=== PATIENT | female | born 1980 | race Caucasian/White ===

== ENCOUNTER → 2020-01-21 15:28 | Outpatient (BNVA) | payer OTHER, MEDICAID, SELFPAY | PROVIDERS: PCP Internal Medicine Geriatric Medicine; Referring Provider Internal Medicine Geriatric Medicine; Visit Provider Surgery | DX: Z76.89 Persons encountering health services in other specified circumstances (principal) ==

== ENCOUNTER → 2020-01-22 14:05 | Outpatient (BNVA) | payer OTHER, MEDICAID, SELFPAY | PROVIDERS: PCP Internal Medicine Geriatric Medicine; Visit Provider Physician Assistant | DX: Z76.89 Persons encountering health services in other specified circumstances (principal) ==

== ENCOUNTER 2020-01-26 11:02 | Outpatient (REF) | payer OTHER, MEDICAID, SELFPAY ==
--- NOTE | 2020-01-26 11:53 | ECG_ITS ---
Test Reason : PRE SURG Blood Pressure : / mmHG Vent. Rate : 076 BPM Atrial Rate : 076 BPM P-R Int : 174 ms QRS Dur : 092 ms QT Int : 392 ms P-R-T Axes : 034 014 012 degrees QTc Int : 441 ms Normal sinus rhythm Normal ECG When compared with ECG of 17-FEB-2019 19:33, Heart rate has decreased Referred By: Deana Barnes Electronically Signed By:VI BOLAÑOS MD
[2020-01-26 12:34] LABS: MANUAL DIFF FLAG NO
[2020-01-26 12:39] LABS: Basophils Percent Auto 0.3 % (0-2); Eosinophils Absolute Auto 0.1 X10*3/uL (0.0-0.4); Hemoglobin 14.1 g/dl (12.0-16.0); Imm Gran Abs Auto 0.03 X10*3/uL (0.00-0.03); Imm Gran Pct Auto 0.4 % (0.0-0.4); Lymphocytes Absolute Auto 1.8 X10*3/uL (1.2-4.9); Lymphocytes Percent Auto 26.1 % (20-40); Mean Corpuscular Hemoglobin 30.1 pg (27.0-33.0); Mean Corpuscular Volume 93.8 fL (80-98); Mean Platelet Volume 9.7 fL (9.4-12.3); Monocytes Absolute Auto 0.5 X10*3/uL (0.1-1.2); Monocytes Percent Auto 7.4 % (2-11); Neutrophils Absolute Auto 4.5 X10*3/uL (2.0-8.3); Neutrophils Percent Auto 64.8 % (45-73); Platelet Count 263 X10*3/uL (160-400); Red Blood Count 4.69 X10*6/uL (4.20-5.50); Red Cell Distribution Width 13.4 % (11.0-16.0)
[2020-01-26 12:46] LABS: Glucose Urine UA NEG (NEG); Leukocyte Esterase Urine NEG (NEG); Nitrite Urine NEG (NEG); PH 5.5 (5.0-8.0); Specific Gravity - Urine 1.025 (1.005-1.025); Urine Blood NEG (NEG); Urine Ketones NEG (NEG); Urine Protein NEG (NEG-TRACE)
[2020-01-26 12:51] LABS: Color Urine YELLOW; UACC Culture Trigger NO
[2020-01-26 12:52] LABS: Appearance Urine HAZY
[2020-01-26 13:11] LABS: Anion Gap 14 (12-20); Blood Urea Nitrogen 15 mg/dL (9-16); Calcium 9.5 mg/dL (8.4-10.2); Carbon Dioxide 25 mmol/L (22-29); Chloride 106 mmol/L (96-108); Estimated Glomerular Filt Rate > 60; Glucose Random 99 mg/dL (60-115); Sodium 141 mmol/L (135-145)
== END 2020-01-26 11:03 | disposition home or self-care (01) ==
LOC: HO.LAB 11:02
PROVIDERS: PCP Internal Medicine Geriatric Medicine; Visit Provider Surgery
DX: R06.02 Shortness of breath (principal)
CPT/HCPCS: 36415; 80048; 81003; 85025; 86850; 93005

== ENCOUNTER 2020-02-03 13:35 | Inpatient (IN) | payer OTHER, MEDICAID, SELFPAY ==
[2020-01-28 09:36] VITALS: BP 115/65; PULSE 70; RESP 16; O2SAT 97; BMI 37.0
--- NOTE | 2020-01-28 09:57 | HO.ANESPROP2 ---
Documented by User: Sarah Bland 02/02/20 10:23 HPI - Anesthesia Eval Consult details Narrative: 40yo F for gastric sleeve PMFSH Past Medical History Medical History (Updated 02/03/20 @ 08:51 by Paige Nuñez) Anxiety Arthritis Bursitis Chronic back pain Degenerative disc disease Depression Diverticular disease Endometriosis Fatty liver GERD (gastroesophageal reflux disease) High cholesterol History of Crabtree's palsy HTN (hypertension) IBS (irritable bowel syndrome) Increased body mass index (BMI) Insomnia Migraines Motion sickness Palpitations PONV (postoperative nausea and vomiting) Pseudotumor cerebri PTSD (post-traumatic stress disorder) Sciatica of left side Scoliosis Sleep apnea TMJ (temporomandibular joint disorder) Vertigo Functional capacity: independent ambulation Family History Family History Father No problems noted. Mother Heart disease Type 2 diabetes mellitus History of smoking Alcoholism COPD (chronic obstructive pulmonary disease) Hyperlipidemia Sister No problems noted. Sister No problems noted. 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 If so, by whom?: No [facility] Practices: [employer] Advance Directives: No Advance Directives Information Provided: No Advance Directives on File: No Recently lost weight without trying: No Narrative Narrative: No recent illness >4 mets with walking for exercise Meds Allergies Allergy/AdvReac Type Severity Reaction Status Date / Time promethazine [From PHENERGAN] Allergy Intermediate PSYCHOSIS Unverified 01/21/20 15:52 NSAIDS (Non-Steroidal Allergy Unknown Gastrointestinal Unverified 01/28/20 09:20 Anti-Inflamma Upset [NSAIDS (NON-STEROIDAL ANTI-INFLAMMA] oxycodone [From PERCOCET] Allergy Unknown headache Unverified 01/21/20 15:52 metoclopramide [From Reglan] AdvReac Intermediate PSYCHOSIS Unverified 01/21/20 15:52 medical tape- tegaderm Allergy Unknown Rash Uncoded 01/28/20 09:20 dermabond Allergy Blister Uncoded 01/28/20 09:20 Home Medications Medication Instructions Recorded Confirmed Type albuterol sulfate 90 mcg/actuation 2 puff INHALATION QID 01/21/20 01/28/20 History aerosol inhaler ascorbic acid (vitamin C) 1,000 mg 1,000 mg PO Q12H 01/21/20 01/28/20 History tablet,extended release bismuth subsalicylate 262 mg/15 mL 524 mg PO Q30M PRN 01/21/20 History oral suspension cholecalciferol (vitamin D3) 25 25 mcg PO DAILY 01/21/20 01/28/20 History mcg (1,000 unit) capsule clonazepam 1 mg tablet 1 mg PO BID 01/21/20 01/28/20 History clonidine HCl 0.1 mg tablet 0.1 mg PO BEDTIME 01/21/20 01/28/20 History dicyclomine 20 mg tablet 20 mg PO QID PRN 01/21/20 01/28/20 History diphenhydramine HCl 25 mg capsule 50 mg PO BEDTIME cap 01/21/20 01/28/20 History lamotrigine 100 mg tablet 100 mg PO DAILY 01/21/20 01/28/20 History methocarbamol 750 mg tablet 750 mg PO QID 01/21/20 01/28/20 History omega-3 fatty acids 1,000 mg 1,000 mg PO DAILY 01/21/20 01/28/20 History capsule sumatriptan succinate 100 mg tablet 100 mg PO Q2-4H PRN 01/21/20 01/28/20 History topiramate 100 mg capsule 100 mg PO DAILY 01/21/20 01/28/20 History sprinkle,extended release 24 hr dycfptej-ppypng-uvh-axh-kkc-dblt-horse tab PO 01/21/20 History 100 mg-100 mg-100 mg-125 mg tab hydrocodone-acetaminophen [Vicodin 1 tab PO Q6H PRN 01/28/20 01/28/20 History HP] zinc acetate 25 mg PO DAILY 01/28/20 01/28/20 History Exam Exam Date and Time: January 28, 2020 0957 Height,Weight and Vital Signs: Height 5 ft 5 in Weight 101.093 kg Last Vital Signs Pulse 70 01/28/20 09:36 Resp 16 01/28/20 09:36 BP 115/65 01/28/20 09:36 Pulse Ox 97 01/28/20 09:36 Pertinent Lab Results Pertinent Lab Results: Laboratory Tests 01/26/20 11:27 Blood Type AB Negative Antibody Screen NEGATIVE Laboratory Tests 01/26/20 01/26/20 11:30 11:30 WBC 7.0 Hgb 14.1 Hct 44.0 Plt Count 263 Sodium 141 Potassium 4.0 Chloride 106 Carbon Dioxide 25 BUN 15 Creatinine 0.69 Estimated GFR > 60 Narrative Narrative: EKG 01/26/20: NSR@76 Airway TM Dist: >3cm (TMJ) Neck ROM: Full Loose/Missing/Broken Teeth: No Heart: RRR Lungs: CTAB Assessment and Plan Assessment Anesthesia Assessment: Anesthesia Plan Discussed and PAT Visit Documented by User: Paige Nuñez 02/03/20 08:52 [facility] Past Medical History Medical History (Updated 02/03/20 @ 08:51 by Paige Nuñez) Anxiety Arthritis Bursitis Chronic back pain Degenerative disc disease Depression Diverticular disease Endometriosis Fatty liver GERD (gastroesophageal reflux disease) High cholesterol History of Crabtree's palsy HTN (hypertension) IBS (irritable bowel syndrome) Increased body mass index (BMI) Insomnia Migraines Motion sickness Palpitations PONV (postoperative nausea and vomiting) Pseudotumor cerebri PTSD (post-traumatic stress disorder) Sciatica of left side Scoliosis Sleep apnea TMJ (temporomandibular joint disorder) Vertigo Family History Family History Father No problems noted. Mother Heart disease Type 2 diabetes mellitus History of smoking Alcoholism COPD (chronic obstructive pulmonary disease) Hyperlipidemia Sister No problems noted. Sister No problems noted. 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 If so, by whom?: No [facility] Practices: [employer] Advance Directives: No Advance Directives Information Provided: No Advance Directives on File: No Recently lost weight without trying: No Meds Allergies Allergy/AdvReac Type Severity Reaction Status Date / Time promethazine [From PHENERGAN] Allergy Intermediate PSYCHOSIS Unverified 01/21/20 15:52 NSAIDS (Non-Steroidal Allergy Unknown Gastrointestinal Unverified 01/28/20 09:20 Anti-Inflamma Upset [NSAIDS (NON-STEROIDAL ANTI-INFLAMMA] oxycodone [From PERCOCET] Allergy Unknown headache Unverified 01/21/20 15:52 metoclopramide [From Reglan] AdvReac Intermediate PSYCHOSIS Unverified 01/21/20 15:52 medical tape- tegaderm Allergy Unknown Rash Uncoded 01/28/20 09:20 dermabond Allergy Blister Uncoded 01/28/20 09:20 Home Medications Medication Instructions Recorded Confirmed Type albuterol sulfate 90 mcg/actuation 2 puff INHALATION QID 01/21/20 01/28/20 History aerosol inhaler ascorbic acid (vitamin C) 1,000 mg 1,000 mg PO Q12H 01/21/20 01/28/20 History tablet,extended release bismuth subsalicylate 262 mg/15 mL 524 mg PO Q30M PRN 01/21/20 History oral suspension cholecalciferol (vitamin D3) 25 25 mcg PO DAILY 01/21/20 01/28/20 History mcg (1,000 unit) capsule clonazepam 1 mg tablet 1 mg PO BID 01/21/20 01/28/20 History clonidine HCl 0.1 mg tablet 0.1 mg PO BEDTIME 01/21/20 01/28/20 History dicyclomine 20 mg tablet 20 mg PO QID PRN 01/21/20 01/28/20 History diphenhydramine HCl 25 mg capsule 50 mg PO BEDTIME cap 01/21/20 01/28/20 History lamotrigine 100 mg tablet 100 mg PO DAILY 01/21/20 01/28/20 History methocarbamol 750 mg tablet 750 mg PO QID 01/21/20 01/28/20 History omega-3 fatty acids 1,000 mg 1,000 mg PO DAILY 01/21/20 01/28/20 History capsule sumatriptan succinate 100 mg tablet 100 mg PO Q2-4H PRN 01/21/20 01/28/20 History topiramate 100 mg capsule 100 mg PO DAILY 01/21/20 01/28/20 History sprinkle,extended release 24 hr zovakoch-udjhjw-fwc-tpv-npo-oock-horse tab PO 01/21/20 History 100 mg-100 mg-100 mg-125 mg tab hydrocodone-acetaminophen [Vicodin 1 tab PO Q6H PRN 01/28/20 01/28/20 History HP] zinc acetate 25 mg PO DAILY 01/28/20 01/28/20 History Assessment and Plan Assessment Anesthesia Assessment: Anesthesia Plan Discussed and Chart Reviewed Final Anesthetic Review NPO: Yes ASA Class: III Final Preanesthetic Review: No Changes in Pt Med Stat, Meds/Allgs Chart Reviewed, Consent Obtained/Reviewed and Anes Risks/Benef Reviewed Patient Risk: Intermediate Procedure Risk: Intermediate Anesthetic Plan Anesthetic Plan: GA Disposition: Extended PACU
--- NOTE | 2020-02-02 16:04 | MHC.SHP ---
Pre-Procedural Eval Section A The patient is an INPATIENT: No The History & Physical has been completed within 30 days and I have reviewed it.: No Section B Chief Complaint: obesity Allergies: Allergies Allergy/AdvReac Type Severity Reaction Status Date / Time promethazine [From PHENERGAN] Allergy Intermediate PSYCHOSIS Unverified 01/21/20 15:52 NSAIDS (Non-Steroidal Allergy Unknown Gastrointestinal Unverified 01/28/20 09:20 Anti-Inflamma Upset [NSAIDS (NON-STEROIDAL ANTI-INFLAMMA] oxycodone [From PERCOCET] Allergy Unknown headache Unverified 01/21/20 15:52 metoclopramide [From Reglan] AdvReac Intermediate PSYCHOSIS Unverified 01/21/20 15:52 medical tape- tegaderm Allergy Unknown Rash Uncoded 01/28/20 09:20 dermabond Allergy Blister Uncoded 01/28/20 09:20 Plan Patient has been examined and remains a candidate for the planned procedure
[2020-02-03] VITALS (30 sets, daily range): BP systolic 109–176; BP diastolic 62–93; PULSE 63–84; RESP 14–20; TEMP 36.1–36.8; O2SAT 93–100
[2020-02-03] MEDS: Lactated Ringers 1,000 ML 125 ML IVCONT (08:37)
[2020-02-03 08:51] LABS: SARS COV2 PCR INHOUSE NEGATIVE (Negative)
[2020-02-03] MEDS: Midazolam HCl/PF 2 MG/2 ML VIAL IVPUSH ×2 (09:07→09:09)
[2020-02-03] MEDS: Scopolamine 1.5 MG PATCH.TD.3 TRANSDERMA (09:09)
--- NOTE | 2020-02-03 12:23 | P.OP_ITS ---
Operative Note Operative Note Narrative: Patient was brought into the operating room and placed on the operating room table in the supine position. General anesthesia was induced. Normal DVT prophylaxis was instituted and the patient received 900 mg of clindamycin preoperatively. The abdomen was then prepped and draped in the normal sterile fashion. A safety time-out was performed. A mixture of 1% lidocaine with epinephrine and ?% Marcaine plain was used to anesthetize the planned incision site in the left upper quadrant. A #11 scalpel was used to make a 5 mm left upper quadrant transverse incision through which a veress needle was placed. Three pops were heard going through the fascia. A saline drop test was used to confirm that the veress needle was intraabdominal. An optiview technique was then used to place a 5mm port in the left upper quadrant. A 5 mm 30 degree laproscope was then placed through this port and the abdominal cavity was surveyed and was normal. The patient was placed in reverse Trendelenburg positioning. A robin liver retractor was then placed in the subxyphoid position and it was used to hold up the left lobe of the liver to the abdominal wall. This was secured to the bed using the liver retractor sigala. A DEO block was then performed for pain control on the right side of the abdomen. A 5 mm port was placed in the right upper quadrant near the falciform ligament. A 12 mm port was then placed in the mid epigastrium. One additional 5 mm port was placed in the left upper quadrant just to the left of the placement of the first port. I then performed a DEO block on the left side of the abdomen. I then removed the epigastric fat pad; there was a small anterior hiatal hernia noted. I reapproximated the left and right crura with a total of 2 stitches of 2-0 ethibond and a laparoscopic knot pusher. There was no residual hiatal hernia. I then opened up the angle of His. We then gained entry into the lesser sac about 4-5 cm from the pylorus. I had anesthesia place a 34 Tamazight orogastric tube into the distal antrum to use as a sizing tool for gastric pouch size. I divided the short gastric vessels up to the angle of His. We then started the creation of the gastric pouch by firing a 60 mm purple load endostapler up the stomach about 4-5 cm from the pylorus. We completed the creation of the gastric pouch using a total of 4 firings of a 60 mm purple load stapler. there is a small amount of oozing from the staple line at the proximal end which we clipped with a large clips were as well as a few clips were added to the antral portion of the staple line. There was no evidence of bleeding.We had anesthesia remove the orogastric tube, then we clamped across the distal antrum using a fired 60 mm endostapler. We flattened the patient and then instilled normal saline surrounding the newly created staple line. I then performed an on-table endoscopy. I passed the gastroscopy into the posterior oropharynx and down the esophagus evaluating the esophageal mucosa which was normal. There was no evidence of hiatal hernia. I passed the gastroscope into the gastric pouch and insufflated the gastric pouch. There was healthy pink mucosa and no evidence of active bleeding. There was no evidence of leak on laparoscopy. I desufflated the gastric pouch and removed the endoscope. I removed the endostapler from the abdomen and suctioned the fluid from the left upper quadrant. I then removed the partial gastrectomy specimen through the epigastric 12 mm port site. I reapproximated the 12 mm port using a 0 maxon suture with a laparoscopic suture passer. I instilled local anesthetic into the fascial closure site and tied the suture down at a pressure of 8-10 mm of Hg. There was no residual fascial defect. We removed the liver retractor and the left upper quadrant 5 mm ports under direct visualization. There was no evidence of any active bleeding. I desufflated the abdomen through the last remaining port and removed the laparoscope and 5 mm port. We reapproximated all incisions with a 4-0 monocryl subcuticular stitch. We cleaned and dried the abdominal skin and applied dermabond skin glue. All count were correct at the end of the case. The patient was awake and in stable condition prior to extubation and transfer to the recovery room.
--- NOTE | 2020-02-03 12:26 | P.BOP_ITS ---
Brief Operative Note Date of procedure: 02/03/20 Pre-op diagnosis: Obesity, BMI 36.4, gastroesophageal reflux disease Post-op diagnosis: other ( same and paraesophageal hernia) Procedure: laparoscopic sleeve gastrectomy, paraesophageal hernia repair, intraoperative endoscopy,DEO block Implants: none Surgeon: Deana Barnes MD Anesthesia: [employer] Consultant: Milagro Burton Estimated blood loss (mL): 5 Pathology: other ( partial gastrectomy) Condition: stable Disposition: PACU
[2020-02-03] MEDS: fentaNYL citrate/PF 100 MCG/2 ML VIAL 25 MCG IVPUSH ×3 (13:12→13:27)
[2020-02-03] MEDS: HYDROmorphone HCl 0.5 MG/0.5 ML SYRINGE 0.25 MG IVPUSH ×5 (13:38→22:34)
[2020-02-03] MEDS: diphenhydrAMINE HCL 50 MG/ML VIAL 25 MG IVPUSH (16:03)
[2020-02-03] MEDS: Lactated Ringers 1,000 ML 150 ML IVCONT ×2 (16:08→22:37)
[2020-02-03] MEDS: ondansetron HCL 4 MG/2 ML VIAL IVPUSH ×2 (17:11→20:59)
--- NOTE | 2020-02-03 18:29 | PC.NURSE ---
PT SCREAMIGN IN PAIN , PT OOB AMBULATING IN TO BATHROOM WITH 2 ASSIST PT MEDICATED WITH BENADRYL AT 1530 . PT MEDICATED WITH IV TYLENOL AT 1732 AND ZOFRAN , PT STILL C/O PAIN / , PT CONT TO SCREAM AND VERY RESTLESS , PT OOB TO RECLINER , AND AMBULATED IN DAY WITH THIS RN . PT CONT TO SCREAM IN PAIN IN MID EPIGASTRIC REGION . PT BACK TO BED AND MEDICATED WITH 0.25 OF DILAUDID AT 1830 . PT EDUCATED ABOUT IMPORTANCE OF RELAXATION TECHNIQUE, DISTRACTIONS TECHNIQUE ATTEMPTED , ICE PACK APPLIED TO ABDOMEN . VSS
--- NOTE | 2020-02-03 20:29 | PM.DS ---
DS: Providers Provider Date of admission: 02/03/20 13:35 Primary care physician: Gabriel Vaughan MD DS: Diagnosis Discharge Diagnosis (1) Obesity: Status: Acute (2) Hiatal hernia: Status: Acute (3) History of repair of hiatal hernia: Status: Acute DS: Summary Time Spent with Patient Time attestation: Total time spent providing and/or coordinating discharge services: Physical Exam Vital Signs: Vital Signs: Vital Signs Temp Pulse Resp BP Pulse Ox 02/03/20 20:00 98.1 F 84 19 142/72 H 96 02/03/20 19:11 97.5 F 76 20 138/81 94 02/03/20 19:09 97.5 F 81 20 138/81 94 02/03/20 16:00 97.5 F 73 19 132/80 97 02/03/20 15:12 70 16 96 02/03/20 15:04 97.6 F 68 15 147/77 H 95 02/03/20 14:49 70 16 141/79 H 95 02/03/20 14:48 16 02/03/20 14:22 78 16 140/70 H 97 02/03/20 14:03 97 F 02/03/20 13:48 63 16 152/75 H 95 02/03/20 13:43 69 18 143/74 H 99 02/03/20 13:40 81 18 152/80 H 99 02/03/20 13:38 18 02/03/20 13:28 63 16 141/86 H 100 02/03/20 13:27 16 02/03/20 13:23 66 16 147/90 H 97 02/03/20 13:21 16 02/03/20 13:18 68 18 168/93 H 99 02/03/20 13:13 78 18 174/93 H 97 02/03/20 13:12 20 02/03/20 12:40 76 16 157/91 H 93 02/03/20 12:35 77 16 160/90 H 94 02/03/20 12:30 81 16 176/71 H 96 02/03/20 12:25 98.1 F 83 14 172/86 H 98 02/03/20 08:49 97.7 F 64 20 115/71 Body Mass Index 37.0 DS: Data Data Completed and Pending Pending studies at discharge: Pending at discharge 02/03/20 11:35 Surgical [PTH] Routine Labs on day of discharge: Labs from last 24 hours 02/03/20 07:55 Coronavirus (PCR) NEGATIVE Discharge Plan Discharge Anticipated Discharge Date/Time: 02/04/20 11:00 Patient Disposition: Home, Self-Care Referrals: Gabriel Vaughan MD [Primary Care Provider] - Discharge Medications: Continued hydrocodone-acetaminophen [Vicodin HP] 10-300 mg Tablet 1 tab PO Q6H PRN (Reason: Pain) RF: 0 zinc acetate 25 mg (zinc) Capsule 25 mg PO DAILY RF: 0 sumatriptan succinate [Imitrex] 100 mg tablet 100 mg PO Q2-4H PRN (Reason: Headache) RF: 0 topiramate 100 mg capsule,sprinkle,ER 24hr 100 mg PO DAILY RF: 0 methocarbamol 750 mg tablet 750 mg PO QID RF: 0 dicyclomine 20 mg tablet 20 mg PO QID PRN (Reason: Abdominal Discomfort) RF: 0 clonazepam 1 mg tablet 1 mg PO BID RF: 0 clonidine HCl 0.1 mg tablet 0.1 mg PO BEDTIME RF: 0 lamotrigine 100 mg tablet 100 mg PO DAILY RF: 0 bismuth subsalicylate [Anti-Diarrheal] 262 mg/15 mL suspension 524 mg PO Q30M PRN (Reason: Diarrhea) RF: 0 diphenhydramine HCl [Benadryl] 25 mg capsule 50 mg PO BEDTIME RF: 0 albuterol sulfate 90 mcg/actuation HFA aerosol inhaler 2 puff inhalation QID RF: 0 ascorbic acid (vitamin C) 1,000 mg tablet extended release 1,000 mg PO Q12H RF: 0 cholecalciferol (vitamin D3) 25 mcg (1,000 unit) capsule 25 mcg PO DAILY RF: 0 omega-3 fatty acids [Fish Oil Concentrate] 1,000 mg capsule 1,000 mg PO DAILY RF: 0 Tumersaid [phone] mg tablet PO RF: 0 famotidine [Pepcid AC] 20 mg tablet 20 mg PO DAILY Qty: 30 RF: 1 acetaminophen [Tylenol Extra Strength] 500 mg tablet 1,000 mg PO Q6H PRN (Reason: pain) Qty: 30 RF: 1 simethicone [Gas Relief (simethicone)] 80 mg tablet,chewable 80 mg PO TID-QID PRN (Reason: abdominal distention) Qty: 30 RF: 1 ondansetron HCl [Zofran] 4 mg tablet 4 mg PO Q6H PRN (Reason: nausea and vomiting) Qty: 30 RF: 1 docusate sodium [Colace] 100 mg capsule 100 mg PO BID Qty: 30 RF: 1 Discharge Orders: Discharge Order (Routine); Ordered 02/04/20 Ordered By: Deana Barnes Diet: other Activity on Discharge: No heavy lifting Activity Restrictions/Additional Instructions: Discharge Instructions 1. Please call your doctor or come back to the emergency room should any new symptoms arise. 2. You will receive a courtesy call from [facility] 24-48 hours after discharge. 3. Activity: abstain from alcohol, practice limited stair climbing, no bending, no driving, no exercise, no illicit substances, no lifting, no sex, no tub bath, no work. 4. Diet: continue stage 3 protein shakes until your [address] Barnes. 5. Dressing Change/Wound Care: Your incision is covered by surgical glue. If the area is tender, you may apply an ice pack for short intervals (no more than 20 minutes on, followed by at least 20 minutes off). Do not apply heat. Do not use creams, lotions, or topical antibiotics unless instructed to do so by your surgeon. These can cause infection or allergic reaction. 6. Call your doctor if: - Your temperature exceeds 101.5 F - You experience excessive pain or swelling - You have an unexpected reaction to medication - You have excessive bleeding - You experience continued vomiting/nausea - Your incision begins to separate - Your incision shows signs of infection such as increased redness, swelling, excessive pain, heat, or drainage (light blood or clear fluid is normal) 7. General instructions: - No lifting greater than 5 lbs for the next 4 weeks. - No driving within 24 hours of taking narcotic pain medications. - If you do not move your bowels in the next 2 days, please take milk of magnesia over the counter. Please follow the post op diet and do not advance your diet until you are seen in the office in about 2 weeks. - Please walk around your home every hour or two to prevent blood clots from forming in your legs. You do not need to wake from sleeping to walk. - Please sleep in a bed or couch to prevent kinking at the hips and knees. - Please take your incentive spirometer (your lung machine cloth examiner) home with you and use it for the next few days to prevent pneumonias. - You may shower, no hot tubs, baths or swimming pools. - Please call the office with any questions or concerns such as increasing abdominal pain, fever, chills, shortness of breath, chest pain, leg pain or swelling, or redness or drainage from your incisions. - Please stay on stage 3 diet which includes sugar free clear liquids such as ice pops and jello and broth and crystal light. Avoid all carbonation. Please drink 3 protein shakes with at least 25-30 grams of protein daily or 3 of the Celebrate 4:1 shakes which can be purchased in our office. The Celebrate shakes have all of the bariatric vitamins you need if you consume these shakes. If you are drinking other protein shakes, you will need to purchase the Celebrate multivitamins and calcium that we provide in the office (they will provide all the vitamins you need). Please make sure you are consuming at least 40-60 ounces of water in addition to your 3 protein shakes daily. 8. Do not hesitate to contact the office with any questions at . Care Plan Goals: weight loss Health Concerns: obesity Plan of Treatment: s/p sleeve gastrectomy
[2020-02-03] MEDS: cloNIDine HCL 0.1 MG TABLET PO (20:59)
[2020-02-03] MEDS: Famotidine/PF 20 MG/2 ML VIAL IVPUSH (20:59)
[2020-02-03] MEDS: clonazePAM 1 MG TABLET PO (20:59)
[2020-02-03] MEDS: cefoTEtan disodium 2 GM in 0.9 % Sodium Chloride 50 ML IV (22:52)
[2020-02-03] MEDS: 0.9 % Sodium Chloride Flush 3 ML SYRINGE IVFLUSH (23:35)
[2020-02-04] MEDS: ondansetron HCL 4 MG/2 ML VIAL IVPUSH ×3 (01:26→07:36)
[2020-02-04 02:53] VITALS: RESP 16
[2020-02-04] MEDS: HYDROmorphone HCl 0.5 MG/0.5 ML SYRINGE 0.25 MG IVPUSH ×2 (02:53→08:39)
[2020-02-04 04:00] VITALS: BP 142/72; PULSE 84; RESP 19; TEMP 37; O2SAT 96
[2020-02-04 05:32] VITALS: BP 146/79; PULSE 72; RESP 20; TEMP 36.5; O2SAT 98
[2020-02-04] MEDS: Lactated Ringers 1,000 ML 150 ML IVCONT (05:50)
[2020-02-04] MEDS: lamoTRIgine 100 MG TABLET PO (07:36)
[2020-02-04] MEDS: Famotidine/PF 20 MG/2 ML VIAL IVPUSH (07:36)
[2020-02-04] MEDS: clonazePAM 1 MG TABLET PO (07:38)
[2020-02-04 08:00] VITALS: BP 137/80; PULSE 55; RESP 20; TEMP 36.1; O2SAT 93
[2020-02-04 09:06] LABS: MANUAL DIFF FLAG NO
--- NOTE | 2020-02-04 09:13 | PM.PNGS ---
Subjective Subjective Interval history: pod 1 s/p lap sleeve gastrectomy and hiatal hernia repair. Nausea resolved and patient tolerating stage 2 diet. She complains of pain at the 12 mm port site. She has been up and ambulating in the hallway and using the incentive spirometer. Physical Exam Vital Signs: Vital Signs: Vital Signs Temp Pulse Resp BP Pulse Ox 02/04/20 08:00 96.9 F 55 20 137/80 93 02/04/20 05:32 97.7 F 72 20 146/79 H 98 02/04/20 04:00 98.6 F 84 19 142/72 H 96 02/04/20 02:53 16 02/03/20 23:23 98.2 F 82 19 109/62 96 02/03/20 23:21 98.1 F 84 19 109/62 96 02/03/20 22:34 18 02/03/20 20:59 84 142/72 H 02/03/20 20:00 98.1 F 84 19 142/72 H 96 02/03/20 19:11 97.5 F 76 20 138/81 94 02/03/20 19:09 97.5 F 81 20 138/81 94 02/03/20 16:00 97.5 F 73 19 132/80 97 02/03/20 15:12 70 16 96 02/03/20 15:04 97.6 F 68 15 147/77 H 95 02/03/20 14:49 70 16 141/79 H 95 02/03/20 14:48 16 02/03/20 14:22 78 16 140/70 H 97 02/03/20 14:03 97 F 02/03/20 13:48 63 16 152/75 H 95 02/03/20 13:43 69 18 143/74 H 99 02/03/20 13:40 81 18 152/80 H 99 02/03/20 13:38 18 02/03/20 13:28 63 16 141/86 H 100 02/03/20 13:27 16 02/03/20 13:23 66 16 147/90 H 97 02/03/20 13:21 16 02/03/20 13:18 68 18 168/93 H 99 02/03/20 13:13 78 18 174/93 H 97 02/03/20 13:12 20 02/03/20 12:40 76 16 157/91 H 93 02/03/20 12:35 77 16 160/90 H 94 02/03/20 12:30 81 16 176/71 H 96 02/03/20 12:25 98.1 F 83 14 172/86 H 98 Body Mass Index 37.0 Const: General: cooperative and no acute distress GI: Inspection: Yes normal to inspection, No distended, Yes incision (bandaids in place.) and Yes obesity Palpation (GI): Soft to palpation and Tenderness to palpation present (GI) (mild incisional tender, appropriate) Progress Note: A&P Assessment and plan (1) History of sleeve gastrectomy: Status: Acute Assessment and Plan: pod 1 s/p sleeve gastrectomy tolerating stage 2 diet. Will advance to stage 3 diet and d/c home when tolerating. (2) History of repair of hiatal hernia: Status: Acute Fall Risk Details Current Medications: Current Medications Generic Name Dose Route Start Last Admin Trade Name Freq PRN Reason Stop Dose Admin Clonazepam 1 mg 02/03/20 21:00 02/04/20 07:38 Clonazepam 1 Mg Tablet PO 1 mg BID DANGELO Administration Clonidine HCl 0.1 mg 02/03/20 21:00 02/03/20 20:59 Clonidine Hcl 0.1 Mg Tablet PO 0.1 mg BEDTIME DANGELO Administration Protocol Famotidine 20 mg 02/03/20 12:45 02/04/20 07:36 Famotidine/Pf 20 Mg/2 Ml Vial IVPUSH 20 mg BID DANGELO Administration Fentanyl 25 mcg 02/03/20 12:50 02/03/20 13:27 Fentanyl Citrate/Pf 100 Mcg/2 Ml Vial IVPUSH 25 mcg Q5M PRN Administration Pain, Moderate (Pain Scale 4-6 Hydromorphone HCl 0.25 mg 02/03/20 12:28 02/04/20 08:39 Hydromorphone Hcl 0.5 Mg/0.5 Ml Syringe IVPUSH 0.25 mg Q4H PRN Administration Pain, Severe (Pain Scale 7-10) Hydromorphone HCl 0.25 mg 02/03/20 12:50 02/03/20 14:48 Hydromorphone Hcl 0.5 Mg/0.5 Ml Syringe IVPUSH 0.25 mg Q5M PRN Administration Pain, Severe (Pain Scale 7-10) Lactated Ringer's 1,000 mls @ 150 mls/hr 02/03/20 12:30 02/04/20 05:50 Lr IVCONT 150 mls/hr .Q6H40M DANGELO Administration Acetaminophen 1,000 mg in 100 mls @ 400 mls/hr 02/03/20 12:30 02/04/20 06:11 Ofirmev IV Infused Q6H DANGELO Infusion Cefotetan Disodium 2 gm/ 50 mls @ 100 mls/hr 02/03/20 22:45 02/03/20 23:48 Sodium Chloride IV Infused POSTOP DANGELO Infusion Lamotrigine 100 mg 02/04/20 09:00 02/04/20 07:36 Lamotrigine 100 Mg Tablet PO 100 mg DAILY DANGELO Administration Ondansetron HCl 4 mg 02/03/20 12:30 02/04/20 07:36 Ondansetron Hcl 4 Mg/2 Ml Vial IVPUSH 4 mg Q4H DANGELO Administration Sodium Chloride 3 ml 02/03/20 16:00 02/04/20 07:33 0.9 % Sodium Chloride Flush 3 Ml Syringe IVFLUSH Not Given QSHIFT DANGELO Time Spent With Patient Time: Total time spent is greater than 50% in coordination of care (as documented) at patient's floor/unit and/or counseling patient: Time with patient: less than 15 minutes
--- NOTE | 2020-02-04 09:14 | HO.POSTANES ---
Post Anesthesia Evaluation Post Anesthesia Evaluation Vital Signs: Vital Signs Temp Pulse Resp BP Pulse Ox 02/04/20 08:00 96.9 F 55 20 137/80 93 02/04/20 05:32 97.7 F 72 20 146/79 H 98 02/04/20 04:00 98.6 F 84 19 142/72 H 96 02/04/20 02:53 16 02/03/20 23:23 98.2 F 82 19 109/62 96 02/03/20 23:21 98.1 F 84 19 109/62 96 02/03/20 22:34 18 Anesthesia: General Mental Status: Awake Pain Control: Satisfactory (C/o pain. Dr Grider aware.) Nausea/Vomiting: None Hydration: Adequate Anesthesia-Related Issues: No Anes. Related Issues
[2020-02-04 09:23] LABS: Basophils Percent Auto 0.2 % (0-2); Hematocrit 42.8 % (37-47); Hemoglobin 13.9 g/dl (12.0-16.0); Imm Gran Abs Auto 0.05 X10*3/uL (0.00-0.03); Imm Gran Pct Auto 0.3 % (0.0-0.4); Lymphocytes Absolute Auto 1.9 X10*3/uL (1.2-4.9); Lymphocytes Percent Auto 13.3 % (20-40); Mean Corpuscular HGB Conc 32.5 g/dl (31.0-35.0); Mean Corpuscular Hemoglobin 30.7 pg (27.0-33.0); Mean Corpuscular Volume 94.5 fL (80-98); Mean Platelet Volume 9.8 fL (9.4-12.3); Monocytes Percent Auto 6.5 % (2-11); Neutrophils Absolute Auto 11.7 X10*3/uL (2.0-8.3); Neutrophils Percent Auto 79.7 % (45-73); Platelet Count 267 X10*3/uL (160-400); Red Blood Count 4.53 X10*6/uL (4.20-5.50); Red Cell Distribution Width 13.5 % (11.0-16.0); White Blood Count 14.6 X10*3/uL (4.8-10.8)
[2020-02-04 09:44] LABS: Anion Gap 18 (12-20); Blood Urea Nitrogen 7 mg/dL (9-16); Calcium 9.2 mg/dL (8.4-10.2); Carbon Dioxide 25 mmol/L (22-29); Chloride 103 mmol/L (96-108); Creatinine Clr Calc Pharmacy 118.2; Estimated Glomerular Filt Rate > 60; Glucose Random 93 mg/dL (60-115); Potassium 4.7 mmol/l (3.3-5.1); Sodium 141 mmol/L (135-145)
--- NOTE | 2020-02-04 10:31 | MHC.CM.PN ---
nurse hospice care consultant note electronic medical record reviewed alomg with case discused with staff nurse and bariatric surgeon, met with patient she lives with her autistic son (neighbor presently caring for him while sh eis in the hsopital), she has been independent in all adls and mobiltiy with out any device patient she is aware that patient will be discharged today she reported that she will be staying at her moms house and her mother will picking machine operator helper her son and bring him aso to her house. she reported thast she seesd a psychiatrist and thearpist . no vna/no dme services discharge plan home no services pt to call pcp for post disacharge gfollow up bariatric follow up as indicated transportation family all discharge ppaperowrk completed
--- NOTE | 2020-03-30 15:53 | PM.DS ---
DS: Providers Provider Date of admission: 02/03/20 13:35 Primary care physician: Gabriel Vaughan MD DS: Diagnosis Discharge Diagnosis (1) Obesity: Status: Acute (2) Hiatal hernia: Status: Acute (3) History of repair of hiatal hernia: Status: Acute Problem details: 02/03/2020 DS: Medications Discharge Medications Home Medications: Home Medications Medication Instructions Recorded Confirmed clonazepam 1 mg tablet 1 mg PO BID 01/21/20 03/09/20 clonidine HCl 0.1 mg tablet 0.1 mg PO BEDTIME 01/21/20 03/09/20 lamotrigine 100 mg tablet 100 mg PO DAILY 01/21/20 03/09/20 methocarbamol 750 mg tablet 750 mg PO QID 01/21/20 03/09/20 sumatriptan succinate 100 mg tablet 100 mg PO Q2-4H PRN 01/21/20 03/09/20 hydrocodone-acetaminophen [Vicodin 1 tab PO Q6H PRN 01/28/20 03/09/20 HP] docusate sodium 100 mg capsule 100 mg PO BID 02/08/20 03/09/20 ascorbate calcium (vitamin C) 500 1,000 mg PO DAILY tab 03/17/20 03/17/20 mg tablet cholecalciferol (vitamin D3) 10 1,000 unit PO DAILY cap 03/17/20 mcg (400 unit) capsule omega-3 fatty acids 1,000 mg 1,000 mg PO DAILY 03/17/20 03/17/20 capsule Previous Rx's Medication Instructions Recorded famotidine 20 mg tablet 20 mg PO DAILY #30 tab 01/21/20 sucralfate [Carafate] 10 ml PO BID #1200 ml 03/01/20 DS: Summary Time Spent with Patient Time attestation: Total time spent providing and/or coordinating discharge services: Physical Exam Vital Signs: Vital Signs: Last Vital Signs Temp 96.9 F 02/04/20 08:00 Pulse 55 02/04/20 08:00 Resp 20 02/04/20 08:00 BP 137/80 02/04/20 08:00 Pulse Ox 93 02/04/20 08:00 Body Mass Index 37.0 DS: Data Data Completed and Pending Completed studies during hospitalization [Text1]: Pending at discharge 02/03/20 11:35 Surgical [PTH] Routine Procedures Excision of Stomach, Percutaneous Endoscopic Approach, Vertical (02/03/20) Excision of Stomach, Pylorus, Via Natural or Artificial Opening Endoscopic, Diagnostic (02/20/20) Repair Diaphragm, Percutaneous Endoscopic Approach (02/03/20) Labs on day of discharge: 01/26/20 11:27 Type and Screen Routine 02/03/20 07:50 Acetaminophen [Ofirmev] 1,000 mg in 100 ml IV PREOP cefoTEtan disod/Dextrose,Iso [Cefotan] 2 gm in 50 ml IV PREOP 02/03/20 07:50 Cooling/Warming Measures Q4HR 02/03/20 07:55 SARS COV2 PCR INHOUSE Stat 02/03/20 08:00 Lactated Ringers [Lr] 1,000 ml IVCONT 125 mls/hr 02/03/20 08:27 Acetaminophen [Ofirmev] 1,000 mg in 100 ml IV As directed cefoTEtan disodium [Cefotan] 2 gm .ROUTE .STK-MED ONE 02/03/20 08:29 Lidocaine HCl 2 % MPF [Xylocaine 2 % MPF] 5 ml .ROUTE .STK-MED ONE Rocuronium [place] [Zemuron] 100 mg IV .STK-MED ONE propofoL [Diprivan] 200 mg IVPUSH .STK-MED ONE 02/03/20 08:55 Midazolam HCl/PF [Versed] 2 mg IVPUSH PREOP ONE Scopolamine [Transderm-Scop] 1.5 mg TRANSDERMA PREOP ONE 02/03/20 09:05 Ketamine HCl/NS 50 mg IVPUSH .STK-MED ONE Midazolam HCl/PF [Versed] 2 mg IVPUSH .STK-MED ONE fentaNYL citrate/PF [Sublimaze] 50 mcg .ROUTE .STK-MED ONE 02/03/20 Breakfast NPO Diet 02/03/20 10:17 Bupivacaine MPF 0.25 % [Sensorcaine-MPF 0.25% 10 ML] 10 ml .ROUTE .STK-MED ONE Lidocaine HCl 1%/Epi 1:100,000 [Xylocaine 1 %-EPI 1:100,000] 30 ml .ROUTE .STK-MED ONE 02/03/20 10:46 Succinylcholine Chloride [Quelicin] 100 mg IVPUSH .STK-MED ONE 02/03/20 11:17 dexAMETHasone sod phosphate [Decadron] 4 mg .ROUTE .[facility] ONE ondansetron HCL [Zofran] 4 mg .ROUTE .[facility] 02/03/20 11:24 propofoL [Diprivan] 200 mg IVPUSH .[facility] 02/03/20 11:25 HYDROmorphone HCl [Dilaudid] 2 mg .ROUTE .[facility] 02/03/20 11:35 Surgical [PTH] Routine 02/03/20 12:01 Sugammadex Sodium [Bridion] 200 mg IVPUSH .[facility] 02/03/20 12:28 Ambulate Q4H WHILE AWAKE Compression Therapy QSHIFT Incentive Spirometry Q1HR WHILE AWAKE Intake and Output Q4HR Code Status Routine HYDROmorphone HCl [Dilaudid] 0.25 mg IVPUSH Q4H PRN Metoclopramide HCl [Reglan] 10 mg IVPUSH Q6H PRN 02/03/20 12:29 Vital Signs Q4H 02/03/20 12:30 Acetaminophen [Ofirmev] 1,000 mg in 100 ml IV Q6H Lactated Ringers [Lr] 1,000 ml IVCONT 150 mls/hr ondansetron HCL [Zofran] 4 mg IVPUSH Q4H 02/03/20 12:36 SUMAtriptan succinate [Imitrex] 100 mg PO Q2H PRN 02/03/20 12:37 fentaNYL citrate/PF [Sublimaze] 100 mcg .ROUTE .[facility] 02/03/20 12:41 Transfer Order Routine 02/03/20 12:45 Famotidine/PF [Pepcid/PF] 20 mg IVPUSH BID 02/03/20 12:50 Continuous pulse oximetry CONT Vital Signs Q4HR Vital Signs Q5MIN HYDROmorphone HCl [Dilaudid] 0.25 mg IVPUSH Q5M PRN fentaNYL citrate/PF [Sublimaze] 25 mcg IVPUSH Q5M PRN 02/03/20 12:52 Oxygen administration Nasal Cannula 2 lpm 02/03/20 13:01 fentaNYL citrate/PF [Sublimaze] 50 mcg IVPUSH ONCE ONE 02/03/20 13:20 fentaNYL citrate/PF [Sublimaze] 100 mcg .ROUTE .[facility] 02/03/20 13:37 HYDROmorphone HCl [Dilaudid] 0.5 mg .ROUTE .STK-MED ONE 02/03/20 14:32 HYDROmorphone HCl [Dilaudid] 0.5 mg .ROUTE .STK-MED ONE 02/03/20 15:13 diphenhydrAMINE HCL [Benadryl] 25 mg IVPUSH ONCE ONE 02/03/20 Lunch Bariatric Phase 2 Diet 02/03/20 16:00 0.9 % Sodium Chloride Flush [NS Flush] 3 ml IVFLUSH QSHIFT 02/03/20 21:00 cloNIDine HCL [Catapres] 0.1 mg PO BEDTIME clonazePAM [KlonoPIN] 1 mg PO BID 02/03/20 22:41 cefoTEtan disodium [Cefotan] 2 gm .ROUTE .STK-MED ONE 02/03/20 22:45 cefoTEtan disod/Dextrose,Iso [Cefotan] 2 gm in 50 ml IV POSTOP cefoTEtan disodium [Cefotan] 2 gm 0.9 % Sodium Chloride [Ns] 50 ml IV POSTOP 02/04/20 08:49 Basic Metabolic Panel DAILY@0600 Complete Blood Count Auto Diff DAILY@0600 02/04/20 09:00 Topiramate [Topamax] 100 mg PO DAILY lamoTRIgine [LaMICtal] 100 mg PO DAILY Laboratory Last Values WBC 14.6 X10*3/uL (4.8-10.8) H 02/04/20 08:49 RBC 4.53 X10*6/uL (4.20-5.50) 02/04/20 08:49 Hgb 13.9 g/dl (12.0-16.0) 02/04/20 08:49 Hct 42.8 % (37-47) 02/04/20 08:49 MCV 94.5 fL (80-98) 02/04/20 08:49 MCH 30.7 pg (27.0-33.0) 02/04/20 08:49 MCHC 32.5 g/dl (31.0-35.0) 02/04/20 08:49 RDW 13.5 % (11.0-16.0) 02/04/20 08:49 Plt Count 267 X10*3/uL (160-400) 02/04/20 08:49 MPV 9.8 fL (9.4-12.3) 02/04/20 08:49 Immature Gran % (Auto) 0.3 % (0.0-0.4) 02/04/20 08:49 Neut % (Auto) 79.7 % (45-73) H 02/04/20 08:49 Lymph % (Auto) 13.3 % (20-40) L 02/04/20 08:49 [place] % (Auto) 6.5 % (2-11) 02/04/20 08:49 Eos % (Auto) 0.0 % (0-4) 02/04/20 08:49 Baso % (Auto) 0.2 % (0-2) 02/04/20 08:49 Lymph # (Auto) 1.9 X10*3/uL (1.2-4.9) 02/04/20 08:49 Robertson # (Auto) 1.0 X10*3/uL (0.1-1.2) 02/04/20 08:49 Eos # (Auto) 0.0 X10*3/uL (0.0-0.4) 02/04/20 08:49 Baso # (Auto) 0.0 X10*3/uL (0.0-0.2) 02/04/20 08:49 Abs Immat Gran (auto) 0.05 X10*3/uL (0.00-0.03) H 02/04/20 08:49 Absolute Neuts (auto) 11.7 X10*3/uL (2.0-8.3) H 02/04/20 08:49 Absolute Nucleated RBC 0.000 X10*3/uL (0.0-0.012) 02/04/20 08:49 Nucleated RBC % (auto) 0.0 /100WBC (0.0-0.2) 02/04/20 08:49 Sodium 141 mmol/L (135-145) 02/04/20 08:49 Potassium 4.7 mmol/l (3.3-5.1) 02/04/20 08:49 Chloride 103 mmol/L (96-108) 02/04/20 08:49 Carbon Dioxide 25 mmol/L (22-29) 02/04/20 08:49 Anion Gap 18 (12-20) 02/04/20 08:49 BUN 7 mg/dL (9-16) L D 02/04/20 08:49 Creatinine 0.73 mg/dL (0.5-1.4) 02/04/20 08:49 Estim Creat Clear Calc 118.2 02/04/20 08:49 Estimated GFR > 60 02/04/20 08:49 Random Glucose 93 mg/dL (60-115) 02/04/20 08:49 Calcium 9.2 mg/dL (8.4-10.2) 02/04/20 08:49 Coronavirus (PCR) NEGATIVE (Negative) 02/03/20 07:55 Blood Type AB Negative 01/26/20 11:27 Antibody Screen NEGATIVE 01/26/20 11:27 Discharge Plan Discharge Anticipated Discharge Date/Time: 02/04/20 11:00 Patient Disposition: Home, Self-Care Referrals: Name,MD Gabriel [Primary Care Provider] - Discharge Medications: Continued hydrocodone-acetaminophen [Vicodin HP] 10-300 mg Tablet 1 tab PO Q6H PRN (Reason: Pain) RF: 0 Hold Instructions: Resume on 04/07/20. try not to take this sumatriptan succinate [Imitrex] 100 mg tablet 100 mg PO Q2-4H PRN (Reason: Headache) RF: 0 methocarbamol 750 mg tablet 750 mg PO QID RF: 0 clonazepam 1 mg tablet 1 mg PO BID RF: 0 clonidine HCl 0.1 mg tablet 0.1 mg PO BEDTIME RF: 0 lamotrigine 100 mg tablet 100 mg PO DAILY RF: 0 famotidine [Pepcid AC] 20 mg tablet 20 mg PO DAILY Qty: 30 RF: 1 No Action sucralfate [Carafate] 100 mg/mL suspension 10 ml PO BID Qty: 1200 RF: 3 docusate sodium [Colace] 100 mg capsule 100 mg PO BID RF: 0 Hold Instructions: Resume on 04/07/20. Do not take this unless you have constipation, discuss with bariatric team first cholecalciferol (vitamin D3) 10 mcg (400 unit) capsule 1,000 unit PO DAILY RF: 0 ascorbate calcium (vitamin C) 500 mg tablet 1,000 mg PO DAILY RF: 0 omega-3 fatty acids [Fish Oil Concentrate] 1,000 mg capsule 1,000 mg PO DAILY RF: 0 Discharge Orders: Discharge Order (Routine); Ordered 02/04/20 Ordered By: Deana Barnes Diet: other Activity on Discharge: No heavy lifting Discharge Date/Time: 02/04/20 11:45 Activity Restrictions/Additional Instructions: Discharge Instructions 1. Please call your doctor or come back to the emergency room should any new symptoms arise. 2. You will receive a courtesy call from [facility] 24-48 hours after discharge. 3. Activity: abstain from alcohol, practice limited stair climbing, no bending, no driving, no exercise, no illicit substances, no lifting, no sex, no tub bath, no work. 4. Diet: continue stage 3 protein shakes until your [address] Barnes. 5. Dressing Change/Wound Care: Your incision is covered by surgical glue. If the area is tender, you may apply an ice pack for short intervals (no more than 20 minutes on, followed by at least 20 minutes off). Do not apply heat. Do not use creams, lotions, or topical antibiotics unless instructed to do so by your surgeon. These can cause infection or allergic reaction. 6. Call your doctor if: - Your temperature exceeds 101.5 F - You experience excessive pain or swelling - You have an unexpected reaction to medication - You have excessive bleeding - You experience continued vomiting/nausea - Your incision begins to separate - Your incision shows signs of infection such as increased redness, swelling, excessive pain, heat, or drainage (light blood or clear fluid is normal) 7. General instructions: - No lifting greater than 5 lbs for the next 4 weeks. - No driving within 24 hours of taking narcotic pain medications. - If you do not move your bowels in the next 2 days, please take milk of magnesia over the counter. Please follow the post op diet and do not advance your diet until you are seen in the office in about 2 weeks. - Please walk around your home every hour or two to prevent blood clots from forming in your legs. You do not need to wake from sleeping to walk. - Please sleep in a bed or couch to prevent kinking at the hips and knees. - Please take your incentive spirometer (your lung principal investigator) home with you and use it for the next few days to prevent pneumonias. - You may shower, no hot tubs, baths or swimming pools. - Please call the office with any questions or concerns such as increasing abdominal pain, fever, chills, shortness of breath, chest pain, leg pain or swelling, or redness or drainage from your incisions. - Please stay on stage 3 diet which includes sugar free clear liquids such as ice pops and jello and broth and crystal light. Avoid all carbonation. Please drink 3 protein shakes with at least 25-30 grams of protein daily or 3 of the Celebrate 4:1 shakes which can be purchased in our office. The Celebrate shakes have all of the bariatric vitamins you need if you consume these shakes. If you are drinking other protein shakes, you will need to purchase the Celebrate multivitamins and calcium that we provide in the office (they will provide all the vitamins you need). Please make sure you are consuming at least 40-60 ounces of water in addition to your 3 protein shakes daily. 8. Do not hesitate to contact the office with any questions at . Discharge Summary Date of Service: 02/04/20 Admitting Diagnosis: obesity Discharge Diagnosis: same, and hiatal hernia Procedure Performed: LSG, Roz block, intra-operative endoscopy, hiatal hernia repair Discharge Medications: 1. Simethicone 80mg tablet chewable (Si tablet every 6 hours orally for 7 days, #28, 1 RF) q4h prn gas 2. Acetaminophen 500 mg tablet (Si tablets as needed every 6 hours orally for 30 days, #240, 0 RF) 3. Ondansetron 4 mg tablet disintegrating (Si tablet every 6 hours orally for 7 days, #28, 1 RF) 4. Colace 100 mg capsule (Si capsule twice a day for 30 days, #60, 2 RF) 5. Pepcid 20 mg chewable tablet (Si tablet twice a day for 30 days, #60, 3 RF) Discharge Instructions: The patient should continue on the stage III bariatric diet, which includes 3 protein shakes of at least 20-30g of protein on a daily basis. The patient was encouraged to avoid drinking liquids with her protein shakes. They should wait 30-45 minutes in between her meals and drinking water. She should drink at least 40-60 ounces of water on a daily basis. They should ambulate while at home to avoid any blood clots in her lower extremities. They should call with any questions or concerns such as increase in abdominal pain, persistent nausea, vomiting, redness and drainage from her incisions, fever, chills, shortness of breast, or chest pain beyond what is normal for her. The patient should avoid all heavy lifting greater than 5 pounds for the next 4 weeks. The patient is already scheduled to follow up with me in 2 weeks time, but should call the office with any questions prior to that follow up appointment. The patient should not advance their diet until they are seen in the office for the 2 week appointment. Hospital Course: The patient was admitted after undergoing SURGERY. They were started on stage II (1 oz of fluid every 15 minutes) on POD #0. The next morning they were evaluated and started on stage III diet (protein shakes). All labs were within normal limits. On post-operative day #1 she was feeling better, nausea and epigastric pain improved and they were tolerating stage III bariatric diet well. The patient was discharged home. Discharge Disposition: Home. Care Plan Goals: weight loss Health Concerns: obesity Plan of Treatment: s/p sleeve gastrectomy
== END 2020-02-04 11:45 | disposition home or self-care (01) | DRG 403 ==
LOC: HO.S3 13:36
PROVIDERS: Nurse Practitioner; Physician Assistant; Admitting Provider Surgery; PCP Internal Medicine Geriatric Medicine; Visit Provider Surgery
PROC: 0DB64Z3 Excision of Stomach, Percutaneous Endoscopic Approach, Vertical (ICD-10-PCS; CPT 43845; principal; 2020-02-03 09:40)
DX: E66.01 Morbid (severe) obesity due to excess calories (principal); F41.9 Anxiety disorder, unspecified; G47.30 Sleep apnea, unspecified; F43.10 Post-traumatic stress disorder, unspecified; K44.9 Diaphragmatic hernia without obstruction or gangrene; Z20.828 Contact with and (suspected) exposure to other viral communicable diseases; Z88.6 Allergy status to analgesic agent; Z88.5 Allergy status to narcotic agent; Z68.37 Body mass index [BMI] 37.0-37.9, adult; Z79.899 Other long term (current) drug therapy
CPT/HCPCS: 36415; 80048; 85025; 86850; 86900; 86901; 87635; 88307; 88342; 99024; C1776; J0131; J0330; J1100; J1170; J1200; J2250; J2405; J3010

== ENCOUNTER → 2020-02-08 13:29 | Outpatient (BNVA) | payer OTHER, MEDICAID, SELFPAY | PROVIDERS: PCP Internal Medicine Geriatric Medicine; Visit Provider Surgery | DX: Z76.89 Persons encountering health services in other specified circumstances (principal) ==

== ENCOUNTER → 2020-02-17 14:26 | Outpatient (BNVA) | payer OTHER, MEDICAID, SELFPAY | PROVIDERS: PCP Orthopaedic Surgery; Referring Provider Orthopaedic Surgery; Visit Provider Physician Assistant | DX: Z76.89 Persons encountering health services in other specified circumstances (principal) ==

== ENCOUNTER 2020-02-19 20:43 | Inpatient (IN) | payer OTHER, MEDICAID, SELFPAY ==
[2020-02-19 20:57] VITALS: BP 124/86; BP 126/80; PULSE 85; PULSE 86; RESP 15; TEMP 37; O2SAT 100; O2SAT 99; BMI 32.8
--- NOTE | 2020-02-19 21:02 | ECG_ITS ---
Test Reason : ABD PAIN Blood Pressure : / mmHG Vent. Rate : 086 BPM Atrial Rate : 086 BPM P-R Int : 176 ms QRS Dur : 086 ms QT Int : 378 ms P-R-T Axes : 040 017 009 degrees QTc Int : 452 ms Poor data quality Normal sinus rhythm Normal ECG When compared with ECG of 26-JAN-2020 11:57, No significant change was found Referred By: Norma Whitt Electronically Signed By:VI BOLAÑOS MD
[2020-02-19 21:04] VITALS: BP 124/86; PULSE 87; RESP 15; TEMP 37; O2SAT 100
--- NOTE | 2020-02-19 21:52 | ED_ITS ---
HPI - Abdominal Pain General Chief Complaint: Abdominal Pain Stated Complaint: ABD PAIN,GASTRIC BYPASS SURGERY 2 WEEKS AGO Time Seen by Provider: 02/19/20 21:02 Source: patient History of Present Illness HPI narrative: This is 40-year-old female who is brought in by EMS for acute onset of severe 10/10 pain that she was awoken from sleep. Her history is notable for having been recently discharged this evening from [facility] after being diagnosed with a splenic infarct and again this was subsequent to gastric bypass which was completed here at [facility]. She states that on discharge she had felt much better took pain medication prior to falling asleep but then awoke and was in severe pain. She denies any fevers, chills, shortness of breath but complains that she noted she had some tingling in her left and has what she describes as a burning sensation from the epigastric area down into the stomach. Related Data Home Medications Medication Instructions Recorded Confirmed clonazepam 1 mg tablet 1 mg PO BID 01/21/20 02/20/20 clonidine HCl 0.1 mg tablet 0.1 mg PO BEDTIME 01/21/20 02/20/20 diphenhydramine HCl 25 mg capsule 50 mg PO BEDTIME cap 01/21/20 02/20/20 lamotrigine 100 mg tablet 100 mg PO DAILY 01/21/20 02/20/20 methocarbamol 750 mg tablet 750 mg PO QID 01/21/20 02/20/20 sumatriptan succinate 100 mg tablet 100 mg PO Q2-4H PRN 01/21/20 02/20/20 topiramate 100 mg capsule 100 mg PO DAILY 01/21/20 02/20/20 sprinkle,extended release 24 hr hydrocodone-acetaminophen [Vicodin 1 tab PO Q6H PRN 01/28/20 02/20/20 HP] docusate sodium 100 mg capsule 100 mg PO BID 02/08/20 02/20/20 Previous Rx's Medication Instructions Recorded acetaminophen 500 mg tablet 1,000 mg PO Q6H PRN #30 tab 01/21/20 famotidine 20 mg tablet 20 mg PO DAILY #30 tab 01/21/20 ondansetron HCl 4 mg tablet 4 mg PO Q6H PRN #30 tab 01/21/20 Allergies Allergy/AdvReac Type Severity Reaction Status Date / Time promethazine [From PHENERGAN] Allergy Intermediate PSYCHOSIS Verified 02/17/20 14:44 NSAIDS (Non-Steroidal Allergy Unknown Gastrointestinal Verified 02/17/20 14:44 Anti-Inflamma Upset [NSAIDS (NON-STEROIDAL ANTI-INFLAMMA] oxycodone [From PERCOCET] Allergy Unknown headache Verified 02/17/20 14:44 metoclopramide [From Reglan] AdvReac Intermediate PSYCHOSIS Verified 02/17/20 14:44 medical tape- tegaderm Allergy Intermediate Rash Uncoded 02/17/20 14:44 dermabond Allergy Blister Uncoded 02/17/20 14:44 Review of Systems Review of Systems Pertinent positives and negatives as stated in HPI 10 point review of systems is otherwise negative. Physical Exam Vital Signs: Vital Signs: Last Vital Signs Temp 98.6 F 02/20/20 04:23 Pulse 84 02/20/20 04:23 Resp 15 02/20/20 04:23 BP 108/48 L 02/20/20 04:23 Pulse Ox 98 02/20/20 04:00 Body Mass Index 32.8 VITAL SIGNS: Reviewed. GENERAL: Well developed, well nourished, in no acute distress. HEAD: Normocephalic/atraumatic, EYES: PERRLA, EOMI intact without pain, no nystagmus/pallor/icterus noted EARS: Ext canals without abnormality, TMs non-bulging and non-erythematous NOSE: Nares patent bilateral OROPHARYNX: no oral lesions noted, posterior pharynx clear and non-erythematous without noted tonsillar enlargement/erythema/exudates NECK: Supple, no adenopathy LUNGS: Normal breath sounds. No adventitious sounds or accessory muscle use. SpO2<100> CARDIOVASCULAR: Regular rate and rhythm without noted murmurs, no JVD or lower extremity edema. ABDOMEN: Soft, ttp epigastrum, non-distended with bowel sounds. No rigidity. No guarding. No palpable masses or hernias noted MUSCULOSKELETAL: No tenderness, deformities, or effusions noted on gross inspection. EXTREMITIES: No cyanosis, clubbing or edema. SKIN: Inspection of the skin reveals no rashes, ulcerations, jaundice, pallor, or petechiae. NEUROLOGIC: Alert and oriented x 4. Strength and sensation to light touch were g rossly intact x 4. Procedures EJ/Peripheral Line Arm R: Time Out Performed: No Skin Cleansed in Sterile Fashion: Yes Size (gauge): 18 IV Secured and Dressing Applied: Yes Patient Tolerated Procedure: well and no complications Course Course Course Narrative: This is a 40-year-old female status post gastric sleeve 02/02/2020 with history and clinical presentation concerning for progression of splenic infarct, pancreatitis, gastritis, less likely internal hernia /ileus and doubt cardiac or pulmonary etiology. Review all investigations is negative for any acute findings when compared to labs obtained from [facility] within the past [address] scan consistent with known splenic infarct. All labs and imaging as well as consultations from [facility] were reviewed and according to patient's surgical evaluation there were no recommended interventions. I discussed this case with General surgery who recommended discussing with [facility] Surgical service. I discussed this case with LYNSEY Burton who is aware the patient. Reevaluation(s) Reevaluation #1: Patient will be admitted to the bariatric surgery service, Dr Estrada. Time: 02:56 MDM - Abdominal Pain Lab Data Result diagrams: 02/20/20 00:33 02/20/20 00:33 Labs: Lab Results 02/19/20 02/20/20 02/20/20 Range/Units 21:04 00:32 00:33 WBC 7.7 (4.8-10.8) X10*3/uL RBC 3.85 L (4.20-5.50) X10*6/uL Hgb 11.9 L (12.0-16.0) g/dl Hct 35.8 L (37-47) % MCV 93.0 (80-98) fL MCH 30.9 (27.0-33.0) pg MCHC 33.2 (31.0-35.0) g/dl RDW 13.5 (11.0-16.0) % Plt Count 209 (160-400) X10*3/uL MPV 9.8 (9.4-12.3) fL Immature Gran % (Auto) 0.5 H (0.0-0.4) % Neut % (Auto) 65.9 (45-73) % Lymph % (Auto) 24.1 (20-40) % [place] % (Auto) 7.6 (2-11) % Eos % (Auto) 1.2 (0-4) % Baso % (Auto) 0.7 (0-2) % Lymph # (Auto) 1.9 (1.2-4.9) X10*3/uL [place] # (Auto) 0.6 (0.1-1.2) X10*3/uL Eos # (Auto) 0.1 (0.0-0.4) X10*3/uL Baso # (Auto) 0.1 (0.0-0.2) X10*3/uL Abs Immat Gran (auto) 0.04 H (0.00-0.03) X10*3/uL Absolute Neuts (auto) 5.1 (2.0-8.3) X10*3/uL Absolute Nucleated RBC 0.000 (0.0-0.012) X10*3/uL Nucleated RBC % (auto) 0.0 (0.0-0.2) /100WBC Sodium (135-145) mmol/L Potassium (3.3-5.1) mmol/l Chloride (96-108) mmol/L Carbon Dioxide (22-29) mmol/L Anion Gap (12-20) BUN (9-16) mg/dL Creatinine (0.5-1.4) mg/dL Estim Creat Clear Calc Estimated GFR Random Glucose (60-115) mg/dL Lactic Acid 0.6 (0.5-2.0) mmol/L Calcium (8.4-10.2) mg/dL Magnesium (1.6-2.6) mg/dL Total Bilirubin (0.0-1.0) mg/dL AST (5-31) U/L ALT (0-31) U/L Alkaline Phosphatase (39-117) U/L Total Protein (6.5-8.0) g/dL Albumin (3.5-5.0) g/dL Lipase (8-78) U/L Urine Color STRAW Urine Appearance CLEAR Urine pH 5.5 (5.0-8.0) Ur Specific [place] 1.020 (1.005-1.025) Urine Protein NEG (NEG-TRACE) MG/DL Urine Glucose (UA) NEG (NEG) MG/DL Urine Ketones >=80 (NEG) MG/DL Urine Blood NEG (NEG) Urine Nitrite NEG (NEG) Ur Leukocyte Esterase NEG (NEG) 02/20/20 02/20/20 Range/Units 00:33 00:33 WBC (4.8-10.8) X10*3/uL RBC (4.20-5.50) X10*6/uL Hgb (12.0-16.0) g/dl Hct (37-47) % MCV (80-98) fL MCH (27.0-33.0) pg MCHC (31.0-35.0) g/dl RDW (11.0-16.0) % Plt Count (160-400) X10*3/uL MPV (9.4-12.3) fL Immature Gran % (Auto) (0.0-0.4) % Neut % (Auto) (45-73) % Lymph % (Auto) (20-40) % [place] % (Auto) (2-11) % Eos % (Auto) (0-4) % Baso % (Auto) (0-2) % Lymph # (Auto) (1.2-4.9) X10*3/uL [place] # (Auto) (0.1-1.2) X10*3/uL Eos # (Auto) (0.0-0.4) X10*3/uL Baso # (Auto) (0.0-0.2) X10*3/uL Abs Immat Gran (auto) (0.00-0.03) X10*3/uL Absolute Neuts (auto) (2.0-8.3) X10*3/uL Absolute Nucleated RBC (0.0-0.012) X10*3/uL Nucleated RBC % (auto) (0.0-0.2) /100WBC Sodium 140 (135-145) mmol/L Potassium 3.6 D (3.3-5.1) mmol/l Chloride 106 (96-108) mmol/L Carbon Dioxide 23 (22-29) mmol/L Anion Gap 15 (12-20) BUN 8 L (9-16) mg/dL Creatinine 0.60 (0.5-1.4) mg/dL Estim Creat Clear Calc 139.6 Estimated GFR > 60 Random Glucose 65 (60-115) mg/dL Lactic Acid (0.5-2.0) mmol/L Calcium 7.9 L D (8.4-10.2) mg/dL Magnesium 1.6 (1.6-2.6) mg/dL Total Bilirubin 0.5 (0.0-1.0) mg/dL AST 19 (5-31) U/L ALT 14 (0-31) U/L Alkaline Phosphatase 66 (39-117) U/L Total Protein 5.4 L (6.5-8.0) g/dL Albumin 3.6 (3.5-5.0) g/dL Lipase 165 H (8-78) U/L Urine Color Urine Appearance Urine pH (5.0-8.0) Ur Specific [place] (1.005-1.025) Urine Protein (NEG-TRACE) MG/DL Urine Glucose (UA) (NEG) MG/DL Urine Ketones (NEG) MG/DL Urine Blood (NEG) Urine Nitrite (NEG) Ur Leukocyte Esterase (NEG) ECG Data Attestation: I personally reviewed and interpreted this ECG as follows: Interpretation: Normal sinus rhythm, HR - 86, no evidence of acute ischemia, IA/QRS/QTC are within normal limits. Discharge Plan Discharge Clinical Impression: Splenic infarct Patient Disposition: Admitted As Inpatient Interventions: Admission Worksheet (ED) Last Done: 02/19/20 23:02 [facility], [facility] Past Medical History Source: nursing notes reviewed Medical History Anxiety Arthritis Bursitis Chronic back pain Degenerative disc disease Depression Diverticular disease Endometriosis Fatty liver GERD (gastroesophageal reflux disease) Hiatal hernia High cholesterol History of Crabtree's palsy HTN (hypertension) IBS (irritable bowel syndrome) Increased body mass index (BMI) Insomnia Malabsorption due to intolerance, not elsewhere classified Migraines Motion sickness Obesity (BMI 30-39.9) Palpitations PONV (postoperative nausea and vomiting) Pseudotumor cerebri PTSD (post-traumatic stress disorder) Sciatica of left side Scoliosis Sleep apnea TMJ (temporomandibular joint disorder) Vertigo Surgical History H/O unilateral oophorectomy History of laparoscopic cholecystectomy History of laparoscopy History of myringotomy History of repair of hiatal hernia History of sleeve gastrectomy History of tonsillectomy History of tonsillectomy and adenoidectomy History of tubal ligation Hx of oophorectomy S/P MALIKA (total abdominal hysterectomy) Family History Family History Father No problems noted. Mother Heart disease Type 2 diabetes mellitus History of smoking Alcoholism COPD (chronic obstructive pulmonary disease) Hyperlipidemia Sister No problems noted. Sister No problems noted. Brother Arthritis Brother Arthritis Son Obesity Autism spectrum disorder Son Fibromyalgia Mood disorder Social History Social History Alcohol intake: never Smoking Status: Never smoker Second Hand Smoke Exposure: No Use of substances other than those prescribed or required for medical reasons: Yes Advance Directives: No Advance Directives Information Provided: Yes service: No Current occupational status: previously employed
[2020-02-19 21:56] VITALS: BP 109/50; PULSE 74; RESP 16; TEMP 36.9; O2SAT 98
[2020-02-19] MEDS: fentaNYL citrate/PF 100 MCG/2 ML VIAL 25 MCG IVPUSH (22:04)
[2020-02-19] MEDS: 0.9 % Sodium Chloride 1,000 ML 1000 ML IV (22:05)
[2020-02-19] MEDS: ondansetron HCL 4 MG/2 ML VIAL IVPUSH (22:34)
--- NOTE | 2020-02-19 22:43 | PC.NURSE ---
Unable to obtain vascular access. Md able to get line using ultrasound. Phlebotomy called to do peripheral drawn. phlebotomy unable to get labs and patient refusing anymore sticks. MD aware.
--- NOTE | 2020-02-19 23:25 | CT_ITS ---
EXAMINATION: CT ABDOMEN AND PELVIS WITH CONTRAST CLINICAL INFORMATION: CT/CT abdomen pelvis w con Pt had CT A/P+ at [facility] on 02/18/2020 Impression: Wedge-shaped nonenhancing region in the superior medial aspect of the spleen, likely a splenic infarct. Worsening left upper quadrant pain COMPARISON: CT abdomen pelvis 06/17/2019 TECHNIQUE: Multidetector volumetric images were obtained from the superior aspect of the liver through the pubic symphysis following administration 85 mL of Omnipaque 350 intravenous contrast. Sagittal and coronal reformatted images were obtained on the technologist's workstation. Oral contrast: No This CT examination was performed using dose optimization techniques as appropriate, variously including the following: *Automated exposure control *Adjustment of mA and/or kV according to patient size (this includes techniques or standardized protocols for targeted exams where dose is matched to indication/reason for exam; i.e. extremities or head) *Use of iterative reconstruction technique DLP: 767 mGy-cm FINDINGS: LUNG BASES: The visualized lung bases are unremarkable. LIVER, GALLBLADDER, AND BILIARY TREE: The liver is normal in size, shape, and attenuation. No focal hepatic lesion or biliary ductal dilatation is present. Status post cholecystectomy with clips in the gallbladder fossa PANCREAS: Unremarkable. SPLEEN: There is a linear wedge-shaped hypoattenuating area at the upper pole of the spleen which branches slightly. This measures about 8 mm and with and 2 to 3 cm in length. Differential diagnosis would include infarct versus splenic laceration. No surrounding hematoma is seen. No other splenic abnormality is seen. ADRENAL GLANDS: Unremarkable. KIDNEYS AND URETERS: The kidneys are normal in size, shape, and attenuation. Bilateral parapelvic renal cysts are present. No hydronephrosis, hydroureter, or calculi seen. No perinephric stranding. BLADDER: Unremarkable. GASTROINTESTINAL TRACT: There has been bariatric surgery with a gastric sleeve. The small and large bowel are unremarkable. The appendix is none identified. ABDOMINAL WALL: No significant hernia is appreciated. LYMPH NODES: No retroperitoneal lymphadenopathy. VASCULAR: Unremarkable. PELVIC VISCERA: Uterus is not seen. An abnormal adnexal mass is not identified. No free pelvic fluid is seen. OSSEOUS STRUCTURES: Unremarkable. IMPRESSION: There is a linear/wedge-shaped splenic hypodensity seen which could represent an infarct. In the correct clinical setting this could represent a laceration, however no associated bleeding or stranding seen, which makes less likely. Incidental note made of cholecystectomy, hysterectomy, bilateral parapelvic cysts and bariatric surgery.
[2020-02-19 23:40] LABS: Appearance Urine CLEAR; Color Urine STRAW; Glucose Urine UA NEG (NEG); Leukocyte Esterase Urine NEG (NEG); Nitrite Urine NEG (NEG); PH 5.5 (5.0-8.0); UACC Culture Trigger NO; Urine Blood NEG (NEG); Urine Ketones >=80 MG/DL (NEG); Urine Protein NEG (NEG-TRACE)
[2020-02-20] VITALS (17 sets, daily range): BP systolic 101–124; BP diastolic 48–72; PULSE 58–84; RESP 14–18; TEMP 36.1–37; O2SAT 94–98
[2020-02-20] MEDS: iohexoL 350 MG/ML 100 ML INFUS..BTL 85 ML IV (00:17)
[2020-02-20 00:40] LABS: Basophils Absolute Auto 0.1 X10*3/uL (0.0-0.2); Basophils Percent Auto 0.7 % (0-2); Eosinophils Absolute Auto 0.1 X10*3/uL (0.0-0.4); Eosinophils Percent Auto 1.2 % (0-4); Hematocrit 35.8 % (37-47); Hemoglobin 11.9 g/dl (12.0-16.0); Imm Gran Abs Auto 0.04 X10*3/uL (0.00-0.03); Imm Gran Pct Auto 0.5 % (0.0-0.4); Lymphocytes Absolute Auto 1.9 X10*3/uL (1.2-4.9); Lymphocytes Percent Auto 24.1 % (20-40); MANUAL DIFF FLAG NO; Mean Corpuscular HGB Conc 33.2 g/dl (31.0-35.0); Mean Corpuscular Hemoglobin 30.9 pg (27.0-33.0); Mean Platelet Volume 9.8 fL (9.4-12.3); Monocytes Absolute Auto 0.6 X10*3/uL (0.1-1.2); Monocytes Percent Auto 7.6 % (2-11); Neutrophils Absolute Auto 5.1 X10*3/uL (2.0-8.3); Neutrophils Percent Auto 65.9 % (45-73); Platelet Count 209 X10*3/uL (160-400); Red Blood Count 3.85 X10*6/uL (4.20-5.50); Red Cell Distribution Width 13.5 % (11.0-16.0); White Blood Count 7.7 X10*3/uL (4.8-10.8)
[2020-02-20] MEDS: fentaNYL citrate/PF 100 MCG/2 ML VIAL 25 MCG IVPUSH (00:40)
[2020-02-20 00:56] LABS: Lactic Acid 0.6 mmol/L (0.5-2.0)
[2020-02-20 01:03] LABS: Alanine Aminotransferase 14 U/L (0-31); Albumin Level 3.6 g/dL (3.5-5.0); Alkaline Phosphatase 66 U/L (39-117); Anion Gap 15 (12-20); Aspartate Amino Transferase 19 U/L (5-31); Bilirubin Total 0.5 mg/dL (0.0-1.0); Blood Urea Nitrogen 8 mg/dL (9-16); Calcium 7.9 mg/dL (8.4-10.2); Carbon Dioxide 23 mmol/L (22-29); Chloride 106 mmol/L (96-108); Creatinine Clr Calc Pharmacy 139.6; Estimated Glomerular Filt Rate > 60; Glucose Random 65 mg/dL (60-115); Lipase 165 U/L (8-78); Magnesium 1.6 mg/dL (1.6-2.6); Potassium 3.6 mmol/l (3.3-5.1); Sodium 140 mmol/L (135-145); Total Protein 5.4 g/dL (6.5-8.0)
[2020-02-20] MEDS: 0.9 % Sodium Chloride 1,000 ML 1000 ML IV (01:24)
[2020-02-20] MEDS: Lactated Ringers 1,000 ML 150 ML IVCONT ×3 (03:13→19:13)
[2020-02-20] MEDS: HYDROmorphone HCl 0.5 MG/0.5 ML SYRINGE 0.25 MG IVPUSH ×5 (03:15→21:30)
[2020-02-20] MEDS: ondansetron HCL 4 MG/2 ML VIAL IVPUSH ×2 (03:16→16:27)
[2020-02-20] MEDS: Famotidine/PF 20 MG/2 ML VIAL IVPUSH ×2 (04:31→10:42)
[2020-02-20] MEDS: LORazepam 2 MG/ML VIAL 0.25 MG IVPUSH ×4 (08:19→21:30)
--- NOTE | 2020-02-20 08:40 | PC.NURSE ---
pt aware of plan of care for admission to hosp.
[2020-02-20] MEDS: 0.9 % Sodium Chloride Flush 3 ML SYRINGE IVFLUSH ×2 (09:32→20:36)
--- NOTE | 2020-02-20 11:21 | PM.HPGS ---
History of Present Illness History of Present Illness Chief complaint: ABD PAIN,GASTRIC BYPASS SURGERY 2 WEEKS AGO Narrative: Irena Wofl is a 40 year old female who presented for severe epigastric pain radiating to the back and left shoulder. She states that this pain was present from her surgery and required opioids at home. Presented to [facility] 24 hours ago and remained overnight. She was diagnosed with a 3cm splenic infarct. Decided to go home but returned to our ER with similar pain. Also states that she has a burning sensation and dry heaving and has been unable to drink anything other than water. Review of Systems ENT: Reports dysphagia Gastrointestinal: Gastrointestinal: Reports as per HPI, Reports abdominal pain, Reports dysphagia, Reports heartburn, Reports nausea and Reports vomiting Musculoskeletal: Musculoskeletal: Reports back pain and Reports other (left shoulder pain) [facility] Past Medical History Medical History Anxiety Arthritis Bursitis Chronic back pain Degenerative disc disease Depression Diverticular disease Endometriosis Fatty liver GERD (gastroesophageal reflux disease) Hiatal hernia High cholesterol History of Crabtree's palsy HTN (hypertension) IBS (irritable bowel syndrome) Increased body mass index (BMI) Insomnia Malabsorption due to intolerance, not elsewhere classified Migraines Motion sickness Obesity (BMI 30-39.9) Palpitations PONV (postoperative nausea and vomiting) Pseudotumor cerebri PTSD (post-traumatic stress disorder) Sciatica of left side Scoliosis Sleep apnea TMJ (temporomandibular joint disorder) Vertigo Family History Family History Father No problems noted. Mother Heart disease Type 2 diabetes mellitus History of smoking Alcoholism COPD (chronic obstructive pulmonary disease) Hyperlipidemia Sister No problems noted. Sister No problems noted. Brother Arthritis Brother Arthritis Son Obesity Autism spectrum disorder Son Fibromyalgia Mood disorder Surgical History Surgical History H/O unilateral oophorectomy History of laparoscopic cholecystectomy History of laparoscopy History of myringotomy History of repair of hiatal hernia History of sleeve gastrectomy History of tonsillectomy History of tonsillectomy and adenoidectomy History of tubal ligation Hx of oophorectomy S/P MALIKA (total abdominal hysterectomy) Social History Social History Alcohol intake: never Smoking Status: Never smoker Second Hand Smoke Exposure: No Use of substances other than those prescribed or required for medical reasons: Yes Advance Directives: No Advance Directives Information Provided: Yes service: No Current occupational status: previously employed Meds Allergies Allergy/AdvReac Type Severity Reaction Status Date / Time promethazine [From PHENERGAN] Allergy Intermediate PSYCHOSIS Verified 02/17/20 14:44 NSAIDS (Non-Steroidal Allergy Unknown Gastrointestinal Verified 02/17/20 14:44 Anti-Inflamma Upset [NSAIDS (NON-STEROIDAL ANTI-INFLAMMA] oxycodone [From PERCOCET] Allergy Unknown headache Verified 02/17/20 14:44 metoclopramide [From Reglan] AdvReac Intermediate PSYCHOSIS Verified 02/17/20 14:44 medical tape- tegaderm Allergy Intermediate Rash Uncoded 02/17/20 14:44 dermabond Allergy Blister Uncoded 02/17/20 14:44 Home Medications Medication Instructions Recorded Confirmed Type clonazepam 1 mg tablet 1 mg PO BID 01/21/20 02/20/20 History clonidine HCl 0.1 mg tablet 0.1 mg PO BEDTIME 01/21/20 02/20/20 History diphenhydramine HCl 25 mg capsule 50 mg PO BEDTIME cap 01/21/20 02/20/20 History lamotrigine 100 mg tablet 100 mg PO DAILY 01/21/20 02/20/20 History methocarbamol 750 mg tablet 750 mg PO QID 01/21/20 02/20/20 History sumatriptan succinate 100 mg tablet 100 mg PO Q2-4H PRN 01/21/20 02/20/20 History topiramate 100 mg capsule 100 mg PO DAILY 01/21/20 02/20/20 History sprinkle,extended release 24 hr hydrocodone-acetaminophen [Vicodin 1 tab PO Q6H PRN 01/28/20 02/20/20 History HP] docusate sodium 100 mg capsule 100 mg PO BID 02/08/20 02/20/20 History Physical Exam Vital Signs: Vital Signs: Last Vital Signs Temp 98.2 F 02/20/20 08:12 Pulse 67 02/20/20 10:57 Resp 16 02/20/20 10:57 BP 101/57 L 02/20/20 10:57 Pulse Ox 97 02/20/20 10:57 Body Mass Index 32.8 GI: Inspection: Yes normal to inspection, Yes incision (clean, dry and intact) and Yes obesity Palpation (GI): Tenderness to palpation present (GI) in the epigastrum and in the LUQ Extrem: Right lower extremity: normal to inspection (no calf tenderness) Left lower extremity: normal to inspection (no calf tenderness) Results Results Labs: Short CBC 02/20/20 Range/Units 00:33 WBC 7.7 (4.8-10.8) X10*3/uL Hgb 11.9 L (12.0-16.0) g/dl Hct 35.8 L (37-47) % Plt Count 209 (160-400) X10*3/uL BMP 02/20/20 00:33 Sodium 140 Potassium 3.6 D Chloride 106 Carbon Dioxide 23 BUN 8 L Creatinine 0.60 Calcium 7.9 L D Liver Function 02/20/20 Range/Units 00:33 Total Bilirubin 0.5 (0.0-1.0) mg/dL AST 19 (5-31) U/L ALT 14 (0-31) U/L Alkaline Phosphatase 66 (39-117) U/L Albumin 3.6 (3.5-5.0) g/dL Urine 02/19/20 Range/Units 21:04 Urine Color STRAW Urine Appearance CLEAR Urine pH 5.5 (5.0-8.0) Ur Specific [place] 1.020 (1.005-1.025) Urine Protein NEG (NEG-TRACE) MG/DL Urine Glucose (UA) NEG (NEG) MG/DL Assessment and Plan (1) Abdominal pain: Status: Acute 1) keep NPO and pain management 2) Review CT for SMV/splenic vein thrombosis 3) IV vitamin supplementation, Protonix and Carafate (2) Splenic infarct: Status: Acute (3) History of sleeve gastrectomy: Problem details: DOS 02/03/20, Dr. Barnes Status: Acute (4) Hiatal hernia: Status: Acute (5) Dysphagia: Status: Acute UGI on Saturday Findings and plan were discussed with the patient in detail and patient is in agreement with the above plan Procedures Abscess I/D Date of Service: 02/20/20
[2020-02-20 14:17] LABS: Amylase 120 U/L (28-100)
[2020-02-20 14:19] LABS: Lipase 166 U/L (8-78)
[2020-02-20] MEDS: Pantoprazole Sodium 40 MG/10 ML VIAL IVPUSH ×2 (16:32→20:36)
[2020-02-20] MEDS: Sucralfate Oral Suspension 1 GM/10 ML ORAL.SUSP PO (20:36)
[2020-02-21] VITALS (9 sets, daily range): BP systolic 100–148; BP diastolic 58–81; PULSE 45–69; RESP 12–24; TEMP 35.9–37.2; O2SAT 95–99
--- NOTE | 2020-02-21 | ECG_ITS ---
Test Reason : STROKE Blood Pressure : / mmHG Vent. Rate : 048 BPM Atrial Rate : 047 BPM P-R Int : 000 ms QRS Dur : 096 ms QT Int : 474 ms P-R-T Axes : 000 011 012 degrees QTc Int : 423 ms Poor data quality Sinus bradycardia Nonspecific ST abnormality Abnormal ECG No previous ECGs available Referred By: Pa Hickey Electronically Signed By:VI BOLAÑOS MD
--- NOTE | 2020-02-21 | CT_ITS ---
EXAMINATION: CT HEAD WITHOUT CONTRAST (STROKE PROTOCOL) CLINICAL INFORMATION: Stroke protocol. COMPARISON: MRI brain 11/26/[address] examinations dating back to 2007 TECHNIQUE: Contiguous axial imaging was performed from the skull base to vertex without intravenous administration of contrast. This CT examination was performed using dose optimization techniques as appropriate, variously including the following: *Automated exposure control *Adjustment of mA and/or kV according to patient size (this includes techniques or standardized protocols for targeted exams where dose is matched to indication/reason for exam; i.e. extremities or head) *Use of iterative reconstruction technique DLP: 772 mGy-cm FINDINGS: There is no intracranial hemorrhage, hematoma, or extra-axial fluid collection. The ventricles are normal in size. There is no hydrocephalus, edema, or mass effect. The rubi-white matter differentiation appears symmetric. There is no acute infarct or mass lesion. The calvarium appears intact. There is no pneumocephalus or orbital emphysema. The visualized sinuses and middle ears and mastoid air cells show no significant mucosal thickening. There are no air-fluid levels. CT/CT head for stroke IMPRESSION: No acute intracranial pathology. This critical result was discussed with Pa Hickey MD at 2100 hours on 02/21/2020. It was ascertained that the content and urgency of the report was understood at the time of direct communication.
[2020-02-21] MEDS: ondansetron HCL 4 MG/2 ML VIAL IVPUSH ×3 (00:31→16:52)
[2020-02-21] MEDS: HYDROmorphone HCl 0.5 MG/0.5 ML SYRINGE 0.25 MG IVPUSH ×6 (01:41→20:54)
[2020-02-21] MEDS: LORazepam 2 MG/ML VIAL 0.25 MG IVPUSH ×5 (01:47→19:33)
[2020-02-21] MEDS: Lactated Ringers 1,000 ML 150 ML IVCONT ×2 (02:13→08:45)
[2020-02-21] MEDS: Sucralfate Oral Suspension 1 GM/10 ML ORAL.SUSP PO ×2 (08:37→22:39)
[2020-02-21] MEDS: Pantoprazole Sodium 40 MG/10 ML VIAL IVPUSH ×2 (08:37→22:39)
--- NOTE | 2020-02-21 08:56 | P.PNGS_ITS ---
Subjective Subjective Interval history: This is a 40 yo lady who is 2.5 weeks s/p LSG and hiatal hernia repair with Dr. Barnes (DOs 02/03/20). She was last seen in the office this past week for her 2 week post op appointment. At that time, she was not taking in enough protein or drinking enough water. The next morning she felt short of breath and nauseated, then she went to [facility] ER. Was kept overnight for observation. CT showed splenic infarct. Came back to [place] ER early Saturday morning, and we admitted her to our service. Repeat CT again showed splenic infarct. Lipase levels are lower than when she was at [facility] but still above normal limits. Dr. Estrada saw the patient yesterday. Today, patient reports chest/mediastinal sharp pain and burning, especially after trying to swallow like the carafate. Also notes L medial knee pain, and RLQ pain. Feels chills but no fever or SOB. States pain 8/10, well-controlled with Dilaudid but it wears off after 3 hours. Having trouble taking carafate. <Milagro Burton PA-C - Last Filed: 02/21/20 11:11> Physical Exam Vital Signs: Vital Signs: Last Vital Signs Temp 98.9 F 02/21/20 07:55 Pulse 58 02/21/20 07:55 Resp 20 02/21/20 07:55 BP 106/58 L 02/21/20 07:55 Pulse Ox 97 02/21/20 07:55 Body Mass Index 32.8 <Milagro Burton PA-C - Last Filed: 02/21/20 11:11> Const: General: cooperative, alert and awake <CARLOS Wilson Last Filed: 02/21/20 11:11> Resp: Effort & Inspection: normal respiratory effort and able to speak in complete sentences <CARLOS Wilson Last Filed: 02/21/20 11:11> Auscultation: clear to auscultation bilaterally <CARLOS Wilson Last Filed: 02/21/20 11:11> Cardio: Rate: regular rate <CARLOS Wilson Last Filed: 02/21/20 11:11> Rhythm: regular rhythm <Milagro Burton PA-C Max Last Filed: 02/21/20 11:11> GI: Inspection: Yes normal to inspection, Yes incision (well-healing) and Yes obesity <Milagro Burton PA-C Max Last Filed: 02/21/20 11:11> Palpation (GI): Soft to palpation, Tenderness to palpation present (GI) (at 12mm port site), no guarding and not rigid <MONALISA WilsonGuevara Santana Last Filed: 02/21/20 11:11> Auscultation: normal bowel sounds <MONALISA WilsonGuevara Santana Last Filed: 02/21/20 11:11> Extrem: Right lower extremity: normal to inspection and lower leg Details: no edema; no tenderness; no edema <MONALISA WilsonGuevara Santana Last Filed: 02/21/20 11:11> Left lower extremity: normal to inspection, knee (tender to palpation L medial knee, normal visual inspection) and lower leg Details: no edema; no tenderness; no edema <MONALISA WilsonGuevara Santana Last Filed: 02/21/20 11:11> Progress Note: A&P Assessment and plan (1) History of sleeve gastrectomy: Status: Acute <Milagro Burton PA-C Max Last Filed: 02/21/20 11:11> (2) Hiatal hernia: Status: Acute <MONALISA WilsonGuevara Santana Last Filed: 02/21/20 11:11> (3) Abdominal pain: Status: Acute <MONALISA WilsonGuevara Santana Last Filed: 02/21/20 11:11> Assessment and Plan: This is a 40 yo lady admitted early Saturday morning 02/20/20. Is 2. 5 weeks s/p laparoscopic sleeve gastrectomy and hiatal hernia repair with Dr. Barnes (DOS 02/03/20). Had two ER visits in the last 36 hours before [place] [facility] Remain NPO except carafate, continue IVF, IV protonix, IV pain management. Will increase Dilauded to q3h prn severe pain. Continue IV Tylenol. Change fluids to D51/2NS. Plan on UGI tomorrow morning. Patient in agreement and understanding of the plan. Plan discussed with attending Dr. Estrada. <Milagro Burton PA-C - Last Filed: 02/21/20 11:11> Fall Risk Details Current Medications: Current Medications Generic Name Dose Route Start Last Admin Trade Name Freq PRN Reason Stop Dose Admin Hydromorphone HCl 0.25 mg 02/20/20 02:38 02/21/20 05:26 Hydromorphone Hcl 0.5 Mg/0.5 Ml Syringe IVPUSH 0.25 mg Q4H PRN Administration Pain, Severe (Pain Scale 7-10) Lactated Ringer's 1,000 mls @ 150 mls/hr 02/20/20 02:45 02/21/20 08:45 Lr IVCONT 150 mls/hr .Q6H40M DANGELO Administration Acetaminophen 1,000 mg in 100 mls @ 16.7 mls/hr 02/20/20 02:45 02/21/20 04:58 Ofirmev IV 16.7 mls/hr .Q6H DANGELO Administration Lorazepam 0.25 mg 02/20/20 02:49 02/21/20 06:16 Lorazepam 2 Mg/Ml Vial IVPUSH 0.25 mg RQ4H PRN Administration anxiety/restlessness Ondansetron HCl 4 mg 02/21/20 00:00 02/21/20 08:37 Ondansetron Hcl 4 Mg/2 Ml Vial IVPUSH 4 mg Q8H DANGELO Administration Pantoprazole Sodium 40 mg 02/20/20 16:01 02/21/20 08:37 Pantoprazole Sodium 40 Mg/10 Ml Vial IVPUSH 40 mg BID DANGELO Administration Sodium Chloride 3 ml 02/20/20 08:00 02/21/20 08:37 0.9 % Sodium Chloride Flush 3 Ml Syringe IVFLUSH Not Given QSHIFT DANGELO Sucralfate 1 gm 02/20/20 21:00 02/21/20 08:37 Sucralfate Oral Suspension 1 Gm/10 Ml Oral.Susp PO 1 gm BID DANGELO Administration <Milagro Burton PA-C - Last Filed: 02/21/20 11:11> Time Spent With Patient Time: Total time spent is greater than 50% in coordination of care (as documented) at patient's floor/unit and/or counseling patient: <Milagro Burton PA-C - Last Filed: 02/21/20 11:11> Time with patient: 15 - 24 minutes <Milagro Burton PA-C - Last Filed: 02/21/20 11:11> Procedures Abscess I/D Date of Service: 02/21/20 <Milagro Burton PA-C - Last Filed: 02/21/20 11:11>
--- NOTE | 2020-02-21 10:15 | MHC.CM.PN ---
Pt reports she lives at home with her 17yo autistic son and their toy poodle. Pt reports she is independent with self care and mobility. pt reports she has a cpap that works however she has not been using it because she has been so sick. Pt reports she has no home services and is still active with [facility]. She currently attends therapy sessions via t/c or text. Pt reports she knows she may be having a surgery and home services may be recommended however she is not willing to have anyone come into her home at this time due to Covid 19. Pt confirms her PCP is Nick Casillas. Pt has no HCP and is not interested in completing one today. She reports she does not have anyone at this time she could trust with such decisions. Pts current DC plan is home with resumption of mental health services through [facility] pt will need assistance with transportation at DC
[2020-02-21] MEDS: Dextrose 5 % and Lactated Ring 1,000 ML 125 ML IVCONT ×2 (12:04→21:00)
--- NOTE | 2020-02-21 20:14 | PM.EVENT ---
Event Note Date of Service: 02/21/20 Event Note: MARKETING FINANCE MANAGER called around 8:10 pm given there is new evidence of generalized weakness more pronounced in the left upper extremity suspicious for a stroke. I evaluated and examined at the patient at the bedside, there is evidence of bilateral UE and LE weakness, more pronounced in the LUE and bilateral LE. Patient reports having a hx of a brain tumor in the past. Patient as well has hx of a recent splenic infarct and a gastric sleeve sx, admitted currently due to persistent abdominal pain to the surgical service. STAT CT head to be obtained to r/o stroke as well as EKG. vital signs obtained which are normal. Patient awake, alert, oriented at present, c/o mild chest discomfort.
[2020-02-21 20:49] LABS: Glucose, Whole Blood 87 mg/dL (60-115)
[2020-02-21 20:56] LABS: Glucose, Whole Blood 101 mg/dL (60-115)
--- NOTE | 2020-02-21 21:25 | PC.NURSE ---
LYNSEY Burton said to let her know prior to procedure so pt can get extra dose of dilaudid
[2020-02-22] VITALS (10 sets, daily range): BP systolic 124–160; BP diastolic 66–94; PULSE 49–75; RESP 16–19; TEMP 36.1–37.1; O2SAT 93–100; BMI 32.8
--- NOTE | 2020-02-22 | XR_ITS ---
EXAMINATION: XR ABDOMEN KUB CLINICAL INDICATION: Follow-up to upper GI COMPARISON: Upper GI examination from today TECHNIQUE: AP view of the abdomen. FINDINGS: Contrast has fully exited the stomach. No residual contrast in the stomach. Contrast has passed distally in the small bowel. No dilated loops of bowel. Surgical clips from sleeve gastrectomy. No acute osseous abnormality. XR/XR KUB IMPRESSION: Contrast has fully exited the stomach. There is significant distal passage of contrast throughout the small bowel. This study was performed approximately 1 hour after the initial upper GI examination.
--- NOTE | 2020-02-22 00:45 | PC.NURSE ---
Approximate 2200 patient was transferred from [place] to [facility]. patient was complaining of severe pain yelling and stating she was having a panic attack. Patient given IV ativan prior to transfer. RN went to get PRN dilaudid and when returned to the room patients speech was slurred, minimal left facial droop, tingling in left extremities as well as left hand contracture and weakness to BLE and Left upper extremity. SENIOR SERVICE TECHNICIAN called Nursing supervisors and up top bedside. EKG and CT ordered and completed. Neither showed anything acute at this time.Patient still screaming in pain and was given dialaudid 0.25mg as ordered patient no longer yelling in pain, resting in bed talking to family on the phone. Symptoms almost all resolved and she only has left hand contracture and weakness. Patient no longer has facial droop and is able to move her BLE. Patient c/o only with taking PO carafate and movement in bed. Patient being medicated as ordered. Patient reported to this nurse that she has a history of [place] Palsy and Dr. Arciniega notified of this update. This RN also sent message to to update of the situation, He is aware and no new orders at this time. Oncoming RN notified and aware.
[2020-02-22] MEDS: HYDROmorphone HCl 0.5 MG/0.5 ML SYRINGE 0.25 MG IVPUSH ×6 (00:46→19:47)
[2020-02-22] MEDS: ondansetron HCL 4 MG/2 ML VIAL IVPUSH ×4 (00:46→23:31)
[2020-02-22] MEDS: LORazepam 2 MG/ML VIAL 0.25 MG IVPUSH ×6 (01:37→22:33)
[2020-02-22] MEDS: Dextrose 5 % and Lactated Ring 1,000 ML 125 ML IVCONT ×3 (04:27→21:35)
--- NOTE | 2020-02-22 08:00 | FL_ITS ---
EXAMINATION: XR GI SERIES CLINICAL INFORMATION: Abdominal pain status post sleeve gastrectomy COMPARISON: CT from 02/19/2020. TECHNIQUE: Fluoroscopic assessment of the upper GI tract was performed in various upright obliquities utilizing water-soluble contrast. FINDINGS: Patient is status post sleeve gastrectomy with multiple surgical clips noted. There is free passage of contrast through the esophagus and into the stomach without delay. Contrast freely passes throughout the entirety of the stomach. There is no leak. There is no focal abnormality identified. Of note, contrast is not visualized exiting the stomach throughout the course of the examination. During the examination the patient described pain occurring, pointing inferior to the level of the stomach. FLUOROSCOPY TIME: 3.1 minutes DOSE AREA PRODUCT: 54.235 Gy-cm2 (rubi-centimeter squared) FL/FL upper GI series IMPRESSION: There is no evidence of leak or obstruction. Normal passage of contrast through the esophagus into the stomach.
[2020-02-22] MEDS: Pantoprazole Sodium 40 MG/10 ML VIAL IVPUSH ×2 (09:00→20:38)
--- NOTE | 2020-02-22 09:57 | PM.PNGS ---
Subjective Subjective Interval history: Last night patient had L upper extremity weakness and L sided facial drooping, stat head CT ordered which was normal, assessed by hospitalist. Patient reported similar experience years ago related to anxiety. Had an UGI this morning. States she has 9/10 pain RLQ/lower abdomen/periumbilical, 8/10 pain L inframammary/rib, and radiating to left back. States she has daily chest pains and chills, no fever or SOB. Physical Exam Vital Signs: Vital Signs: Last Vital Signs Temp 98.2 F 02/22/20 07:42 Pulse 52 02/22/20 07:42 Resp 18 02/22/20 07:59 BP 124/66 02/22/20 07:42 Pulse Ox 96 02/22/20 07:42 Body Mass Index 32.8 Const: General: cooperative, alert, awake and Physically active Orientation/consciousness: oriented to person, oriented to place and oriented to time Cardio: Rate: regular rate Rhythm: regular rhythm GI: Palpation (GI): Soft to palpation and Tenderness to palpation present (GI) (RLQ/periumbilical) Auscultation: normal bowel sounds Neuro: General: oriented to person, oriented to place and oriented to time Extrem: Right lower extremity: no edema and lower leg not examined (calf tenderness) Left lower extremity: no edema and lower leg not examined (calf tenderness) Progress Note: A&P Assessment and plan (1) Splenic infarct: Status: Acute (2) Obesity: Status: Acute (3) History of sleeve gastrectomy: Problem details: DOS 02/03/20, Dr. Barnes Status: Acute (4) History of repair of hiatal hernia: Problem details: 02/03/2020 Status: Acute (5) Abdominal pain: Status: Acute Assessment and Plan: UGI this morning was normal and f/u KUB image showed complete gastric emptying and contrast moving through small bowel. Reviewed normal results with patient. Started phase 3 and gave sheets to log po intake, explained with her and nurse how to drink 1 oz over 15 minutes, every 15 minutes, and log on the paper. Will add back in her po home psychiatric meds. Discussed plan with patient, RN, and attending Dr. Estrada. Fall Risk Details Current Medications: Current Medications Generic Name Dose Route Start Last Admin Trade Name Freq PRN Reason Stop Dose Admin Hydromorphone HCl 0.25 mg 02/21/20 10:58 02/22/20 07:59 Hydromorphone Hcl 0.5 Mg/0.5 Ml Syringe IVPUSH 0.25 mg Q3H PRN Administration Pain, Severe (Pain Scale 7-10) Acetaminophen 1,000 mg in 100 mls @ 16.7 mls/hr 02/20/20 02:45 02/22/20 09:08 Ofirmev IV 0 mls/hr .Q6H DANGELO Infusion Dextrose/Lactated Ringer's 1,000 mls @ 125 mls/hr 02/21/20 12:00 02/22/20 09:08 D5lr IVCONT 0 mls/hr .Q8H DANGELO Infusion Lorazepam 0.25 mg 02/20/20 02:49 02/22/20 08:09 Lorazepam 2 Mg/Ml Vial IVPUSH 0.25 mg RQ4H PRN Administration anxiety/restlessness Ondansetron HCl 4 mg 02/21/20 00:00 02/22/20 07:59 Ondansetron Hcl 4 Mg/2 Ml Vial IVPUSH 4 mg Q8H DANGELO Administration Pantoprazole Sodium 40 mg 02/20/20 16:01 02/22/20 09:00 Pantoprazole Sodium 40 Mg/10 Ml Vial IVPUSH 40 mg BID DANGELO Administration Sodium Chloride 3 ml 02/20/20 08:00 02/22/20 07:38 0.9 % Sodium Chloride Flush 3 Ml Syringe IVFLUSH Not Given QSHIFT DANGELO Sucralfate 1 gm 02/20/20 21:00 02/22/20 09:01 Sucralfate Oral Suspension 1 Gm/10 Ml Oral.Susp PO Not Given BID DANGELO Time Spent With Patient Time: Total time spent is greater than 50% in coordination of care (as documented) at patient's floor/unit and/or counseling patient: Time with patient: 15 - 24 minutes Procedures Abscess I/D Date of Service: 02/22/20
[2020-02-22] MEDS: lamoTRIgine 100 MG TABLET PO (13:38)
--- NOTE | 2020-02-22 13:43 | MHC.CM.PN ---
NURSE NEW PATIENT ESCORT NOTE ELECRRNIC MEDICAL RECORD REVIEWED ALONG WITH CASE DISCUSSED WITH STAFF NURSE. VIA TIGER TEXT CASE DISCUSUSED WITH BARIATRIC P.A. WORK UP TO R/O STROKE WAS NEGATIVE , HAS CONFIRMED SPLENIC INFARCT PER DOCUMENTATION PLAN OF CARE CONTINUE IV FLUIDS, IV DIAUDID, IV ZOFRAN, IV PROTONIX BARIATRIC PHASE THREE DIET DISCHARGE PLAN HOME WITH ANTICIPATED NO SERVICES
[2020-02-22] MEDS: Sucralfate Oral Suspension 1 GM/10 ML ORAL.SUSP PO (20:38)
[2020-02-22] MEDS: cloNIDine HCL 0.1 MG TABLET PO (20:38)
[2020-02-23] VITALS (9 sets, daily range): BP systolic 119–150; BP diastolic 67–92; PULSE 50–95; RESP 16–19; TEMP 36.2–36.8; O2SAT 93–98
[2020-02-23] MEDS: HYDROmorphone HCl 0.5 MG/0.5 ML SYRINGE 0.25 MG IVPUSH ×6 (00:04→22:35)
[2020-02-23] MEDS: Dextrose 5 % and Lactated Ring 1,000 ML 125 ML IVCONT ×3 (04:49→21:17)
[2020-02-23] MEDS: ondansetron HCL 4 MG/2 ML VIAL IVPUSH ×2 (07:37→16:52)
[2020-02-23] MEDS: 0.9 % Sodium Chloride Flush 3 ML SYRINGE IVFLUSH (07:37)
[2020-02-23] MEDS: LORazepam 2 MG/ML VIAL 0.25 MG IVPUSH ×3 (07:40→16:52)
[2020-02-23] MEDS: Sucralfate Oral Suspension 1 GM/10 ML ORAL.SUSP PO ×2 (08:41→20:42)
[2020-02-23] MEDS: lamoTRIgine 100 MG TABLET PO (08:41)
[2020-02-23] MEDS: Pantoprazole Sodium 40 MG/10 ML VIAL IVPUSH ×2 (08:41→20:40)
--- NOTE | 2020-02-23 09:47 | MHC.CM.PN ---
nurse customer care voice consultant note electronic medical record reviewed , patient is still complaing of pain and havinfg difficulty with the current baraitric phase 3 diet , bariatric surgeon t make some changes in the strength adn frequency of ingetions continue current pain managemnt , mnitoring all labs and pain assessment cont iv medications and fuids discharge nunes at this time anticipate discharge e no services
--- NOTE | 2020-02-23 11:18 | PM.PNGS ---
Subjective Subjective Interval history: Patient complaines of difficully with the protein shakes. It is easier to drink water or other thin liquids. UGI was reviewed and results were discussed with the patient. No GERD or recurrent diaphragmatic hernia. No stricture or obstruction. Physical Exam Vital Signs: Vital Signs: Last Vital Signs Temp 97.7 F 02/23/20 08:00 Pulse 50 02/23/20 08:00 Resp 18 02/23/20 10:05 BP 150/85 H 02/23/20 08:00 Pulse Ox 98 02/23/20 08:00 Body Mass Index 32.8 Resp: Effort & Inspection: normal respiratory effort Cardio: Rate: regular rate GI: Inspection: Yes normal to inspection, Yes incision (clean and healing well) and Yes obesity Progress Note: A&P Assessment and plan (1) Abdominal pain: Problem details: Emphasized the importance of doing the protein first. Reduced pace to 1oz every 30min. We will provide to her the 4:1 shakes Record intake accurately. Status: Acute Fall Risk Details Current Medications: Current Medications Generic Name Dose Route Start Last Admin Trade Name Miki PRN Reason Stop Dose Admin Clonidine HCl 0.1 mg 02/22/20 21:00 02/22/20 20:38 Clonidine Hcl 0.1 Mg Tablet PO 0.1 mg BEDTIME DANGELO Administration Protocol Hydromorphone HCl 0.25 mg 02/22/20 12:52 02/23/20 10:05 Hydromorphone Hcl 0.5 Mg/0.5 Ml Syringe IVPUSH 0.25 mg Q4H PRN Administration Pain, Severe (Pain Scale 7-10) Acetaminophen 1,000 mg in 100 mls @ 16.7 mls/hr 02/20/20 02:45 02/23/20 06:38 Ofirmev IV 16.7 mls/hr .Q6H DANGELO Administration Dextrose/Lactated Ringer's 1,000 mls @ 125 mls/hr 02/21/20 12:00 02/23/20 04:49 D5lr IVCONT 125 mls/hr .Q8H DANGELO Administration Lamotrigine 100 mg 02/22/20 14:00 02/23/20 08:41 Lamotrigine 100 Mg Tablet PO 100 mg DAILY DANGELO Administration Lorazepam 0.25 mg 02/20/20 02:49 02/23/20 07:40 Lorazepam 2 Mg/Ml Vial IVPUSH 0.25 mg RQ4H PRN Administration anxiety/restlessness Ondansetron HCl 4 mg 02/21/20 00:00 02/23/20 07:37 Ondansetron Hcl 4 Mg/2 Ml Vial IVPUSH 4 mg Q8H DANGELO Administration Pantoprazole Sodium 40 mg 02/20/20 16:01 02/23/20 08:41 Pantoprazole Sodium 40 Mg/10 Ml Vial IVPUSH 40 mg BID DANGELO Administration Sodium Chloride 3 ml 02/20/20 08:00 02/23/20 07:37 0.9 % Sodium Chloride Flush 3 Ml Syringe IVFLUSH 3 ml QSHIFT DANGELO Administration Sucralfate 1 gm 02/20/20 21:00 02/23/20 08:41 Sucralfate Oral Suspension 1 Gm/10 Ml Oral.Susp PO 1 gm BID DANGELO Administration Time Spent With Patient Time: Total time spent is greater than 50% in coordination of care (as documented) at patient's floor/unit and/or counseling patient: Time with patient: 15 - 24 minutes Procedures Abscess I/D Date of Service: 02/23/20
[2020-02-23] MEDS: cloNIDine HCL 0.1 MG TABLET PO (20:42)
[2020-02-24] VITALS (10 sets, daily range): BP systolic 118–177; BP diastolic 65–90; PULSE 50–82; RESP 12–19; TEMP 36.1–37.1; O2SAT 93–98
[2020-02-24] MEDS: ondansetron HCL 4 MG/2 ML VIAL IVPUSH ×3 (00:51→15:11)
[2020-02-24] MEDS: LORazepam 2 MG/ML VIAL 0.25 MG IVPUSH ×4 (00:52→19:47)
[2020-02-24] MEDS: HYDROmorphone HCl 0.5 MG/0.5 ML SYRINGE 0.25 MG IVPUSH ×5 (03:51→21:26)
[2020-02-24] MEDS: Dextrose 5 % and Lactated Ring 1,000 ML 125 ML IVCONT ×3 (05:01→21:27)
--- NOTE | 2020-02-24 07:15 | PC.NURSE ---
pt states she was not able to drink any of her shakes every time she had a drink her pain increased nd she had loose stools she said yesterday up to 10 pm she had 5 loose stools
--- NOTE | 2020-02-24 07:40 | PM.PNGS ---
Subjective Subjective Interval history: Contnues to complain with pain during drinking. Pain begins a few seconds after drinking and improves only when she stops drinking. Was only able to have 7 oz of protein shake yesterday. Physical Exam Vital Signs: Vital Signs: Last Vital Signs Temp 97.0 F 02/24/20 03:41 Pulse 69 02/24/20 03:41 Resp 19 02/24/20 03:41 BP 118/65 02/24/20 03:41 Pulse Ox 97 02/24/20 03:41 Body Mass Index 32.8 GI: Inspection: Yes normal to inspection, Yes incision (healing well) and Yes obesity Palpation (GI): Tenderness to palpation present (GI) in the epigastrum Progress Note: A&P Assessment and plan (1) Abdominal pain: Problem details: Emphasized the importance of doing the protein first. Reduced pace to 1oz every 30min. We will provide to her the 4:1 shakes Record intake accurately. Status: Acute (2) Dysphagia: Problem details: Continue with Celebrate 4:1 shake only 1oz every hour. EGD tomorrow Status: Acute Fall Risk Details Current Medications: Current Medications Generic Name Dose Route Start Last Admin Trade Name Freq PRN Reason Stop Dose Admin Clonidine HCl 0.1 mg 02/22/20 21:00 02/23/20 20:42 Clonidine Hcl 0.1 Mg Tablet PO 0.1 mg BEDTIME DANGELO Administration Protocol Hydromorphone HCl 0.25 mg 02/22/20 12:52 02/24/20 03:51 Hydromorphone Hcl 0.5 Mg/0.5 Ml Syringe IVPUSH 0.25 mg Q4H PRN Administration Pain, Severe (Pain Scale 7-10) Acetaminophen 1,000 mg in 100 mls @ 16.7 mls/hr 02/20/20 02:45 02/24/20 04:59 Ofirmev IV 16.7 mls/hr .Q6H DANGELO Administration Dextrose/Lactated Ringer's 1,000 mls @ 125 mls/hr 02/21/20 12:00 02/24/20 05:01 D5lr IVCONT 125 mls/hr .Q8H DANGELO Administration Lamotrigine 100 mg 02/22/20 14:00 02/23/20 08:41 Lamotrigine 100 Mg Tablet PO 100 mg DAILY DANGELO Administration Lorazepam 0.25 mg 02/20/20 02:49 02/24/20 00:52 Lorazepam 2 Mg/Ml Vial IVPUSH 0.25 mg RQ4H PRN Administration anxiety/restlessness Ondansetron HCl 4 mg 02/21/20 00:00 02/24/20 00:51 Ondansetron Hcl 4 Mg/2 Ml Vial IVPUSH 4 mg Q8H DANGELO Administration Pantoprazole Sodium 40 mg 02/20/20 16:01 02/23/20 20:40 Pantoprazole Sodium 40 Mg/10 Ml Vial IVPUSH 40 mg BID DANGELO Administration Sodium Chloride 3 ml 02/20/20 08:00 02/24/20 01:42 0.9 % Sodium Chloride Flush 3 Ml Syringe IVFLUSH Not Given QSHIFT DANGELO Sucralfate 1 gm 02/20/20 21:00 02/23/20 20:42 Sucralfate Oral Suspension 1 Gm/10 Ml Oral.Susp PO 1 gm BID DANGELO Administration Time Spent With Patient Time: Total time spent is greater than 50% in coordination of care (as documented) at patient's floor/unit and/or counseling patient: Time with patient: less than 15 minutes Procedures Abscess I/D Date of Service: 02/24/20
[2020-02-24] MEDS: Pantoprazole Sodium 40 MG/10 ML VIAL IVPUSH ×2 (08:31→21:26)
[2020-02-24] MEDS: Sucralfate Oral Suspension 1 GM/10 ML ORAL.SUSP PO ×2 (08:37→21:25)
[2020-02-24] MEDS: lamoTRIgine 100 MG TABLET PO (08:37)
--- NOTE | 2020-02-24 09:44 | MHC.CM.PN ---
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 pain medicationas needed iv hydromorphine q4hrs prn,iv acetaminophen q6hrs iv lorazepam q4hrs prn for agitatin iv pantoprazoe id and iv fluids at 125 cc, schedued for egd tomrrow 02/25/2020 discharge plan anticipate diascharge abdiel,e [facility] services pcp patient to call for post hospita discvharge fllow up bariatric surgica; folow up per discharge instructions imm given 02/23/2020
[2020-02-24] MEDS: 0.9 % Sodium Chloride Flush 3 ML SYRINGE IVFLUSH (15:10)
--- NOTE | 2020-02-24 18:19 | PC.NURSE ---
PT UNABLE TO TOLERATE DRINKS. STATES SHE HAS STOMACH SPASMS INTERMITTENTLY AFTER DRINKING. DENIES N/V. 2 SOFT BROWN BM IN TOILET.
[2020-02-24] MEDS: cloNIDine HCL 0.1 MG TABLET PO (21:25)
[2020-02-25] VITALS (11 sets, daily range): BP systolic 107–147; BP diastolic 60–86; PULSE 56–102; RESP 16–24; TEMP 36.1–36.8; O2SAT 91–100; BMI 32.3
[2020-02-25] MEDS: ondansetron HCL 4 MG/2 ML VIAL IVPUSH ×3 (00:20→15:33)
[2020-02-25] MEDS: LORazepam 2 MG/ML VIAL 0.25 MG IVPUSH ×5 (00:28→20:24)
[2020-02-25] MEDS: HYDROmorphone HCl 0.5 MG/0.5 ML SYRINGE 0.25 MG IVPUSH ×5 (01:26→22:38)
[2020-02-25] MEDS: Dextrose 5 % and Lactated Ring 1,000 ML 125 ML IVCONT ×3 (05:30→22:43)
[2020-02-25] MEDS: Pantoprazole Sodium 40 MG/10 ML VIAL IVPUSH ×2 (08:35→20:16)
--- NOTE | 2020-02-25 10:43 | P.HPSUR_ITS ---
Pre-Procedural Eval Section A The patient is an INPATIENT: Yes The History & Physical has been completed within 30 days and I have reviewed it.: No Section B Chief Complaint: Splenic Infarct, S/P LSG Details of Present Illness: Persistent dysphagia and odynophagia Relevant Family History (Specify if Yes): No Relevant Social History: None Present Medications: see Short Stay Collaborative assessment Medical History: No relevant PMH History of Previous Operations: Relevant previous surgery/procedure and date(s) (lap sleeve gastrectomy) Allergies: Allergies Allergy/AdvReac Type Severity Reaction Status Date / Time promethazine [From PHENERGAN] Allergy Intermediate PSYCHOSIS Verified 02/17/20 14:44 NSAIDS (Non-Steroidal Allergy Unknown Gastrointestinal Verified 02/17/20 14:44 Anti-Inflamma Upset [NSAIDS (NON-STEROIDAL ANTI-INFLAMMA] oxycodone [From PERCOCET] Allergy Unknown headache Verified 02/17/20 14:44 metoclopramide [From Reglan] AdvReac Intermediate PSYCHOSIS Verified 02/17/20 14:44 medical tape- tegaderm Allergy Intermediate Rash Uncoded 02/17/20 14:44 dermabond Allergy Blister Uncoded 02/17/20 14:44 Review of Systems Sugical H&P ROS: Negative: Constitution, Cardiovascular, Respiratory, Neurological, Psychiatric, Hem-Onc, Allergic/Immunologic, Gastrointestinal, Genitourinary, Musculoskeletal, Integumentary, Endocrine and Eyes/Ears/Nose/ Throat Exam Surgical H&P Exam: Normal: HEENT, Normal: Heart, Normal: Lungs, Normal: Extremities, Normal: Abdomen, Normal: Skin and Normal: Neurological Plan Diagnosis/Plan: Unchanged (Upper endoscopy to assess patient's symptoms) Patient has been examined and remains a candidate for the planned procedure
--- NOTE | 2020-02-25 11:36 | P.BOP_ITS ---
Brief Operative Note Date of Service: 02/25/20 Pre-op diagnosis: Dysphagia, Odynophagia, s/p sleeve gastrectomy Post-op diagnosis: same Procedure: PROCEDURE DATE: 02/25/2020 PREOPERATIVE DIAGNOSIS: Dysphagia, Odynophagia, s/p sleeve gastrectomy POSTOPERATIVE DIAGNOSIS: Same as above. 1) small hiatal hernia, 2) distal gastritis PROCEDURE: Tdhyagaf-[id number] with biopsies Surgeon: Tony Esrtada M.D.. Ph.D. Automobile Dealer: None Anesthesia: IV sedation Estimated blood loss: Minimal FINDINGS AND PROCEDURE: OPERATIVE INDICATIONS: The patient is a 40 year old female known to me who underwent a laparoscopic sleeve gastrectomy. The patient was doing very well but has recently been complaining of dysphagia and odynophagia particularly with the protein shakes being unable to have an adequate PO intake. An UGI was performed which showed mild delay in the passage of contrast to the duodenum. Based on this information I recommended an upper endoscopy to evaluate the patient's symptoms. Risks and complications of the surgery were discussed with the patient in advance particularly the possibility of perforation or bleeding that may require surgical intervention. The patient understood the risks and was in agreement with the plan. PROCEDURE: After informed consent was obtained by the patient, the patient was transferred to the Operating Room and was placed in the supine position. After successful induction of IV sedation, a mouth block was inserted and the patient was placed in the left lateral decubitus position. An upper endoscopy was performed next, the oropharynx and esophagus appeared within the normal limits. There was a small hiatal hernia. The z-line was smooth and there was no stricture. The sleeve was entered and it appeared to be of normal size. There was gastritis at distal antrum. There was no stricture or ulcer. Biopsy was obtained from the distal antrum. No significant bleeding was noted from the biopsy site. The scope was then advanced into the duodenum which appeared to be normal as well. At that point the duodenum and the sleeve were decompressed and the scope was withdrawn from the patient's mouth. The patient extubated and was transferred in stable condition to the Recovery Room for further care. I was present and performed all steps of the procedure. There were no residents to assist with this case. Tony Estrada M.D., Ph.D. Surgeon: Eulogio Estrada MD Anesthesia: MAC Estimated blood loss (mL): 0 IV fluids (mL): 250 Urine output (mL): 0 (No Garcia to record) Pathology: none sent Condition: stable Disposition: PACU
--- NOTE | 2020-02-25 11:37 | HO.ANESPROP2 ---
FORM[facility]LY [facility] Past Medical History Medical History Anxiety Arthritis Bursitis Chronic back pain Constipation Degenerative disc disease Depression Diverticular disease Elevated lipase Endometriosis Fatty liver GERD (gastroesophageal reflux disease) Hiatal hernia High cholesterol History of Crabtree's palsy HTN (hypertension) IBS (irritable bowel syndrome) Increased body mass index (BMI) Insomnia Malabsorption due to intolerance, not elsewhere classified Migraines Motion sickness Nausea Obesity (BMI 30-39.9) Palpitations PONV (postoperative nausea and vomiting) Pseudotumor cerebri PTSD (post-traumatic stress disorder) Sciatica of left side Scoliosis Sleep apnea Splenic infarction TMJ (temporomandibular joint disorder) Vertigo Family History Family History Father No problems noted. Mother Heart disease Type 2 diabetes mellitus History of smoking Alcoholism COPD (chronic obstructive pulmonary disease) Hyperlipidemia Sister No problems noted. Sister No problems noted. Brother Arthritis Brother Arthritis Son Obesity Autism spectrum disorder Son Fibromyalgia Mood disorder Surgical History Surgical History H/O unilateral oophorectomy History of laparoscopic cholecystectomy History of laparoscopy History of myringotomy History of repair of hiatal hernia History of sleeve gastrectomy History of tonsillectomy History of tonsillectomy and adenoidectomy History of tubal ligation Hx of oophorectomy S/P MALIKA (total abdominal hysterectomy) Social History Social History Household Members: Children Housing: Apartment Alcohol intake: never Smoking Status: Never smoker Second Hand Smoke Exposure: No service: No Current occupational status: unemployed Meds Allergies Allergy/AdvReac Type Severity Reaction Status Date / Time promethazine [From PHENERGAN] Allergy Intermediate PSYCHOSIS Verified 02/25/20 11:15 NSAIDS (Non-Steroidal Allergy Unknown Gastrointestinal Verified 02/25/20 11:15 Anti-Inflamma Upset [NSAIDS (NON-STEROIDAL ANTI-INFLAMMA] oxycodone [From PERCOCET] Allergy Unknown headache Verified 02/25/20 11:15 metoclopramide [From Reglan] AdvReac Intermediate PSYCHOSIS Verified 02/25/20 11:15 medical tape- tegaderm Allergy Intermediate Rash Uncoded 02/25/20 11:15 dermabond Allergy Blister Uncoded 02/25/20 11:15 Home Medications Medication Instructions Recorded Confirmed Type clonazepam 1 mg tablet 1 mg PO BID 01/21/20 02/20/20 History clonidine HCl 0.1 mg tablet 0.1 mg PO BEDTIME 01/21/20 02/20/20 History diphenhydramine HCl 25 mg capsule 50 mg PO BEDTIME cap 01/21/20 02/20/20 History lamotrigine 100 mg tablet 100 mg PO DAILY 01/21/20 02/20/20 History methocarbamol 750 mg tablet 750 mg PO QID 01/21/20 02/20/20 History sumatriptan succinate 100 mg tablet 100 mg PO Q2-4H PRN 01/21/20 02/20/20 History topiramate 100 mg capsule 100 mg PO DAILY 01/21/20 02/20/20 History sprinkle,extended release 24 hr hydrocodone-acetaminophen [Vicodin 1 tab PO Q6H PRN 01/28/20 02/20/20 History HP] docusate sodium 100 mg capsule 100 mg PO BID 02/08/20 02/20/20 History Exam Exam Date and Time: February 25, 2020 1137 Height,Weight and Vital Signs: Height 5 ft 6 in Weight 90.9 kg Last Vital Signs Temp 97.6 F 02/25/20 11:05 Pulse 61 02/25/20 11:05 Resp 16 02/25/20 11:05 BP 131/86 02/25/20 11:05 Pulse Ox 100 02/25/20 11:05 Pertinent Lab Results Pertinent Lab Results: Laboratory Tests 02/19/20 02/20/20 02/20/20 21:04 00:32 00:33 WBC 7.7 RBC 3.85 L Hgb 11.9 L Hct 35.8 L MCV 93.0 MCH 30.9 MCHC 33.2 RDW 13.5 Plt Count 209 MPV 9.8 Immature Gran % (Auto) 0.5 H Neut % (Auto) 65.9 Lymph % (Auto) 24.1 Howard % (Auto) 7.6 Eos % (Auto) 1.2 Baso % (Auto) 0.7 Lymph # (Auto) 1.9 Howard # (Auto) 0.6 Eos # (Auto) 0.1 Baso # (Auto) 0.1 Abs Immat Gran (auto) 0.04 H Absolute Neuts (auto) 5.1 Absolute Nucleated RBC 0.000 Nucleated RBC % (auto) 0.0 Sodium Potassium Chloride Carbon Dioxide Anion Gap BUN Creatinine Estim Creat Clear Calc Estimated GFR POC Glucose Random Glucose Lactic Acid 0.6 Calcium Magnesium Total Bilirubin AST ALT Alkaline Phosphatase Total Protein Albumin Amylase Lipase Urine Color STRAW Urine Appearance CLEAR Urine pH 5.5 Ur Specific Sultan 1.020 Urine Protein NEG Urine Glucose (UA) NEG Urine Ketones >=80 Urine Blood NEG Urine Nitrite NEG Ur Leukocyte Esterase NEG 02/20/20 02/20/20 02/21/20 00:33 00:33 20:17 WBC RBC Hgb Hct MCV MCH MCHC RDW Plt Count MPV Immature Gran % (Auto) Neut % (Auto) Lymph % (Auto) Howard % (Auto) Eos % (Auto) Baso % (Auto) Lymph # (Auto) Howard # (Auto) Eos # (Auto) Baso # (Auto) Abs Immat Gran (auto) Absolute Neuts (auto) Absolute Nucleated RBC Nucleated RBC % (auto) Sodium 140 Potassium 3.6 D Chloride 106 Carbon Dioxide 23 Anion Gap 15 BUN 8 L Creatinine 0.60 Estim Creat Clear Calc 139.6 Estimated GFR > 60 POC Glucose 87 Random Glucose 65 Lactic Acid Calcium 7.9 L D Magnesium 1.6 Total Bilirubin 0.5 AST 19 ALT 14 Alkaline Phosphatase 66 Total Protein 5.4 L Albumin 3.6 Amylase 120 H Lipase 165 H 166 H Urine Color Urine Appearance Urine pH Ur Specific Sultan Urine Protein Urine Glucose (UA) Urine Ketones Urine Blood Urine Nitrite Ur Leukocyte Esterase 02/21/20 20:53 WBC RBC Hgb Hct MCV MCH MCHC RDW Plt Count MPV Immature Gran % (Auto) Neut % (Auto) Lymph % (Auto) Howard % (Auto) Eos % (Auto) Baso % (Auto) Lymph # (Auto) Howard # (Auto) Eos # (Auto) Baso # (Auto) Abs Immat Gran (auto) Absolute Neuts (auto) Absolute Nucleated RBC Nucleated RBC % (auto) Sodium Potassium Chloride Carbon Dioxide Anion Gap BUN Creatinine Estim Creat Clear Calc Estimated GFR POC Glucose 101 Random Glucose Lactic Acid Calcium Magnesium Total Bilirubin AST ALT Alkaline Phosphatase Total Protein Albumin Amylase Lipase Urine Color Urine Appearance Urine pH Ur Specific Sultan Urine Protein Urine Glucose (UA) Urine Ketones Urine Blood Urine Nitrite Ur Leukocyte Esterase Airway Mallampati Class: II TM Dist: >3cm Neck ROM: Full
[2020-02-25] MEDS: fentaNYL citrate/PF 100 MCG/2 ML VIAL 25 MCG IVPUSH (12:49)
[2020-02-25] MEDS: 0.9 % Sodium Chloride Flush 3 ML SYRINGE IVFLUSH (15:33)
[2020-02-25] MEDS: cloNIDine HCL 0.1 MG TABLET PO (20:15)
[2020-02-25] MEDS: Sucralfate Oral Suspension 1 GM/10 ML ORAL.SUSP PO (20:19)
[2020-02-26] MEDS: HYDROmorphone HCl 0.5 MG/0.5 ML SYRINGE 0.25 MG IVPUSH ×5 (02:49→22:53)
[2020-02-26] MEDS: Dextrose 5 % and Lactated Ring 1,000 ML 125 ML IVCONT (03:36)
[2020-02-26 07:59] VITALS: BP 140/75; PULSE 66; RESP 17; TEMP 36.2; O2SAT 96
--- NOTE | 2020-02-26 08:07 | PM.PNGS ---
Subjective Subjective Patient reports: still having pain and diarrhea Interval history: Endoscopy showed no stricture. Generalized gastritis. Still complains of pain. Was able to do 6oz of protein shake yesterday. We discussed the daily protein goals and the indications of a PICC line. Physical Exam Vital Signs: Vital Signs: Last Vital Signs Temp 97.2 F 02/26/20 07:59 Pulse 66 02/26/20 07:59 Resp 17 02/26/20 07:59 BP 140/75 H 02/26/20 07:59 Pulse Ox 96 02/26/20 07:59 Body Mass Index 32.3 GI: Inspection: Yes normal to inspection and Yes obesity Progress Note: A&P Assessment and plan (1) Dysphagia: Problem details: Continue with Celebrate 4:1 shake only 1oz every hour. EGD tomorrow Status: Acute (2) Odynophagia: Status: Acute Assessment and Plan: Conitnue to try to do more protein shakes per day. Goal is 2.5 Celebrate shakes per day or 2.5 Premier protein shakes. If that's not possible, a PICC line was recommended. All questions were answered. Fall Risk Details Current Medications: Current Medications Generic Name Dose Route Start Last Admin Trade Name Freq PRN Reason Stop Dose Admin Clonidine HCl 0.1 mg 02/22/20 21:00 02/25/20 20:15 Clonidine Hcl 0.1 Mg Tablet PO 0.1 mg BEDTIME DANGELO Administration Protocol Fentanyl 25 mcg 02/25/20 11:38 02/25/20 12:49 Fentanyl Citrate/Pf 100 Mcg/2 Ml Vial IVPUSH 25 mcg Q5M PRN Administration Pain, Moderate (Pain Scale 4-6 Hydromorphone HCl 0.25 mg 02/22/20 12:52 02/26/20 02:49 Hydromorphone Hcl 0.5 Mg/0.5 Ml Syringe IVPUSH 0.25 mg Q4H PRN Administration Pain, Severe (Pain Scale 7-10) Acetaminophen 1,000 mg in 100 mls @ 16.7 mls/hr 02/20/20 02:45 02/26/20 01:25 Ofirmev IV 16.7 mls/hr .Q6H DANGELO Administration Dextrose/Lactated Ringer's 1,000 mls @ 125 mls/hr 02/21/20 12:00 02/26/20 03:36 D5lr IVCONT 125 mls/hr .Q8H DANGELO Administration Lactated Ringer's 1,000 mls @ 100 mls/hr 02/25/20 11:45 02/26/20 03:40 Lr IVCONT Not Given .Q10H DANGELO Lamotrigine 100 mg 02/22/20 14:00 02/25/20 08:35 Lamotrigine 100 Mg Tablet PO Not Given DAILY DANGELO Lorazepam 0.25 mg 02/20/20 02:49 02/25/20 20:24 Lorazepam 2 Mg/Ml Vial IVPUSH 0.25 mg RQ4H PRN Administration anxiety/restlessness Ondansetron HCl 4 mg 02/21/20 00:00 02/26/20 00:00 Ondansetron Hcl 4 Mg/2 Ml Vial IVPUSH 4 mg Q8H DANGELO Administration Pantoprazole Sodium 40 mg 02/20/20 16:01 02/25/20 20:16 Pantoprazole Sodium 40 Mg/10 Ml Vial IVPUSH 40 mg BID DANGELO Administration Sodium Chloride 3 ml 02/20/20 08:00 02/25/20 23:45 0.9 % Sodium Chloride Flush 3 Ml Syringe IVFLUSH Not Given QSHIFT DANGELO Sucralfate 1 gm 02/20/20 21:00 02/25/20 20:19 Sucralfate Oral Suspension 1 Gm/10 Ml Oral.Susp PO 1 gm BID DANGELO Administration Time Spent With Patient Time: Total time spent is greater than 50% in coordination of care (as documented) at patient's floor/unit and/or counseling patient: Time with patient: less than 15 minutes Procedures Abscess I/D Date of Service: 02/26/20
[2020-02-26] MEDS: Sucralfate Oral Suspension 1 GM/10 ML ORAL.SUSP PO ×2 (08:26→20:04)
[2020-02-26] MEDS: Pantoprazole Sodium 40 MG/10 ML VIAL IVPUSH ×2 (08:26→20:04)
[2020-02-26] MEDS: ondansetron HCL 4 MG/2 ML VIAL IVPUSH ×3 (08:26→16:08)
[2020-02-26] MEDS: lamoTRIgine 100 MG TABLET PO (08:26)
[2020-02-26] MEDS: Lactated Ringers 1,000 ML 100 ML IVCONT ×2 (08:29→18:44)
[2020-02-26] MEDS: LORazepam 2 MG/ML VIAL 0.25 MG IVPUSH ×2 (09:37→14:14)
--- NOTE | 2020-02-26 11:37 | MHC.CM.PN ---
nurse acute care surgeon note [employer] medical record reviewed s/p endoscpy showing no stricture, generalized gastritis, per documetation , patient continues to have pain was able to do a 6ox protein shake yesterday continue iv fluids iv hYdromorphine q4hrs prn iv acetaminophen q6hrs iv lorazepam for agitation q4hrs prn on 02/25/2020 VS POSSIBLE NEED FOR PIC LINE /IV TPN AND POSSIBLE IV MEDICATION DISCHARGE PLAN TO BE FURTHER DETERMINED, IF UNALBE TO TOLERATE AND ACHIEVE PRESENT GOAL BY THE SURGEON KHALIDA MAY NEED PIC INE .IV MED AND TPN -SHE THEN WOULD NEED A HOME INFUSION CO AND NURSING [facility] PIC LINE PLACEMENT
--- NOTE | 2020-02-26 11:45 | MHC.CM.PN ---
The goal for dc is for Patient to return home. Patient is still requiring IV pain meds, IV Ativan, and IV Protonix and has not yet been medically cleared for dc. CM will continue to follow for dc planning.
[2020-02-26 12:00] VITALS: BP 156/80; PULSE 64; RESP 19; TEMP 36.6; O2SAT 97
--- NOTE | 2020-02-26 13:28 | HO.POSTANES ---
Post Anesthesia Evaluation Post Anesthesia Evaluation Vital Signs: Vital Signs Temp Pulse Resp BP Pulse Ox 02/26/20 07:59 97.2 F 66 17 140/75 H 96 Anesthesia: Monitored Mental Status: Awake Pain Control: Satisfactory Nausea/Vomiting: None Hydration: Adequate Anesthesia-Related Issues: No Anes. Related Issues
[2020-02-26 15:55] VITALS: BP 143/82; PULSE 62; RESP 18; TEMP 36.4; O2SAT 99
[2020-02-26 19:18] LABS: Alanine Aminotransferase 26 U/L (0-31); Albumin Level 4.1 g/dL (3.5-5.0); Alkaline Phosphatase 78 U/L (39-117); Anion Gap 16 (12-20); Aspartate Amino Transferase 19 U/L (5-31); Bilirubin Total 0.8 mg/dL (0.0-1.0); Blood Urea Nitrogen 4 mg/dL (9-16); Calcium 8.6 mg/dL (8.4-10.2); Carbon Dioxide 26 mmol/L (22-29); Chloride 109 mmol/L (96-108); Cholesterol 134 mg/dL; Creatinine Clr Calc Pharmacy 132.1; Estimated Glomerular Filt Rate > 60; Glucose Random 86 mg/dL (60-115); HDL Cholesterol 35 mg/dL; LDL Cholesterol Calculated 76 mg/dl; Magnesium 1.4 mg/dL (1.6-2.6); Phosphorus 3.3 mg/dL (2.7-4.5); Potassium 3.5 mmol/l (3.3-5.1); Sodium 147 mmol/L (135-145); Total Protein 6.1 g/dL (6.5-8.0); Triglycerides 118 mg/dL
[2020-02-26 20:00] VITALS: BP 145/85; PULSE 67; RESP 18; TEMP 36.2; O2SAT 93
[2020-02-26] MEDS: LORazepam 0.5 MG TABLET PO (20:04)
[2020-02-26] MEDS: cloNIDine HCL 0.1 MG TABLET PO (20:04)
[2020-02-26] MEDS: Magnesium Sulfate/D5W 1 GM/100 ML PIGGYBACK IV ×2 (20:04→22:42)
[2020-02-26 23:17] VITALS: BP 143/80; PULSE 62; RESP 18; TEMP 36.7; O2SAT 98
[2020-02-26] MEDS: 0.9 % Sodium Chloride Flush 3 ML SYRINGE IVFLUSH (23:58)
[2020-02-27] VITALS (7 sets, daily range): BP systolic 125–144; BP diastolic 62–78; PULSE 59–74; RESP 16–18; TEMP 36.1–36.7; O2SAT 94–100
[2020-02-27] MEDS: ondansetron HCL 4 MG/2 ML VIAL IVPUSH (00:22)
[2020-02-27] MEDS: HYDROmorphone HCl 0.5 MG/0.5 ML SYRINGE 0.25 MG IVPUSH ×4 (04:48→22:18)
[2020-02-27] MEDS: Pantoprazole Sodium 40 MG/10 ML VIAL IVPUSH (09:21)
[2020-02-27] MEDS: lamoTRIgine 100 MG TABLET PO (09:21)
[2020-02-27] MEDS: LORazepam 0.5 MG TABLET PO (09:21)
[2020-02-27] MEDS: Sucralfate Oral Suspension 1 GM/10 ML ORAL.SUSP PO ×2 (09:21→20:00)
[2020-02-27] MEDS: Lactated Ringers 1,000 ML 75 ML IVCONT ×2 (09:50→22:17)
--- NOTE | 2020-02-27 10:43 | P.PNGS_ITS ---
Subjective Subjective Interval history: Pt states that she continues to have epgastric pain intermittently, feels like aching pain, worse when drinking even one ounce over 1 hour. She states that the yellow watery diarrhea that she had x 5 yesterday stopped at about 2:30 am today. Previously she would have colicky pain in lower abd right before diarrhea and then the pain would resolve. She states she has been having migraine headaches that don't resolve with dialudid and are triggered by lack of sleep, takes sumatriptan at home. She states she takes 2 mg of clonazepam bid at home - but her med rec says 1 mg bid. she takes Methocarbamol for her sciatica and chronic spine pain from disc herniation - takes it bid instead of qid. She wants to try to drink protien shakes - but is very concerned that if she continues with the whey protein this will continue. She is not sure a family or friend can bring her a non-whey protein powder. Physical Exam Vital Signs: Vital Signs: Last Vital Signs Temp 97.5 F 02/27/20 08:02 Pulse 59 02/27/20 08:02 Resp 16 02/27/20 08:02 BP 129/70 02/27/20 08:02 Pulse Ox 95 02/27/20 08:02 Body Mass Index 32.3 Const: General: cooperative, healthy appearing, comfortable, no acute distress, alert and awake GI: Inspection: Yes normal to inspection, No distended and No visible herniation Palpation (GI): Soft to palpation, not firm, nontender, no guarding and no hernias Extrem: General: No no pedal edema and No no calf tenderness Progress Note: A&P Assessment and plan (1) History of sleeve gastrectomy: Problem details: EGD with gastric biopsies done 02/24 - pathology pending. Status: Acute (2) Splenic infarct: Problem details: Stable, no treatment at this time. Status: Acute (3) Abdominal pain: Problem details: Seems to be improved today. Lower abd pain from colicky diarrhea - none today. R UQ pain - unclear etiology Status: Acute (4) Diarrhea: Problem details: None x 10 hours, exacerbated by hypomagnesemia, now corrected. Will recheck tomorrow am. Status: Acute (5) Hypomagnesemia: Problem details: See above Status: Acute (6) Hypoproteinemia: Problem details: Due to inability to tolerate po. PICC order placed but can not be placed until 02/20. Pt states she will need sedation for the procedure. Nutrition consult made today for TPN to start on 02/20 once PICC is placed. Case management is aware of plan for discharge once this is in place and VNA services arranged. Status: Acute Fall Risk Details Current Medications: Current Medications Generic Name Dose Route Start Last Admin Trade Name Miki PRN Reason Stop Dose Admin Clonidine HCl 0.1 mg 02/22/20 21:00 02/26/20 20:04 Clonidine Hcl 0.1 Mg Tablet PO 0.1 mg BEDTIME DANGELO Administration Protocol Fentanyl 25 mcg 02/25/20 11:38 02/25/20 12:49 Fentanyl Citrate/Pf 100 Mcg/2 Ml Vial IVPUSH 25 mcg Q5M PRN Administration Pain, Moderate (Pain Scale 4-6 Hydromorphone HCl 0.25 mg 02/26/20 13:12 02/27/20 09:40 Hydromorphone Hcl 0.5 Mg/0.5 Ml Syringe IVPUSH 0.25 mg Q5H PRN Administration Pain, Severe (Pain Scale 7-10) Lactated Ringer's 1,000 mls @ 75 mls/hr 02/25/20 11:45 02/27/20 09:50 Lr IVCONT 75 mls/hr .[id number] DANGELO Administration Acetaminophen 1,000 mg in 100 mls @ 16.7 mls/hr 02/27/20 10:00 02/27/20 09:44 Ofirmev IV 16.7 mls/hr .Q6H DANGELO Administration Lamotrigine 100 mg 02/22/20 14:00 02/27/20 09:21 Lamotrigine 100 Mg Tablet PO 100 mg DAILY DANGELO Administration Lorazepam 0.5 mg 02/26/20 19:36 02/27/20 09:21 Lorazepam 0.5 Mg Tablet PO 0.5 mg Q8H PRN Administration anxiety/restlessness Ondansetron HCl 4 mg 02/21/20 00:00 02/27/20 09:21 Ondansetron Hcl 4 Mg/2 Ml Vial IVPUSH Not Given Q8H DANGELO Pantoprazole Sodium 40 mg 02/20/20 16:01 02/27/20 09:21 Pantoprazole Sodium 40 Mg/10 Ml Vial IVPUSH 40 mg BID DANGELO Administration Sodium Chloride 3 ml 02/20/20 08:00 02/27/20 09:21 0.9 % Sodium Chloride Flush 3 Ml Syringe IVFLUSH Not Given QSHIFT DANGELO Sucralfate 1 gm 02/20/20 21:00 02/27/20 09:21 Sucralfate Oral Suspension 1 Gm/10 Ml Oral.Susp PO 1 gm BID DANGELO Administration Time Spent With Patient Time: Total time spent is greater than 50% in coordination of care (as documented) at patient's floor/unit and/or counseling patient: Time with patient: Greater than 35 minutes Procedures Abscess I/D Date of Service: 02/27/20
[2020-02-27] MEDS: Topiramate 100 MG TABLET PO (12:36)
[2020-02-27] MEDS: Cyclobenzaprine HCl 10 MG TABLET PO ×2 (12:37→20:10)
[2020-02-27] MEDS: clonazePAM 1 MG TABLET PO ×2 (12:37→20:00)
[2020-02-27] MEDS: SUMAtriptan succinate 100 MG TABLET PO (16:35)
[2020-02-27] MEDS: cloNIDine HCL 0.1 MG TABLET PO (20:00)
[2020-02-28] VITALS (13 sets, daily range): BP systolic 123–148; BP diastolic 68–87; PULSE 52–69; RESP 16–20; TEMP 36.2–36.4; O2SAT 94–100
[2020-02-28] MEDS: HYDROmorphone HCl 0.5 MG/0.5 ML SYRINGE 0.25 MG IVPUSH ×4 (04:04→20:24)
[2020-02-28 07:35] LABS: Anion Gap 11 (12-20); Blood Urea Nitrogen 5 mg/dL (9-16); Calcium 8.3 mg/dL (8.4-10.2); Carbon Dioxide 28 mmol/L (22-29); Chloride 106 mmol/L (96-108); Creatinine Clr Calc Pharmacy 160.1; Estimated Glomerular Filt Rate > 60; Glucose Random 77 mg/dL (60-115); Potassium 3.3 mmol/l (3.3-5.1); Sodium 142 mmol/L (135-145)
[2020-02-28] MEDS: Cyclobenzaprine HCl 10 MG TABLET PO ×2 (08:06→20:24)
[2020-02-28] MEDS: Sucralfate Oral Suspension 1 GM/10 ML ORAL.SUSP PO ×2 (08:06→20:25)
[2020-02-28] MEDS: clonazePAM 1 MG TABLET PO ×2 (08:06→20:21)
[2020-02-28] MEDS: lamoTRIgine 100 MG TABLET PO (08:06)
--- NOTE | 2020-02-28 09:42 | PM.PNGS ---
Subjective Subjective Interval history: Pt states that she received all of her meds yesterday, walked twice in hallway and tolerated 7 oz of half strength protein shake and 1 ounce of water. She states she feels much better today, no diarrhea in > 30 hours. Still has mild epigastric pain and ocassional lower abd colicky pain. She states she is motivated to go home without PICC abd TPN before Thanksgiving, she is asking about gastric biopsy results. Magnesium 2.0 today, potassium 3.3, BUN 5 Physical Exam Vital Signs: Vital Signs: Last Vital Signs Temp 97.1 F 02/28/20 07:19 Pulse 57 02/28/20 07:19 Resp 18 02/28/20 07:19 BP 139/68 02/28/20 07:19 Pulse Ox 96 02/28/20 07:19 Body Mass Index 32.3 Const: General: cooperative, comfortable, no acute distress and alert GI: Inspection: Yes normal to inspection, No distended and No visible herniation Palpation (GI): Soft to palpation, not firm, Tenderness to palpation present (GI) (very mild tenderness this am epigastrium only), no guarding, not rigid and no hernias Extrem: General: No no pedal edema and No no calf tenderness (no compression stockings in place) Progress Note: A&P Assessment and plan (1) Hypoproteinemia: Problem details: Due to inability to tolerate adequate po PICC order, RD consult for TPN orders have been placed but can not be instituted until 02/20. Pt states she will need sedation for the procedure. Pt has tolerated 1 half shake yesterday and I reviewed with her that inorder to go home without TPN she would need to tolerate 60 grams of protein (3 full shakes) and 60 oz fluid in total. Case management is aware of plan for discharge once this is in place and VNA services arranged. Status: Acute (2) Hypomagnesemia: Problem details: Resolved Status: Acute (3) Diarrhea: Problem details: None x 30 hours. Status: Acute (4) History of sleeve gastrectomy: Problem details: EGD with gastric biopsies done 02/24 - pathology pending. Status: Acute (5) Splenic infarct: Problem details: Stable, no treatment at this time. Status: Acute (6) History of sleeve gastrectomy: Problem details: DOS 02/03/20, Dr. Barnes Plan today is for patient to complete 2 half strength protein shakes, and 10 ounces of water. If tolerates will increase to full strength shakes tomorrow. Ambulate >tid, drink in recliner chair. Will replace potassium po today and decrease IVF. Plan discussed with Dr Estrada. Status: Acute (7) Hypocalcemia: Problem details: Will replace today Status: Acute Fall Risk Details Current Medications: Current Medications Generic Name Dose Route Start Last Admin Trade Name Freq PRN Reason Stop Dose Admin Clonazepam 1 mg 02/27/20 21:00 02/28/20 08:06 Clonazepam 1 Mg Tablet PO 1 mg BID DANGELO Administration Clonidine HCl 0.1 mg 02/22/20 21:00 02/27/20 20:00 Clonidine Hcl 0.1 Mg Tablet PO 0.1 mg BEDTIME DANGELO Administration Protocol Cyclobenzaprine HCl 10 mg 02/27/20 12:00 02/28/20 08:06 Cyclobenzaprine Hcl 10 Mg Tablet PO 10 mg BID DANGELO Administration Fentanyl 25 mcg 02/25/20 11:38 02/25/20 12:49 Fentanyl Citrate/Pf 100 Mcg/2 Ml Vial IVPUSH 25 mcg Q5M PRN Administration Pain, Moderate (Pain Scale 4-6 Hydromorphone HCl 0.25 mg 02/26/20 13:12 02/28/20 04:04 Hydromorphone Hcl 0.5 Mg/0.5 Ml Syringe IVPUSH 0.25 mg Q5H PRN Administration Pain, Severe (Pain Scale 7-10) Lactated Ringer's 1,000 mls @ 75 mls/hr 02/25/20 11:45 02/27/20 22:17 Lr IVCONT 75 mls/hr .[id number] DANGELO Administration Acetaminophen 1,000 mg in 100 mls @ 16.7 mls/hr 02/27/20 10:00 02/28/20 04:10 Ofirmev IV 16.7 mls/hr .Q6H DANGELO Administration Lamotrigine 100 mg 02/22/20 14:00 02/28/20 08:06 Lamotrigine 100 Mg Tablet PO 100 mg DAILY DANGELO Administration Ondansetron HCl 4 mg 02/21/20 00:00 02/28/20 07:54 Ondansetron Hcl 4 Mg/2 Ml Vial IVPUSH Not Given Q8H DANGELO Sodium Chloride 3 ml 02/20/20 08:00 02/28/20 07:53 0.9 % Sodium Chloride Flush 3 Ml Syringe IVFLUSH Not Given QSHIFT DANGELO Sucralfate 1 gm 02/20/20 21:00 02/28/20 08:06 Sucralfate Oral Suspension 1 Gm/10 Ml Oral.Susp PO 1 gm BID DANGELO Administration Sumatriptan Succinate 100 mg 02/27/20 10:44 02/27/20 16:35 Sumatriptan Succinate 100 Mg Tablet PO 100 mg DAILY MRX1 PRN Administration Migraine Headache Topiramate 100 mg 02/27/20 11:00 02/28/20 08:09 Topiramate 100 Mg Tablet PO Not Given DAILY DANGELO Time Spent With Patient Time: Total time spent is greater than 50% in coordination of care (as documented) at patient's floor/unit and/or counseling patient: Time with patient: Greater than 35 minutes Procedures Abscess I/D Date of Service: 02/28/20
[2020-02-28] MEDS: Lactated Ringers 1,000 ML 75 ML IVCONT (10:01)
[2020-02-28] MEDS: Calcium Gluconate/NaCl,Iso-Osm 1 GM/50 ML PLAST..BAG IV (11:15)
[2020-02-28] MEDS: Potassium Chloride ER 20 MEQ TAB.ER.PRT PO (11:17)
--- NOTE | 2020-02-28 14:12 | PC.NURSE ---
PT AMBULATED IN DAY TWICE THIS SHIFT AND IS CURRENTLY SITIING UP IN RECLINER. TEDS STOCKINGS APPLIED. TOLERATING HALF STRENGTH PROTEIN SHAKES. NO C/O STOOL OR N/V. IVF INFUSING PER ORDER
[2020-02-28] MEDS: 0.9 % Sodium Chloride Flush 3 ML SYRINGE IVFLUSH (15:34)
[2020-02-28] MEDS: cloNIDine HCL 0.1 MG TABLET PO (20:23)
[2020-02-29] MEDS: HYDROmorphone HCl 0.5 MG/0.5 ML SYRINGE 0.25 MG IVPUSH ×4 (01:38→18:34)
[2020-02-29 07:16] LABS: Anion Gap 13 (12-20); Blood Urea Nitrogen 7 mg/dL (9-16); Calcium 8.4 mg/dL (8.4-10.2); Carbon Dioxide 28 mmol/L (22-29); Chloride 104 mmol/L (96-108); Creatinine Clr Calc Pharmacy 154.1; Estimated Glomerular Filt Rate > 60; Glucose Random 69 mg/dL (60-115); Potassium 3.7 mmol/l (3.3-5.1); Sodium 141 mmol/L (135-145)
[2020-02-29 07:23] VITALS: BP 117/63; PULSE 56; RESP 18; TEMP 36.2; O2SAT 95
--- NOTE | 2020-02-29 07:34 | PM.PNGS ---
Subjective Subjective Interval history: Feels better. Had less pain and less diarrhea. Did two Celebrate protein shakes 4:1 with 1 scoop each in water Physical Exam Vital Signs: Vital Signs: Last Vital Signs Temp 97.2 F 02/29/20 07:23 Pulse 56 02/29/20 07:23 Resp 18 02/29/20 07:23 BP 117/63 02/29/20 07:23 Pulse Ox 95 02/29/20 07:23 Body Mass Index 32.3 Progress Note: A&P Assessment and plan (1) Dysphagia: Status: Acute Assessment and Plan: 1. Increase to either 2 shakes with 2 scoops each in water, or 4 shakes with 1 scoop each in water 2. Goal is at least 3 shakes with 2 scoops each 3. Hold PICC line placement for today (2) Abdominal pain: Status: Acute Fall Risk Details Current Medications: Current Medications Generic Name Dose Route Start Last Admin Trade Name Freq PRN Reason Stop Dose Admin Clonazepam 1 mg 02/27/20 21:00 02/28/20 20:21 Clonazepam 1 Mg Tablet PO 1 mg BID DANGELO Administration Clonidine HCl 0.1 mg 02/22/20 21:00 02/28/20 20:23 Clonidine Hcl 0.1 Mg Tablet PO 0.1 mg BEDTIME DANGELO Administration Protocol Cyclobenzaprine HCl 10 mg 02/27/20 12:00 02/28/20 20:24 Cyclobenzaprine Hcl 10 Mg Tablet PO 10 mg BID DANGELO Administration Fentanyl 25 mcg 02/25/20 11:38 02/25/20 12:49 Fentanyl Citrate/Pf 100 Mcg/2 Ml Vial IVPUSH 25 mcg Q5M PRN Administration Pain, Moderate (Pain Scale 4-6 Hydromorphone HCl 0.25 mg 02/26/20 13:12 02/29/20 01:38 Hydromorphone Hcl 0.5 Mg/0.5 Ml Syringe IVPUSH 0.25 mg Q5H PRN Administration Pain, Severe (Pain Scale 7-10) Lactated Ringer's 1,000 mls @ 40 mls/hr 02/25/20 11:45 02/28/20 23:54 Lr IVCONT Not Given .Q24H DANGELO Acetaminophen 1,000 mg in 100 mls @ 16.7 mls/hr 02/27/20 10:00 02/29/20 05:30 Ofirmev IV 16.6 mls/hr .Q6H DANGELO Administration Lamotrigine 100 mg 02/22/20 14:00 02/28/20 08:06 Lamotrigine 100 Mg Tablet PO 100 mg DAILY DANGELO Administration Ondansetron HCl 4 mg 02/21/20 00:00 02/28/20 23:55 Ondansetron Hcl 4 Mg/2 Ml Vial IVPUSH Not Given Q8H DANGELO Sodium Chloride 3 ml 02/20/20 08:00 02/28/20 23:50 0.9 % Sodium Chloride Flush 3 Ml Syringe IVFLUSH Not Given QSHIFT DANGELO Sucralfate 1 gm 02/20/20 21:00 02/28/20 20:25 Sucralfate Oral Suspension 1 Gm/10 Ml Oral.Susp PO 1 gm BID DANGELO Administration Sumatriptan Succinate 100 mg 02/27/20 10:44 02/27/20 16:35 Sumatriptan Succinate 100 Mg Tablet PO 100 mg DAILY MRX1 PRN Administration Migraine Headache Topiramate 100 mg 02/27/20 11:00 02/28/20 08:09 Topiramate 100 Mg Tablet PO Not Given DAILY DANGELO Time Spent With Patient Time: Total time spent is greater than 50% in coordination of care (as documented) at patient's floor/unit and/or counseling patient: Time with patient: less than 15 minutes Procedures Abscess I/D Date of Service: 02/29/20
[2020-02-29] MEDS: Cyclobenzaprine HCl 10 MG TABLET PO ×2 (08:12→21:19)
[2020-02-29] MEDS: Topiramate 100 MG TABLET PO (08:12)
[2020-02-29] MEDS: clonazePAM 1 MG TABLET PO ×2 (08:12→21:24)
[2020-02-29] MEDS: Sucralfate Oral Suspension 1 GM/10 ML ORAL.SUSP PO ×2 (08:12→21:24)
[2020-02-29] MEDS: lamoTRIgine 100 MG TABLET PO (08:12)
--- NOTE | 2020-02-29 09:11 | MHC.CM.PN ---
nurse healthcare science specialist note electronic medical record ,reviewed per documentation , patient is currently taken to 2 celebrate protein shakes shakes 4;1 iv fluids, iv acetaminophen q6hrs , prn -iv dilaudid, iv zofran, calcium and [id number] iv x1 qd 02/28/20. goaL- 3 CELEBRATE PROTEIN AND SHAKES 4;1. VS REQUIRING PIC LINE AND IV TPN SECTION REPAIRER TO CONTINUE TO FOLLOW FOR DISCHARGE NEEDS
[2020-02-29] MEDS: Lactated Ringers 1,000 ML 40 ML IVCONT (09:26)
[2020-02-29 11:09] VITALS: BP 109/73; PULSE 71; RESP 18; TEMP 36.2; O2SAT 97
--- NOTE | 2020-02-29 12:18 | MHC.CLN ---
RE: CONSULT PT TOLERATING PROTEIN SHAKES X 2 PER 02/28 PICC HOLD PER 02/28 GOAL IS FOR PT TO TOLERATE 3 FULL SHAKES IF TPN NEEDED; PLEASE CONSULT RD AND AVAILABLE VIA TIGER TEXT FOLLOWING
[2020-02-29 15:30] VITALS: BP 135/68; PULSE 50; RESP 17; TEMP 36.4; O2SAT 98
--- NOTE | 2020-02-29 19:03 | PC.NURSE ---
IV LACTATED RINGERS AND IV TYLENOL DISCONTINUED. CLARIFIED WITH CHASE MENON TO MAKE SURE THEY WERE DISCONTINUED AND SHE SAID YES.
[2020-02-29 19:46] VITALS: BP 141/77; PULSE 74; RESP 18; TEMP 36.6; O2SAT 98
[2020-02-29 21:19] VITALS: BP 141/77; PULSE 74
[2020-02-29] MEDS: cloNIDine HCL 0.1 MG TABLET PO (21:19)
[2020-02-29] MEDS: 0.9 % Sodium Chloride Flush 3 ML SYRINGE IVFLUSH (21:24)
[2020-02-29 23:50] VITALS: BP 133/69; PULSE 55; RESP 14; TEMP 36.9; O2SAT 99
[2020-03-01] MEDS: HYDROmorphone HCl 0.5 MG/0.5 ML SYRINGE 0.25 MG IVPUSH ×3 (00:13→11:23)
[2020-03-01 06:00] VITALS: RESP 18
[2020-03-01] MEDS: Cyclobenzaprine HCl 10 MG TABLET PO (08:30)
[2020-03-01] MEDS: Topiramate 100 MG TABLET PO (08:31)
[2020-03-01] MEDS: Sucralfate Oral Suspension 1 GM/10 ML ORAL.SUSP PO (08:31)
[2020-03-01] MEDS: lamoTRIgine 100 MG TABLET PO (08:31)
[2020-03-01] MEDS: clonazePAM 1 MG TABLET PO (08:32)
[2020-03-01 08:40] VITALS: BP 135/77; PULSE 53; RESP 18; TEMP 36.3; O2SAT 98
[2020-03-01] MEDS: 0.9 % Sodium Chloride Flush 3 ML SYRINGE IVFLUSH (11:23)
--- NOTE | 2020-03-01 11:37 | P.PNGS_ITS ---
Subjective Subjective Date of Service: 03/01/20 Interval history: Patientfeels well today and wants to go home today. Yesterday she had 2.5 Rebuild shakes with water and a total of 36 ounces fluid po. She has not had any diarrhea and her abdominal pain is the same as it always is . She diescribes this as chronic pain. No nausea, diarrhea or emesis. Physical Exam Vital Signs: Vital Signs: Last Vital Signs Temp 97.3 F 03/01/20 08:40 Pulse 53 03/01/20 08:40 Resp 18 03/01/20 08:40 BP 135/77 03/01/20 08:40 Pulse Ox 98 03/01/20 08:40 Body Mass Index 32.3 Const: General: cooperative, healthy appearing and no acute distress GI: Inspection: Yes normal to inspection Palpation (GI): Soft to palpation, not firm, nontender, no guarding, not rigid and no hernias Progress Note: A&P Assessment and plan (1) Hypoproteinemia: Problem details: Crystal is now able to tolerate adequate amounts of protien po. She will be discharged home on 3 shakes per day. Please see discharge instructions. We will follow her with daily phone calls for one week to ensure adherence to plan. Status: Acute (2) Diarrhea: Problem details: Resolved, Status: Acute (3) Obesity: Problem details: Continue weight loss meal planning Status: Acute (4) History of sleeve gastrectomy: Problem details: EGD with gastric biopsies done 02/24 - no h pylori. Ria will be discharged home today, discussed with Dr Estrada. Status: Acute (5) Splenic infarct: Problem details: Stable, no treatment at this time. Status: Acute (6) Abdominal pain: Problem details: Pt states acute pain has resolved and she now has her chronic pain only Status: Acute (7) Dysphagia: Problem details: Resolved, will continue famotidine dialy and carafte bid. Must continue to drink slowly Status: Acute (8) History of repair of hiatal hernia: Problem details: 02/03/2020 Status: Acute Fall Risk Details Current Medications: Current Medications Generic Name Dose Route Start Last Admin Trade Name Freq PRN Reason Stop Dose Admin Clonazepam 1 mg 02/27/20 21:00 03/01/20 08:32 Clonazepam 1 Mg Tablet PO 1 mg BID DANGELO Administration Clonidine HCl 0.1 mg 02/22/20 21:00 02/29/20 21:19 Clonidine Hcl 0.1 Mg Tablet PO 0.1 mg BEDTIME DANGELO Administration Protocol Cyclobenzaprine HCl 10 mg 02/27/20 12:00 03/01/20 08:30 Cyclobenzaprine Hcl 10 Mg Tablet PO 10 mg BID DANGELO Administration Hydromorphone HCl 0.25 mg 02/26/20 13:12 03/01/20 11:23 Hydromorphone Hcl 0.5 Mg/0.5 Ml Syringe IVPUSH 0.25 mg Q5H PRN Administration Pain, Severe (Pain Scale 7-10) Lamotrigine 100 mg 02/22/20 14:00 03/01/20 08:31 Lamotrigine 100 Mg Tablet PO 100 mg DAILY DANGELO Administration Ondansetron HCl 4 mg 02/21/20 00:00 03/01/20 08:32 Ondansetron Hcl 4 Mg/2 Ml Vial IVPUSH Not Given Q8H [facility] Sodium Chloride 3 ml 02/20/20 08:00 03/01/20 11:23 0.9 % Sodium Chloride Flush 3 Ml Syringe IVFLUSH 3 ml QSHIFT DANGELO Administration Sucralfate 1 gm 02/20/20 21:00 03/01/20 08:31 Sucralfate Oral Suspension 1 Gm/10 Ml Oral.Susp PO 1 gm BID DANGELO Administration Sumatriptan Succinate 100 mg 02/27/20 10:44 02/27/20 16:35 Sumatriptan Succinate 100 Mg Tablet PO 100 mg DAILY MRX1 PRN Administration Migraine Headache Topiramate 100 mg 02/27/20 11:00 03/01/20 08:31 Topiramate 100 Mg Tablet PO 100 mg DAILY DANGELO Administration Time Spent With Patient Time: Total time spent is greater than 50% in coordination of care (as documented) at patient's floor/unit and/or counseling patient: Time with patient: Greater than 35 minutes
[2020-03-01 12:17] LABS: COVID-19 Test Negative (Negative)
--- NOTE | 2020-03-01 13:29 | MHC.CM.PN ---
PATIENT IS DISCHARGED HOME WITH NO SERVICES. RN AWARE OF PLAN. PATIENT HAS TRANSPORT.
--- NOTE | 2020-03-30 13:25 | P.DS_ITS ---
DS: Providers Provider Date of admission: 02/20/20 02:39 Primary care physician: Gabriel Vaughan MD DS: Diagnosis Discharge Diagnosis (1) Hypoproteinemia: Status: Acute Problem details: Crystal is now able to tolerate adequate amounts of protien po. She will be discharged home on 3 shakes per day. Please see discharge instructions. We will follow her with daily phone calls for one week to ensure adherence to plan. (2) Diarrhea: Status: Acute Problem details: Resolved, (3) Obesity: Status: Acute (4) History of sleeve gastrectomy: Status: Acute (5) Splenic infarct: Status: Acute Problem details: Stable, no treatment at this time. (6) Abdominal pain: Status: Acute Problem details: Pt states acute pain has resolved and she now has her chronic pain only (7) Dysphagia: Status: Acute Problem details: Resolved, will continue famotidine dialy and carafte bid. Must continue to drink slowly (8) History of repair of hiatal hernia: Status: Acute Problem details: 02/03/2020 DS: Medications Discharge Medications Home Medications: Home Medications Medication Instructions Recorded Confirmed clonazepam 1 mg tablet 1 mg PO BID 01/21/20 03/09/20 clonidine HCl 0.1 mg tablet 0.1 mg PO BEDTIME 01/21/20 03/09/20 lamotrigine 100 mg tablet 100 mg PO DAILY 01/21/20 03/09/20 methocarbamol 750 mg tablet 750 mg PO QID 01/21/20 03/09/20 sumatriptan succinate 100 mg tablet 100 mg PO Q2-4H PRN 01/21/20 03/09/20 hydrocodone-acetaminophen [Vicodin 1 tab PO Q6H PRN 01/28/20 03/09/20 HP] docusate sodium 100 mg capsule 100 mg PO BID 02/08/20 03/09/20 ascorbate calcium (vitamin C) 500 1,000 mg PO DAILY tab 03/17/20 03/17/20 mg tablet cholecalciferol (vitamin D3) 10 1,000 unit PO DAILY cap 03/17/20 mcg (400 unit) capsule omega-3 fatty acids 1,000 mg 1,000 mg PO DAILY 03/17/20 03/17/20 capsule Previous Rx's Medication Instructions Recorded famotidine 20 mg tablet 20 mg PO DAILY #30 tab 10/15/20 sucralfate [Carafate] 10 ml PO BID #1200 ml 03/01/20 DS: Summary Time Spent with Patient Time attestation: Total time spent providing and/or coordinating discharge services: Physical Exam Vital Signs: Vital Signs: Last Vital Signs Temp 97.3 F 03/01/20 08:40 Pulse 53 03/01/20 08:40 Resp 18 03/01/20 08:40 BP 135/77 03/01/20 08:40 Pulse Ox 98 03/01/20 08:40 Body Mass Index 32.3 DS: Data Data Completed and Pending Completed studies during hospitalization [Text1]: Pending at discharge 02/25/20 12:25 Surgical [PTH] Routine Procedures Excision of Stomach, Percutaneous Endoscopic Approach, Vertical (02/03/20) Excision of Stomach, Pylorus, Via Natural or Artificial Opening Endoscopic, Diagnostic (02/20/20) Repair Diaphragm, Percutaneous Endoscopic Approach (02/03/20) Labs on day of discharge: 02/19/20 21:02 ECG 12 lead EKG Stat EKG Documentation DIRECTED IV insert/maintain Q4HR Complete Blood Count Auto Diff Stat Comprehensive Met. Panel Stat Lactic Acid Stat Lipase Stat 0.9 % Sodium Chloride [Ns] 1,000 ml IV 1,000 mls/hr 02/19/20 21:03 Magnesium Stat 02/19/20 21:04 UA CC w/rflx Micro + Cult Stat 02/19/20 21:58 fentaNYL citrate/PF [Sublimaze] 25 mcg IVPUSH ONCE ONE 02/19/20 22:19 ondansetron HCL [Zofran] 4 mg IVPUSH ONCE ONE 02/19/20 23:25 CT abdomen pelvis w con Stat 02/19/20 23:54 fentaNYL citrate/PF [Sublimaze] 25 mcg IVPUSH ONCE ONE 02/20/20 00:17 iohexoL 350 MG/ML [Omnipaque 350 MG/ML] 85 ml IV ONCE ONE 02/20/20 00:33 Amylase Stat Lipase Stat 02/20/20 01:20 0.9 % Sodium Chloride [Ns] 1,000 ml IV 1,000 mls/hr 02/20/20 02:38 Up ad goldie .Continous Vital Signs Q4HR Code Status Routine HYDROmorphone HCl [Dilaudid] 0.25 mg IVPUSH Q4H PRN 02/20/20 02:39 Ambulate Q4H WHILE AWAKE Incentive Spirometry Q1HR WHILE AWAKE Intake and Output Q4HR 02/20/20 02:45 Acetaminophen [Ofirmev] 1,000 mg in 100 ml IV 16.7 mls/hr Lactated Ringers [Lr] 1,000 ml IVCONT 150 mls/hr ondansetron HCL [Zofran] 4 mg IVPUSH Q8H 02/20/20 02:47 Transfer Order Routine 02/20/20 02:49 LORazepam [Ativan] 0.25 mg IVPUSH RQ4H PRN 02/20/20 03:30 Famotidine/PF [Pepcid/PF] 20 mg IVPUSH BID 02/20/20 08:00 0.9 % Sodium Chloride Flush [NS Flush] 3 ml IVFLUSH QSHIFT 02/20/20 Breakfast NPO Diet 02/20/20 16:01 Pantoprazole Sodium [Protonix] 40 mg IVPUSH BID 02/20/20 21:00 Sucralfate Oral Suspension [Carafate Oral Suspension] 1 gm PO BID 02/21/20 ECG [address] head for stroke Stat 02/21/20 00:00 ondansetron HCL [Zofran] 4 mg IVPUSH Q8H 02/21/20 10:58 HYDROmorphone HCl [Dilaudid] 0.25 mg IVPUSH Q3H PRN 02/21/20 11:00 Dextrose 5 % and 0.45 % NaCl [D51/2Ns] 1,000 ml IVCONT 125 mls/hr 02/21/20 12:00 Dextrose 5 % and Lactated Ring [D5lr] 1,000 ml IVCONT 125 mls/hr 02/21/20 20:17 EKG Documentation DIRECTED Glucose, Whole Blood Routine 02/21/20 20:53 Glucose, Whole Blood Routine 02/22/20 XR KUB Stat 02/22/20 08:00 FL upper GI series Routine 02/22/20 08:47 LORazepam [Ativan] 0.25 mg IVPUSH STAT STA 02/22/20 12:52 HYDROmorphone HCl [Dilaudid] 0.25 mg IVPUSH Q4H PRN 02/22/20 14:00 lamoTRIgine [LaMICtal] 100 mg PO DAILY 02/22/20 21:00 cloNIDine HCL [Catapres] 0.1 mg PO BEDTIME 02/25/20 11:38 Continuous pulse oximetry CONT Vital Signs Q1H Vital Signs Q8HR fentaNYL citrate/PF [Sublimaze] 25 mcg IVPUSH Q5M PRN 02/25/20 11:45 Lactated Ringers [Lr] 1,000 ml IVCONT 40 mls/hr 02/25/20 12:02 Lidocaine HCl 2 % MPF [Xylocaine 2 % MPF] 5 ml .ROUTE .STK-MED ONE propofoL [Diprivan] 200 mg IVPUSH .STK-MED ONE 02/25/20 12:19 Midazolam HCl/PF [Versed] 2 mg .ROUTE .STK-MED ONE 02/25/20 12:20 Glycopyrrolate [Robinul] 0.2 mg .ROUTE .STK-MED ONE 02/25/20 12:25 Surgical [PTH] Routine 02/25/20 12:46 fentaNYL citrate/PF [Sublimaze] 100 mcg .ROUTE .STK-MED ONE 02/25/20 13:34 propofoL [Diprivan] 200 mg IVPUSH .STK-MED ONE 02/26/20 13:12 HYDROmorphone HCl [Dilaudid] 0.25 mg IVPUSH Q5H PRN 02/26/20 18:40 Comprehensive Met. Panel Routine Lipid Panel Routine Magnesium Routine Phosphorus Routine 02/26/20 19:30 Magnesium Sulfate/D5W 1 gm in 100 ml IV ONCE 02/26/20 19:36 LORazepam [Ativan] 0.5 mg PO Q8H PRN 02/26/20 21:52 Magnesium Sulfate/D5W 1 gm in 100 ml IV ONCE 02/27/20 08:17 Magnesium DAILY 02/27/20 10:00 Acetaminophen [Ofirmev] 1,000 mg in 100 ml IV 16.7 mls/hr 02/27/20 10:44 SUMAtriptan succinate [Imitrex] 100 mg PO DAILY MRX1 PRN 02/27/20 10:56 Compression Therapy QSHIFT 02/27/20 11:00 Topiramate [Topamax] 100 mg PO DAILY 02/27/20 12:00 Cyclobenzaprine HCl [Flexeril] 10 mg PO BID 02/27/20 21:00 clonazePAM [KlonoPIN] 1 mg PO BID 02/28/20 07:00 Basic Metabolic Panel DAILY@0600 Magnesium DAILY 02/28/20 10:04 Calcium Gluconate/NaCl,Iso-Osm [Calcium Gluconate] 1 gm in 50 ml IV ONCE Potassium Chloride ER [Klor-con] 20 meq PO ONCE ONE 02/29/20 06:16 Basic Metabolic Panel DAILY@0600 03/01/20 11:30 COVID-19 ID NOW ([facility]) Urgent Laboratory Last Values WBC 7.7 X10*3/uL (4.8-10.8) 02/20/20 00:33 RBC 3.85 X10*6/uL (4.20-5.50) L 02/20/20 00:33 Hgb 11.9 g/dl (12.0-16.0) L 02/20/20 00:33 Hct 35.8 % (37-47) L 02/20/20 00:33 MCV 93.0 fL (80-98) 02/20/20 00:33 MCH 30.9 pg (27.0-33.0) 02/20/20 00:33 MCHC 33.2 g/dl (31.0-35.0) 02/20/20 00:33 RDW 13.5 % (11.0-16.0) 02/20/20 00:33 Plt Count 209 X10*3/uL (160-400) 02/20/20 00:33 MPV 9.8 fL (9.4-12.3) 02/20/20 00:33 Immature Gran % (Auto) 0.5 % (0.0-0.4) H 02/20/20 00:33 Neut % (Auto) 65.9 % (45-73) 02/20/20 00:33 Lymph % (Auto) 24.1 % (20-40) 02/20/20 00:33 Imperial % (Auto) 7.6 % (2-11) 02/20/20 00:33 Eos % (Auto) 1.2 % (0-4) 02/20/20 00:33 Baso % (Auto) 0.7 % (0-2) 02/20/20 00:33 Lymph # (Auto) 1.9 X10*3/uL (1.2-4.9) 02/20/20 00:33 Imperial # (Auto) 0.6 X10*3/uL (0.1-1.2) 02/20/20 00:33 Eos # (Auto) 0.1 X10*3/uL (0.0-0.4) 02/20/20 00:33 Baso # (Auto) 0.1 X10*3/uL (0.0-0.2) 02/20/20 00:33 Abs Immat Gran (auto) 0.04 X10*3/uL (0.00-0.03) H 02/20/20 00:33 Absolute Neuts (auto) 5.1 X10*3/uL (2.0-8.3) 02/20/20 00:33 Absolute Nucleated RBC 0.000 X10*3/uL (0.0-0.012) 02/20/20 00:33 Nucleated RBC % (auto) 0.0 /100WBC (0.0-0.2) 02/20/20 00:33 Sodium 141 mmol/L (135-145) 02/29/20 06:16 Potassium 3.7 mmol/l (3.3-5.1) 02/29/20 06:16 Chloride 104 mmol/L (96-108) 02/29/20 06:16 Carbon Dioxide 28 mmol/L (22-29) 02/29/20 06:16 Anion Gap 13 (12-20) 02/29/20 06:16 BUN 7 mg/dL (9-16) L 02/29/20 06:16 Creatinine 0.54 mg/dL (0.5-1.4) 02/29/20 06:16 Estim Creat Clear Calc 154.1 02/29/20 06:16 Estimated GFR > 60 02/29/20 06:16 POC Glucose 101 mg/dL (60-115) 02/21/20 20:53 Random Glucose 69 mg/dL (60-115) 02/29/20 06:16 Lactic Acid 0.6 mmol/L (0.5-2.0) 02/20/20 00:32 Calcium 8.4 mg/dL (8.4-10.2) 02/29/20 06:16 Calcium Cancelled 02/29/20 06:16 Phosphorus 3.3 mg/dL (2.7-4.5) 02/26/20 18:40 Magnesium 2.0 mg/dL (1.6-2.6) 02/28/20 07:00 Total Bilirubin 0.8 mg/dL (0.0-1.0) 02/26/20 18:40 AST 19 U/L (5-31) 02/26/20 18:40 ALT 26 U/L (0-31) 02/26/20 18:40 Alkaline Phosphatase 78 U/L (39-117) 02/26/20 18:40 Total Protein 6.1 g/dL (6.5-8.0) L 02/26/20 18:40 Albumin 4.1 g/dL (3.5-5.0) 02/26/20 18:40 Triglycerides 118 mg/dL 02/26/20 18:40 Cholesterol 134 mg/dL 02/26/20 18:40 LDL Cholesterol, Calc 76 mg/dl 02/26/20 18:40 HDL Cholesterol 35 mg/dL 02/26/20 18:40 Amylase 120 U/L (28-100) H 02/20/20 00:33 Lipase 165 U/L (8-78) H 02/20/20 00:33 Lipase 166 U/L (8-78) H 02/20/20 00:33 Urine Color STRAW 02/19/20 21:04 Urine Appearance CLEAR 02/19/20 21:04 Urine pH 5.5 (5.0-8.0) 02/19/20 21:04 Ur Specific Goodrich 1.020 (1.005-1.025) 02/19/20 21:04 Urine Protein NEG MG/DL (NEG-TRACE) 02/19/20 21:04 Urine Glucose (UA) NEG MG/DL (NEG) 02/19/20 21:04 Urine Ketones >=80 MG/DL (NEG) 02/19/20 21:04 Urine Blood NEG (NEG) 02/19/20 21:04 Urine Nitrite NEG (NEG) 02/19/20 21:04 Ur Leukocyte Esterase NEG (NEG) 02/19/20 21:04 COVID-19 (KENDRICK) Negative (Negative) 03/01/20 11:30 COVID-19 Clin Com See Note 03/01/20 11:30 Discharge Plan Discharge Anticipated Discharge Date/Time: 03/01/20 13:00 Patient Disposition: Home, Self-Care Referrals: Name,MD Gabriel [Primary Care Provider] - 1 Week (Tele 02/26/2020 @ 9:00am will call you to discuss your hospital stay.) Discharge Medications: New sucralfate [Carafate] 100 mg/mL suspension 10 ml PO BID Qty: 1200 RF: 3 Continued sumatriptan succinate [Imitrex] 100 mg tablet 100 mg PO Q2-4H PRN (Reason: Headache) RF: 0 methocarbamol 750 mg tablet 750 mg PO QID RF: 0 clonazepam 1 mg tablet 1 mg PO BID RF: 0 clonidine HCl 0.1 mg tablet 0.1 mg PO BEDTIME RF: 0 lamotrigine 100 mg tablet 100 mg PO DAILY RF: 0 famotidine [Pepcid AC] 20 mg tablet 20 mg PO DAILY Qty: 30 RF: 1 Held hydrocodone-acetaminophen [Vicodin HP] 10-300 mg Tablet 1 tab PO Q6H PRN (Reason: Pain) RF: 0 Hold Instructions: Resume on 04/07/20. try not to take this docusate sodium [Colace] 100 mg capsule 100 mg PO BID RF: 0 Hold Instructions: Resume on 04/07/20. Do not take this unless you have constipation, discuss with bariatric team first No Action cholecalciferol (vitamin D3) 10 mcg (400 unit) capsule 1,000 unit PO DAILY RF: 0 ascorbate calcium (vitamin C) 500 mg tablet 1,000 mg PO DAILY RF: 0 omega-3 fatty acids [Fish Oil Concentrate] 1,000 mg capsule 1,000 mg PO DAILY RF: 0 Discharge Orders: Discharge Order (Routine); Ordered 03/01/20 Ordered By: Dorota Fiore Diet: other Activity on Discharge: As tolerated Discharge Date/Time: 03/01/20 12:57 Activity Restrictions/Additional Instructions: Discharge instructions: Diet - Saturday, Saturday and 3 Rebuild protein shakes per day mixed with water. Consume a total of 60 ounces of fluid per day, shakes = 24 ounces. Drink 36 ounces water per day. 9am - 11am first shake 1pm - 3pm - second shake 5 pm - 7pm - third shake Nader - continue with a total of 60 ounces of fluid per day 2 - 4 in 1 shakes and 1 Rebuild shake - all mixed with water Same times as above. Call office if increased pain or inability to tolerate adequate amounts of liguid. Dorota MENON , will call you tomorrow. Discharge summary: ADMITTING DIAGNOSIS: RUQ pain and dysphagia and splenic infarct 2 wks s/p LSG and HH repair DISCHARGE DIAGNOSIS: same, gastritis PAST SURGICAL HISTORY: 02/04/20 - LSG and HH repair with Dr Barnes PROCEDURE: upper endoscopy 02/25/20 DISCHARGE SUMMARY: History of Present Illness: The patient is a 40 year-old woman admitted on 02/20/20 with severe RUQ pain, dysphagia and 3cms splenic infarct. PT had been [place] [facility] [place] for same RUQ pain and inability to tolerate liquids, had CT scan with ci revealed splenic infarct and then disharged home after an overnight stay. [place] [facility] and was admitted with the symptoms listed above. Repeaat CT scan revealed the same and the patient was allowed to start po bariatric diet. She was unable to tolerate liquids well and on 02/25/20 had an EGD by Dr Estrada (covering attending surgeon) which revealed gastritis no strictures or ulcers. Biopsies for h pylori were negative. Patient developed diarrhea and hypomagnesemia, once this was corrected diarrhea resolved and she was able to tolerate increasing amounts of protein shakes and was discharged home. Patient will follow up by phone this week and in office next week. Care Plan Goals: Receive adequate protien and fluid each day Health Concerns: S/p sleeve gastrectomy with dysphagia and abd pain Plan of Treatment: see discharge instructions.
== END 2020-03-01 12:57 | disposition home or self-care (01) | DRG 241 ==
LOC: HO.ED 23:02 → HO.IMC 02-20 14:32 → HO.S3 02-21 18:32
PROVIDERS: Physician Assistant; Admitting Provider Surgery; Emergency Provider Student in an Organized Health Care Education/Training Program; PCP Internal Medicine Geriatric Medicine; Visit Provider Surgery
PROC: 0DJ08ZZ Inspection of Upper Intestinal Tract, Via Natural or Artificial Opening Endoscopic (ICD-10-PCS; CPT 43235; principal; 2020-02-25 10:30)
DX: K29.70 Gastritis, unspecified, without bleeding (principal); E77.8 Other disorders of glycoprotein metabolism; R13.10 Dysphagia, unspecified; F41.9 Anxiety disorder, unspecified; G47.30 Sleep apnea, unspecified; K21.9 Gastro-esophageal reflux disease without esophagitis; Z98.84 Bariatric surgery status; Z20.828 Contact with and (suspected) exposure to other viral communicable diseases; K44.9 Diaphragmatic hernia without obstruction or gangrene; E66.9 Obesity, unspecified; Z68.32 Body mass index [BMI] 32.0-32.9, adult; Z88.6 Allergy status to analgesic agent; Z79.899 Other long term (current) drug therapy
CPT/HCPCS: 36415; 70450; 74018; 74177; 74240; 80048; 80053; 80061; 81003; 82150; 82947; 83605; 83690; 83735; 84100; 85025; 87635; 88305; 88342; 93005; 94799; 96361; 96374; 96375; 99024; 99285; J0131; J0610; J1170; J2060; J2250; J2405; J3010; J3475; Q9967

== ENCOUNTER → 2020-03-09 13:30 | Outpatient (BNVA) | payer OTHER, MEDICAID, SELFPAY | PROVIDERS: PCP Internal Medicine Geriatric Medicine; Visit Provider Physician Assistant | DX: E66.9 Obesity, unspecified (principal); K91.2 Postsurgical malabsorption, not elsewhere classified; Z90.3 Acquired absence of stomach [part of] | CPT/HCPCS: 99212 ==

== ENCOUNTER → 2020-03-17 09:11 | Outpatient (BNVA) | payer OTHER, MEDICAID, SELFPAY | PROVIDERS: PCP Internal Medicine Geriatric Medicine; Visit Provider Surgery | DX: E66.09 Other obesity due to excess calories (principal); Z68.36 Body mass index [BMI] 36.0-36.9, adult; Z90.3 Acquired absence of stomach [part of] | CPT/HCPCS: 99212 ==

== ENCOUNTER 2020-03-23 14:08 | Emergency (ER) | payer OTHER, MEDICAID, SELFPAY | END 2020-03-23 15:00 | disposition left against medical advice (07) | PROVIDERS: Emergency Provider Emergency Medicine; PCP Internal Medicine Geriatric Medicine | DX: R10.9 Unspecified abdominal pain (principal); I10 Essential (primary) hypertension | CPT/HCPCS: 99281 ==

== ENCOUNTER 2020-03-28 11:09 | Emergency (ER) | payer OTHER, MEDICAID, SELFPAY ==
[2020-03-28 11:18] VITALS: BP 122/66; PULSE 67; RESP 17; TEMP 36.6; O2SAT 98; BMI 30.7
[2020-03-28 13:38] LABS: MANUAL DIFF FLAG NO
[2020-03-28 13:44] LABS: Basophils Percent Auto 0.6 % (0-2); Eosinophils Absolute Auto 0.1 X10*3/uL (0.0-0.4); Eosinophils Percent Auto 1.3 % (0-4); Hematocrit 43.3 % (37-47); Hemoglobin 14.1 g/dl (12.0-16.0); Imm Gran Abs Auto 0.02 X10*3/uL (0.00-0.03); Imm Gran Pct Auto 0.3 % (0.0-0.4); Lymphocytes Percent Auto 28.3 % (20-40); Mean Corpuscular HGB Conc 32.6 g/dl (31.0-35.0); Mean Corpuscular Hemoglobin 30.3 pg (27.0-33.0); Mean Corpuscular Volume 92.9 fL (80-98); Mean Platelet Volume 10.3 fL (9.4-12.3); Monocytes Absolute Auto 0.5 X10*3/uL (0.1-1.2); Monocytes Percent Auto 6.8 % (2-11); Neutrophils Absolute Auto 4.4 X10*3/uL (2.0-8.3); Neutrophils Percent Auto 62.7 % (45-73); Platelet Count 232 X10*3/uL (160-400); Red Blood Count 4.66 X10*6/uL (4.20-5.50); Red Cell Distribution Width 14.9 % (11.0-16.0)
[2020-03-28 14:06] LABS: Anion Gap 15 (12-20); Blood Urea Nitrogen 12 mg/dL (9-16); Calcium 9.7 mg/dL (8.4-10.2); Carbon Dioxide 28 mmol/L (22-29); Chloride 104 mmol/L (96-108); Creatinine Clr Calc Pharmacy 126.4; Estimated Glomerular Filt Rate > 60; Glucose Random 78 mg/dL (60-115); Potassium 4.2 mmol/l (3.3-5.1); Sodium 143 mmol/L (135-145)
--- NOTE | 2020-03-28 14:11 | ECG_ITS ---
Test Reason : CHEST PAIN Blood Pressure : / mmHG Vent. Rate : 063 BPM Atrial Rate : 063 BPM P-R Int : 164 ms QRS Dur : 092 ms QT Int : 410 ms P-R-T Axes : 037 018 011 degrees QTc Int : 419 ms Normal sinus rhythm Normal ECG When compared with ECG of 21-FEB-2020 20:26, ST elevation now present in Lateral leads Nonspecific T wave abnormality no longer evident in Anterior leads Referred By: Luh Botello Electronically Signed By:MARSHA AGUILAR MD
--- NOTE | 2020-03-28 14:19 | ED_ITS ---
HPI - Abdominal Pain General Chief Complaint: Abdominal Pain Stated Complaint: spleen infarction Time Seen by Provider: 03/28/20 12:23 Source: patient Mode of arrival: ambulatory Limitations: no limitations History of Present Illness HPI narrative: 40-year-old female with a past medical history of LSB 02/03/[address] Miller, with splenic infarct noted postoperatively with admission for 24 hours at [facility] 02/18 with subsequent readmission here at 11 no leg pain or swelling/-03/01. Patient tells me that she has had chronic left upper quadrant abdominal pain since her surgery and takes Vicodin as needed for this. She tells me over the last week it has been worsened. She has nausea which is unrelieved with her home Zofran. She has no fevers or chills or vomiting or diarrhea. She does tell me that she has some mid and right upper back pain which is worsened with deep breathing. She tells me she has some occasional shortness of breath with no cough. Pain in the LUQ radiates to the left side of the chest and this is worsened with deep breathing and movement. No leg pain or swelling. She is not on anticoagulation MD elicited complaint: abdominal pain Onset (ago): week(s) Pain Consistency: constant Location: LUQ Severity: moderate Quality: sharp Radiation: chest Associated symptoms: nausea Related Data Home Medications Medication Instructions Recorded Confirmed clonazepam 1 mg tablet 1 mg PO BID 01/21/20 03/09/20 clonidine HCl 0.1 mg tablet 0.1 mg PO BEDTIME 01/21/20 03/09/20 lamotrigine 100 mg tablet 100 mg PO DAILY 01/21/20 03/09/20 methocarbamol 750 mg tablet 750 mg PO QID 01/21/20 03/09/20 sumatriptan succinate 100 mg tablet 100 mg PO Q2-4H PRN 01/21/20 03/09/20 hydrocodone-acetaminophen [Vicodin 1 tab PO Q6H PRN 01/28/20 03/09/20 HP] docusate sodium 100 mg capsule 100 mg PO BID 02/08/20 03/09/20 ascorbate calcium (vitamin C) 500 1,000 mg PO DAILY tab 03/17/20 03/17/20 mg tablet cholecalciferol (vitamin D3) 10 1,000 unit PO DAILY cap 03/17/20 mcg (400 unit) capsule omega-3 fatty acids 1,000 mg 1,000 mg PO DAILY 03/17/20 03/17/20 capsule Previous Rx's Medication Instructions Recorded famotidine 20 mg tablet 20 mg PO DAILY #30 tab 01/21/20 sucralfate [Carafate] 10 ml PO BID #1200 ml 03/01/20 Allergies Allergy/AdvReac Type Severity Reaction Status Date / Time promethazine [From PHENERGAN] Allergy Intermediate PSYCHOSIS Verified 03/17/20 09:41 NSAIDS (Non-Steroidal Allergy Unknown Gastrointestinal Verified 03/17/20 09:41 Anti-Inflamma Upset [NSAIDS (NON-STEROIDAL ANTI-INFLAMMA] oxycodone [From PERCOCET] Allergy Unknown headache Verified 03/17/20 09:41 metoclopramide [From Reglan] AdvReac Intermediate PSYCHOSIS Verified 03/17/20 09:41 medical tape- tegaderm Allergy Intermediate Rash Uncoded 03/17/20 09:41 dermabond Allergy Blister Uncoded 03/17/20 09:41 Review of Systems Review of Systems Yes all other systems are reviewed and are negative Constitutional: Reports no additional constitutional complaints, Denies body ache(s), Denies chills, Denies fever(s), Denies headache(s) and Denies weakness Eyes: Reports no additional eye complaints and Denies change in vision Reports system reviewed and no additional complaints, except as documented, Denies dizziness, Denies headache(s), Denies nasal congestion, Denies nasal discharge and Denies neck pain Cardiovascular: Reports no additional cardiovascular complaints, Reports chest pain, Denies leg edema and Denies dyspnea Respiratory: Reports no additional respiratory complaints, Denies cough and Denies dyspnea Gastrointestinal: Reports no additional gastrointestinal complaints, Reports abdominal pain, Denies diarrhea, Reports nausea and Denies vomiting Genitourinary: Reports no additional female genitourinary complaints and Denies urinary incontinence Musculoskeletal: Reports no additional musculoskeletal complaints, Reports back pain, Denies arthralgias, Denies joint swelling, Denies neck pain, Denies numbness and Denies tingling Skin/Breast: Reports system reviewed and no additional complaints, except as docu and Denies rash Reports system reviewed and no additional complaints, except as documented, Denies Abnormal speech present, Denies dizziness, Denies headache(s), Denies numbness, Denies tingling and Denies weakness Physical Exam Vital Signs: Vital Signs: Last Vital Signs Temp 98 F 03/28/20 11:18 Pulse 88 03/28/20 16:00 Resp 16 03/28/20 16:00 BP 134/87 03/28/20 16:00 Pulse Ox 98 03/28/20 16:00 Body Mass Index 30.7 Const: General: cooperative, healthy appearing, comfortable and no acute distress Orientation/consciousness: patient oriented x3 Limitations: no limitations HENMT: Head: Yes normal to inspection Ears: hearing grossly normal bilaterally General nose exam: Normal external nose present Face and sinus: Yes normal facial exam Mouth: Normal oral and palatal mucosa present Throat: Yes posterior oropharynx normal Eyes: General: appearance normal, both eyes and all related structures Pupils: Equal, round and reactive pupils present Neck: Neck: Yes normal visual inspection Chest: Chest palpation & inspection: normal inspection of the chest Resp: Effort & Inspection: normal respiratory effort Auscultation: clear to auscultation bilaterally Cardio: Rate: regular rate Rhythm: regular rhythm Peripheral pulses: Peripheral pulses 2+ throughout GI: Inspection: Yes normal to inspection Palpation (GI): Soft to palpation and Tenderness to palpation present (GI) (No rebound or guarding) in the LUQ Auscultation: normal bowel sounds Back/Spine/Pelvis: Other: Right upper back and midthoracic spine tender to palpate. There is no step-offs or deformities. Thoracic/Lumbar Spine: thoracic and lumbar spine normal to inspection Skin: General skin exam: no rashes or lesions noted Neuro: General: patient oriented x3, no focal motor deficits and normal sensation to monofilament Cranial nerves: Yes Equal, round and reactive pupils present Cognition (Neuro): normal cognition Speech: No Abnormal speech present Gait exam (Neuro): Normal gait present Motor exam (neuro): 5/5 motor strength present throughout Extrem: General: Yes normal to inspection Course Course Course Narrative: 40-year-old female here with left upper quadrant abdominal pain with radiation to the chest acute on chronic x1 week the setting of history of splenic infarct. Also complaining of right upper back pain with some shortness of breath. Pain is worsened with deep breathing and movement and palpation. Patient will need labs, EKG, CT chest and abdomen. Will update bariatric PA that patient is here. 1630-labs reviewed and unremarkable. Imaging unremarkable. UA is pending. Patient feeling improved. 1714-UA negative. Call out to bariatric to discuss. Patient would like to be discharged home. 1754-discussed patient with Milagro MENON from bariatric. Recommended follow-up in the office. Patient tells me her pain is improved. She is tolerating p.o.. Reviewed worrisome signs and symptoms and when to return to the emergency department. Comfortable with discharge home. MDM - Abdominal Pain MDM Narrative Medical decision making narrative: Pancreatitis, splenic infarction, PE, musculoskeletal pain,ACS Medical Records Attestation: I reviewed the patient's medical records. Lab Data Attestation: I reviewed the patient's lab results. Result diagrams: 03/28/20 13:16 03/28/20 13:16 Labs: Lab Results 03/28/20 03/28/20 03/28/20 Range/Units 13:16 13:16 13:16 WBC 7.0 (4.8-10.8) X10*3/uL RBC 4.66 D (4.20-5.50) X10*6/uL Hgb 14.1 (12.0-16.0) g/dl Hct 43.3 D (37-47) % MCV 92.9 (80-98) fL MCH 30.3 (27.0-33.0) pg MCHC 32.6 (31.0-35.0) g/dl RDW 14.9 (11.0-16.0) % Plt Count 232 (160-400) X10*3/uL MPV 10.3 (9.4-12.3) fL Immature Gran % (Auto) 0.3 (0.0-0.4) % Neut % (Auto) 62.7 (45-73) % Lymph % (Auto) 28.3 (20-40) % [place] % (Auto) 6.8 (2-11) % Eos % (Auto) 1.3 (0-4) % Baso % (Auto) 0.6 (0-2) % Lymph # (Auto) 2.0 (1.2-4.9) X10*3/uL [place] # (Auto) 0.5 (0.1-1.2) X10*3/uL Eos # (Auto) 0.1 (0.0-0.4) X10*3/uL Baso # (Auto) 0.0 (0.0-0.2) X10*3/uL Abs Immat Gran (auto) 0.02 (0.00-0.03) X10*3/uL Absolute Neuts (auto) 4.4 (2.0-8.3) X10*3/uL Absolute Nucleated RBC 0.000 (0.0-0.012) X10*3/uL Nucleated RBC % (auto) 0.0 (0.0-0.2) /100WBC Hold Blue Top SEE NOTE Sodium 143 (135-145) mmol/L Potassium 4.2 (3.3-5.1) mmol/l Chloride 104 (96-108) mmol/L Carbon Dioxide 28 (22-29) mmol/L Anion Gap 15 (12-20) BUN 12 D (9-16) mg/dL Creatinine 0.62 (0.5-1.4) mg/dL Estim Creat Clear Calc 126.4 Estimated GFR > 60 Random Glucose 78 (60-115) mg/dL Calcium 9.7 D (8.4-10.2) mg/dL Magnesium 2.0 (1.6-2.6) mg/dL Total Bilirubin 0.6 (0.0-1.0) mg/dL Direct Bilirubin 0.3 (0.0-0.5) mg/dL AST 29 D (5-31) U/L ALT 42 H (0-31) U/L Alkaline Phosphatase 88 (39-117) U/L Troponin I High Sens (<3.5-17.0) ng/L Total Protein 7.2 (6.5-8.0) g/dL Albumin 4.8 (3.5-5.0) g/dL Lipase 45 (8-78) U/L Urine Color Urine Appearance Urine pH (5.0-8.0) Ur Specific [place] (1.005-1.025) Urine Protein (NEG-TRACE) MG/DL Urine Glucose (UA) (NEG) MG/DL Urine Ketones (NEG) MG/DL Urine Blood (NEG) Urine Nitrite (NEG) Ur Leukocyte Esterase (NEG) 03/28/20 03/28/20 03/28/20 Range/Units 14:40 14:40 16:48 WBC (4.8-10.8) X10*3/uL RBC (4.20-5.50) X10*6/uL Hgb (12.0-16.0) g/dl Hct (37-47) % MCV (80-98) fL MCH (27.0-33.0) pg MCHC (31.0-35.0) g/dl RDW (11.0-16.0) % Plt Count (160-400) X10*3/uL MPV (9.4-12.3) fL Immature Gran % (Auto) (0.0-0.4) % Neut % (Auto) (45-73) % Lymph % (Auto) (20-40) % [place] % (Auto) (2-11) % Eos % (Auto) (0-4) % Baso % (Auto) (0-2) % Lymph # (Auto) (1.2-4.9) X10*3/uL [place] # (Auto) (0.1-1.2) X10*3/uL Eos # (Auto) (0.0-0.4) X10*3/uL Baso # (Auto) (0.0-0.2) X10*3/uL Abs Immat Gran (auto) (0.00-0.03) X10*3/uL Absolute Neuts (auto) (2.0-8.3) X10*3/uL Absolute Nucleated RBC (0.0-0.012) X10*3/uL Nucleated RBC % (auto) (0.0-0.2) /100WBC Hold Blue Top SEE NOTE Sodium (135-145) mmol/L Potassium (3.3-5.1) mmol/l Chloride (96-108) mmol/L Carbon Dioxide (22-29) mmol/L Anion Gap (12-20) BUN (9-16) mg/dL Creatinine (0.5-1.4) mg/dL Estim Creat Clear Calc Estimated GFR Random Glucose (60-115) mg/dL Calcium (8.4-10.2) mg/dL Magnesium (1.6-2.6) mg/dL Total Bilirubin (0.0-1.0) mg/dL Direct Bilirubin (0.0-0.5) mg/dL AST (5-31) U/L ALT (0-31) U/L Alkaline Phosphatase (39-117) U/L Troponin I High Sens < 3.5 (<3.5-17.0) ng/L Total Protein (6.5-8.0) g/dL Albumin (3.5-5.0) g/dL Lipase (8-78) U/L Urine Color YELLOW Urine Appearance CLEAR Urine pH 5.5 (5.0-8.0) Ur Specific [place] <= 1.005 (1.005-1.025) Urine Protein NEG (NEG-TRACE) MG/DL Urine Glucose (UA) NEG (NEG) MG/DL Urine Ketones 40 (NEG) MG/DL Urine Blood NEG (NEG) Urine Nitrite NEG (NEG) Ur Leukocyte Esterase NEG (NEG) Imaging Data CT chest/abdomen/pelvis: Attestation: I personally reviewed and interpreted this imaging study as follows: Radiologist's impression: EXAMINATION: CTA CHEST CT ABDOMEN WITH CONTRAST CLINICAL INFORMATION: Pleuritic back pain. Shortness of breath. Recent surgery. COMPARISON: CT of the abdomen 02/20/2020, 02/19/2020. CT chest 11/28/2016 TECHNIQUE: A noncontrast localizer was performed, followed by the administration of 85 mL Omnipaque [address] of the chest was then performed. Coronal and sagittal reformatted and 3-D technique MIP images of the chest were completed at the CT scanner and reviewed on the PACS workstation. No adverse effects were reported. Images were then performed through the abdomen .. Coronal and sagittal reformatted images performed at CT scanner by technologist. [This CT examination was performed using dose optimization techniques as appropriate, variously including the following: *Automated exposure control *Adjustment of mA and/or kV according to patient size (this includes techniques or standardized protocols for targeted exams where dose is matched to indication/reason for exam; i.e. extremities or head) *Use of iterative reconstruction technique] DLP: 659 mGy-cm. FINDINGS: CTA CHEST Vascular: The main pulmonary artery, secondary and tertiary branches of the pulmonary artery are normally opacified with no evidence of pulmonary embolism. The aorta and great vessels are unremarkable. Mediastinum: No mediastinal mass. No significant lymphadenopathy. There is no pericardial effusion. Lungs: The lungs are clear. No nodule or infiltrate. Central bronchial airways open. Fluid: There is no pericardial effusion. There is no pleural effusion. Axilla: No significant lymphadenopathy. CT SCAN ABDOMEN/PELVIS: Liver, Gallbladder and Biliary Tree: The liver is normal in size, shape, and attenuation. No focal hepatic lesion or biliary ductal dilatation is present. Right lobe liver measures 19 cm superior inferior. Status post cholecystectomy Pancreas: Unremarkable. Spleen: Unremarkable. Spleen measures 11.1 cm of length. Adrenal Glands: Unremarkable. Kidneys and Ureters: The kidneys are normal in size, shape, and attenuation. No hydronephrosis, hydroureter, or calculi seen. No perinephric stranding. There are parapelvic cysts bilaterally. Bladder: Unremarkable. Gastrointestinal Tract: Status post gastric surgery. Surgical sutures along the greater curvature the stomach. No acute change of the bowel. No bowel obstruction. No bowel wall thickening or edema. Moderate volume of stool in the colon. The appendix is not visualized on the CT abdomen study. Abdominal Wall: No significant hernia is appreciated. Evidence of surgery with midline subcutaneous scar from laparoscopic port seen on sagittal image 57. No fluid collection or inflammation of the abdominal wall or subcutaneous tissues. Lymph Nodes: Normal. Vascular: Unremarkable. Osseous Structures: Unremarkable. CT/CT angio chest PE protocol IMPRESSION: No significant abnormality. ECG Data Attestation: I personally reviewed and interpreted this ECG as follows: ECG interpretation date: 03/28/20 ECG interpretation time: 14:30 Interpretation: Normal sinus rhythm, rate of 63, normal IA, normal QRS, normal QT Discharge Plan Discharge Clinical Impression: Abdominal pain Qualifiers: Abdominal location: left upper quadrant Qualified Code(s): R10.12 - Left upper quadrant pain Back pain Qualifiers: Back pain location: thoracic back pain Chronicity: acute Back pain laterality: right Qualified Code(s): M54.6 - Pain in thoracic spine Patient Disposition: Home, Self-Care Instructions: Abdominal Pain (ED), Back Pain (ED) Additional Instructions: I did speak to Milagro lawrence bariatric PA. I do not have an explanation for your pain. Please call her office to follow-up tomorrow. Prescriptions: No Action sucralfate [Carafate] 100 mg/mL suspension 10 ml PO BID Qty: 1200 RF: 3 hydrocodone-acetaminophen [Vicodin HP] 10-300 mg Tablet 1 tab PO Q6H PRN (Reason: Pain) RF: 0 Hold Instructions: Resume on 04/07/20. try not to take this docusate sodium [Colace] 100 mg capsule 100 mg PO BID RF: 0 Hold Instructions: Resume on 04/07/20. Do not take this unless you have constipation, discuss with bariatric team first cholecalciferol (vitamin D3) 10 mcg (400 unit) capsule 1,000 unit PO DAILY RF: 0 sumatriptan succinate [Imitrex] 100 mg tablet 100 mg PO Q2-4H PRN (Reason: Headache) RF: 0 methocarbamol 750 mg tablet 750 mg PO QID RF: 0 clonazepam 1 mg tablet 1 mg PO BID RF: 0 clonidine HCl 0.1 mg tablet 0.1 mg PO BEDTIME RF: 0 lamotrigine 100 mg tablet 100 mg PO DAILY RF: 0 famotidine [Pepcid AC] 20 mg tablet 20 mg PO DAILY Qty: 30 RF: 1 ascorbate calcium (vitamin C) 500 mg tablet 1,000 mg PO DAILY RF: 0 omega-3 fatty acids [Fish Oil Concentrate] 1,000 mg capsule 1,000 mg PO DAILY RF: 0 Referrals: Deana Barnes MD [Physician] - 2 days Interventions: ED Discharge Assessment Last Done: 03/28/20 17:47 Discharge Date/Time: 03/28/20 17:56 [facility] Past Medical History Attestation statement: The following information was validated with the patient. Source: old records reviewed and nursing notes reviewed Medical History Anxiety Arthritis Bursitis Chronic back pain Constipation Degenerative disc disease Depression Diverticular disease Elevated lipase Endometriosis Fatty liver GERD (gastroesophageal reflux disease) Hiatal hernia High cholesterol History of Crabtree's palsy HTN (hypertension) IBS (irritable bowel syndrome) Increased body mass index (BMI) Insomnia Intestinal malabsorption following gastrectomy Malabsorption due to intolerance, not elsewhere classified Migraines Motion sickness Nausea Obesity (BMI 30-39.9) Palpitations PONV (postoperative nausea and vomiting) Pseudotumor cerebri PTSD (post-traumatic stress disorder) Sciatica of left side Scoliosis Sleep apnea Splenic infarction TMJ (temporomandibular joint disorder) Vertigo Surgical History H/O unilateral oophorectomy History of laparoscopic cholecystectomy History of laparoscopy History of myringotomy History of repair of hiatal hernia History of sleeve gastrectomy History of tonsillectomy History of tonsillectomy and adenoidectomy History of tubal ligation Hx of oophorectomy S/P MALIKA (total abdominal hysterectomy) Family History Family History Father No problems noted. Mother Heart disease Type 2 diabetes mellitus History of smoking Alcoholism COPD (chronic obstructive pulmonary disease) Hyperlipidemia Sister No problems noted. Sister No problems noted. Brother Arthritis Brother Arthritis Son Obesity Autism spectrum disorder Son Fibromyalgia Mood disorder Social History Social History Household Members: Children Housing: Apartment Alcohol intake: never Smoking Status: Never smoker Smoked in Last 30 Days: No Second Hand Smoke Exposure: No Use of substances other than those prescribed or required for medical reasons: No Advance Directives: No Advance Directives Information Provided: No service: No Current occupational status: unemployed
--- NOTE | 2020-03-28 14:28 | PC.NURSE ---
x1 attempt for iv access, unsuccessful, hot packs placed, another rn at bedside to attempt.
[2020-03-28 14:50] VITALS: RESP 16
[2020-03-28] MEDS: HYDROmorphone HCl 0.5 MG/0.5 ML SYRINGE IVPUSH (14:50)
[2020-03-28] MEDS: ondansetron HCL 4 MG/2 ML VIAL IVPUSH (14:50)
[2020-03-28 14:54] LABS: Alanine Aminotransferase 42 U/L (0-31); Albumin Level 4.8 g/dL (3.5-5.0); Alkaline Phosphatase 88 U/L (39-117); Aspartate Amino Transferase 29 U/L (5-31); Bilirubin Direct 0.3 mg/dL (0.0-0.5); Bilirubin Total 0.6 mg/dL (0.0-1.0); Lipase 45 U/L (8-78); Total Protein 7.2 g/dL (6.5-8.0)
[2020-03-28 14:55] VITALS: BP 108/71; PULSE 74; RESP 18; O2SAT 97
[2020-03-28 15:18] LABS: Troponin-I High Sensitivity < 3.5 ng/L (<3.5-17.0)
[2020-03-28] MEDS: iohexoL 350 MG/ML 100 ML INFUS..BTL IV (15:38)
[2020-03-28 16:00] VITALS: BP 134/87; PULSE 88; RESP 16; O2SAT 98
[2020-03-28 16:59] LABS: Glucose Urine UA NEG (NEG); Leukocyte Esterase Urine NEG (NEG); Nitrite Urine NEG (NEG); PH 5.5 (5.0-8.0); Specific Gravity - Urine <= 1.005 (1.005-1.025); Urine Blood NEG (NEG); Urine Ketones 40 MG/DL (NEG); Urine Protein NEG (NEG-TRACE)
[2020-03-28 17:00] LABS: Appearance Urine CLEAR; Color Urine YELLOW
--- NOTE | 2020-03-28 17:42 | PC.NURSE ---
pT ASKING TO LEAVE, STATES SHE FEELS FINE, DOES NOT WANT TO WAIT FOR BARIACTRIC CONSULT. SHEEP HERDER AWARE. PT THREATENING TO REMOVE OWN IV LINE.
== END 2020-03-28 17:56 | disposition home or self-care (01) ==
PROVIDERS: Nurse Practitioner Family; Emergency Provider Emergency Medicine; PCP Internal Medicine Geriatric Medicine
DX: R10.12 Left upper quadrant pain (principal); M54.6 Pain in thoracic spine; I10 Essential (primary) hypertension
CPT/HCPCS: 36415; 71275; 74160; 80048; 80076; 81003; 83690; 83735; 84484; 85025; 93005; 96361; 96374; 96375; 99284; J1170; J2405; Q9967

== ENCOUNTER → 2020-04-06 08:24 | Outpatient (BNVA) | payer OTHER, MEDICAID, SELFPAY | PROVIDERS: PCP Internal Medicine Geriatric Medicine; Visit Provider Dietitian, Registered | DX: Z76.89 Persons encountering health services in other specified circumstances (principal) ==

== ENCOUNTER → 2020-04-28 08:06 | Outpatient (BNVA) | payer OTHER, MEDICAID, SELFPAY | PROVIDERS: PCP Internal Medicine Geriatric Medicine; Visit Provider Surgery ==

== ENCOUNTER → 2020-05-24 12:42 | Outpatient (BNVA) | payer MEDICAID, SELFPAY | PROVIDERS: PCP Internal Medicine Geriatric Medicine; Visit Provider Physician Assistant ==

== ENCOUNTER → 2020-07-28 13:59 | Outpatient (BNVA) | payer MEDICAID, SELFPAY | PROVIDERS: PCP Internal Medicine Geriatric Medicine; Visit Provider Surgery | DX: E66.3 Overweight (principal); Z90.3 Acquired absence of stomach [part of]; Z68.27 Body mass index [BMI] 27.0-27.9, adult | CPT/HCPCS: 99212 ==

== ENCOUNTER → 2020-08-25 08:12 | Outpatient (BNVA) | payer MEDICAID, SELFPAY | PROVIDERS: PCP Internal Medicine Geriatric Medicine; Visit Provider Dietitian, Registered | DX: E66.3 Overweight (principal); Z68.26 Body mass index [BMI] 26.0-26.9, adult | CPT/HCPCS: 97803 ==

== ENCOUNTER 2020-08-31 15:01 | Emergency (ER) | payer MEDICAID, SELFPAY ==
--- NOTE | ~2020-08-31 | CT_ITS ---
EXAMINATION: CT ABDOMEN AND PELVIS WITH CONTRAST CLINICAL INFORMATION: Left lower quadrant pain COMPARISON: CT abdomen only 03/28/[address] abdomen pelvis 02/19/2020 TECHNIQUE: Multidetector volumetric images were obtained from the superior aspect of the liver through the pubic symphysis following administration 85 mL of Omnipaque 350 intravenous contrast. Sagittal and coronal reformatted images were obtained on the technologist's workstation. Oral contrast: No This CT examination was performed using dose optimization techniques as appropriate, variously including the following: *Automated exposure control *Adjustment of mA and/or kV according to patient size (this includes techniques or standardized protocols for targeted exams where dose is matched to indication/reason for exam; i.e. extremities or head) *Use of iterative reconstruction technique DLP: 573 mGy-cm FINDINGS: LUNG BASES: The visualized lung bases are unremarkable. LIVER, GALLBLADDER, AND BILIARY TREE: The liver is normal in size, shape, and attenuation. No focal hepatic lesion or biliary ductal dilatation is present. Status post cholecystectomy PANCREAS: Unremarkable. SPLEEN: Unremarkable. ADRENAL GLANDS: Unremarkable. KIDNEYS AND URETERS: The kidneys are normal in size, shape, and attenuation. Bilateral parapelvic cysts are present No hydronephrosis, hydroureter, or calculi seen. No perinephric stranding. BLADDER: Unremarkable. GASTROINTESTINAL TRACT: Status post a gastric sleeve. The small and large bowel are unremarkable. The appendix is unremarkable. ABDOMINAL WALL: No significant hernia is appreciated. LYMPH NODES: Normal. VASCULAR: Unremarkable. PELVIC VISCERA: Status post hysterectomy. An abnormal adnexal mass is not seen. No free intraperitoneal fluid present. OSSEOUS STRUCTURES: Unremarkable. CT/CT abdomen pelvis w con IMPRESSION: A cause for the patient's left lower quadrant pain has not been found. Status post cholecystectomy, gastric sleeve and hysterectomy.
[2020-08-31 15:43] VITALS: PULSE 75; RESP 18; TEMP 36.1; BMI 26.6
--- NOTE | 2020-08-31 17:09 | ED.ABDPAIN ---
HPI - Abdominal Pain General Chief Complaint: Nausea/Vomiting/Diarrhea Stated Complaint: vomitting Time Seen by Provider: 08/31/20 17:01 Source: patient Mode of arrival: ambulatory Limitations: no limitations History of Present Illness HPI narrative: Patient post gastric sleeve surgery 01/25 with history of diverticulitis 10 years ago complaining of pain in the left lower abdomen for last 4-no urinary complaints 5 days with nausea and vomiting since yesterday pain got worse since last night no fever chills no blood in stool no fever or chills Related Data Home Medications Medication Instructions Recorded Confirmed clonazepam 1 mg tablet 1 mg PO BID 01/21/20 07/28/20 clonidine HCl 0.1 mg tablet 0.1 mg PO BEDTIME 01/21/20 07/28/20 lamotrigine 100 mg tablet 100 mg PO DAILY 01/21/20 07/28/20 methocarbamol 750 mg tablet 750 mg PO QID 01/21/20 07/28/20 sumatriptan succinate 100 mg tablet 100 mg PO Q2-4H PRN 01/21/20 07/28/20 hydrocodone-acetaminophen [Vicodin 1 tab PO Q6H PRN 01/28/20 07/28/20 HP] docusate sodium 100 mg capsule 100 mg PO BID 02/08/20 07/28/20 ascorbate calcium (vitamin C) 500 1,000 mg PO DAILY tab 03/17/20 07/28/20 mg tablet cholecalciferol (vitamin D3) 10 1,000 unit PO DAILY cap 03/17/20 07/28/20 mcg (400 unit) capsule omega-3 fatty acids 1,000 mg 1,000 mg PO DAILY 03/17/20 07/28/20 capsule magnesium oxide 250 mg PO DAILY 04/28/20 07/28/20 vitamin E (dl, acetate) 400 unit 450 mg PO DAILY 04/28/20 07/28/20 capsule zinc 50 mg tablet 50 mg PO DAILY 04/28/20 07/28/20 ascorbic acid 125 mg-collagen, cap PO 07/28/20 07/28/20 hydrolyzed 740 mg capsule biotin 5,000 mcg disintegrating 10,000 mcg PO DAILY 07/28/20 07/28/20 tablet diphenhydramine HCl 25 mg capsule 25 mg PO TID PRN 07/28/20 07/28/20 [id number] 45 mg-folic cap PO 07/28/20 07/28/20 acid 800 mcg-vit K 120 mcg capsule turmeric 400 mg capsule mg PO 07/28/20 07/28/20 Previous Rx's Medication Instructions Recorded sucralfate 1 gram tablet 1 g PO BID #60 tab 04/22/20 dicyclomine 10 mg capsule 10 mg PO TID #60 cap 05/12/20 acetaminophen 500 mg capsule 500 mg PO Q6H PRN #30 cap 05/24/20 polyethylene glycol 3350 [Miralax] 17 g PO DAILY #510 g 08/31/20 Allergies Allergy/AdvReac Type Severity Reaction Status Date / Time promethazine [From PHENERGAN] Allergy Intermediate PSYCHOSIS Verified 07/28/20 14:48 NSAIDS (Non-Steroidal Allergy Unknown Gastrointestinal Verified 07/28/20 14:48 Anti-Inflamma Upset [NSAIDS (NON-STEROIDAL ANTI-INFLAMMA] oxycodone [From PERCOCET] Allergy Unknown headache Verified 07/28/20 14:48 metoclopramide [From Reglan] AdvReac Intermediate PSYCHOSIS Verified 07/28/20 14:48 medical tape- tegaderm Allergy Intermediate Rash Uncoded 07/28/20 14:48 dermabond Allergy Blister Uncoded 07/28/20 14:48 Review of Systems Review of Systems Constitutional : No Weight loss, No Fever, No Chills ENT/Mouth : No sore throat, No Rhinorrhea Eyes: No Eye Pain, No Swelling Cardiovascular : No Chest Pain, no palpitations Respiratory : No Cough, No Sputum, no shortness of breath Gastrointestinal : + Nausea, + Vomiting, No Diarrhea, +abdominal Pain, no black stools Genitourinary : No Dysuria, No Urinary Frequency Musculoskeletal : No joint pain, No Myalgias, No Joint Swelling Skin : No Skin Lesions, No rash Neuro : No Weakness, No Numbness, No Dizziness, No Headache Psych : No Anxiety/Panic, No Depression Heme/Lymph: No Bruising, No Lymphadenopathy Endocrine : No Polyuria, No Polydipsia All other systems reviewed and are negative Physical Exam Vital Signs: Vital Signs: Last Vital Signs Temp 98.1 F 08/31/20 19:21 Pulse 73 08/31/20 20:15 Resp 18 08/31/20 20:15 BP 109/68 08/31/20 20:15 Pulse Ox 97 08/31/20 20:15 Body Mass Index 26.6 Appearance: Alert. Oriented X3. No acute distress. Eyes: PERRLA, No Nystagmus ENT: Pharynx normal. Oral Mucosa moist Neck: Normal inspection. Neck supple. CVS: Normal heart rate and rhythm. Pulses normal. Respiratory: No respiratory distress. Equal air entry bilateral, no wheezing/rales/rhonchi Abdomen: Soft , deep tenderness left lower quadrant Bowel sounds are present, no mass palpable, no CVA tenderness Skin: Skin warm and dry. Normal skin color. Normal skin turgor. Extremities: No lower extremity edema. No calf tenderness Neuro: Oriented X 3. No motor deficit. No sensory deficit.No cerebellar signs , cranial nerves II-XII intact MDM - Abdominal Pain MDM Narrative Medical decision making narrative: Patient has chronic constipation with chronic abdominal pain CT scan negative for any acute pathology labs also stable CT scan showed a lot of stool. Will give mag citrate advised to take MiraLax daily and follow with PCP Differential Diagnosis Differential diagnosis: Likely abdominal pain Medical Records Attestation: I reviewed the patient's medical records. Lab Data Attestation: I reviewed the patient's lab results. Result diagrams: 08/31/20 18:07 08/31/20 18:07 Labs: Lab Results 08/31/20 08/31/20 08/31/20 Range/Units 18:07 18:07 19:48 WBC 11.6 H (4.8-10.8) X10*3/uL RBC 4.36 (4.20-5.50) X10*6/uL Hgb 13.7 (12.0-16.0) g/dl Hct 41.9 (37-47) % MCV 96.1 (80-98) fL MCH 31.4 (27.0-33.0) pg MCHC 32.7 (31.0-35.0) g/dl RDW 12.5 (11.0-16.0) % Plt Count 308 D (160-400) X10*3/uL MPV 8.9 L (9.4-12.3) fL Immature Gran % (Auto) 0.3 (0.0-0.4) % Neut % (Auto) 74.4 H (45-73) % Lymph % (Auto) 18.0 L (20-40) % [place] % (Auto) 6.7 (2-11) % Eos % (Auto) 0.3 (0-4) % Baso % (Auto) 0.3 (0-2) % Lymph # (Auto) 2.1 (1.2-4.9) X10*3/uL [place] # (Auto) 0.8 (0.1-1.2) X10*3/uL Eos # (Auto) 0.0 (0.0-0.4) X10*3/uL Baso # (Auto) 0.0 (0.0-0.2) X10*3/uL Abs Immat Gran (auto) 0.04 H (0.00-0.03) X10*3/uL Absolute Neuts (auto) 8.6 H (2.0-8.3) X10*3/uL Absolute Nucleated RBC 0.000 (0.0-0.012) X10*3/uL Nucleated RBC % (auto) 0.0 (0.0-0.2) /100WBC Sodium 140 (135-145) mmol/L Potassium 4.3 (3.3-5.1) mmol/L Chloride 101 (96-108) mmol/L Carbon Dioxide 28 (22-29) mmol/L Anion Gap 15 (12-20) BUN 18 H (9-16) mg/dL Creatinine 0.71 (0.5-1.4) mg/dL Estim Creat Clear Calc 106.8 Estimated GFR > 60 Random Glucose 91 (60-115) mg/dL Calcium 9.8 (8.4-10.2) mg/dL Total Bilirubin 0.2 (0.0-1.0) mg/dL Direct Bilirubin 0.2 (0.0-0.5) mg/dL AST 19 (5-31) U/L ALT 15 (0-31) U/L Alkaline Phosphatase 84 (39-117) U/L Total Protein 7.4 (6.5-8.0) g/dL Albumin 4.9 (3.5-5.0) g/dL Lipase 24 (8-78) U/L Urine Color YELLOW Urine Appearance CLEAR Urine pH 7.0 (5.0-8.0) Ur Specific [place] <= 1.005 (1.005-1.025) Urine Protein NEG (NEG-TRACE) MG/DL Urine Glucose (UA) NEG (NEG) MG/DL Urine Ketones NEG (NEG) MG/DL Urine Blood NEG (NEG) Urine Nitrite NEG (NEG) Ur Leukocyte Esterase NEG (NEG) Discharge Plan Discharge Clinical Impression: Abdominal pain Qualifiers: Abdominal location: generalized Qualified Code(s): R10.84 - Generalized abdominal pain Constipation Qualifiers: Constipation type: slow transit constipation Qualified Code(s): K59.01 - Slow transit constipation Patient Disposition: Home, Self-Care Instructions: Constipation (ED) Additional Instructions: Drink plenty of fluid take stool softener as prescribed follow with PCP if not better Prescriptions: New polyethylene glycol 3350 [Miralax] 17 gram/dose powder 17 g PO DAILY Qty: 510 RF: 0 No Action sucralfate 1 gram tablet 1 g PO BID Qty: 60 RF: 6 dicyclomine 10 mg capsule 10 mg PO TID Qty: 60 RF: 0 hydrocodone-acetaminophen [Vicodin HP] 10-300 mg Tablet 1 tab PO Q6H PRN (Reason: Pain) RF: 0 Hold Instructions: Resume on 04/07/20. try not to take this docusate sodium [Colace] 100 mg capsule 100 mg PO BID RF: 0 Hold Instructions: Resume on 04/07/20. Do not take this unless you have constipation, discuss with bariatric team first vitamin E (dl, acetate) 400 unit capsule 450 mg PO DAILY RF: 0 zinc 50 mg tablet 50 mg PO DAILY RF: 0 magnesium oxide 250 mg magnesium tablet 250 mg PO DAILY RF: 0 cholecalciferol (vitamin D3) 10 mcg (400 unit) capsule 1,000 unit PO DAILY RF: 0 sumatriptan succinate [Imitrex] 100 mg tablet 100 mg PO Q2-4H PRN (Reason: Headache) RF: 0 methocarbamol 750 mg tablet 750 mg PO QID RF: 0 clonazepam 1 mg tablet 1 mg PO BID RF: 0 clonidine HCl 0.1 mg tablet 0.1 mg PO BEDTIME RF: 0 lamotrigine 100 mg tablet 100 mg PO DAILY RF: 0 acetaminophen 500 mg capsule 500 mg PO Q6H PRN (Reason: fever) Qty: 30 RF: 5 biotin 5,000 mcg tablet,disintegrating 10,000 mcg PO DAILY RF: 0 Collagen Plus Vitamin C 125-740 mg capsule PO RF: 0 Bariatric Multivitamins 45 mg iron- 800 mcg-120 mcg capsule PO RF: 0 turmeric 400 mg capsule PO RF: 0 diphenhydramine HCl 25 mg capsule 25 mg PO TID PRNRF: 0 ascorbate calcium (vitamin C) 500 mg tablet 1,000 mg PO DAILY RF: 0 omega-3 fatty acids [Fish Oil Concentrate] 1,000 mg capsule 1,000 mg PO DAILY RF: 0 PMFSH Past Medical History Medical History Anxiety Arthritis Bursitis Chronic back pain Constipation Degenerative disc disease Depression Diarrhea Diverticular disease Dysphagia Elevated lipase Endometriosis Fatty liver GERD (gastroesophageal reflux disease) Hiatal hernia High cholesterol History of Crabtree's palsy HTN (hypertension) Hypocalcemia Hypomagnesemia Hypoproteinemia IBS (irritable bowel syndrome) Increased body mass index (BMI) Insomnia Intestinal malabsorption following gastrectomy Malabsorption due to intolerance, not elsewhere classified Migraines Motion sickness Nausea Obesity Obesity (BMI 30-39.9) Odynophagia Palpitations PONV (postoperative nausea and vomiting) Pseudotumor cerebri PTSD (post-traumatic stress disorder) Sciatica of left side Scoliosis Sleep apnea Splenic infarction TMJ (temporomandibular joint disorder) Vertigo Surgical History H/O unilateral oophorectomy History of laparoscopic cholecystectomy History of laparoscopy History of myringotomy History of repair of hiatal hernia History of sleeve gastrectomy History of tonsillectomy History of tonsillectomy and adenoidectomy History of tubal ligation Hx of oophorectomy S/P MALIKA (total abdominal hysterectomy) Family History Family History Father No problems noted. Mother Heart disease Type 2 diabetes mellitus History of smoking Alcoholism COPD (chronic obstructive pulmonary disease) Hyperlipidemia Sister No problems noted. Sister No problems noted. Brother Arthritis Brother Arthritis Son Obesity Autism spectrum disorder Son Fibromyalgia Mood disorder Social History Social History Household Members: Children Housing: Apartment Are you a primary child care counselor to a significant other at home: Yes (SON 17,AUTISTIC) Do you presently have visiting nurse or other home services: No Alcohol intake: never Second Hand Smoke Exposure: No Advance Directives: No Advance Directives Information Provided: No Patient : No service: No Current occupational status: unemployed
[2020-08-31] MEDS: 0.9 % Sodium Chloride 1,000 ML 999 ML IVCONT (18:11)
[2020-08-31 18:13] LABS: MANUAL DIFF FLAG NO
[2020-08-31] MEDS: ondansetron HCL 4 MG/2 ML VIAL IVPUSH ×2 (18:13→20:16)
[2020-08-31] MEDS: Morphine Sulfate 4 MG/ML CARTRIDGE IVPUSH (18:14)
[2020-08-31 18:17] LABS: Basophils Percent Auto 0.3 % (0-2); Eosinophils Percent Auto 0.3 % (0-4); Hematocrit 41.9 % (37-47); Hemoglobin 13.7 g/dl (12.0-16.0); Imm Gran Abs Auto 0.04 X10*3/uL (0.00-0.03); Imm Gran Pct Auto 0.3 % (0.0-0.4); Lymphocytes Absolute Auto 2.1 X10*3/uL (1.2-4.9); Mean Corpuscular HGB Conc 32.7 g/dl (31.0-35.0); Mean Corpuscular Hemoglobin 31.4 pg (27.0-33.0); Mean Corpuscular Volume 96.1 fL (80-98); Mean Platelet Volume 8.9 fL (9.4-12.3); Monocytes Absolute Auto 0.8 X10*3/uL (0.1-1.2); Monocytes Percent Auto 6.7 % (2-11); Neutrophils Absolute Auto 8.6 X10*3/uL (2.0-8.3); Neutrophils Percent Auto 74.4 % (45-73); Platelet Count 308 X10*3/uL (160-400); Red Blood Count 4.36 X10*6/uL (4.20-5.50); Red Cell Distribution Width 12.5 % (11.0-16.0); White Blood Count 11.6 X10*3/uL (4.8-10.8)
[2020-08-31 18:45] LABS: Alanine Aminotransferase 15 U/L (0-31); Albumin Level 4.9 g/dL (3.5-5.0); Alkaline Phosphatase 84 U/L (39-117); Anion Gap 15 (12-20); Aspartate Amino Transferase 19 U/L (5-31); Bilirubin Direct 0.2 mg/dL (0.0-0.5); Bilirubin Total 0.2 mg/dL (0.0-1.0); Blood Urea Nitrogen 18 mg/dL (9-16); Calcium 9.8 mg/dL (8.4-10.2); Carbon Dioxide 28 mmol/L (22-29); Chloride 101 mmol/L (96-108); Creatinine Clr Calc Pharmacy 106.8; Estimated Glomerular Filt Rate > 60; Glucose Random 91 mg/dL (60-115); Lipase 24 U/L (8-78); Potassium 4.3 mmol/L (3.3-5.1); Sodium 140 mmol/L (135-145); Total Protein 7.4 g/dL (6.5-8.0)
[2020-08-31] MEDS: iohexoL 350 MG/ML 100 ML INFUS..BTL IV (19:02)
[2020-08-31 19:21] VITALS: BP 119/71; PULSE 100; RESP 18; TEMP 36.7; O2SAT 99
[2020-08-31 19:55] LABS: Glucose Urine UA NEG (NEG); Leukocyte Esterase Urine NEG (NEG); Nitrite Urine NEG (NEG); Specific Gravity - Urine <= 1.005 (1.005-1.025); Urine Blood NEG (NEG); Urine Ketones NEG (NEG); Urine Protein NEG (NEG-TRACE)
[2020-08-31 19:56] LABS: Appearance Urine CLEAR; Color Urine YELLOW
[2020-08-31 20:15] VITALS: BP 109/68; PULSE 73; RESP 18; O2SAT 97
[2020-08-31] MEDS: Sodium Phosphate,Mono-Dibasic 133 ML ENEMA PR (20:17)
[2020-08-31] MEDS: bisacodyL 5 MG TABLET.DR 10 MG PO (20:17)
[2020-08-31] MEDS: Magnesium Citrate 300 ML SOLUTION PO (20:17)
== END 2020-08-31 20:30 | disposition home or self-care (01) ==
PROVIDERS: Emergency Provider Internal Medicine; PCP Internal Medicine Geriatric Medicine
DX: K59.01 Slow transit constipation (principal); R10.32 Left lower quadrant pain; R11.10 Vomiting, unspecified; Z79.899 Other long term (current) drug therapy; Z98.84 Bariatric surgery status
CPT/HCPCS: 36415; 74177; 80048; 80076; 81003; 83690; 85025; 96361; 96365; 96375; 96376; 99284; J2270; J2405; Q9967

== ENCOUNTER 2020-10-03 10:11 | Outpatient (REF) | payer MEDICAID, SELFPAY ==
[2020-10-03 12:01] LABS: MANUAL DIFF FLAG NO
[2020-10-03 12:19] LABS: Basophils Percent Auto 0.3 % (0-2); Eosinophils Absolute Auto 0.1 X10*3/uL (0.0-0.4); Eosinophils Percent Auto 1.5 % (0-4); Hematocrit 43.3 % (37-47); Imm Gran Abs Auto 0.03 X10*3/uL (0.00-0.03); Imm Gran Pct Auto 0.5 % (0.0-0.4); Lymphocytes Absolute Auto 2.1 X10*3/uL (1.2-4.9); Lymphocytes Percent Auto 33.9 % (20-40); Mean Corpuscular HGB Conc 32.3 g/dl (31.0-35.0); Mean Platelet Volume 9.2 fL (9.4-12.3); Monocytes Absolute Auto 0.5 X10*3/uL (0.1-1.2); Monocytes Percent Auto 8.1 % (2-11); Neutrophils Absolute Auto 3.5 X10*3/uL (2.0-8.3); Neutrophils Percent Auto 55.7 % (45-73); Platelet Count 249 X10*3/uL (160-400); Red Blood Count 4.51 X10*6/uL (4.20-5.50); Red Cell Distribution Width 12.7 % (11.0-16.0); White Blood Count 6.2 X10*3/uL (4.8-10.8)
[2020-10-03 12:24] LABS: Estimated Average Glucose 94 mg/dL; Hemoglobin A1c % 4.9 %
[2020-10-03 12:39] LABS: Alanine Aminotransferase 12 U/L (0-31); Albumin Level 4.7 g/dL (3.5-5.0); Alkaline Phosphatase 70 U/L (39-117); Anion Gap 10 (12-20); Aspartate Amino Transferase 14 U/L (5-31); Bilirubin Total 0.6 mg/dL (0.0-1.0); Blood Urea Nitrogen 14 mg/dL (9-16); C Reactive Protein 0.85 mg/dL (< or = 0.50); Carbon Dioxide 30 mmol/L (22-29); Chloride 106 mmol/L (96-108); Cholesterol 187 mg/dL; Estimated Glomerular Filt Rate > 60; Glucose Fasting 92 mg/dL (60-99); HDL Cholesterol 78 mg/dL; Iron 106 mcg/dL (30-160); LDL Cholesterol Calculated 95 mg/dl; Percent Iron Saturation 35 % (15-50); Potassium 4.3 mmol/L (3.3-5.1); Sodium 142 mmol/L (135-145); Total Iron Binding Capacity 302 mcg/dL (228-428); Total Protein 6.9 g/dL (6.5-8.0); Triglycerides 73 mg/dL; Unsaturated Iron Binding 196 ug/dL
[2020-10-03 13:04] LABS: Thyroid Stimulating Hormone 1.77 uIU/mL (0.32-4.0); Vitamin B12 1163 pg/mL (200-900); Vitamin D 25-OH Total 76.5 ng/mL (>30)
[2020-10-05 14:02] LABS: H Pylori Breath Test NOT DETECTED (NOT DETECTED)
[2020-10-05 23:47] LABS: Zinc 104 mcg/dL (60-130)
[2020-10-06 11:37] LABS: Vitamin B1 44 nmol/L (8-30)
[2020-10-08 00:12] LABS: Vitamin A 50 mcg/dL (38-98)
== END 2020-10-03 10:12 | disposition home or self-care (01) ==
LOC: HO.LAB 10:11
PROVIDERS: Absent Provider Surgery; PCP Internal Medicine Geriatric Medicine; Referring Provider Nurse Practitioner Primary Care; Visit Provider Nurse Practitioner Family
DX: Z01.818 Encounter for other preprocedural examination (principal); R10.13 Epigastric pain; R13.10 Dysphagia, unspecified; K21.9 Gastro-esophageal reflux disease without esophagitis; K58.9 Irritable bowel syndrome, unspecified; K91.2 Postsurgical malabsorption, not elsewhere classified; Z90.3 Acquired absence of stomach [part of]
CPT/HCPCS: 36415; 80053; 80061; 82306; 82607; 83013; 83036; 83540; 84425; 84443; 84590; 84630; 85025; 86140; 99202

== ENCOUNTER 2020-10-12 06:38 | Day surgery (SDC) | payer MEDICAID, SELFPAY ==
--- NOTE | 2020-10-11 08:15 | P.CONAN_ITS ---
Documented by User: Sarah Bland 10/11/20 08:22 HPI - Anesthesia Eval Consult details Narrative: 40yo F for Upper Endoscopy s/p Upper Endoscopy 02/2020 with MAC s/p Gastric sleeve 01/2020 *multiple med allergies* PMFSH Active Problems Active Problems: All Active Problems (Updated 10/05/20 @ 11:28 by Yolande Copeland) Preoperative examination (Acute) Shortness of breath (Acute) BMI 36.0-36.9,adult (Acute) History of sleeve gastrectomy (Acute) Body mass index (BMI) of 34.0 to 34.9 in adult (Acute) Splenic infarct (Acute) Abdominal pain (Acute) Body mass index (BMI) of 31.0 to 31.9 in adult (Acute) BMI 29.0-29.9,adult (Acute) Overweight (Acute) BMI 27.0-27.9,adult (Acute) IBS (irritable bowel syndrome) (Acute) Intestinal malabsorption following gastrectomy (Acute) Malabsorption due to intolerance, not elsewhere classified (Acute) Obesity (BMI 30-39.9) (Acute) Increased body mass index (BMI) (Acute) Past Medical History Medical History Anxiety Arthritis Bursitis Chronic back pain Constipation Degenerative disc disease Depression Diarrhea Diverticular disease Dysphagia Elevated lipase Endometriosis Fatty liver GERD (gastroesophageal reflux disease) Hiatal hernia High cholesterol History of Crabtree's palsy HTN (hypertension) Hypocalcemia Hypomagnesemia Hypoproteinemia IBS (irritable bowel syndrome) Increased body mass index (BMI) Insomnia Intestinal malabsorption following gastrectomy Malabsorption due to intolerance, not elsewhere classified Migraines Motion sickness Nausea Obesity (BMI 30-39.9) Odynophagia Palpitations PONV (postoperative nausea and vomiting) Pseudotumor cerebri PTSD (post-traumatic stress disorder) Sciatica of left side Scoliosis Sleep apnea Splenic infarction TMJ (temporomandibular joint disorder) Vertigo Family History Family History Father No problems noted. Mother Heart disease Type 2 diabetes mellitus History of smoking Alcoholism COPD (chronic obstructive pulmonary disease) Hyperlipidemia Sister No problems noted. Sister No problems noted. Brother Arthritis Brother Arthritis Son Obesity Autism spectrum disorder Son Fibromyalgia Mood disorder Family history of problems with anesthesia: No Surgical History Surgical History H/O unilateral oophorectomy History of laparoscopic cholecystectomy History of laparoscopy History of myringotomy History of repair of hiatal hernia History of sleeve gastrectomy History of tonsillectomy History of tonsillectomy and adenoidectomy History of tubal ligation Hx of oophorectomy S/P MALIKA (total abdominal hysterectomy) History of Problems with Anesthesia: Yes (PONV) Social History Social History Household Members: Children Housing: Apartment Are you a primary behavioral health care manager to a significant other at home: Yes (SON 17,AUTISTIC) Do you presently have visiting nurse or other home services: No Alcohol intake: never Patient Tobacco Use Status: Never used Tobacco Second Hand Smoke Exposure: No Use of substances other than those prescribed or required for medical reasons: No Are you DNR?: No Advance Directives: No Advance Directives Information Provided: Yes Recently lost weight without trying: No Nutrition Risks: No Nutritional Risk Patient : No service: No Current occupational status: unemployed Meds Allergies Allergy/AdvReac Type Severity Reaction Status Date / Time promethazine [From PHENERGAN] Allergy Intermediate PSYCHOSIS Verified 10/03/20 10:23 NSAIDS (Non-Steroidal Allergy Unknown Gastrointestinal Verified 10/03/20 10:23 Anti-Inflamma Upset [NSAIDS (NON-STEROIDAL ANTI-INFLAMMA] oxycodone [From PERCOCET] Allergy Unknown headache Verified 10/03/20 10:23 metoclopramide [From Reglan] AdvReac Intermediate PSYCHOSIS Verified 10/03/20 10:23 medical tape- tegaderm Allergy Intermediate Rash Uncoded 07/28/20 14:48 dermabond Allergy Blister Uncoded 07/28/20 14:48 Home Medications Medication Instructions Recorded Confirmed Last Taken Type clonazepam 1 mg tablet 1 mg PO BID 01/21/20 10/05/20 10/12/20 06:00 History clonidine HCl 0.1 mg tablet 0.1 mg PO BEDTIME 01/21/20 10/05/20 Unknown History lamotrigine 100 mg tablet 100 mg PO DAILY 01/21/20 10/05/20 Unknown History methocarbamol 750 mg tablet 750 mg PO QID 01/21/20 10/05/20 Unknown History sumatriptan succinate 100 mg tablet 100 mg PO Q2-4H PRN 01/21/20 10/05/20 Unknown History hydrocodone-acetaminophen [Vicodin 1 tab PO Q6H PRN 01/28/20 10/05/20 Unknown History HP] docusate sodium 100 mg capsule 100 mg PO BID 02/08/20 10/05/20 Unknown History vitamin E (dl, acetate) 400 unit 450 mg PO DAILY 04/28/20 10/05/20 Unknown History capsule biotin 5,000 mcg disintegrating 10,000 mcg PO DAILY 07/28/20 10/05/20 Unknown History tablet diphenhydramine HCl 25 mg capsule 25 mg PO TID PRN 07/28/20 10/05/20 Unknown History amceprcs-zwwhtvlh-isci 45 mg-folic 1 cap PO DAILY 07/28/20 10/05/20 Unknown History acid 800 mcg-vit K 120 mcg capsule Exam Exam Date and Time: October 11, 2020814 Pertinent Lab Results Pertinent Lab Results: Laboratory Tests 10/03/20 10/03/20 11:30 11:30 WBC 6.2 Hgb 14.0 Hct 43.3 Plt Count 249 Sodium 142 Potassium 4.3 Chloride 106 Carbon Dioxide 30 H BUN 14 Creatinine 0.69 Assessment and Plan Assessment Anesthesia Assessment: Chart Reviewed Documented by User: Norma Bahena 10/12/20 07:33 [facility] Past Medical History Medical History Anxiety Arthritis Bursitis Chronic back pain Constipation Degenerative disc disease Depression Diarrhea Diverticular disease Dysphagia Elevated lipase Endometriosis Fatty liver GERD (gastroesophageal reflux disease) Hiatal hernia High cholesterol History of Crabtree's palsy HTN (hypertension) Hypocalcemia Hypomagnesemia Hypoproteinemia IBS (irritable bowel syndrome) Increased body mass index (BMI) Insomnia Intestinal malabsorption following gastrectomy Malabsorption due to intolerance, not elsewhere classified Migraines Motion sickness Nausea Obesity (BMI 30-39.9) Odynophagia Palpitations PONV (postoperative nausea and vomiting) Pseudotumor cerebri PTSD (post-traumatic stress disorder) Sciatica of left side Scoliosis Sleep apnea Splenic infarction TMJ (temporomandibular joint disorder) Vertigo Family History Family History Father No problems noted. Mother Heart disease Type 2 diabetes mellitus History of smoking Alcoholism COPD (chronic obstructive pulmonary disease) Hyperlipidemia Sister No problems noted. Sister No problems noted. Brother Arthritis Brother Arthritis Son Obesity Autism spectrum disorder Son Fibromyalgia Mood disorder Surgical History Surgical History H/O unilateral oophorectomy History of laparoscopic cholecystectomy History of laparoscopy History of myringotomy History of repair of hiatal hernia History of sleeve gastrectomy History of tonsillectomy History of tonsillectomy and adenoidectomy History of tubal ligation Hx of oophorectomy S/P MALIKA (total abdominal hysterectomy) Social History Social History Household Members: Children Housing: Apartment Are you a primary behavioral health care manager to a significant other at home: Yes (SON 17,AUTISTIC) Do you presently have visiting nurse or other home services: No Alcohol intake: never Patient Tobacco Use Status: Never used Tobacco Second Hand Smoke Exposure: No Use of substances other than those prescribed or required for medical reasons: No Are you DNR?: No Advance Directives: No Advance Directives Information Provided: Yes Recently lost weight without trying: No Nutrition Risks: No Nutritional Risk Patient : No service: No Current occupational status: unemployed Meds Allergies Allergy/AdvReac Type Severity Reaction Status Date / Time promethazine [From PHENERGAN] Allergy Intermediate PSYCHOSIS Verified 10/03/20 10:23 NSAIDS (Non-Steroidal Allergy Unknown Gastrointestinal Verified 10/03/20 10:23 Anti-Inflamma Upset [NSAIDS (NON-STEROIDAL ANTI-INFLAMMA] oxycodone [From PERCOCET] Allergy Unknown headache Verified 10/03/20 10:23 metoclopramide [From Reglan] AdvReac Intermediate PSYCHOSIS Verified 10/03/20 10:23 medical tape- tegaderm Allergy Intermediate Rash Uncoded 07/28/20 14:48 dermabond Allergy Blister Uncoded 07/28/20 14:48 Home Medications Medication Instructions Recorded Confirmed Last Taken Type clonazepam 1 mg tablet 1 mg PO BID 01/21/20 10/05/20 10/12/20 06:00 History clonidine HCl 0.1 mg tablet 0.1 mg PO BEDTIME 01/21/20 10/05/20 Unknown History lamotrigine 100 mg tablet 100 mg PO DAILY 01/21/20 10/05/20 Unknown History methocarbamol 750 mg tablet 750 mg PO QID 01/21/20 10/05/20 Unknown History sumatriptan succinate 100 mg tablet 100 mg PO Q2-4H PRN 01/21/20 10/05/20 Unknown History hydrocodone-acetaminophen [Vicodin 1 tab PO Q6H PRN 01/28/20 10/05/20 Unknown History HP] docusate sodium 100 mg capsule 100 mg PO BID 02/08/20 10/05/20 Unknown History vitamin E (dl, acetate) 400 unit 450 mg PO DAILY 04/28/20 10/05/20 Unknown History capsule biotin 5,000 mcg disintegrating 10,000 mcg PO DAILY 07/28/20 10/05/20 Unknown History tablet diphenhydramine HCl 25 mg capsule 25 mg PO TID PRN 07/28/20 10/05/20 Unknown History [id number]-gcrjubii-tygy 45 mg-folic 1 cap PO DAILY 07/28/20 10/05/20 Unknown History acid 800 mcg-vit K 120 mcg capsule Exam Airway Mallampati Class: I TM Dist: >3cm Neck ROM: Full Loose/Missing/Broken Teeth: No Heart: RRR Lungs: CTA Assessment and Plan Assessment Anesthesia Assessment: Anesthesia Plan Discussed and Chart Reviewed Final Anesthetic Review NPO: Yes ASA Class: II Final Preanesthetic Review: Meds/Allgs Chart Reviewed, Consent Obtained/Reviewed and Anes Risks/Benef Reviewed Patient Risk: Low Procedure Risk: Intermediate Anesthetic Plan Anesthetic Plan: MAC: Disposition: Standard PACU
--- NOTE | 2020-10-11 12:55 | MHC.SHP ---
Pre-Procedural Eval Section A Date of Service: 10/11/20 Section B Chief Complaint: GERD Allergies: Allergies Allergy/AdvReac Type Severity Reaction Status Date / Time promethazine [From PHENERGAN] Allergy Intermediate PSYCHOSIS Verified 10/03/20 10:23 NSAIDS (Non-Steroidal Allergy Unknown Gastrointestinal Verified 10/03/20 10:23 Anti-Inflamma Upset [NSAIDS (NON-STEROIDAL ANTI-INFLAMMA] oxycodone [From PERCOCET] Allergy Unknown headache Verified 10/03/20 10:23 metoclopramide [From Reglan] AdvReac Intermediate PSYCHOSIS Verified 10/03/20 10:23 medical tape- tegaderm Allergy Intermediate Rash Uncoded 07/28/20 14:48 dermabond Allergy Blister Uncoded 07/28/20 14:48 Plan I have reviewed the history and physical and performed a pertinent physical examination on my patient. No changes have occurred unless specified. Patient having some difficulty keeping certain foods down s/p sleeve gastrectomy. She has had both nausea and vomiting. I will evaluate her gastric pouch with endoscopy given her recent symptoms.
[2020-10-12 06:52] VITALS: BMI 25.4
[2020-10-12 07:01] VITALS: BP 109/63; PULSE 76; RESP 16; TEMP 36.2; O2SAT 96
[2020-10-12 07:16] LABS: COVID-19 Test Negative (Negative)
[2020-10-12] MEDS: Lactated Ringers 1,000 ML 100 ML IVCONT (07:31)
[2020-10-12 08:04] VITALS: BP 96/51; PULSE 70; RESP 20; TEMP 36.2; O2SAT 97
[2020-10-12 08:19] VITALS: BP 107/82; PULSE 78; RESP 18; TEMP 36.2; O2SAT 95
--- NOTE | 2020-10-12 08:22 | PM.OP ---
Brief Operative Note Date of Service: 10/12/20 Pre-op diagnosis: nausea and vomiting status post sleeve gastrectomy Post-op diagnosis: other ( bile reflux and antral gastritis) Procedure: esophagogastroduodenoscopy, antral biopsy x2 Surgeon: Deana Barnes MD Anesthesia: GETA Was an Insect Control Aide used for this Procedure?: No Estimated blood loss (mL): 0 Pathology: other ( antral biopsy x2) Condition: stable Disposition: PACU
[2020-10-12 08:36] VITALS: BP 116/74; PULSE 87; RESP 18; TEMP 36.2; O2SAT 97
--- NOTE | 2020-10-12 10:28 | OP_ITS ---
SURGEON: Deana Barnes MD PREOPERATIVE DIAGNOSIS: POSTOPERATIVE DIAGNOSIS: PROCEDURE PERFORMED: ESTIMATED BLOOD LOSS: COMPLICATIONS: None. ANESTHESIA: Total intravenous anesthesia. ASSISTANTS: SPECIMENS: Antral biopsy x2. PREPROCEDURE DIAGNOSIS: Nausea and vomiting, status post sleeve gastrectomy almost a year ago. POSTPROCEDURE DIAGNOSES: Bile reflux and antral gastritis. CONDITION: Postprocedure, good. DESCRIPTION OF PROCEDURE: The patient was brought into the operating room on a stretcher and placed in the left lateral decubitus position. A safety time-out was performed. Next, a bite block was placed between the teeth. Total intravenous anesthesia was administered using propofol by the nurse pump press operator. Once the patient was adequately sedated, the gastroscope was placed in the posterior oropharynx, passed down the esophagus, evaluating the esophageal mucosa, which was normal. The GE junction was located at 36 cm from the incisors. There was no evidence of hiatal hernia. There were no mucosal lesions in the esophagus. The gastroscope was easily passed into the gastric pouch, which was normal size for its age without any evidence of torsion or stenosis. There was significant bile within the gastric pouch throughout. The gastroscope was passed down into the pre-pyloric region, and I could see that there was significant bile that was refluxing from the pylorus into the antrum. There was also some granularity and erythema of the antrum. I biopsied this x2 and sent for Pathology. The gastroscope was passed through the pylorus down into the duodenum, down to the third portion of duodenum, all of which was normal, but had a significant amount of bile as well in the duodenum. Gastroscope was retracted back into the stomach. Stomach was desufflated and the gastroscope was removed without difficulty. The patient tolerated the procedure well and was sent to the recovery room in stable condition. Deana Barnes MD UM/MODL / [id number]
== END 2020-10-12 09:10 ==
LOC: HO.SSS 06:39
PROVIDERS: PCP Internal Medicine Geriatric Medicine; Visit Provider Surgery
PROC: 0DJ08ZZ Inspection of Upper Intestinal Tract, Via Natural or Artificial Opening Endoscopic (ICD-10-PCS; CPT 43235; principal; 2020-10-12 07:30)
DX: K29.50 Unspecified chronic gastritis without bleeding (principal); E78.70 Disorder of bile acid and cholesterol metabolism, unspecified; Z90.3 Acquired absence of stomach [part of]; K21.9 Gastro-esophageal reflux disease without esophagitis; K58.9 Irritable bowel syndrome, unspecified; I10 Essential (primary) hypertension; G47.30 Sleep apnea, unspecified; Z99.89 Dependence on other enabling machines and devices; Z79.899 Other long term (current) drug therapy; Z88.8 Allergy status to other drugs, medicaments and biological substances
CPT/HCPCS: 43239; 36415; 87635; 88305; 88342; J2250

== ENCOUNTER → 2020-10-28 12:55 | Outpatient (BNVA) | payer MEDICAID, SELFPAY | PROVIDERS: PCP Internal Medicine Geriatric Medicine; Referring Provider Internal Medicine Geriatric Medicine; Visit Provider Physician Assistant | DX: E66.3 Overweight (principal); Z68.25 Body mass index [BMI] 25.0-25.9, adult | CPT/HCPCS: 99212 ==

== ENCOUNTER → 2020-11-08 09:54 | Outpatient (BNVA) | payer MEDICAID, SELFPAY | PROVIDERS: PCP Internal Medicine Geriatric Medicine; Visit Provider Nurse Practitioner Family ==

== ENCOUNTER → 2021-01-03 14:09 | Outpatient (BNVA) | payer MEDICAID, SELFPAY | PROVIDERS: PCP Internal Medicine Geriatric Medicine; Referring Provider Internal Medicine Geriatric Medicine; Visit Provider Surgery | DX: E66.3 Overweight (principal); Z68.27 Body mass index [BMI] 27.0-27.9, adult; Z90.3 Acquired absence of stomach [part of] | CPT/HCPCS: 99212 ==

== ENCOUNTER → 2021-02-15 14:19 | Outpatient (BNVA) | payer MEDICAID, SELFPAY | PROVIDERS: PCP Internal Medicine Geriatric Medicine; Visit Provider Nurse Practitioner Family ==

== ENCOUNTER 2021-02-20 10:10 | Outpatient (REF) | payer MEDICAID, SELFPAY ==
[2021-02-20 11:32] LABS: C Reactive Protein 0.38 mg/dL (< or = 0.50); Lipase 55 U/L (8-78)
[2021-02-20 11:44] LABS: TSH reflex Free T4 2.35 uIU/mL (0.32-4.0)
[2021-02-20 12:40] LABS: Folate > 20.0 ng/mL (> or = 4.0); Vitamin B12 1100 pg/mL (200-900)
[2021-02-25 13:41] LABS: Vitamin D 25-OH, D2 <4 ng/mL; Vitamin D 25-OH, D3 42 ng/mL; Vitamin D 25-OH, Total 42 ng/mL (30-100)
[2021-02-28 14:01] LABS: Transglutaminase Ab IgG <1.0 U/mL; Transglutaminase IgA <1.0 U/mL
== END 2021-02-20 10:11 | disposition home or self-care (01) ==
LOC: HO.LAB 10:10
PROVIDERS: PCP Internal Medicine Geriatric Medicine; Visit Provider Nurse Practitioner Family
DX: E55.9 Vitamin D deficiency, unspecified (principal); R14.0 Abdominal distension (gaseous); R10.11 Right upper quadrant pain; R19.7 Diarrhea, unspecified; K58.9 Irritable bowel syndrome, unspecified; Z12.11 Encounter for screening for malignant neoplasm of colon
CPT/HCPCS: 36415; 82306; 82607; 82746; 83516; 83690; 84443; 86140

== ENCOUNTER → 2021-03-06 08:13 | Outpatient (BNVA) | payer MEDICAID, SELFPAY | PROVIDERS: PCP Internal Medicine Geriatric Medicine; Visit Provider Physician Assistant Surgical ==

== ENCOUNTER → 2021-03-22 09:11 | Outpatient (BNVA) | payer MEDICAID, SELFPAY | PROVIDERS: PCP Internal Medicine Geriatric Medicine; Referring Provider Internal Medicine Geriatric Medicine; Visit Provider Nurse Practitioner Family | DX: K58.2 Mixed irritable bowel syndrome (principal); K21.9 Gastro-esophageal reflux disease without esophagitis | CPT/HCPCS: 99212 ==

== ENCOUNTER → 2021-03-28 08:13 | Outpatient (BNVA) | payer MEDICAID, SELFPAY | PROVIDERS: PCP Internal Medicine Geriatric Medicine; Visit Provider Physician Assistant Surgical ==

== ENCOUNTER → 2021-05-10 15:21 | Outpatient (BNVA) | payer MEDICAID, SELFPAY | PROVIDERS: PCP Internal Medicine Geriatric Medicine; Visit Provider Anesthesiology | DX: G89.4 Chronic pain syndrome (principal); M47.812 Spondylosis without myelopathy or radiculopathy, cervical region; M47.816 Spondylosis without myelopathy or radiculopathy, lumbar region; M51.36 Other intervertebral disc degeneration, lumbar region; Z79.891 Long term (current) use of opiate analgesic | CPT/HCPCS: 99202 ==

== ENCOUNTER 2021-05-14 13:40 | Emergency (ER) | payer MEDICAID, SELFPAY ==
--- NOTE | ~2021-05-14 | XR_ITS ---
EXAMINATION: XR CHEST CLINICAL INFORMATION: Chest pain COMPARISON: 02/17/2019 TECHNIQUE: Frontal view of the chest was obtained. FINDINGS: No significant abnormality is noted involving the heart, lungs, mediastinum, bony thorax or soft tissues. XR/XR chest 1V IMPRESSION: No acute disease within the chest.
[2021-05-14 13:54] VITALS: BP 120/70; PULSE 80; O2SAT 100
--- NOTE | 2021-05-14 14:02 | ECG_ITS ---
Test Reason : CP Blood Pressure : / mmHG Vent. Rate : 050 BPM Atrial Rate : 050 BPM P-R Int : 160 ms QRS Dur : 080 ms QT Int : 398 ms P-R-T Axes : 037 019 000 degrees QTc Int : 362 ms Sinus bradycardia Nonspecific ST and T wave abnormality Abnormal ECG When compared with ECG of 28-MAR-2020 14:30, Nonspecific T wave abnormality now evident in Anterolateral leads QT has shortened Referred By: Generic ED Physician Electronically Signed By:Jimy Redman
[2021-05-14 14:12] VITALS: BP 101/73; PULSE 62; RESP 16; TEMP 36.8; O2SAT 100; BMI 25.0
--- NOTE | 2021-05-14 14:57 | ED_ITS ---
HPI - Chest Pain General Chief Complaint: Chest Pain Stated Complaint: cp Time Seen by Provider: 05/14/21 14:56 Source: patient Mode of arrival: EMS Limitations: no limitations History of Present Illness HPI narrative: This is a 41 years old the female who presented to the emergency department with by ambulance with chief complaint of chest pain, she states she felt this morning a pressure, no diaphoresis no shortness of breath no radiation the pain she denies any comorbidity no history of high blood pressure no history of diabetes no history of hypercholesteremia no smoking MD complaint: chest pain Onset (ago): hour(s) (5) Timing of current episode: now resolved Prior episodes: No Onset: during rest Pain location: substernal Pain radiation: none Quality: aching Relieving factors: nothing Exacerbating factors: nothing Context: recent illness Associated symptoms: nausea Risk Factors Coronary artery disease risk factors: none Thoracic aortic dissection risk factors: none Related Data Home Medications Medication Instructions Recorded Confirmed clonidine HCl 0.1 mg tablet 0.1 mg PO BEDTIME 01/21/20 03/28/21 methocarbamol 750 mg tablet 750 mg PO QID 01/21/20 03/28/21 sumatriptan succinate 100 mg 100 mg PO Q2-4H PRN 01/21/20 03/28/21 tablet (Imitrex) hydrocodone 10 mg-acetaminophen 1 tab PO Q6H PRN 01/28/20 03/28/21 300 mg tablet (Vicodin HP) [id number] 45 1 cap PO DAILY 07/28/20 03/28/21 mg-folic acid 800 mcg-vit K 120 mcg capsule (Bariatric Multivitamins) propranolol 20 mg tablet 20 mg PO DAILY tab 01/03/21 03/28/21 fluticasone propionate 50 1 spray INTRANASAL DAILY 03/22/21 03/28/21 mcg/actuation nasal spray,suspension diazepam 10 mg tablet 10 mg PO BID PRN 05/10/21 lidocaine 4 % topical patch 1 patch TOPICAL DAILY 05/10/21 (Lidocaine Pain Relief) Previous Rx's Medication Instructions Recorded dicyclomine 20 mg tablet 20 mg PO TID #90 tab 10/03/20 clotrimazole 1 % topical cream 1 appl TOPICAL BID #45 g 02/21/21 cholestyramine (with sugar) 4 gram 4 g PO BID #378 g 05/12/21 oral powder Allergies Allergy/AdvReac Type Severity Reaction Status Date / Time promethazine Allergy Intermediate PSYCHOSIS Verified 05/10/21 15:48 [From PHENERGAN] NSAIDS Allergy Unknown Gastrointestin Verified 05/10/21 15:48 (Non-Steroidal al Anti-Inflamma Upset [NSAIDS (NON-STEROIDAL ANTI-INFLAMMA] oxycodone [From Allergy Unknown headache Verified 05/10/21 15:48 PERCOCET] metoclopramide AdvReac Intermediate PSYCHOSIS Verified 05/10/21 15:48 [From Reglan] medical tape- Allergy Intermediate Rash Uncoded 05/10/21 15:48 tegaderm dermabond Allergy Blister Uncoded 05/10/21 15:48 Review of Systems Verdana 4l Review of Systems: Yes all other systems are reviewed and Verdana 4d are negative Verdana 4l Constitutional: Verdana 4d Constitutional: Verdana 4d Verdana 4d Reports no additional constitutional complaints Verdana 4l Eyes: Verdana 4d Verdana 4d Eyes: Verdana 4d Reports no additional eye complaints Verdana 4l Cardiovascular: Verdana 4d Cardiovascular: Verdana 4d Verdana 4d Reports no additional cardiovascular complaints and Denies dyspnea Verdana 4l Respiratory: Verdana 4d Verdana 4d Respiratory: Verdana 4d Denies cough, Denies hemoptysis, Denies excessive phlegm production and Denies dyspnea Verdana 4l Gastrointestinal: Verdana 4d Gastrointestinal: Verdana 4d Verdana 4d Reports no additional gastrointestinal complaints PMFSH Past Medical History Medical History Anxiety Arthritis Bursitis Chronic back pain Chronic pain syndrome Constipation Degenerative disc disease Depression Diarrhea Disc degeneration, lumbar Diverticular disease Dysphagia Elevated lipase Endometriosis Fatty liver GERD (gastroesophageal reflux disease) Hiatal hernia High cholesterol History of Crabtree's palsy HTN (hypertension) Hypocalcemia Hypomagnesemia Hypoproteinemia IBS (irritable bowel syndrome) Increased body mass index (BMI) Insomnia Intestinal malabsorption following gastrectomy Malabsorption due to intolerance, not elsewhere classified Migraines Motion sickness Nausea Obesity (BMI 30-39.9) Odynophagia Palpitations Panniculitis PONV (postoperative nausea and vomiting) Pseudotumor cerebri PTSD (post-traumatic stress disorder) Sciatica of left side Scoliosis Sleep apnea Splenic infarction 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 Mother Heart disease Type 2 diabetes mellitus History of smoking Alcoholism COPD (chronic obstructive pulmonary disease) Hyperlipidemia Sister No problems noted. Sister No problems noted. Brother Arthritis Brother Arthritis Son Obesity Autism spectrum disorder Son Fibromyalgia Mood disorder Social History Social History Household Members: Children Housing: Apartment Are you a primary career education teacher to a significant other at home: Yes (SON 17,AUTIS TIC) Do you presently have visiting nurse or other home services: No Alcohol intake: never Patient Tobacco Use Status: Never used Tobacco Second Hand Smoke Exposure: No Advance Directives: No Advance Directives Information Provided: Yes Patient : No service: No Current occupational status: unemployed Physical Exam Verdana 4l Vital Signs: Verdana 4d Verdana 4d Vital Signs: Verdana 4d Verdana 4Bd Last Vital Signs Verdana 4d Decision Analyst New 4d Decision Analyst New 4d Temp 98.1 F 05/14/21 15:03 Decision Analyst New 4d Pulse 51 05/14/21 15:03 Decision Analyst New 4d Resp 9 L 05/14/21 15:03 BP 107/50 L 05/14/21 15:03 Pulse Ox 100 05/14/21 15:03 BMI result Body Mass Index 25.0 Const: General: cooperative, comfortable and no acute distress Orientation/consciousness: patient oriented x3 HENMT: Head: Yes normal to inspection General nose exam: Normal external nose present Face and sinus: Yes normal facial exam Mouth: Normal oral and palatal mucosa present Throat: Yes posterior oropharynx normal Neck: Neck: Yes normal visual inspection Chest: Chest palpation & inspection: normal inspection of the chest Resp: Effort & Inspection: normal respiratory effort Auscultation: clear to auscultation bilaterally Cardio: Jugular venous distension: no JVD Rate: regular rate Rhythm: regular rhythm GI: Inspection: Yes normal to inspection Palpation (GI): Soft to palpation, not firm, nontender, no guarding and not rigid Auscultation: normal bowel sounds Skin: General skin exam: no rashes or lesions noted and elasticity normal Neuro: General: patient oriented x3 Course Reevaluation(s) Reevaluation #1: Lab at this time are pending, the case will be signed out to Dr STOKES. [facility] - Chest Pain Lab Data Result diagrams: 05/14/21 16:00 05/14/21 16:00 ECG Data ECG #1: Pacemaker model: nsr 50 no ischemic changes Discharge Plan Discharge Clinical Impression: Chest pain Prescriptions: No Action clotrimazole 1 % cream 1 appl topical BID Qty: 45 2RF cholestyramine (with sugar) 4 gram powder 4 g PO BID Qty: 378 3RF Rx Instructions: administer w/meal; avoid other meds within 1hr before or 4-6hr after dose hydrocodone-acetaminophen [Vicodin HP] 10-300 mg Tablet 1 tab PO Q6H PRN (Reason: Pain) 0RF Hold Instructions: Resume on 04/07/20. try not to take this dicyclomine 20 mg tablet 20 mg PO TID Qty: 90 0RF sumatriptan succinate [Imitrex] 100 mg tablet 100 mg PO Q2-4H PRN (Reason: Headache) 0RF Rx Instructions: do not exceed 2 doses per 24 hrs methocarbamol 750 mg tablet 750 mg PO QID 0RF clonidine HCl 0.1 mg tablet 0.1 mg PO BEDTIME 0RF Bariatric Multivitamins 45 mg iron- 800 mcg-120 mcg capsule 1 cap PO DAILY 0RF propranolol 20 mg tablet 20 mg PO DAILY 0RF fluticasone propionate 50 mcg/actuation spray,suspension 1 spray intranasal DAILY 0RF lidocaine [Lidocaine Pain Relief] 4 % adhesive patch,medicated 1 patch topical DAILY 0RF diazepam 10 mg tablet 10 mg PO BID PRN0RF
[2021-05-14 15:03] VITALS: BP 107/50; PULSE 51; RESP 9; TEMP 36.7; O2SAT 100
[2021-05-14 16:00] LABS: MANUAL DIFF FLAG NO
[2021-05-14 16:04] LABS: Basophils Percent Auto 0.4 % (0-2); Eosinophils Absolute Auto 0.1 X10*3/uL (0.0-0.4); Eosinophils Percent Auto 0.9 % (0-4); Hematocrit 34.9 % (37.0-47.0); Hemoglobin 11.5 g/dl (12.0-16.0); Imm Gran Abs Auto 0.05 X10*3/uL (0.00-0.03); Imm Gran Pct Auto 0.7 % (0.0-0.4); Lymphocytes Absolute Auto 2.1 X10*3/uL (1.2-4.9); Mean Corpuscular Hemoglobin 31.6 pg (27.0-33.0); Mean Corpuscular Volume 95.9 fL (80.0-98.0); Mean Platelet Volume 9.2 fL (9.4-12.3); Monocytes Absolute Auto 0.5 X10*3/uL (0.1-1.2); Monocytes Percent Auto 7.2 % (2-11); Neutrophils Percent Auto 59.8 % (45-73); Platelet Count 223 X10*3/uL (160-400); Red Blood Count 3.64 X10*6/uL (4.20-5.50); Red Cell Distribution Width 12.1 % (11.0-16.0); White Blood Count 6.7 X10*3/uL (4.8-10.8)
[2021-05-14 16:12] LABS: D Dimer High Sensitivity 180 NG/ML
[2021-05-14 16:22] LABS: Troponin-I High Sensitivity < 3.5 ng/L (<3.5-17.0)
[2021-05-14 16:32] VITALS: BP 100/57; PULSE 56; RESP 18; TEMP 36.6; O2SAT 98
--- NOTE | 2021-05-14 16:34 | PC.NURSE ---
Pt describes one incident of cp like an elephant on my chest this am. had been resting in bed at onset. denies diaphoresis and SOB. since arrival in ed has had skin pwd, unlabored resp. reports severe anxiety and given permission to take home meds as ordered. will continues to monitor.
[2021-05-14 16:36] LABS: Alanine Aminotransferase 22 U/L (0-31); Albumin Level 3.9 g/dL (3.5-5.0); Alkaline Phosphatase 73 U/L (39-117); Anion Gap 10 (12-20); Aspartate Amino Transferase 36 U/L (5-31); Bilirubin Total 0.6 mg/dL (0.0-1.0); Blood Urea Nitrogen 14 mg/dL (9-16); Calcium 9.3 mg/dL (8.4-10.2); Carbon Dioxide 25 mmol/L (22-29); Chloride 112 mmol/L (96-108); Creatinine Clr Calc Pharmacy 94.5; Estimated Glomerular Filt Rate > 60; Glucose Random 82 mg/dL (60-115); Sodium 143 mmol/L (135-145); Total Protein 5.9 g/dL (6.5-8.0)
[2021-05-14 18:58] LABS: Troponin-I High Sensitivity < 3.5 ng/L (<3.5-17.0)
--- NOTE | 2021-05-14 19:07 | ED_ITS ---
HPI - Chest Pain General Chief Complaint: Chest Pain Stated Complaint: cp Time Seen by Provider: 05/14/21 14:56 Source: patient Mode of arrival: EMS Limitations: no limitations History of Present Illness Pain location: substernal Quality: aching Relieving factors: nothing Exacerbating factors: nothing Context: recent illness Associated symptoms: nausea Related Data Home Medications Medication Instructions Recorded Confirmed clonidine HCl 0.1 mg tablet 0.1 mg PO BEDTIME 01/21/20 03/28/21 methocarbamol 750 mg tablet 750 mg PO QID 01/21/20 03/28/21 sumatriptan succinate 100 mg 100 mg PO Q2-4H PRN 01/21/20 03/28/21 tablet (Imitrex) hydrocodone 10 mg-acetaminophen 1 tab PO Q6H PRN 01/28/20 03/28/21 300 mg tablet (Vicodin HP) [id number] 45 1 cap PO DAILY 07/28/20 03/28/21 mg-folic acid 800 mcg-vit K 120 mcg capsule (Bariatric Multivitamins) propranolol 20 mg tablet 20 mg PO DAILY tab 01/03/21 03/28/21 fluticasone propionate 50 1 spray INTRANASAL DAILY 03/22/21 03/28/21 mcg/actuation nasal spray,suspension diazepam 10 mg tablet 10 mg PO BID PRN 05/10/21 lidocaine 4 % topical patch 1 patch TOPICAL DAILY 05/10/21 (Lidocaine Pain Relief) Previous Rx's Medication Instructions Recorded dicyclomine 20 mg tablet 20 mg PO TID #90 tab 10/03/20 clotrimazole 1 % topical cream 1 appl TOPICAL BID #45 g 02/21/21 cholestyramine (with sugar) 4 gram 4 g PO BID #378 g 05/12/21 oral powder Allergies Allergy/AdvReac Type Severity Reaction Status Date / Time promethazine Allergy Intermediate PSYCHOSIS Verified 05/10/21 15:48 [From PHENERGAN] NSAIDS Allergy Unknown Gastrointestin Verified 05/10/21 15:48 (Non-Steroidal al Anti-Inflamma Upset [NSAIDS (NON-STEROIDAL ANTI-INFLAMMA] oxycodone [From Allergy Unknown headache Verified 05/10/21 15:48 PERCOCET] metoclopramide AdvReac Intermediate PSYCHOSIS Verified 05/10/21 15:48 [From Reglan] medical tape- Allergy Intermediate Rash Uncoded 05/10/21 15:48 tegaderm dermabond Allergy Blister Uncoded 05/10/21 15:48 PMFSH Past Medical History Medical History Anxiety Arthritis Bursitis Chronic back pain Chronic pain syndrome Constipation Degenerative disc disease Depression Diarrhea Disc degeneration, lumbar Diverticular disease Dysphagia Elevated lipase Endometriosis Fatty liver GERD (gastroesophageal reflux disease) Hiatal hernia High cholesterol History of Crabtree's palsy HTN (hypertension) Hypocalcemia Hypomagnesemia Hypoproteinemia IBS (irritable bowel syndrome) Increased body mass index (BMI) Insomnia Intestinal malabsorption following gastrectomy Malabsorption due to intolerance, not elsewhere classified Migraines Motion sickness Nausea Obesity (BMI 30-39.9) Odynophagia Palpitations Panniculitis PONV (postoperative nausea and vomiting) Pseudotumor cerebri PTSD (post-traumatic stress disorder) Sciatica of left side Scoliosis Sleep apnea Splenic infarction 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 Mother Heart disease Type 2 diabetes mellitus History of smoking Alcoholism COPD (chronic obstructive pulmonary disease) Hyperlipidemia Sister No problems noted. Sister No problems noted. Brother Arthritis Brother Arthritis Son Obesity Autism spectrum disorder Son Fibromyalgia Mood disorder Social History Social History Household Members: Children Housing: Apartment Are you a primary care associate to a significant other at home: Yes (SON 17,AUTISTIC) Do you presently have visiting nurse or other home services: No Alcohol intake: never Patient Tobacco Use Status: Never used Tobacco Second Hand Smoke Exposure: No Use of substances other than those prescribed or required for medical reasons: No Advance Directives: No Advance Directives Information Provided: Yes Patient : No service: No Current occupational status: unemployed Physical Exam Verdana 4l Vital Signs: Verdana 4d Verdana 4d Vital Signs: Verdana 4d Verdana 4Bd Last Vital Signs Verdana 4d Girls Swimming Coach New 4d Girls Swimming Coach New 4d Temp 97.9 F 05/14/21 16:32 Girls Swimming Coach New 4d Pulse 56 05/14/21 16:32 Girls Swimming Coach New 4d Resp 18 05/14/21 16:32 BP 100/57 L 05/14/21 16:32 Pulse Ox 98 05/14/21 16:32 BMI result Body Mass Index 25.0 MDM - Chest Pain MDM Narrative Medical decision making narrative: Two sets of cardiac enzymes are negative. Patient well-appearing. History not consistent with ACS. No significant cardiac risk factor patient is 41 years old heart score is less than 3. Will discharge patient home. Close follow-up on an outpatient basis. Lab Data Result diagrams: 05/14/21 15:56 05/14/21 15:56 Labs: Lab Results 05/14/21 05/14/21 05/14/21 Range/Units 15:56 15:56 15:56 WBC 6.7 (4.8-10.8) X10*3/uL RBC 3.64 L (4.20-5.50) X10*6/uL Hgb 11.5 L (12.0-16.0) g/dl Hct 34.9 L (37.0-47.0) % MCV 95.9 (80.0-98.0) fL MCH 31.6 (27.0-33.0) pg MCHC 33.0 (31.0-35.0) g/dl RDW 12.1 (11.0-16.0) % Plt Count 223 (160-400) X10*3/uL MPV 9.2 L (9.4-12.3) fL Immature Gran % (Auto) 0.7 H (0.0-0.4) % Neut % (Auto) 59.8 (45-73) % Lymph % (Auto) 31.0 (20-40) % [place] % (Auto) 7.2 (2-11) % Eos % (Auto) 0.9 (0-4) % Baso % (Auto) 0.4 (0-2) % Lymph # (Auto) 2.1 (1.2-4.9) X10*3/uL [place] # (Auto) 0.5 (0.1-1.2) X10*3/uL Eos # (Auto) 0.1 (0.0-0.4) X10*3/uL Baso # (Auto) 0.0 (0.0-0.2) X10*3/uL Abs Immat Gran (auto) 0.05 H (0.00-0.03) X10*3/uL Absolute Neuts (auto) 4.0 (2.0-8.3) x10*3/uL Absolute Nucleated RBC 0.000 (0.0-0.012) X10*3/uL Nucleated RBC % (auto) 0.0 (0.0-0.2) /100WBC D-Dimer High Sensitivty 180 NG/ML Sodium 143 (135-145) mmol/L Potassium 4.0 (3.3-5.1) mmol/L Chloride 112 H (96-108) mmol/L Carbon Dioxide 25 (22-29) mmol/L Anion Gap 10 L (12-20) BUN 14 (9-16) mg/dL Creatinine 0.69 (0.5-1.4) mg/dL Estim Creat Clear Calc 94.5 Estimated GFR > 60 Random Glucose 82 (60-115) mg/dL Calcium 9.3 D (8.4-10.2) mg/dL Total Bilirubin 0.6 (0.0-1.0) mg/dL AST 36 H D (5-31) U/L ALT 22 (0-31) U/L Alkaline Phosphatase 73 (39-117) U/L Troponin I High Sens (<3.5-17.0) ng/L Total Protein 5.9 L (6.5-8.0) g/dL Albumin 3.9 (3.5-5.0) g/dL 05/14/21 05/14/21 Range/Units 15:56 18:32 WBC (4.8-10.8) X10*3/uL RBC (4.20-5.50) X10*6/uL Hgb (12.0-16.0) g/dl Hct (37.0-47.0) % MCV (80.0-98.0) fL MCH (27.0-33.0) pg MCHC (31.0-35.0) g/dl RDW (11.0-16.0) % Plt Count (160-400) X10*3/uL MPV (9.4-12.3) fL Immature Gran % (Auto) (0.0-0.4) % Neut % (Auto) (45-73) % Lymph % (Auto) (20-40) % [place] % (Auto) (2-11) % Eos % (Auto) (0-4) % Baso % (Auto) (0-2) % Lymph # (Auto) (1.2-4.9) X10*3/uL [place] # (Auto) (0.1-1.2) X10*3/uL Eos # (Auto) (0.0-0.4) X10*3/uL Baso # (Auto) (0.0-0.2) X10*3/uL Abs Immat Gran (auto) (0.00-0.03) X10*3/uL Absolute Neuts (auto) (2.0-8.3) x10*3/uL Absolute Nucleated RBC (0.0-0.012) X10*3/uL Nucleated RBC % (auto) (0.0-0.2) /100WBC D-Dimer High Sensitivty NG/ML Sodium (135-145) mmol/L Potassium (3.3-5.1) mmol/L Chloride (96-108) mmol/L Carbon Dioxide (22-29) mmol/L Anion Gap (12-20) BUN (9-16) mg/dL Creatinine (0.5-1.4) mg/dL Estim Creat Clear Calc Estimated GFR Random Glucose (60-115) mg/dL Calcium (8.4-10.2) mg/dL Total Bilirubin (0.0-1.0) mg/dL AST (5-31) U/L ALT (0-31) U/L Alkaline Phosphatase (39-117) U/L Troponin I High Sens < 3.5 < 3.5 (<3.5-17.0) ng/L Total Protein (6.5-8.0) g/dL Albumin (3.5-5.0) g/dL Discharge Plan Discharge Clinical Impression: Chest pain Instructions: Chest Pain (DC) Additional Instructions: Small risk of cardiac cause of chest pain still exists. Please closely follow- up with your doctor on an outpatient basis. Prescriptions: No Action clotrimazole 1 % cream 1 appl topical BID Qty: 45 2RF cholestyramine (with sugar) 4 gram powder 4 g PO BID Qty: 378 3RF Rx Instructions: administer w/meal; avoid other meds within 1hr before or 4-6hr after dose hydrocodone-acetaminophen [Vicodin HP] 10-300 mg Tablet 1 tab PO Q6H PRN (Reason: Pain) 0RF Hold Instructions: Resume on 04/07/20. try not to take this dicyclomine 20 mg tablet 20 mg PO TID Qty: 90 0RF sumatriptan succinate [Imitrex] 100 mg tablet 100 mg PO Q2-4H PRN (Reason: Headache) 0RF Rx Instructions: do not exceed 2 doses per 24 hrs methocarbamol 750 mg tablet 750 mg PO QID 0RF clonidine HCl 0.1 mg tablet 0.1 mg PO BEDTIME 0RF Bariatric Multivitamins 45 mg iron- 800 mcg-120 mcg capsule 1 cap PO DAILY 0RF propranolol 20 mg tablet 20 mg PO DAILY 0RF fluticasone propionate 50 mcg/actuation spray,suspension 1 spray intranasal DAILY 0RF lidocaine [Lidocaine Pain Relief] 4 % adhesive patch,medicated 1 patch topical DAILY 0RF diazepam 10 mg tablet 10 mg PO BID PRN0RF Referrals: Name,MD Gabriel [Primary Care Provider] - 2 days
[2021-05-14 19:40] VITALS: BP 104/57; PULSE 68; RESP 16
== END 2021-05-14 19:42 | disposition home or self-care (01) ==
PROVIDERS: Emergency Medicine; Emergency Provider Emergency Medicine Emergency Medical Services; PCP Internal Medicine Geriatric Medicine
DX: R07.89 Other chest pain (principal); R11.0 Nausea; Z79.899 Other long term (current) drug therapy
CPT/HCPCS: 36415; 71045; 80053; 84484; 85025; 85379; 93005; 99284

== ENCOUNTER → 2021-07-25 14:58 | Outpatient (BNVA) | payer MEDICAID, SELFPAY | PROVIDERS: PCP Internal Medicine Geriatric Medicine; Referring Provider Internal Medicine Geriatric Medicine; Visit Provider Nurse Practitioner Family | DX: K58.2 Mixed irritable bowel syndrome (principal); K21.9 Gastro-esophageal reflux disease without esophagitis | CPT/HCPCS: 99212 ==

== ENCOUNTER 2021-09-26 14:18 | Emergency (ER) | payer MEDICAID, SELFPAY ==
--- NOTE | ~2021-09-26 | XR_ITS ---
EXAMINATION: XR LUMBOSACRAL SPINE CLINICAL INFORMATION: Back pain COMPARISON: CT abdomen and pelvis 08/31/2020 TECHNIQUE: Three views of the lumbosacral spine. FINDINGS: The vertebral bodies and posterior elements are normal. The disc spaces are preserved and the vertebral alignment is normal. The paraspinal soft tissues are normal. XR/XR lumbar spine 2-3V IMPRESSION: Unremarkable examination.
--- NOTE | ~2021-09-26 | CT_ITS ---
EXAMINATION: CT ABDOMEN AND PELVIS WITHOUT CONTRAST CLINICAL INFORMATION: Left lower quadrant pain history of diverticulitis COMPARISON: Multiple prior CT scans of the abdomen and pelvis the most recent of which was 08/31/2020 TECHNIQUE: Multidetector volumetric imaging was performed from the superior aspect of the liver through the pubic symphysis. Sagittal and coronal reformatted images were obtained on the technologist's workstation. This CT examination was performed using dose optimization techniques as appropriate, variously including the following: *Automated exposure control *Adjustment of mA and/or kV according to patient size (this includes techniques or standardized protocols for targeted exams where dose is matched to indication/reason for exam; i.e. extremities or head) *Use of iterative reconstruction technique DLP: 555 mGy-cm FINDINGS: LUNG BASES: The visualized lung bases are unremarkable. LIVER, GALLBLADDER, AND BILIARY TREE: The liver is normal in size, shape, and attenuation. No focal hepatic lesion or biliary ductal dilatation is present. Status post cholecystectomy PANCREAS: Unremarkable. SPLEEN: Unremarkable. ADRENAL GLANDS: Unremarkable. KIDNEYS AND URETERS: The kidneys are normal in size, shape, and attenuation. Benign bilateral Bosniak class I parapelvic cysts are present. These need no further follow-up imaging. No hydronephrosis, hydroureter, or calculi seen. No perinephric stranding. BLADDER: Unremarkable. GASTROINTESTINAL TRACT: Status post gastric sleeve. The small and large bowel are unremarkable. The appendix is unremarkable. ABDOMINAL WALL: No significant hernia is appreciated. LYMPH NODES: Normal. VASCULAR: Unremarkable. PELVIC VISCERA: Unremarkable. OSSEOUS STRUCTURES: Unremarkable. CT/CT abdomen pelvis wo con IMPRESSION: A cause for the patient's left lower quadrant pain has not been found. Status post cholecystectomy, gastric sleeve and hysterectomy. Fleischner guidelines were followed.
[2021-09-26 14:38] VITALS: BP 117/87; PULSE 65; RESP 18; TEMP 37.1; O2SAT 99; BMI 24.2
--- NOTE | 2021-09-26 15:18 | PC.NURSE ---
pt asking to hold off on blood work until she gets an iv would only like to have one needle stick.
[2021-09-26 17:03] LABS: Appearance Urine CLEAR; Color Urine YELLOW; Glucose Urine UA NEG (NEG); Leukocyte Esterase Urine NEG (NEG); Nitrite Urine NEG (NEG); Specific Gravity - Urine >= 1.030 (1.005-1.025); Urine Blood NEG (NEG); Urine Ketones 5 MG/DL (NEG); Urine Protein NEG (NEG-TRACE)
--- NOTE | 2021-09-26 19:07 | ED_ITS ---
HPI - General Adult General Chief complaint: Nausea/Vomiting/Diarrhea Stated complaint: stomach bug, back pain Time Seen by Provider: 09/26/21 19:02 Source: patient Mode of arrival: ambulatory Limitations: no limitations History of Present Illness HPI narrative: 41-year-old female past medical history significant for chronic lower back pain secondary to bulging disc/disc protrusion, migraine headaches, pseudotumor cerebri, depression, bipolar, PTSD, anxiety, vertigo, diverticulitis, endometriosis, TMJ, insomnia, fibromyalgia presenting to the emergency department with complaints of nausea, vomiting, diarrhea and back pain (feels like her typical) times 10 days worsening. Patient tells me that she returned from [facility] about 6 days ago and has been having the symptoms for 10 days. She tells me that the symptoms started in the [place], she admits to drinking the water. She tells me that she is having about 7 episodes of completely loose diarrhea day, she tells me it is a yellow/clear color with strings . She also reports continuous nausea and episodes of vomiting. Reports she has not been able to eat or drink for a few days. She also reports back pain, she tells me it is worse with movement better at rest. She tells me that she feels like she is retaining urine however she is peeing, she was able to provide us with a urine sample. Denies numbness, tingling, weakness, loss of sensation, urinary/bowel incontinence, fevers, chills, chest pain, shortness of breath. No history of IV drug abuse or spinal surgeries. Onset (ago): day(s) () Related Data Home Medications Medication Instructions Recorded Confirmed clonidine HCl 0.1 mg tablet 0.1 mg PO BEDTIME 01/21/20 03/28/21 methocarbamol 750 mg tablet 750 mg PO QID 01/21/20 03/28/21 sumatriptan succinate 100 mg 100 mg PO Q2-4H PRN Headache 01/21/20 03/28/21 tablet (Imitrex) hydrocodone 10 mg-acetaminophen 1 tab PO Q6H PRN Pain 01/28/20 03/28/21 300 mg tablet (Vicodin HP) ezhnmpvt-mmmacarz-mysl 45 mg-folic 1 cap PO DAILY 07/28/20 03/28/21 acid 800 mcg-vit K 120 mcg capsule (Bariatric Multivitamins) propranolol 20 mg tablet 20 mg PO DAILY 01/03/21 03/28/21 fluticasone propionate 50 1 spray intranasal DAILY 03/22/21 03/28/21 mcg/actuation nasal spray,suspension diazepam 10 mg tablet 10 mg PO BID PRN 05/10/21 lidocaine 4 % topical patch 1 patch topical DAILY 05/10/21 (Lidocaine Pain Relief) Previous Rx's Medication Instructions Recorded clotrimazole 1 % topical cream 1 appl topical BID #45 grams 02/21/21 cholestyramine (with sugar) 4 gram 4 g PO BID #378 grams 05/12/21 oral powder dicyclomine 20 mg tablet 20 mg PO TID #90 tabs 05/18/21 ondansetron 4 mg disintegrating 4 mg PO Q8H PRN nausea and 05/19/21 tablet vomiting #20 tabs sucralfate 1 gram tablet 1 g PO BID #60 tabs 05/19/21 cyclobenzaprine 10 mg tablet 10 mg PO BEDTIME PRN muscle spasm 09/27/21 #7 tabs lidocaine 5 % topical patch 1 patch topical DAILY PRN pain #15 09/27/21 ea Allergies Allergy/AdvReac Type Severity Reaction Status Date / Time promethazine [From PHENERGAN] Allergy Intermediate PSYCHOSIS Verified 07/25/21 15:08 NSAIDS (Non-Steroidal Allergy Unknown Gastrointestinal Verified 07/25/21 15:08 Anti-Inflamma Upset [NSAIDS (NON-STEROIDAL ANTI-INFLAMMA] oxycodone [From PERCOCET] Allergy Unknown headache Verified 07/25/21 15:08 metoclopramide [From Reglan] AdvReac Intermediate PSYCHOSIS Verified 07/25/21 15:08 medical tape- tegaderm Allergy Intermediate Rash Uncoded 07/25/21 15:08 dermabond Allergy Blister Uncoded 07/25/21 15:08 Review of Systems Review of Systems: Constitutional : No Weight loss, No Fever, No Chills, + Fatigue, + Malaise ENT/Mouth : No sore throat, No Rhinorrhea Eyes: No Eye Pain, No Swelling, No Redness Cardiovascular : No Chest Pain, No SOB, No Dyspnea on Exertion, No Orthopnea, No Edema, No Palpitations Respiratory : No Cough, No Sputum, No Wheezing Gastrointestinal : + Nausea, + Vomiting, + Diarrhea, No Constipation, No abdominal Pain, No Hematochezia, No Melena Genitourinary : No Dysuria, No Urinary Frequency, No Hematuria, Musculoskeletal : + joint pain, No Myalgias, No Joint Swelling Skin : No Skin Lesions, No rash Neuro : No Weakness, No Numbness, No Dizziness, No Headache Psych : No Anxiety/Panic, No Depression All other systems reviewed and are negative Yes all other systems are reviewed and are negative [facility] Past Medical History Attestation statement: The following information was validated with the patient. Source: old records reviewed and nursing notes reviewed Medical History Anxiety Arthritis Bursitis Chronic back pain Constipation Degenerative disc disease Depression Diarrhea Diverticular disease Dysphagia Elevated lipase Endometriosis Fatty liver GERD (gastroesophageal reflux disease) Hiatal hernia High cholesterol History of Crabtree's palsy HTN (hypertension) Hypocalcemia Hypomagnesemia Hypoproteinemia Insomnia Migraines Motion sickness Nausea Odynophagia Palpitations PONV (postoperative nausea and vomiting) Pseudotumor cerebri PTSD (post-traumatic stress disorder) Sciatica of left side Scoliosis Sleep apnea Splenic infarction TMJ (temporomandibular joint disorder) Vertigo Surgical History H/O unilateral oophorectomy History of esophagogastroduodenoscopy (EGD) History of laparoscopic cholecystectomy History of laparoscopy History of myringotomy History of repair of hiatal hernia History of tonsillectomy History of tonsillectomy and adenoidectomy History of tubal ligation Hx of colonoscopy Hx of oophorectomy S/P MALIKA (total abdominal hysterectomy) Family History Family History Father No problems noted. Mother Heart disease Type 2 diabetes mellitus History of smoking Alcoholism COPD (chronic obstructive pulmonary disease) Hyperlipidemia Sister No problems noted. Sister No problems noted. Brother Arthritis Brother Arthritis Son Obesity Autism spectrum disorder Son Fibromyalgia Mood disorder Social History Social History Household Members: Children Housing: Apartment Are you a primary reproductive healthcare assistant to a significant other at home: Yes (SON 17,AUTISTIC) Do you presently have visiting nurse or other home services: No Alcohol intake: never Patient Tobacco Use Status: Never used Tobacco Second Hand Smoke Exposure: No Use of substances other than those prescribed or required for medical reasons: No Advance Directives: No Advance Directives Information Provided: No Patient : No service: No Current occupational status: unemployed Physical Exam ED Vital Signs: Vital Signs - 24 hr 09/26/21 14:38 09/26/21 20:00 09/26/21 22:52 Temperature 98.8 F 98.1 F Pulse Rate 65 46 L 51 Respiratory Rate 18 16 16 Blood Pressure 117/87 145/76 H 126/66 Pulse Oximetry 99 98 96 Oxygen Delivery Method Room Air Room Air Room Air 09/27/21 00:33 Temperature Pulse Rate 56 Respiratory Rate 16 Blood Pressure 119/74 Pulse Oximetry 97 Oxygen Delivery Method Room Air BMI result Body Mass Index 24.2 VSS Appearance: Alert.? Oriented X3.? No acute distress.? Head: Normocephalic, atraumatic, no step-offs or deformities Eyes: Pupils equal, round and reactive to light.? ENT: Pharynx normal.? Neck: Normal inspection.? Neck supple.? CVS: Normal heart rate and rhythm.? Pulses normal.? Respiratory: No respiratory distress.? Breath sounds normal.? Abdomen: Soft and nontender.? Skin: Skin warm and dry.? Normal skin color.? Normal skin turgor.? Extremities: No lower extremity edema.? No calf ttp. 5/5 strength to bilateral upper and lower extremities. 2+ reflexes equal and b/l Back: No midline tenderness, no C-spine tenderness, full range of motion, no CVA tenderness bilaterally Neuro: Oriented X 3.? No motor deficit.? No sensory deficit. CN 2-12 intact . No saddle paresthesias, normal steady gait with normal coordination. Course Reevaluation(s) Reevaluation #1: CBC appears to be around patient's baseline. Chemistry with no acute findings. Urine negative. X-ray of the lumbar spine with no acute findings. Patient has not been able to provide us a stool sample. Time: 21:49 Reevaluation #2: Patient without urinary retention, bladder scan with 44 cc, urine clean for infection. Patient is still unable to provide us with a stool sample. An outpatient slip was given to her for stool sample, results will be called to patient as I do not have patient's PCPs fax information. I advised patient to share these results with her PCP. Patient does not want to wait to give us a stool sample. At this time she will be discharged home with strict return precautions. Educated her on bland/brat diet, advised her to return with new or worsening symptoms. Time: 22:43 Reevaluation #3: Patient tells me that her main concern right now is her back pain, she now tells me that she gets epidural injections, there is no midline tenderness. Patient's ESR and CRP normal. Patient has no leukocytosis, no focal neuro deficits, unlikely that this is an epidural abscess or cauda equina. Patient will be given Tylenol. And will be re-evaluated. I tried to give patient Toradol however she tells me she cannot take it. Patient also refusing flu/COVID/RSV, she tells me she knows she does not have any of these, she has traveled to multiple places, is having back pain nausea,, vomiting, diarrhea so explained to patient it is important to rule these etiologies out however she is refusing Time: 00:47 Additional Reevaluation(s): 131 CT of the abdomen and pelvis with no acute findings. Still unable to give us a stool sample, she tells me she is bathroom twice in our waiting room that is why she cannot give us a sample. For that reason an outpatient slip was given to her for stool leukocytes, C.diff, ova and parasites. She will be discharged home on cyclobenzaprine, Lidoderm patches. Advised to return with new or w orsening symptoms. Patient is ambulating with steady gait, continuing to urinate without any issues. Upon patient's discharge patient ambulating with steady gait, neuro exam remains nonfocal, no sensory motor deficits, 2+ patellar reflexes equal bilateral. Reproducible back pain toe lower paraspinous muscles, no midline tenderness. Plan at this time is to discharge home with strict return precautions. Advised her to follow-up with her PCP tomorrow. Medical Decision Making [facility] Narrative Medical decision making narrative: 1913 41-year-old female presents nausea,vomiting,diarrhea he did tolerate p.o. status post to the [place] this has been going on for approximately a week, was given anti a parasitic agents by a primary care provider in with little to no relief. PE benign. Neurological exam nonfocal. Normal sensory and motor. Normal ambulation. Abdomen is nontender on palpation. Regular rate and rhythm. Lungs clear. History and physical examination with low suspicion for cauda equina or epidural abscess. Likely viral syndrome. Likely traveler's diarrhea. No pain with palpation of abdomen unlikely that this is appendicitis, cholecystitis, pancreatitis or diverticulitis. Patient's back pain feels like her typical back pain, patient has a longstanding history of back issues. Plan- stool cultures, urine, labs. Medical Records Medical records reviewed: Yes I reviewed the patient's medical records. Lab Data Lab results reviewed: Yes I reviewed the patient's lab results. Result diagrams: 09/26/21 19:52 09/26/21 21:09 Labs: Lab Results 09/26/21 09/26/21 09/26/21 Range/Units 16:58 19:52 19:52 WBC 7.0 (4.8-10.8) X10*3/uL RBC 3.98 L (4.20-5.50) X10*6/uL Hgb 12.6 (12.0-16.0) g/dl Hct 38.2 (37.0-47.0) % MCV 96.0 (80.0-98.0) fL MCH 31.7 (27.0-33.0) pg MCHC 33.0 (31.0-35.0) g/dl RDW 12.2 (11.0-16.0) % Plt Count 227 (160-400) X10*3/uL MPV 9.2 L (9.4-12.3) fL Immature Gran % (Auto) 0.3 (0.0-0.4) % Neut % (Auto) 61.7 (45-73) % Lymph % (Auto) 29.4 (20-40) % Mcmullen % (Auto) 6.9 (2-11) % Eos % (Auto) 1.0 (0-4) % Baso % (Auto) 0.7 (0-2) % Lymph # (Auto) 2.1 (1.2-4.9) X10*3/uL Mcmullen # (Auto) 0.5 (0.1-1.2) X10*3/uL Eos # (Auto) 0.1 (0.0-0.4) X10*3/uL Baso # (Auto) 0.1 (0.0-0.2) X10*3/uL Abs Immat Gran (auto) 0.02 (0.00-0.03) X10*3/uL Absolute Neuts (auto) 4.3 (2.0-8.3) x10*3/uL Absolute Nucleated RBC 0.000 (0.0-0.012) X10*3/uL Nucleated RBC % (auto) 0.0 (0.0-0.2) /100WBC ESR 3 (0-20) MM/HR Sodium (135-145) mmol/L Potassium (3.3-5.1) mmol/L Chloride (96-108) mmol/L Carbon Dioxide (22-29) mmol/L Anion Gap (12-20) BUN (9-16) mg/dL Creatinine (0.5-1.4) mg/dL Estim Creat Clear Calc Estimated GFR Random Glucose (60-115) mg/dL Calcium (8.4-10.2) mg/dL Magnesium (1.6-2.6) mg/dL Total Bilirubin (0.0-1.0) mg/dL AST (5-31) U/L ALT (0-31) U/L Alkaline Phosphatase (39-117) U/L C-Reactive Protein (< or = 0.50) mg/dL Total Protein (6.5-8.0) g/dL Albumin (3.5-5.0) g/dL Lipase (8-78) U/L Beta HCG, Quant mIU/mL Urine Color YELLOW Urine Appearance CLEAR Urine pH 6.0 (5.0-8.0) Ur Specific [place] >= 1.030 H (1.005-1.025) Urine Protein NEG (NEG-TRACE) MG/DL Urine Glucose (UA) NEG (NEG) MG/DL Urine Ketones 5 (NEG) MG/DL Urine Blood NEG (NEG) Urine Nitrite NEG (NEG) Ur Leukocyte Esterase NEG (NEG) 09/26/21 Range/Units 21:09 WBC (4.8-10.8) X10*3/uL RBC (4.20-5.50) X10*6/uL Hgb (12.0-16.0) g/dl Hct (37.0-47.0) % MCV (80.0-98.0) fL MCH (27.0-33.0) pg MCHC (31.0-35.0) g/dl RDW (11.0-16.0) % Plt Count (160-400) X10*3/uL MPV (9.4-12.3) fL Immature Gran % (Auto) (0.0-0.4) % Neut % (Auto) (45-73) % Lymph % (Auto) (20-40) % Mcmullen % (Auto) (2-11) % Eos % (Auto) (0-4) % Baso % (Auto) (0-2) % Lymph # (Auto) (1.2-4.9) X10*3/uL Mcmullen # (Auto) (0.1-1.2) X10*3/uL Eos # (Auto) (0.0-0.4) X10*3/uL Baso # (Auto) (0.0-0.2) X10*3/uL Abs Immat Gran (auto) (0.00-0.03) X10*3/uL Absolute Neuts (auto) (2.0-8.3) x10*3/uL Absolute Nucleated RBC (0.0-0.012) X10*3/uL Nucleated RBC % (auto) (0.0-0.2) /100WBC ESR (0-20) MM/HR Sodium 144 (135-145) mmol/L Potassium 4.1 (3.3-5.1) mmol/L Chloride 110 H (96-108) mmol/L Carbon Dioxide 25 (22-29) mmol/L Anion Gap 13 (12-20) BUN 13 (9-16) mg/dL Creatinine 0.63 (0.5-1.4) mg/dL Estim Creat Clear Calc 107.8 Estimated GFR > 60 Random Glucose 88 (60-115) mg/dL Calcium 9.3 (8.4-10.2) mg/dL Magnesium 2.0 (1.6-2.6) mg/dL Total Bilirubin 0.5 (0.0-1.0) mg/dL AST 13 D (5-31) U/L ALT 10 (0-31) U/L Alkaline Phosphatase 71 (39-117) U/L C-Reactive Protein 0.12 (< or = 0.50) mg/dL Total Protein 6.6 (6.5-8.0) g/dL Albumin 4.4 (3.5-5.0) g/dL Lipase 47 (8-78) U/L Beta HCG, Quant < 2 mIU/mL Urine Color Urine Appearance Urine pH (5.0-8.0) Ur Specific [place] (1.005-1.025) Urine Protein (NEG-TRACE) MG/DL Urine Glucose (UA) (NEG) MG/DL Urine Ketones (NEG) MG/DL Urine Blood (NEG) Urine Nitrite (NEG) Ur Leukocyte Esterase (NEG) Critical Care Time Critical Care Time Critical Care Time: No Discharge Plan Discharge Clinical Impression: Nausea & vomiting, Diarrhea, Lower back pain, Traveler's diarrhea Patient Disposition: Home, Self-Care Instructions: Traveler's Diarrhea (ED), Acute Nausea and Vomiting (ED), Acute Diarrhea (ED), Acute Low Back Pain (ED) Additional Instructions: Take your medications as prescribed. If you were prescribed antibiotics today, it is important that you take your medication to their entirety, do not skip any doses, do not finish them early. Follow-up with your primary care provider this week. I have also given you follow-up with gastroenterology as your stomach issues appear to be chronic in nature. Return to the emergency department with new or worsening symptoms. Such as f chanell, chills, chest pain, shortness of breath, nausea, vomiting, dizziness, headache, vision changes, lethargy, urinary/bowel incontinence/retention, weakness In case of emergency call 911 Drink plenty of fluids. Please follow a bland diet. Your laboratory studies were reassuring, your urine did not show any infection, and your CT scan showed no acute findings. I gave you an outpatient script for stool testing, please take this to our lab, and results will be sent to you and your PCP. CT/CT abdomen pelvis wo con IMPRESSION: A cause for the patient's left lower quadrant pain has not been found. Status post cholecystectomy, gastric sleeve and hysterectomy.? ? Prescriptions: New cyclobenzaprine 10 mg tablet 10 mg PO BEDTIME PRN (Reason: muscle spasm) Qty: 7 0RF lidocaine 5 % adhesive patch,medicated 1 patch topical DAILY PRN (Reason: pain) Qty: 15 0RF Rx Instructions: leave on most painful area for up to 12 hrs No Action clotrimazole 1 % cream 1 appl topical BID Qty: 45 2RF cholestyramine (with sugar) 4 gram powder 4 g PO BID Qty: 378 3RF Rx Instructions: administer w/meal; avoid other meds within 1hr before or 4-6hr after dose dicyclomine 20 mg tablet 20 mg PO TID Qty: 90 0RF sucralfate 1 gram tablet 1 g PO BID Qty: 60 1RF ondansetron 4 mg tablet,disintegrating 4 mg PO Q8H PRN (Reason: nausea and vomiting) Qty: 20 0RF hydrocodone-acetaminophen [Vicodin HP] 10-300 mg Tablet 1 tab PO Q6H PRN (Reason: Pain) Hold Instructions: Resume on 04/07/20. try not to take this sumatriptan succinate [Imitrex] 100 mg tablet 100 mg PO Q2-4H PRN (Reason: Headache) Rx Instructions: do not exceed 2 doses per 24 hrs methocarbamol 750 mg tablet 750 mg PO QID clonidine HCl 0.1 mg tablet 0.1 mg PO BEDTIME Bariatric Multivitamins 45 mg iron- 800 mcg-120 mcg capsule 1 cap PO DAILY propranolol 20 mg tablet 20 mg PO DAILY fluticasone propionate 50 mcg/actuation spray,suspension 1 spray intranasal DAILY lidocaine [Lidocaine Pain Relief] 4 % adhesive patch,medicated 1 patch topical DAILY diazepam 10 mg tablet 10 mg PO BID PRN Referrals: Berny Berg MD [Physician] - 2 days Name,MD Gabriel [Primary Care Provider] - 1 day Stand Alone Forms: Work/School Release Interventions: ED Discharge Assessment Last Done: 09/27/21 01:52 Discharge Date/Time: 09/27/21 01:52
[2021-09-26 19:58] LABS: MANUAL DIFF FLAG NO
[2021-09-26 20:00] VITALS: BP 145/76; PULSE 46; RESP 16; TEMP 36.7; O2SAT 98
[2021-09-26 20:01] LABS: Basophils Absolute Auto 0.1 X10*3/uL (0.0-0.2); Basophils Percent Auto 0.7 % (0-2); Eosinophils Absolute Auto 0.1 X10*3/uL (0.0-0.4); Hematocrit 38.2 % (37.0-47.0); Hemoglobin 12.6 g/dl (12.0-16.0); Imm Gran Abs Auto 0.02 X10*3/uL (0.00-0.03); Imm Gran Pct Auto 0.3 % (0.0-0.4); Lymphocytes Absolute Auto 2.1 X10*3/uL (1.2-4.9); Lymphocytes Percent Auto 29.4 % (20-40); Mean Corpuscular Hemoglobin 31.7 pg (27.0-33.0); Mean Platelet Volume 9.2 fL (9.4-12.3); Monocytes Absolute Auto 0.5 X10*3/uL (0.1-1.2); Monocytes Percent Auto 6.9 % (2-11); Neutrophils Absolute Auto 4.3 x10*3/uL (2.0-8.3); Neutrophils Percent Auto 61.7 % (45-73); Platelet Count 227 X10*3/uL (160-400); Red Blood Count 3.98 X10*6/uL (4.20-5.50); Red Cell Distribution Width 12.2 % (11.0-16.0)
--- NOTE | 2021-09-26 20:23 | PC.NURSE ---
Pt presents from home with reports of N/V/D beginning 09/[address] [place]- given antiparasitics with little relief. [place] better upon returning to [place] then started again with diffuse abd pain radiating into back, N/V/D again 1-2 days ago. Reports unable to tolerate PO, decreased urinary output. Pt A&Ox3, skin pwd respirations even unlabored. IV access obtained labs sent for processing. Awaiting results, aware of plan of care.
[2021-09-26 21:32] LABS: Alanine Aminotransferase 10 U/L (0-31); Albumin Level 4.4 g/dL (3.5-5.0); Alkaline Phosphatase 71 U/L (39-117); Anion Gap 13 (12-20); Aspartate Amino Transferase 13 U/L (5-31); Bilirubin Total 0.5 mg/dL (0.0-1.0); Blood Urea Nitrogen 13 mg/dL (9-16); Calcium 9.3 mg/dL (8.4-10.2); Carbon Dioxide 25 mmol/L (22-29); Chloride 110 mmol/L (96-108); Creatinine Clr Calc Pharmacy 107.8; Estimated Glomerular Filt Rate > 60; Glucose Random 88 mg/dL (60-115); Lipase 47 U/L (8-78); Potassium 4.1 mmol/L (3.3-5.1); Sodium 144 mmol/L (135-145); Total Protein 6.6 g/dL (6.5-8.0)
[2021-09-26] MEDS: 0.9 % Sodium Chloride 1,000 ML 999 ML IV (22:23)
[2021-09-26] MEDS: ondansetron HCL 4 MG/2 ML VIAL IVPUSH (22:23)
--- NOTE | 2021-09-26 22:24 | PC.NURSE ---
Pt medicated per MAR, continues to await results.
[2021-09-26 22:52] VITALS: BP 126/66; PULSE 51; RESP 16; O2SAT 96
--- NOTE | 2021-09-26 23:41 | PC.NURSE ---
Pt refusing toradol. Refusing CT scan unless medicated for pain. Refusing covid test stating she isn't here for covid symptoms. PA to bedside to discuss plan of care with pt.
--- NOTE | 2021-09-26 23:43 | PC.NURSE ---
Pt. refusing Covid swab. States i will get tested only if I am admitted, I was just tested 5 days ago, I am not here for Covid.
[2021-09-26] MEDS: Acetaminophen 325 MG TABLET 650 MG PO (23:50)
[2021-09-27] LABS: C Reactive Protein 0.12 mg/dL (< or = 0.50)
[2021-09-27 00:31] LABS: Erythrocyte Sedimentation Rate 3 MM/HR (0-20)
[2021-09-27 00:33] VITALS: BP 119/74; PULSE 56; RESP 16; O2SAT 97
[2021-09-27 01:25] LABS: HCG Quantitative < 2 mIU/mL
--- NOTE | 2021-09-27 01:50 | PC.NURSE ---
pt a&o, no sob or chest pain. Reviewed discharge instructions and medications. Pt Verbalized understanding. IV removed.
== END 2021-09-27 01:52 | disposition home or self-care (01) ==
PROVIDERS: Physician Assistant; Emergency Provider Internal Medicine; PCP Internal Medicine Geriatric Medicine
DX: R10.32 Left lower quadrant pain (principal); M54.50 Low back pain, unspecified; R19.7 Diarrhea, unspecified; R33.9 Retention of urine, unspecified; R11.2 Nausea with vomiting, unspecified; Z79.899 Other long term (current) drug therapy
CPT/HCPCS: 36415; 51798; 72100; 74176; 80053; 81003; 83690; 83735; 84702; 85025; 85652; 86140; 96361; 96374; 96375; 99284; 99285; J2405

== ENCOUNTER 2021-09-27 14:51 | Outpatient (REF) | payer MEDICAID, SELFPAY ==
[2021-09-27 15:52] LABS: CDiff Gene PCR NEGATIVE (Negative)
== END 2021-09-27 14:52 | disposition home or self-care (01) ==
LOC: HO.LNP 14:51
PROVIDERS: Visit Provider Physician Assistant
DX: R19.7 Diarrhea, unspecified (principal)
CPT/HCPCS: 87493

== ENCOUNTER 2021-11-30 13:14 | Emergency (ER) | payer MEDICAID, SELFPAY ==
[2021-11-30] VITALS (9 sets, daily range): BP systolic 103–135; BP diastolic 58–74; PULSE 51–63; RESP 18–20; TEMP 36.8–37.1; O2SAT 96–100; BMI 23.9
--- NOTE | ~2021-11-30 | CT_ITS ---
EXAMINATION: CT HEAD WITHOUT CONTRAST CLINICAL INFORMATION: Severe headache, weakness COMPARISON: None TECHNIQUE: Contiguous axial imaging was performed from the skull base to vertex without intravenous administration of contrast. This CT examination was performed using dose optimization techniques as appropriate, variously including the following: *Automated exposure control *Adjustment of mA and/or kV according to patient size (this includes techniques or standardized protocols for targeted exams where dose is matched to indication/reason for exam; i.e. extremities or head) *Use of iterative reconstruction technique DLP: 616 mGy-cm FINDINGS: There is no evidence of acute intracranial hemorrhage or territorial infarction. No abnormal mass-effect or midline shift. No extra-axial fluid collections. [place] to white matter differentiation is well preserved. The ventricles are normal in size and configuration. No acute calvarial fracture.. The sinuses and mastoid air cells are clear. CT/CT head/brain wo con IMPRESSION: No CT evidence of acute intracranial hemorrhage or edematous territorial infarction.
--- NOTE | ~2021-11-30 | CT_ITS ---
EXAMINATION: CT ANGIOGRAM OF THE CHEST WITH AND WITHOUT CONTRAST (CT PULMONARY ANGIOGRAM FOR PE) CT ABDOMEN AND PELVIS WITH CONTRAST CLINICAL INFORMATION: Reason for Exam chest pain, cough, fever, COVID+ r/o PE ; abdominal pain with nausea and vomiting, history of gastric sleeve. COMPARISON CTA chest 03/28/2020, CT abdomen pelvis 09/27/2021: None TECHNIQUE: Prior to contrast administration, noncontrast localization images were obtained. Subsequently, multidetector volumetric imaging was performed from the thoracic inlet to the pubic symphysis following the administration of 85 mL Omnipaque 350 intravenous contrast. This was followed by multidetector acquisition of the abdomen and pelvis. No contrast reaction reported Sagittal, coronal, and MIP oblique sagittal reformatted images were obtained on the CT workstation, uploaded to PACS, and reviewed. This CT examination was performed using dose optimization techniques as appropriate, variously including the following: *Automated exposure control *Adjustment of mA and/or kV according to patient size (this includes techniques or standardized protocols for targeted exams where dose is matched to indication/reason for exam; i.e. extremities or head) *Use of iterative reconstruction technique Total exam dose-length product 809 mGy-cm FINDINGS: CHEST: Quality of study/contrast bolus: Satisfactory. Pulmonary arteries: No central or segmental pulmonary emboli. Thoracic aorta: No aneurysm or dissection. Lungs: No airspace consolidation. No suspicious appearing pulmonary nodules. Airways:Central through segmental airways are clear. Pleura and pericardium: No pleural or pericardial effusions. Heart: No cardiomegaly. Lymph nodes: No mediastinal, hilar, or axillary lymphadenopathy. Chest Wall: No chest wall mass. ABDOMEN/PELVIS: Liver: Normal size and attenuation. No liver lesions. Gallbladder and bile ducts:Status post cholecystectomy. Surgical clips in the gallbladder fossa. No biliary ductal dilation. Pancreas: No pancreatic lesion, ductal dilation, or peripancreatic inflammatory change. Spleen: Normal size. No splenic lesion. Adrenal Glands: Unremarkable. Kidneys and Ureters: Symmetric nephrograms. No hydronephrosis. No renal calculi. No perinephric stranding or collections. Small bowel lateral parapelvic renal cysts. Vasculature:No abdominal aortic aneurysm. Lymph nodes:No retroperitoneal or mesenteric lymphadenopathy. Gastrointestinal Tract: Status post sleeve gastrectomy. No gastric wall thickening. Stomach is nondilated. No dilated bowel loops. No bowel wall thickening. The appendix is not seen. There is no pericecal inflammation to suggest acute appendicitis. Peritoneum:No ascites or intra-abdominal free air. Abdominal wall:No hernia. Bladder: Unremarkable. Pelvic Viscera: Status post hysterectomy. Bones: No acute fracture or suspicious osseous lesion. Vertebral body hemangiomas at T11 and L2. Mild disc degenerative change in the lower thoracic spine. CT/CT angio chest PE protocol IMPRESSION: 1. No evidence of pulmonary embolus. 2. No airspace consolidation or effusions. 3. Status post sleeve gastrectomy, cholecystectomy, and hysterectomy. No acute intra-abdominal process identified. VTE: negative
[2021-11-30 13:53] LABS: COVID-19 Test Positive (Negative); IDNOW Serial# 55D5AD1C
[2021-11-30] MEDS: ondansetron HCL 4 MG/2 ML VIAL IVPUSH (14:55)
[2021-11-30] MEDS: HYDROmorphone HCl 1 MG/ML SYRINGE IVPUSH (14:55)
[2021-11-30] MEDS: 0.9 % Sodium Chloride 1,000 ML 999 ML IV ×2 (14:57→17:36)
--- NOTE | 2021-11-30 15:00 | PC.NURSE ---
patient a&ox3, covid swab obtained- pt positive for covid, c/o abd pain, director of cardiac cath lab applied, pt medicated per order, tech drawing labs, call boateng within reach, will continue to monitor.
--- NOTE | 2021-11-30 15:08 | ED_ITS ---
HPI - General Adult General Chief complaint: Nausea/Vomiting/Diarrhea Stated complaint: N/V/D/WEAKNESS X 5 DAYS Time Seen by Provider: 11/30/21 13:28 Source: patient Mode of arrival: EMS Limitations: no limitations History of Present Illness HPI narrative: 41-year-old female who presents emergency department for evaluation of multiple complaints. The patient states that she was on vacation in the [facility] from November 08 to November. She states that while she was on vacation, after approximately 1 week, she became ill. She states she developed a constant frontal headache which she describes as a dull, sharp pain which was 10/10. She developed multiple episodes of diarrhea per day which she describes as watery with no blood in the diarrhea. She also developed abdominal pain. She points to her periumbilical area when asked to localize the pain. She states the pain is a constant, dull to sharp pain which is 10/10. The patient states that she then went to [place] and was in emergency department while she was in [place]. She was told that she had abnormal blood work and that she would need CT scans but they were unable to do these CT scans in the facility in [place]. Patient states that she arrived home today from [place], went home, took a shower and was extremely weak to the point where she is having difficulty walking. She states that she developed a tingly sensation in her hands and feet as well as a cramping sensation in her hands. She called an ambulance was brought to the emergency department The patient states she has also had a cough which is nonproductive. She has had shortness of breath and dyspnea on exertion. She had a temperature as high as 103 degrees F. The patient has not been vaccinated against COVID-19. She told me that she has chronic diarrhea and she took some Imodium for yesterday is not had any diarrhea today. She believes that her diarrhea is related to her gastric sleeve surgery which she had in 2019. Related Data Home Medications Medication Instructions Recorded Confirmed clonidine HCl 0.1 mg tablet 0.1 mg PO BEDTIME 01/21/20 03/28/21 methocarbamol 750 mg tablet 750 mg PO QID 01/21/20 03/28/21 sumatriptan succinate 100 mg 100 mg PO Q2-4H PRN Headache 01/21/20 03/28/21 tablet (Imitrex) hydrocodone 10 mg-acetaminophen 1 tab PO Q6H PRN Pain 01/28/20 03/28/21 300 mg tablet (Vicodin HP) lhrqzzuh-[id number] 45 mg-folic 1 cap PO DAILY 07/28/20 03/28/21 acid 800 mcg-vit K 120 mcg capsule (Bariatric Multivitamins) propranolol 20 mg tablet 20 mg PO DAILY 01/03/21 03/28/21 fluticasone propionate 50 1 spray intranasal DAILY 03/22/21 03/28/21 mcg/actuation nasal spray,suspension diazepam 10 mg tablet 10 mg PO BID PRN 05/10/21 lidocaine 4 % topical patch 1 patch topical DAILY 05/10/21 (Lidocaine Pain Relief) Previous Rx's Medication Instructions Recorded clotrimazole 1 % topical cream 1 appl topical BID #45 grams 02/21/21 cholestyramine (with sugar) 4 gram 4 g PO BID #378 grams 05/12/21 oral powder dicyclomine 20 mg tablet 20 mg PO TID #90 tabs 05/18/21 ondansetron 4 mg disintegrating 4 mg PO Q8H PRN nausea and 05/19/21 tablet vomiting #20 tabs sucralfate 1 gram tablet 1 g PO BID #60 tabs 05/19/21 cyclobenzaprine 10 mg tablet 10 mg PO BEDTIME PRN muscle spasm 09/27/21 #7 tabs lidocaine 5 % topical patch 1 patch topical DAILY PRN pain #15 09/27/21 ea Allergies Allergy/AdvReac Type Severity Reaction Status Date / Time promethazine [From PHENERGAN] Allergy Intermediate PSYCHOSIS Verified 07/25/21 15:08 NSAIDS (Non-Steroidal Allergy Unknown Gastrointestinal Verified 07/25/21 15:08 Anti-Inflamma Upset [NSAIDS (NON-STEROIDAL ANTI-INFLAMMA] oxycodone [From PERCOCET] Allergy Unknown headache Verified 07/25/21 15:08 metoclopramide [From Reglan] AdvReac Intermediate PSYCHOSIS Verified 07/25/21 15:08 medical tape- tegaderm Allergy Intermediate Rash Uncoded 07/25/21 15:08 dermabond Allergy Blister Uncoded 07/25/21 15:08 Review of Systems Review of Systems: Yes all other systems are reviewed and are negative PMFSH Past Medical History Attestation statement: The following information was validated with the patient. [facility] Narrative: Social history: She denies tobacco, alcohol and drug use. Medical History Anxiety Arthritis Bursitis Chronic back pain Chronic pain syndrome Constipation Degenerative disc disease Depression Diarrhea Disc degeneration, lumbar Diverticular disease Dysphagia Elevated lipase Endometriosis Fatty liver GERD (gastroesophageal reflux disease) Hiatal hernia High cholesterol History of Crabtree's palsy HTN (hypertension) Hypocalcemia Hypomagnesemia Hypoproteinemia IBS (irritable bowel syndrome) Increased body mass index (BMI) Insomnia Intestinal malabsorption following gastrectomy Malabsorption due to intolerance, not elsewhere classified Migraines Motion sickness Nausea Obesity (BMI 30-39.9) Odynophagia Palpitations Panniculitis PONV (postoperative nausea and vomiting) Pseudotumor cerebri PTSD (post-traumatic stress disorder) Sciatica of left side Scoliosis Sleep apnea Splenic infarction 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 Mother Heart disease Type 2 diabetes mellitus History of smoking Alcoholism COPD (chronic obstructive pulmonary disease) Hyperlipidemia Sister No problems noted. Sister No problems noted. 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 other at home: Yes (SON 17,AUTISTIC) Do you presently have visiting nurse or other home services: No Alcohol intake: never Patient Tobacco Use Status: Never used Tobacco Second Hand Smoke Exposure: No Use of substances other than those prescribed or required for medical reasons: No Advance Directives: No Advance Directives Information Provided: No Patient : No service: No Current occupational status: unemployed Physical Exam ED Vital Signs: Vital Signs - 24 hr 11/30/21 13:33 11/30/21 13:48 11/30/21 14:24 Temperature 98.7 F 98.7 F Pulse Rate 63 60 51 Respiratory Rate 20 20 18 Blood Pressure 135/68 129/74 108/67 Pulse Oximetry 99 96 98 Oxygen Delivery Method Room Air Room Air Room Air 11/30/21 14:55 11/30/21 15:01 Temperature Pulse Rate 61 Respiratory Rate 18 20 Blood Pressure 105/65 Pulse Oximetry 100 Oxygen Delivery Method Room Air BMI result Body Mass Index 23.9 Const Other: Awake, alert, female patient, very pleasant cooperative, she does not appear to be in distress, she answers all questions appropriately. HENDE Head: Yes normal to inspection, Yes normocephalic and Yes atraumatic Ears: external ears normal General nose exam: Normal external nose present Face and sinus: Yes normal facial exam Mouth: Normal oral and palatal mucosa present Throat: Yes posterior oropharynx normal Eyes General: appearance normal, both eyes and all related structures Pupils: Equal, round and reactive pupils present Neck Neck: Yes normal visual inspection, Yes no lymphadenopathy, Yes trachea midline and Yes supple Chest Chest palpation & inspection: normal inspection of the chest and normal palpation of entire chest wall Resp Effort & Inspection: normal respiratory effort and able to speak in complete sentences Auscultation: clear to auscultation bilaterally Cardio Rate: regular rate Rhythm: regular rhythm Heart sounds: S1 normal heart sound present, S2 normal heart sound present and no murmurs GI Inspection: Yes normal to inspection Palpation (GI): Soft to palpation, Tenderness to palpation present (GI) (Mild diffuse abdominal tenderness) periumbilically (Moderate) and no guarding Auscultation: normal bowel sounds General: Yes no CVA tenderness Back/Spine/Pelvis Back: no CVA tenderness Skin General skin exam: no rashes or lesions noted Neuro Cranial nerves: Yes CN's II-XII intact bilaterally and Yes Equal, round and reactive pupils present Cognition (Neuro): normal cognition Motor exam (neuro): 5/5 motor strength present throughout (Can hold extremities up against gravity but fatigues easily, weak to resist) Deep tendon reflexes (DTR's): Rt Biceps (C5, C6): 2+, Left biceps reflex intensity grade: 2+, Right patellar reflex intensity grade: 2+, Left patellar reflex intensity grade: 2+, Right ankle reflex intensity grade: 2+ and Left ankle reflex intensity grade: 2+ Extrem General: Yes normal to inspection Psych Appearance: grossly normal Speech and movement: Normal speech and movement present Affect: normal affect Attitude: cooperative Thought process: Normal thought process present Thought content: Normal thought content present Course Course Course Narrative: 41-year-old female who presents emergency department for evaluation of fever, cough, headache, chest pain, shortness of breath, diarrhea and fatigue with her symptoms beginning while she was in vacation in the [facility] on approximately 11/16/2021 (14 days prior to evaluation). The patient states that she was in emergency department [place] was told that she had abnormal blood work that she would need CT scans which they were unable to do. Patient spent approximately 3-4 days and [place] and returned from [place] this morning. She went home but was very weak. She states she developed a tingling sensation in her hands and feet with cramping in her hands. She states that she was too weak to walk so she called an ambulance was brought to the emergency department. Her examination revealed normal vital signs with a temperature of 98.7 degrees and O2 saturation of 99-100% on room air. Patient does have diffuse abdominal tenderness with increased tenderness in the periumbilical area. She also has generalized weakness but is able to hold her extremities up against gravity, she has normal reflexes. I did order a CBC, CMP, ESR, CRP, ferritin, LDH, CK, troponin, PT/INR, PTT, D-dimer, COVID-19, blood cultures x2. I will obtain a CT scan of the head without contrast and a CT pulmonary angiogram PE protocol the chest with CT scan of the abdomen pelvis with IV contrast. Patient was ordered to get normal saline IV x1 L, Dilaudid 1 mg IV and Zofran 4 mg IV. 1732: Patient's laboratory evaluation revealed a low WBC of 2900 with absolute neutrophil count of 900, 30% neutrophils and 57% lymphocytes. The patient's C OVID-19 test was positive. LDH was normal 159. Ferritin was elevated at 597. D-dimer was elevated 288. I did order a CT scan of the patient's head to evaluate her headaches. Also ordered a CT pulmonary angiogram PE protocol for her chest pain shortness of breath and elevated D-dimer. CT scan of the abdomen pelvis is also ordered to evaluate her abdominal pain. These studies are pending at the end of my shift. The patient's care was turned over to my colleague, Dr. Kirk. Medical Decision Making Lab Data Result diagrams: 11/30/21 15:08 11/30/21 15:08 Labs: Lab Results 11/30/21 11/30/21 11/30/21 Range/Units 13:38 15:08 15:08 WBC 2.9 L (4.8-10.8) X10*3/uL RBC 4.17 L (4.20-5.50) X10*6/uL Hgb 13.0 (12.0-16.0) g/dl Hct 39.0 (37.0-47.0) % MCV 93.5 (80.0-98.0) fL MCH 31.2 (27.0-33.0) pg MCHC 33.3 (31.0-35.0) g/dl RDW 13.3 (11.0-16.0) % Plt Count 130 L D (160-400) X10*3/uL MPV 9.4 (9.4-12.3) fL Immature Gran % (Auto) 0.3 (0.0-0.4) % Neut % (Auto) 30.0 L (45-73) % Lymph % (Auto) 57.8 H (20-40) % Gilmer % (Auto) 10.9 (2-11) % Eos % (Auto) 0.7 (0-4) % Baso % (Auto) 0.3 (0-2) % Lymph # (Auto) 1.7 (1.2-4.9) X10*3/uL Gilmer # (Auto) 0.3 (0.1-1.2) X10*3/uL Eos # (Auto) 0.0 (0.0-0.4) X10*3/uL Baso # (Auto) 0.0 (0.0-0.2) X10*3/uL Abs Immat Gran (auto) 0.01 (0.00-0.03) X10*3/uL Absolute Neuts (auto) 0.9 L (2.0-8.3) x10*3/uL Absolute Nucleated RBC 0.000 (0.0-0.012) X10*3/uL Nucleated RBC % (auto) 0.0 (0.0-0.2) /100WBC Smear Tech's Comments VERIFIED ESR (0-20) MM/HR PT (10.0-13.1) SEC INR (0.9-1.1) APTT (26.0-36.4) SEC D-Dimer High Sensitivty NG/ML Sodium 144 (135-145) mmol/L Potassium 3.3 (3.3-5.1) mmol/L Chloride 107 (96-108) mmol/L Carbon Dioxide 26 (22-29) mmol/L Anion Gap 14 (12-20) BUN 8 L (9-16) mg/dL Creatinine 0.58 (0.5-1.4) mg/dL Estim Creat Clear Calc 117.0 Estimated GFR > 60 Random Glucose 80 (60-115) mg/dL Lactic Acid (0.5-2.0) mmol/L Calcium 8.7 D (8.4-10.2) mg/dL Ferritin 597 H (10-250) ng/mL Total Bilirubin 0.3 (0.0-1.0) mg/dL AST 21 D (5-31) U/L ALT 17 (0-31) U/L Alkaline Phosphatase 50 D (39-117) U/L Lactate Dehydrogenase 159 (122-220) U/L Total Creatine Kinase 38 (26-140) U/L Troponin I High Sens (<3.5-17.0) ng/L C-Reactive Protein (< or = 0.50) mg/dL Total Protein 6.0 L (6.5-8.0) g/dL Albumin 4.0 (3.5-5.0) g/dL Lipase 54 (8-78) U/L Ethyl Alcohol mg/dL COVID-19 (KENDRICK) Positive A (Negative) COVID-19 Clin Com See Note 11/30/21 11/30/21 11/30/21 Range/Units 15:08 15:08 15:08 WBC (4.8-10.8) X10*3/uL RBC (4.20-5.50) X10*6/uL Hgb (12.0-16.0) g/dl Hct (37.0-47.0) % MCV (80.0-98.0) fL MCH (27.0-33.0) pg MCHC (31.0-35.0) g/dl RDW (11.0-16.0) % Plt Count (160-400) X10*3/uL MPV (9.4-12.3) fL Immature Gran % (Auto) (0.0-0.4) % Neut % (Auto) (45-73) % Lymph % (Auto) (20-40) % Gilmer % (Auto) (2-11) % Eos % (Auto) (0-4) % Baso % (Auto) (0-2) % Lymph # (Auto) (1.2-4.9) X10*3/uL Gilmer # (Auto) (0.1-1.2) X10*3/uL Eos # (Auto) (0.0-0.4) X10*3/uL Baso # (Auto) (0.0-0.2) X10*3/uL Abs Immat Gran (auto) (0.00-0.03) X10*3/uL Absolute Neuts (auto) (2.0-8.3) x10*3/uL Absolute Nucleated RBC (0.0-0.012) X10*3/uL Nucleated RBC % (auto) (0.0-0.2) /100WBC Smear Tech's Comments ESR 7 (0-20) MM/HR PT (10.0-13.1) SEC INR (0.9-1.1) APTT 27.9 (26.0-36.4) SEC D-Dimer High Sensitivty 288 NG/ML Sodium (135-145) mmol/L Potassium (3.3-5.1) mmol/L Chloride (96-108) mmol/L Carbon Dioxide (22-29) mmol/L Anion Gap (12-20) BUN (9-16) mg/dL Creatinine (0.5-1.4) mg/dL Estim Creat Clear Calc Estimated GFR Random Glucose (60-115) mg/dL Lactic Acid 0.5 (0.5-2.0) mmol/L Calcium (8.4-10.2) mg/dL Ferritin (10-250) ng/mL Total Bilirubin (0.0-1.0) mg/dL AST (5-31) U/L ALT (0-31) U/L Alkaline Phosphatase (39-117) U/L Lactate Dehydrogenase (122-220) U/L Total Creatine Kinase (26-140) U/L Troponin I High Sens (<3.5-17.0) ng/L C-Reactive Protein (< or = 0.50) mg/dL Total Protein (6.5-8.0) g/dL Albumin (3.5-5.0) g/dL Lipase (8-78) U/L Ethyl Alcohol mg/dL COVID-19 (KENDRICK) (Negative) COVID-19 Clin Com 11/30/21 11/30/21 11/30/21 Range/Units 15:08 15:08 15:08 WBC (4.8-10.8) X10*3/uL RBC (4.20-5.50) X10*6/uL Hgb (12.0-16.0) g/dl Hct (37.0-47.0) % MCV (80.0-98.0) fL MCH (27.0-33.0) pg MCHC (31.0-35.0) g/dl RDW (11.0-16.0) % Plt Count (160-400) X10*3/uL MPV (9.4-12.3) fL Immature Gran % (Auto) (0.0-0.4) % Neut % (Auto) (45-73) % Lymph % (Auto) (20-40) % Gilmer % (Auto) (2-11) % Eos % (Auto) (0-4) % Baso % (Auto) (0-2) % Lymph # (Auto) (1.2-4.9) X10*3/uL Gilmer # (Auto) (0.1-1.2) X10*3/uL Eos # (Auto) (0.0-0.4) X10*3/uL Baso # (Auto) (0.0-0.2) X10*3/uL Abs Immat Gran (auto) (0.00-0.03) X10*3/uL Absolute Neuts (auto) (2.0-8.3) x10*3/uL Absolute Nucleated RBC (0.0-0.012) X10*3/uL Nucleated RBC % (auto) (0.0-0.2) /100WBC Smear Tech's Comments ESR (0-20) MM/HR PT 10.5 (10.0-13.1) SEC INR 0.9 (0.9-1.1) APTT (26.0-36.4) SEC D-Dimer High Sensitivty NG/ML Sodium (135-145) mmol/L Potassium (3.3-5.1) mmol/L Chloride (96-108) mmol/L Carbon Dioxide (22-29) mmol/L Anion Gap (12-20) BUN (9-16) mg/dL Creatinine (0.5-1.4) mg/dL Estim Creat Clear Calc Estimated GFR Random Glucose (60-115) mg/dL Lactic Acid (0.5-2.0) mmol/L Calcium (8.4-10.2) mg/dL Ferritin (10-250) ng/mL Total Bilirubin (0.0-1.0) mg/dL AST (5-31) U/L ALT (0-31) U/L Alkaline Phosphatase (39-117) U/L Lactate Dehydrogenase (122-220) U/L Total Creatine Kinase (26-140) U/L Troponin I High Sens < 3.5 (<3.5-17.0) ng/L C-Reactive Protein 0.18 (< or = 0.50) mg/dL Total Protein (6.5-8.0) g/dL Albumin (3.5-5.0) g/dL Lipase (8-78) U/L Ethyl Alcohol < 10 mg/dL COVID-19 (KENDRICK) (Negative) COVID-19 Clin Com Discharge Plan Discharge Clinical Impression: COVID-19 virus infection, Abdominal pain, Headache, Weakness Patient Disposition: Still a Patient Prescriptions: No Action clotrimazole 1 % cream 1 appl topical BID Qty: 45 2RF cholestyramine (with sugar) 4 gram powder 4 g PO BID Qty: 378 3RF Rx Instructions: administer w/meal; avoid other meds within 1hr before or 4-6hr after dose dicyclomine 20 mg tablet 20 mg PO TID Qty: 90 0RF sucralfate 1 gram tablet 1 g PO BID Qty: 60 1RF ondansetron 4 mg tablet,disintegrating 4 mg PO Q8H PRN (Reason: nausea and vomiting) Qty: 20 0RF hydrocodone-acetaminophen [Vicodin HP] 10-300 mg Tablet 1 tab PO Q6H PRN (Reason: Pain) Hold Instructions: Resume on 04/07/20. try not to take this cyclobenzaprine 10 mg tablet 10 mg PO BEDTIME PRN (Reason: muscle spasm) Qty: 7 0RF lidocaine 5 % adhesive patch,medicated 1 patch topical DAILY PRN (Reason: pain) Qty: 15 0RF Rx Instructions: leave on most painful area for up to 12 hrs sumatriptan succinate [Imitrex] 100 mg tablet 100 mg PO Q2-4H PRN (Reason: Headache) Rx Instructions: do not exceed 2 doses per 24 hrs methocarbamol 750 mg tablet 750 mg PO QID clonidine HCl 0.1 mg tablet 0.1 mg PO BEDTIME Bariatric Multivitamins 45 mg iron- 800 mcg-120 mcg capsule 1 cap PO DAILY propranolol 20 mg tablet 20 mg PO DAILY fluticasone propionate 50 mcg/actuation spray,suspension 1 spray intranasal DAILY lidocaine [Lidocaine Pain Relief] 4 % adhesive patch,medicated 1 patch topical DAILY diazepam 10 mg tablet 10 mg PO BID PRN
[2021-11-30 15:21] LABS: Basophils Percent Auto 0.3 % (0-2); Eosinophils Percent Auto 0.7 % (0-4); Imm Gran Abs Auto 0.01 X10*3/uL (0.00-0.03); Imm Gran Pct Auto 0.3 % (0.0-0.4); Lymphocytes Absolute Auto 1.7 X10*3/uL (1.2-4.9); Lymphocytes Percent Auto 57.8 % (20-40); MANUAL DIFF FLAG SCAN; Mean Corpuscular HGB Conc 33.3 g/dl (31.0-35.0); Mean Corpuscular Hemoglobin 31.2 pg (27.0-33.0); Mean Corpuscular Volume 93.5 fL (80.0-98.0); Mean Platelet Volume 9.4 fL (9.4-12.3); Monocytes Absolute Auto 0.3 X10*3/uL (0.1-1.2); Monocytes Percent Auto 10.9 % (2-11); Neutrophils Absolute Auto 0.9 x10*3/uL (2.0-8.3); Platelet Count 130 X10*3/uL (160-400); Red Blood Count 4.17 X10*6/uL (4.20-5.50); Red Cell Distribution Width 13.3 % (11.0-16.0); SCAN SMEAR FLAG 1; White Blood Count 2.9 X10*3/uL (4.8-10.8)
[2021-11-30 15:27] LABS: INTERNATIONAL NORM RATIO 0.9 (0.9-1.1); Prothrombin Time 10.5 SEC (10.0-13.1)
[2021-11-30 15:29] LABS: D Dimer High Sensitivity 288 NG/ML
[2021-11-30 15:30] LABS: C Reactive Protein 0.18 mg/dL (< or = 0.50); Ethanol < 10 mg/dL; Lactic Acid 0.5 mmol/L (0.5-2.0); Partial Thromboplastin Time 27.9 SEC (26.0-36.4)
[2021-11-30 15:34] LABS: Alanine Aminotransferase 17 U/L (0-31); Alkaline Phosphatase 50 U/L (39-117); Anion Gap 14 (12-20); Aspartate Amino Transferase 21 U/L (5-31); Bilirubin Total 0.3 mg/dL (0.0-1.0); Blood Urea Nitrogen 8 mg/dL (9-16); Calcium 8.7 mg/dL (8.4-10.2); Carbon Dioxide 26 mmol/L (22-29); Chloride 107 mmol/L (96-108); Estimated Glomerular Filt Rate > 60; Glucose Random 80 mg/dL (60-115); Lactate Dehydrogenase 159 U/L (122-220); Lipase 54 U/L (8-78); Potassium 3.3 mmol/L (3.3-5.1); Sodium 144 mmol/L (135-145)
[2021-11-30 15:36] LABS: Troponin-I High Sensitivity < 3.5 ng/L (<3.5-17.0)
[2021-11-30 15:53] LABS: SLIDE REVIEW VERIFIED
[2021-11-30 15:54] LABS: Ferritin 597 ng/mL (10-250)
[2021-11-30 16:00] LABS: Erythrocyte Sedimentation Rate 7 MM/HR (0-20)
[2021-11-30] MEDS: iohexoL 350 MG/ML 100 ML INFUS..BTL IV (16:59)
[2021-11-30 18:57] LABS: Appearance Urine Clear; Color Urine Yellow; Glucose Urine UA Negative (Negative); Leukocyte Esterase Urine Negative (Negative); Nitrite Urine Negative (Negative); Specific Gravity - Urine >= 1.030 (1.005-1.025); Urine Blood Negative (Negative); Urine Ketones 15 mg/dL (Negative); Urine Protein Negative (Neg-Trace)
[2021-11-30 19:12] LABS: Amphetamine Screen Urine Not Detected (Not Detect); Barbiturates, Urine Not Detected (Not Detect); Benzodiazepines Screen Urine POSITIVE (Not Detect); Cannabinoid Screen Urine POSITIVE (Not Detect); Cocaine Screen Urine Not Detected (Not Detect); Fentanyl, urine Not Detected (Not Detect); Opiate Screen Urine POSITIVE (Not Detect); Phencyclidine Screen Urine Not Detected (Not Detect)
--- NOTE | 2021-11-30 19:25 | PC.NURSE ---
patient a&ox3, hall monitor sinus miguel, vss, c/o abd pain, pt requesting zofran to discharge with, will continue to monitor
--- NOTE | 2021-11-30 20:03 | PC.NURSE ---
pt ambulated with steady gait. sat remained 99% hr 91. skin pink warm and dry. ready for discharge.
== END 2021-11-30 20:03 | disposition home or self-care (01) ==
PROVIDERS: Emergency Provider Emergency Medicine Emergency Medical Services; PCP Internal Medicine Geriatric Medicine
DX: U07.1 COVID-19 (principal); R51.9 Headache, unspecified; R53.1 Weakness; R10.9 Unspecified abdominal pain; I10 Essential (primary) hypertension; E78.5 Hyperlipidemia, unspecified; Z79.899 Other long term (current) drug therapy
CPT/HCPCS: 36415; 70450; 71275; 74177; 80053; 80307; 81003; 82077; 82550; 82728; 83605; 83615; 83690; 84484; 85025; 85379; 85610; 85652; 85730; 86140; 87040; 87635; 96361; 96374; 96375; 99284; J1170; J2405; Q9967

== ENCOUNTER 2022-03-13 15:28 | Outpatient (REF) | payer MEDICAID, SELFPAY ==
[2022-03-13 17:28] LABS: Bilirubin Direct 0.2 mg/dL (0.0-0.5); Bilirubin Total 0.5 mg/dL (0.0-1.0); C Reactive Protein 0.18 mg/dL (< or = 0.50); Ferritin 216 ng/mL (10-250); Iron 94 mcg/dL (30-160); Percent Iron Saturation 29 % (15-50); TSH reflex Free T4 1.13 uIU/mL (0.32-4.0); Total Iron Binding Capacity 325 mcg/dL (228-428); Unsaturated Iron Binding 231 ug/dL
[2022-03-13 17:42] LABS: Folate 14.3 ng/mL (> or = 4.0); Vitamin B12 364 pg/mL (200-900)
[2022-03-14 04:36] LABS: HBS Num1 1.25 mIU/mL (0-7.99); HBc Num1 0.08 S/CO (0.00-0.79); HBsAGNum1 0.23 S/CO (0.00-0.99); Hepatitis A Antibody IgM 0.15 Index (0-0.79); Hepatitis B Core Antibody Nonreactive (Nonreactive); Hepatitis B Surface Antigen Negative (Negative); ~HepC Num1 0.07 S/CO (0.00-0.79); ~Hepatitis A Antibody IgM Nonreactive (Nonreactive); ~Hepatitis B Surface Antibody NONREACTIVE (Nonreactive); ~Hepatitis C Antibody Nonreactive (Nonreactive)
[2022-03-17 16:48] LABS: Vitamin D 25-OH, D2 <4 ng/mL; Vitamin D 25-OH, D3 39 ng/mL; Vitamin D 25-OH, Total 39 ng/mL (30-100)
== END 2022-03-13 15:29 | disposition home or self-care (01) ==
LOC: HO.LAB 15:28
PROVIDERS: PCP Internal Medicine Geriatric Medicine; Visit Provider Nurse Practitioner Family
DX: R74.8 Abnormal levels of other serum enzymes (principal); R10.9 Unspecified abdominal pain; E55.9 Vitamin D deficiency, unspecified; K92.2 Gastrointestinal hemorrhage, unspecified; R79.89 Other specified abnormal findings of blood chemistry; K58.1 Irritable bowel syndrome with constipation; K58.0 Irritable bowel syndrome with diarrhea; R17 Unspecified jaundice
CPT/HCPCS: 36415; 82247; 82248; 82306; 82607; 82728; 82746; 83540; 84443; 86140; 86704; 86706; 86709; 86803; 87340; 99212

== ENCOUNTER 2022-03-14 13:16 | Outpatient (REF) | payer MEDICAID, SELFPAY ==
--- NOTE | ~2022-03-14 | MM_ITS ---
EXAMINATION: MM SCREENING DIGITAL BREAST TOMOSYNTHESIS, BILATERAL CLINICAL INFORMATION: Screening. Age 42. No prior breast imaging. The lifetime risk of breast cancer based on the Tyrer-Cuzick Model is 8%. COMPARISON: None (current study represents initial baseline exam). TECHNIQUE: Digital breast tomosynthesis is performed in both the craniocaudal and mediolateral oblique views along with computer-aided detection (CAD). Synthesized 2D images are generated from the tomosynthesis. FINDINGS: There are scattered areas of fibroglandular density (ACR BI-RADS breast composition Category b). Breast tissue composition borders on predominantly fatty. Background stromal markings are normal. No architectural abnormality. There are no significant masses, abnormal calcifications, or other abnormalities. The axilla and skin contours are unremarkable. MM/MM tomosynthesis screening BI IMPRESSION: No mammographic evidence of malignancy. ASSESSMENT: BI-RADS 1: Negative RECOMMENDATION: Routine annual mammography screening. This patient's information was entered into a reminder system with a target due date for their next mammogram.
== END 2022-03-14 13:17 | disposition home or self-care (01) ==
LOC: HO.MAMMO 13:16
PROVIDERS: PCP Internal Medicine Geriatric Medicine; Visit Provider Internal Medicine Geriatric Medicine
DX: Z12.31 Encounter for screening mammogram for malignant neoplasm of breast (principal)
CPT/HCPCS: 77063; 77067

== ENCOUNTER 2022-03-20 10:24 | Day surgery (SDC) | payer MEDICAID, SELFPAY ==
--- NOTE | 2022-03-19 11:52 | P.CONAN_ITS ---
Documented by User: Sarah Bland NP 03/19/22 11:53 HPI - Anesthesia Eval Consult details Narrative: 42yo F for Upper Endo Lema PH s/p gastric sleeve 01/2020 PMF Active Problems Active Problems: All Active Problems (Updated 12/01/21 @ 00:02 by Sanjay Guzman) COVID-19 virus infection (Acute) Disc degeneration, lumbar (Acute) Spondylosis of cervical spine (Acute) Spondylosis of lumbar spine (Acute) Chronic pain syndrome (Acute) Panniculitis (Acute) History of sleeve gastrectomy (Acute) Preoperative examination (Acute) Shortness of breath (Acute) BMI 36.0-36.9,adult (Acute) History of sleeve gastrectomy (Acute) Body mass index (BMI) of 34.0 to 34.9 in adult (Acute) Splenic infarct (Acute) Abdominal pain (Acute) Body mass index (BMI) of 31.0 to 31.9 in adult (Acute) BMI 29.0-29.9,adult (Acute) Overweight (Acute) BMI 27.0-27.9,adult (Acute) IBS (irritable bowel syndrome) (Acute) Intestinal malabsorption following gastrectomy (Acute) Malabsorption due to intolerance, not elsewhere classified (Acute) Obesity (BMI 30-39.9) (Acute) Increased body mass index (BMI) (Acute) Past Medical History Medical History Anxiety Arthritis Bursitis Chronic back pain Chronic pain syndrome Constipation Degenerative disc disease Depression Diarrhea Disc degeneration, lumbar Diverticular disease Dysphagia Elevated lipase Endometriosis Fatty liver GERD (gastroesophageal reflux disease) Hiatal hernia High cholesterol History of Crabtree's palsy HTN (hypertension) Hypocalcemia Hypomagnesemia Hypoproteinemia IBS (irritable bowel syndrome) Increased body mass index (BMI) Insomnia Intestinal malabsorption following gastrectomy Malabsorption due to intolerance, not elsewhere classified Migraines Motion sickness Nausea Obesity (BMI 30-39.9) Odynophagia Palpitations Panniculitis PONV (postoperative nausea and vomiting) Pseudotumor cerebri PTSD (post-traumatic stress disorder) Sciatica of left side Scoliosis Sleep apnea Splenic infarction Spondylosis of cervical spine Spondylosis of lumbar spine TMJ (temporomandibular joint disorder) Vertigo Family History Family History Father No problems noted. Mother Heart disease Type 2 diabetes mellitus History of smoking Alcoholism COPD (chronic obstructive pulmonary disease) Hyperlipidemia Sister No problems noted. Sister No problems noted. Brother Arthritis Brother Arthritis Son Obesity Autism spectrum disorder Son Fibromyalgia Mood disorder Family history of problems with anesthesia: No Surgical History Surgical History H/O unilateral oophorectomy History of esophagogastroduodenoscopy (EGD) History of laparoscopic cholecystectomy History of laparoscopy History of myringotomy History of repair of hiatal hernia History of sleeve gastrectomy History of tonsillectomy History of tonsillectomy and adenoidectomy History of tubal ligation Hx of colonoscopy Hx of oophorectomy S/P MALIKA (total abdominal hysterectomy) History of Problems with Anesthesia: Yes (PONV) Social History Social History Household Members: Children Housing: Apartment Are you a primary child care assistant to a significant other at home: Yes (SON 17,AUTISTIC) Do you presently have visiting nurse or other home services: No Alcohol intake: never Patient Tobacco Use Status: Former Tobacco user Tobacco use type: Cigarette Second Hand Smoke Exposure: No Use of substances other than those prescribed or required for medical reasons: No Are you DNR?: No Advance Directives: No Advance Directives Information Provided: Yes Recently lost weight without trying: Yes How much weight loss: 34pounds or more Patient : No (hysterectomy) service: No Current occupational status: unemployed Meds Allergies Allergy/AdvReac Type Severity Reaction Status Date / Time promethazine [From PHENERGAN] Allergy Intermediate PSYCHOSIS Verified 03/13/22 14:14 NSAIDS (Non-Steroidal Allergy Unknown Gastrointestinal Verified 03/13/22 14:14 Anti-Inflamma Upset [NSAIDS (NON-STEROIDAL ANTI-INFLAMMA] oxycodone [From PERCOCET] Allergy Unknown headache Verified 03/13/22 14:14 metoclopramide [From Reglan] AdvReac Intermediate PSYCHOSIS Verified 03/13/22 14:14 medical tape- tegaderm Allergy Intermediate Rash Uncoded 07/25/21 15:08 dermabond Allergy Blister Uncoded 07/25/21 15:08 Home Medications Medication Instructions Recorded Confirmed Last Taken Type clonidine HCl 0.1 mg tablet 0.1 mg PO BEDTIME 01/21/20 03/20/22 Unknown History methocarbamol 750 mg tablet 750 mg PO QID 01/21/20 03/20/22 Unknown History sumatriptan succinate 100 mg 100 mg PO Q2-4H PRN Headache 01/21/20 03/20/22 Unknown History tablet (Imitrex) hydrocodone 10 mg-acetaminophen 1 tab PO Q6H PRN Pain 01/28/20 03/20/22 Unknown History 300 mg tablet (Vicodin HP) propranolol 20 mg tablet 20 mg PO DAILY 01/03/21 03/20/22 Unknown History fluticasone propionate 50 1 spray intranasal DAILY 03/22/21 03/20/22 Unknown History mcg/actuation nasal spray,suspension diazepam 10 mg tablet 10 mg PO BID PRN Anxiety 05/10/21 03/20/22 03/20/22 History topiramate 100 mg tablet 1 tab PO BID 03/20/22 03/20/22 03/20/22 History Exam Exam Date and Time: March 19, 2022 1152 Assessment and Plan Assessment Anesthesia Assessment: Chart Reviewed Final Anesthetic Review Family History of Problems with Anesthesia: No History of Problems with Anesthesia: Yes (PONV) Documented by User: Shelly Mendes MD 03/20/22 11:16 [facility] Past Medical History Medical History Anxiety Arthritis Bursitis Chronic back pain Chronic pain syndrome Constipation Degenerative disc disease Depression Diarrhea Disc degeneration, lumbar Diverticular disease Dysphagia Elevated lipase Endometriosis Fatty liver GERD (gastroesophageal reflux disease) Hiatal hernia High cholesterol History of Crabtree's palsy HTN (hypertension) Hypocalcemia Hypomagnesemia Hypoproteinemia IBS (irritable bowel syndrome) Increased body mass index (BMI) Insomnia Intestinal malabsorption following gastrectomy Malabsorption due to intolerance, not elsewhere classified Migraines Motion sickness Nausea Obesity (BMI 30-39.9) Odynophagia Palpitations Panniculitis PONV (postoperative nausea and vomiting) Pseudotumor cerebri PTSD (post-traumatic stress disorder) Sciatica of left side Scoliosis Sleep apnea Splenic infarction Spondylosis of cervical spine Spondylosis of lumbar spine TMJ (temporomandibular joint disorder) Vertigo Functional capacity: independent ambulation Patient : No Family History Family History Father No problems noted. Mother Heart disease Type 2 diabetes mellitus History of smoking Alcoholism COPD (chronic obstructive pulmonary disease) Hyperlipidemia Sister No problems noted. Sister No problems noted. Brother Arthritis Brother Arthritis Son Obesity Autism spectrum disorder Son Fibromyalgia Mood disorder Surgical History Surgical History H/O unilateral oophorectomy History of esophagogastroduodenoscopy (EGD) History of laparoscopic cholecystectomy History of laparoscopy History of myringotomy History of repair of hiatal hernia History of sleeve gastrectomy History of tonsillectomy History of tonsillectomy and adenoidectomy History of tubal ligation Hx of colonoscopy Hx of oophorectomy S/P MALIKA (total abdominal hysterectomy) Social History Social History Household Members: Children Housing: Apartment Are you a primary child care assistant to a significant other at home: Yes (SON 17,AUTISTIC) Do you presently have visiting nurse or other home services: No Alcohol intake: never Patient Tobacco Use Status: Former Tobacco user Tobacco use type: Cigarette Second Hand Smoke Exposure: No Use of substances other than those prescribed or required for medical reasons: No Are you DNR?: No Advance Directives: No Advance Directives Information Provided: Yes Recently lost weight without trying: Yes How much weight loss: 34pounds or more Patient : No (hysterectomy) service: No Current occupational status: unemployed Meds Allergies Allergy/AdvReac Type Severity Reaction Status Date / Time promethazine [From PHENERGAN] Allergy Intermediate PSYCHOSIS Verified 03/13/22 14:14 NSAIDS (Non-Steroidal Allergy Unknown Gastrointestinal Verified 03/13/22 14:14 Anti-Inflamma Upset [NSAIDS (NON-STEROIDAL ANTI-INFLAMMA] oxycodone [From PERCOCET] Allergy Unknown headache Verified 03/13/22 14:14 metoclopramide [From Reglan] AdvReac Intermediate PSYCHOSIS Verified 03/13/22 14:14 medical tape- tegaderm Allergy Intermediate Rash Uncoded 07/25/21 15:08 dermabond Allergy Blister Uncoded 07/25/21 15:08 Home Medications Medication Instructions Recorded Confirmed Last Taken Type clonidine HCl 0.1 mg tablet 0.1 mg PO BEDTIME 01/21/20 03/20/22 Unknown History methocarbamol 750 mg tablet 750 mg PO QID 01/21/20 03/20/22 Unknown History sumatriptan succinate 100 mg 100 mg PO Q2-4H PRN Headache 01/21/20 03/20/22 Unknown History tablet (Imitrex) hydrocodone 10 mg-acetaminophen 1 tab PO Q6H PRN Pain 01/28/20 03/20/22 Unknown History 300 mg tablet (Vicodin HP) propranolol 20 mg tablet 20 mg PO DAILY 01/03/21 03/20/22 Unknown History fluticasone propionate 50 1 spray intranasal DAILY 03/22/21 03/20/22 Unknown History mcg/actuation nasal spray,suspension diazepam 10 mg tablet 10 mg PO BID PRN Anxiety 05/10/21 03/20/22 03/20/22 History topiramate 100 mg tablet 1 tab PO BID 03/20/22 03/20/22 03/20/22 History Exam Airway TM Dist: >3cm Neck ROM: Full Heart: RRR Lungs: CTA Assessment and Plan Final Anesthetic Review ASA Class: III Final Preanesthetic Review: No Changes in Pt Med Stat, Meds/Allgs Chart Reviewed, Consent Obtained/Reviewed and Anes Risks/Benef Reviewed Patient Risk: Low Procedure Risk: Low Anesthetic Plan Anesthetic Plan: MAC: Disposition: Standard PACU
[2022-03-20 10:39] VITALS: BMI 21.7
[2022-03-20 10:52] VITALS: BP 103/66; PULSE 52; RESP 16; TEMP 36.4; O2SAT 99
[2022-03-20] MEDS: Lactated Ringers 1,000 ML 100 ML IVCONT (11:00)
--- NOTE | 2022-03-20 11:38 | MHC.SHP ---
Pre-Procedural Eval Section A Date of Service: 03/20/22 Section B Chief Complaint: reflux Relevant Family History (Specify if Yes): No Relevant Social History: None Present Medications: see Short Stay Collaborative assessment Medical History: Significant History (Anxiety Arthritis Bursitis Chronic back pain Chronic pain syndrome Constipation Degenerative disc disease Depression Diarrhea Disc degeneration, lumbar Diverticular disease Dysphagia Elevated lipase Endometriosis Fatty liver GERD (gastroesophageal reflux disease) Hiatal hernia High cholesterol Histo) History of Previous Operations: Relevant previous surgery/procedure and date(s) (H/O unilateral oophorectomy History of esophagogastroduodenoscopy (EGD) History of laparoscopic cholecystectomy History of laparoscopy History of myringotomy History of repair of hiatal hernia History of sleeve gastrectomy History of tonsillectomy History of tonsillectomy and adenoidectomy History o) Allergies: Allergies Allergy/AdvReac Type Severity Reaction Status Date / Time promethazine [From PHENERGAN] Allergy Intermediate PSYCHOSIS Verified 03/13/22 14:14 NSAIDS (Non-Steroidal Allergy Unknown Gastrointestinal Verified 03/13/22 14:14 Anti-Inflamma Upset [NSAIDS (NON-STEROIDAL ANTI-INFLAMMA] oxycodone [From PERCOCET] Allergy Unknown headache Verified 03/13/22 14:14 metoclopramide [From Reglan] AdvReac Intermediate PSYCHOSIS Verified 03/13/22 14:14 medical tape- tegaderm Allergy Intermediate Rash Uncoded 07/25/21 15:08 dermabond Allergy Blister Uncoded 07/25/21 15:08 Review of Systems Sugical H&P ROS: Negative: Constitution, Cardiovascular, Respiratory, Neurological, Psychiatric, Hem-Onc, Allergic/Immunologic, Gastrointestinal, Genitourinary, Musculoskeletal, Integumentary, Endocrine and Eyes/Ears/Nose/Throat Exam Surgical H&P Exam: Normal: HEENT, Normal: Heart, Normal: Lungs, Normal: Extremities, Normal: Abdomen, Normal: Skin and Normal: Neurological Plan Diagnosis/Plan: Unchanged I have reviewed the history and physical and performed a pertinent physical examination on my patient. No changes have occurred unless specified. EGD for assessment of regurgitation, nausea, after sleeve gastrectomy, also for GRACIA to assess symptoms Time Spent With Patient Time: Total time managing care of this patient today ____ minutes.
--- NOTE | 2022-03-20 11:41 | W.PM.OPN ---
Operative Note Operative Note Date of Service: 03/20/22 Narrative: Procedure Description: EGD Indication: reflux Anesthesia: MAC FLEXIBLE TRANSORAL UPPER GASTROINTESTINAL ENDOSCOPY UPPER ENDOSCOPY Consent: Indications for the procedure and potential complications of bleeding, perforation, reaction to medications and missed diagnosis were discussed with the patient and informed consent was obtained. Instrument: Olympus GIF H 190 J mid size upper endoscope Monitoring: Vital signs and clinical assessment, continuous EKG monitoring, Pulse oximetry, Carbon Dioxide monitoring and blood pressure monitoring were done throughout the procedure. Procedure: The patient was placed in the left lateral decubitis position and pre-procedure medications were administered and a bite block was placed. The endoscope was inserted into the mouth and advanced under direct vision to the third part of duodenum. A careful inspection was made as the upper endoscope was withdrawn including a retroflexed examination of the proximal stomach; Findings and interventions are described below. Findings: Larynx:normal Esophagus: GE junction at 35 cm, diaphragm hiatus at 35 cm, soem bogginess and erythema at GEJ compatible with esophagitis, bx taken from distal esophagus and GEJ, GRACIA placed at around 29 cm. Stomach: Patchy gastric erythema. Biopsies were obtained. Grade 2 flap valve on retroflexed examination of the cardia. Duodenum: Normal bulb and descending duodenum, bx taken Intervention: Biopsies as noted above, GRACIA placement Impression/Findings: esophagitis gastritis PLAN: await results of GRACIA, she is not on PPI, initial pH was 5.4
[2022-03-20 12:13] VITALS: BP 110/55; PULSE 67; RESP 16; TEMP 36.4; O2SAT 99
--- NOTE | 2022-03-20 12:15 | HO.POSTANES ---
Post Anesthesia Evaluation Post Anesthesia Evaluation Vital Signs: Vital Signs Temp Pulse Resp BP Pulse Ox O2 Del Method 03/20/22 10:52 97.6 F 52 16 103/66 99 Room Air Anesthesia: Monitored Mental Status: Awake Pain Control: Satisfactory Nausea/Vomiting: None Hydration: Adequate Anesthesia-Related Issues: No Anes. Related Issues
[2022-03-20 12:28] VITALS: BP 118/57; PULSE 57; RESP 16; TEMP 36.3; O2SAT 100
== END 2022-03-20 13:02 | disposition home or self-care (01) ==
PROVIDERS: PCP Internal Medicine Geriatric Medicine; Visit Provider Internal Medicine Gastroenterology
PROC: (CPT 43239; principal; 2022-03-20 11:50)
DX: K21.9 Gastro-esophageal reflux disease without esophagitis (principal); K20.80 Other esophagitis without bleeding; K29.60 Other gastritis without bleeding; K44.9 Diaphragmatic hernia without obstruction or gangrene; K76.0 Fatty (change of) liver, not elsewhere classified; K59.00 Constipation, unspecified; G89.4 Chronic pain syndrome; M51.36 Other intervertebral disc degeneration, lumbar region; E78.00 Pure hypercholesterolemia, unspecified; F32.A Depression, unspecified; F41.1 Generalized anxiety disorder; R74.8 Abnormal levels of other serum enzymes; Z79.899 Other long term (current) drug therapy; Z88.8 Allergy status to other drugs, medicaments and biological substances; Z91.040 Latex allergy status; Z98.84 Bariatric surgery status; Z90.49 Acquired absence of other specified parts of digestive tract; Z87.891 Personal history of nicotine dependence
CPT/HCPCS: 43239; 88305; 88342; J2405

== ENCOUNTER 2022-07-01 02:03 | Emergency (ER) | payer MEDICAID, SELFPAY ==
[2022-07-01 02:09] VITALS: BP 118/55; PULSE 91; RESP 20; TEMP 36.6; O2SAT 99; BMI 23.3
--- NOTE | 2022-07-01 02:37 | ED_ITS ---
HPI - General Adult General Chief complaint: General Medical Stated complaint: Allergic reaction? Time Seen by Provider: 07/01/22 02:11 Source: patient Mode of arrival: ambulatory Limitations: no limitations History of Present Illness HPI narrative: 42-year-old female presents with generalized pruritus. Symptoms started approximately 1 week ago when she started staying with her mother. Symptoms are severe. She scratches so much that she develops bruising. She denies any shortness of breath, tongue swelling, difficulty breathing or swallowing. Prior treatment includes Benadryl without improvement. Only works 1 hour. Patient notices no bedbugs. Reportedly significant other is also having similar related symptoms. Related Data Home Medications Medication Instructions Recorded Confirmed clonidine HCl 0.1 mg tablet 0.1 mg PO BEDTIME 01/21/20 03/20/22 methocarbamol 750 mg tablet 750 mg PO QID 01/21/20 03/20/22 sumatriptan succinate 100 mg 100 mg PO Q2-4H PRN Headache 01/21/20 03/20/22 tablet (Imitrex) hydrocodone 10 mg-acetaminophen 1 tab PO Q6H PRN Pain 01/28/20 03/20/22 300 mg tablet (Vicodin HP) propranolol 20 mg tablet 20 mg PO DAILY 01/03/21 03/20/22 fluticasone propionate 50 1 spray intranasal DAILY 03/22/21 03/20/22 mcg/actuation nasal spray,suspension diazepam 10 mg tablet 10 mg PO BID PRN Anxiety 05/10/21 03/20/22 topiramate 100 mg tablet 1 tab PO BID 03/20/22 03/20/22 Previous Rx's Medication Instructions Recorded ondansetron 4 mg disintegrating 4 mg PO Q8H PRN nausea and 05/19/21 tablet vomiting #20 tabs sucralfate 1 gram tablet 1 g PO BID #60 tabs 05/19/21 dicyclomine 20 mg tablet 20 mg PO TID #90 tabs 06/08/22 hydroxyzine HCl 25 mg tablet 25 mg PO QID PRN itching #14 tabs 07/01/22 Allergies Allergy/AdvReac Type Severity Reaction Status Date / Time promethazine [From PHENERGAN] Allergy Intermediate PSYCHOSIS Verified 03/13/22 14:14 NSAIDS (Non-Steroidal Allergy Unknown Gastrointestinal Verified 03/13/22 14:14 Anti-Inflamma Upset [NSAIDS (NON-STEROIDAL ANTI-INFLAMMA] oxycodone [From PERCOCET] Allergy Unknown headache Verified 03/13/22 14:14 metoclopramide [From Reglan] AdvReac Intermediate PSYCHOSIS Verified 03/13/22 14:14 medical tape- tegaderm Allergy Intermediate Rash Uncoded 07/25/21 15:08 dermabond Allergy Blister Uncoded 07/25/21 15:08 [facility] Past Medical History Medical History Anxiety Arthritis Bursitis Chronic back pain Chronic pain syndrome Constipation Degenerative disc disease Depression Diarrhea Disc degeneration, lumbar Diverticular disease Dysphagia Elevated lipase Endometriosis Fatty liver GERD (gastroesophageal reflux disease) Hiatal hernia High cholesterol History of Crabtree's palsy HTN (hypertension) Hypocalcemia Hypomagnesemia Hypoproteinemia IBS (irritable bowel syndrome) Increased body mass index (BMI) Insomnia Intestinal malabsorption following gastrectomy Malabsorption due to intolerance, not elsewhere classified Migraines Motion sickness Nausea Obesity (BMI 30-39.9) Odynophagia Palpitations Panniculitis PONV (postoperative nausea and vomiting) Pseudotumor cerebri PTSD (post-traumatic stress disorder) Sciatica of left side Scoliosis Sleep apnea Splenic infarction 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 Mother Heart disease Type 2 diabetes mellitus History of smoking Alcoholism COPD (chronic obstructive pulmonary disease) Hyperlipidemia Sister No problems noted. Sister No problems noted. Brother Arthritis Brother Arthritis Son Obesity Autism spectrum disorder Son Fibromyalgia Mood disorder Social History Social History Household Members: Children Housing: Apartment Are you a primary resident care provider to a significant other at home: Yes (SON 17,AUTISTIC) Do you presently have visiting nurse or other home services: No Alcohol intake: never Patient Tobacco Use Status: Former Tobacco user Tobacco use type: Cigarette Second Hand Smoke Exposure: No service: No Current occupational status: unemployed Physical Exam ED Vital Signs: Vital Signs - 24 hr 07/01/22 02:09 Temperature 98 F Pulse Rate 91 Respiratory Rate 20 Blood Pressure 118/55 L Pulse Oximetry 99 Oxygen Delivery Method Room Air BMI result Body Mass Index 23.3 GEN: Well developed, no acute distress, alert, oriented HEENT: Normocephalic, atraumatic, normal external ears, nose appears normal Eyes: Normal to appearance Neck: Supple, no lymphadenopathy Respiratory: Talks in complete sentences, no respiratory distress Extremities: No clubbing cyanosis or edema Neurologic: No focal neurologic deficits, cranial nerves 2-12 intact, gait normal Skin: No rash scattered ecchymoses Course Course Course Narrative: 42-year-old female presents with generalized pruritus. Etiology is unclear. There is no evidence of dermatitis. There is no evidence of bruises suggest scabies. No see any insect bites suggestive of bedbugs or other insect bites. Will treat with Vistaril. Will give an additional dose of dexamethasone while in the emergency department. Medical Decision Making Medical Decision Making MDM Narrative: 42-year-old female presents with generalized pruritus. She has no additional complaints. There is no evidence of anaphylaxis. There is no rash. Etiology is unclear. There is no evidence of icterus or jaundice. Doubt bile salt causing symptoms. Differential Diagnosis Differential Diagnoses: The differential diagnosis associated with the presentation includes (Pruritus, dermatitis) Tests considered The following testing was considered but not selected: CBC, chemistry Prescription Management I considered prescription management with: Other (Steroids) Discharge Plan Discharge Clinical Impression: Itching Patient Disposition: Home, Self-Care Instructions: Itchy Skin (ED) Prescriptions: New hydroxyzine HCl 25 mg tablet 25 mg PO QID PRN (Reason: itching) Qty: 14 0RF No Action sucralfate 1 gram tablet 1 g PO BID Qty: 60 1RF ondansetron 4 mg tablet,disintegrating 4 mg PO Q8H PRN (Reason: nausea and vomiting) Qty: 20 0RF dicyclomine 20 mg tablet 20 mg PO TID Qty: 90 2RF hydrocodone-acetaminophen [Vicodin HP] 10-300 mg Tablet 1 tab PO Q6H PRN (Reason: Pain) Hold Instructions: Resume on 04/07/20. try not to take this topiramate 100 mg tablet 1 tab PO BID sumatriptan succinate [Imitrex] 100 mg tablet 100 mg PO Q2-4H PRN (Reason: Headache) Rx Instructions: do not exceed 2 doses per 24 hrs methocarbamol 750 mg tablet 750 mg PO QID clonidine HCl 0.1 mg tablet 0.1 mg PO BEDTIME propranolol 20 mg tablet 20 mg PO DAILY fluticasone propionate 50 mcg/actuation spray,suspension 1 spray intranasal DAILY diazepam 10 mg tablet 10 mg PO BID PRN (Reason: Anxiety) Patient Comments: took 1/2 tab Referrals: Physician,Unknown J [Primary Care Provider] - (PCP in 1 week for continued symptoms)
[2022-07-01 02:41] VITALS: BP 98/61; PULSE 94; RESP 20; TEMP 36.5; O2SAT 99
[2022-07-01] MEDS: dexAMETHasone 4 MG TABLET PO (03:00)
[2022-07-01] MEDS: hydrOXYzine HCL 25 MG TABLET PO (03:00)
== END 2022-07-01 03:07 | disposition home or self-care (01) ==
PROVIDERS: Emergency Provider Emergency Medicine; PCP Internal Medicine Geriatric Medicine
DX: L29.9 Pruritus, unspecified (principal); Z87.891 Personal history of nicotine dependence; Z79.899 Other long term (current) drug therapy
CPT/HCPCS: 99283; 99284; J8540

== ENCOUNTER → 2022-07-10 14:40 | Outpatient (BNVA) | payer MEDICAID, SELFPAY | PROVIDERS: PCP Internal Medicine Geriatric Medicine; Visit Provider Nurse Practitioner Family | DX: K58.2 Mixed irritable bowel syndrome (principal); K90.49 Malabsorption due to intolerance, not elsewhere classified; K21.9 Gastro-esophageal reflux disease without esophagitis; Z90.49 Acquired absence of other specified parts of digestive tract; Z90.3 Acquired absence of stomach [part of]; Z98.84 Bariatric surgery status | CPT/HCPCS: 99212 ==

== ENCOUNTER 2022-07-17 21:50 | Emergency (ER) | payer MEDICAID, SELFPAY ==
--- NOTE | 2022-07-17 | ECG_ITS ---
Test Reason : CP Blood Pressure : / mmHG Vent. Rate : 080 BPM Atrial Rate : 080 BPM P-R Int : 162 ms QRS Dur : 082 ms QT Int : 392 ms P-R-T Axes : 048 019 030 degrees QTc Int : 452 ms Normal sinus rhythm with sinus arrhythmia Normal ECG When compared with ECG of 14-MAY-2021 14:17, Vent. rate has increased BY 30 BPM QT has lengthened Referred By: Generic ED Physician Electronically Signed By:MARSHA AGUILAR MD
--- NOTE | ~2022-07-17 | XR_ITS ---
EXAMINATION: XR CHEST CLINICAL INFORMATION: Chest pain. COMPARISON: 05/14/2021 chest radiograph. TECHNIQUE: Frontal view of the chest was obtained. FINDINGS: No significant abnormality is noted involving the heart, lungs, mediastinum, bony thorax or soft tissues. XR/XR chest 1V IMPRESSION: No acute cardiopulmonary process.
[2022-07-17 22:07] VITALS: BP 128/76; PULSE 92; O2SAT 96; BMI 25.8
--- NOTE | 2022-07-17 22:07 | ED.CHESTPAIN ---
HPI - Chest Pain General Chief Complaint: Chest Pain Stated Complaint: chest pain Time Seen by Provider: 07/17/22 22:06 Source: patient Mode of arrival: ambulatory Limitations: no limitations History of Present Illness HPI narrative: Patient 42 years old with history of hypertension high cholesterol, PTSD, pseudotumor cerebri, been here multiple times for chest pain with workup negative comes here for sharp pain left side of the chest last 3 days staying for 20-30 minutes no relation with breathing patient also complaining of headache and blurred vision, not taking any diuretics has not been followed by neurologist no nausea no vomiting no palpitation. Related Data Home Medications Medication Instructions Recorded Confirmed clonidine HCl 0.1 mg tablet 0.1 mg PO BEDTIME 01/21/20 03/20/22 methocarbamol 750 mg tablet 750 mg PO QID 01/21/20 03/20/22 sumatriptan succinate 100 mg 100 mg PO Q2-4H PRN Headache 01/21/20 03/20/22 tablet (Imitrex) propranolol 20 mg tablet 20 mg PO DAILY 01/03/21 03/20/22 fluticasone propionate 50 1 spray intranasal DAILY 03/22/21 03/20/22 mcg/actuation nasal spray,suspension topiramate 100 mg tablet 1 tab PO BID 03/20/22 03/20/22 Previous Rx's Medication Instructions Recorded hydroxyzine HCl 25 mg tablet 25 mg PO QID PRN itching #14 tabs 07/01/22 dicyclomine 20 mg tablet 20 mg PO TID #90 tabs 07/10/22 ondansetron 4 mg disintegrating 4 mg PO Q8H PRN nausea and 07/10/22 tablet vomiting #30 tabs pantoprazole 40 mg tablet,delayed 40 mg PO DAILY #90 tabs 07/10/22 release acetazolamide 250 mg tablet 250 mg PO BID #60 tabs 07/17/22 jgogxkkyxb-xvcoszufewqvy-olyvtjtm 1 cap PO Q6H PRN headache #20 caps 07/17/22 50 mg-300 mg-40 mg capsule (Fioricet) Allergies Allergy/AdvReac Type Severity Reaction Status Date / Time promethazine [From PHENERGAN] Allergy Intermediate PSYCHOSIS Verified 07/10/22 14:51 NSAIDS (Non-Steroidal Allergy Unknown Gastrointestinal Verified 07/10/22 14:51 Anti-Inflamma Upset [NSAIDS (NON-STEROIDAL ANTI-INFLAMMA] oxycodone [From PERCOCET] Allergy Unknown headache Verified 07/10/22 14:51 metoclopramide [From Reglan] AdvReac Intermediate PSYCHOSIS Verified 07/10/22 14:51 medical tape- tegaderm Allergy Intermediate Rash Uncoded 07/10/22 14:51 dermabond Allergy Blister Uncoded 07/10/22 14:51 Review of Systems Review of Systems: Yes all other systems are reviewed and are negative [facility] Past Medical History Medical History Anxiety Arthritis Bursitis Chronic back pain Chronic pain syndrome Constipation Degenerative disc disease Depression Diarrhea Disc degeneration, lumbar Diverticular disease Dysphagia Elevated lipase Endometriosis Fatty liver GERD (gastroesophageal reflux disease) Hiatal hernia High cholesterol History of Crabtree's palsy HTN (hypertension) Hypocalcemia Hypomagnesemia Hypoproteinemia IBS (irritable bowel syndrome) Increased body mass index (BMI) Insomnia Intestinal malabsorption following gastrectomy Malabsorption due to intolerance, not elsewhere classified Migraines Motion sickness Nausea Obesity (BMI 30-39.9) Odynophagia Palpitations Panniculitis PONV (postoperative nausea and vomiting) Pseudotumor cerebri PTSD (post-traumatic stress disorder) Sciatica of left side Scoliosis Sleep apnea Splenic infarction 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 Mother Heart disease Type 2 diabetes mellitus History of smoking Alcoholism COPD (chronic obstructive pulmonary disease) Hyperlipidemia Sister No problems noted. Sister No problems noted. Brother Arthritis Brother Arthritis Son Obesity Autism spectrum disorder Son Fibromyalgia Mood disorder Social History Social History Household Members: Children Housing: Apartment Are you a primary critical care paramedic to a significant other at home: Yes (SON 17,AUTISTIC) Do you presently have visiting nurse or other home services: No Alcohol intake: never Patient Tobacco Use Status: Former Tobacco user Tobacco use type: Cigarette Smoked in Last 30 Days: No Second Hand Smoke Exposure: No Use of substances other than those prescribed or required for medical reasons: No Advance Directives: No Advance Directives Information Provided: Yes Patient : No service: No Current occupational status: unemployed Physical Exam Vital Signs: Vital Signs: Last Vital Signs Temp 97.7 F 07/17/22 23:56 Pulse 80 07/17/22 23:56 Resp 16 07/17/22 23:56 BP 103/65 07/17/22 23:56 Pulse Ox 98 07/17/22 23:56 O2 Del Method Room Air 07/17/22 23:56 BMI result Body Mass Index 25.8 Appearance: Alert. Oriented X3. No acute distress. Eyes: No pallor or icterus unable to examine fundus ENT: Pharynx normal. Oral Mucosa moist Neck: Normal inspection. Neck supple. CVS: Normal heart rate and rhythm. Pulses normal. Respiratory: No respiratory distress. Equal air entry bilateral, no wheezing/rales/rhonchi Abdomen: Soft and nontender. Bowel sounds are present, no mass palpable, no CVA tenderness Skin: Skin warm and dry. Normal skin color. Normal skin turgor. Extremities: No lower extremity edema. No calf tenderness Neuro: Oriented X 3. No motor deficit. No sensory deficit.No cerebellar signs , cranial nerves II-XII intact Medications Administered Discontinued Medications Generic Name Dose Route Start Last Admin Trade Name Freq PRN Reason Stop Dose Admin Hydrochlorothiazide 25 mg 07/17/22 23:54 07/18/22 00:09 Hydrochlorothiazide 25 Mg Tablet PO 07/17/22 23:55 25 mg ONCE ONE Administration Protocol Ketorolac Tromethamine 30 mg 07/17/22 23:35 07/17/22 23:57 Ketorolac Tromethamine 30 Mg/Ml Vial IVPUSH 07/17/22 23:36 30 mg ONCE ONE Administration Medical Decision Making Medical Decision Making MDM Narrative: Patient's atypical chest pain normal EKG will check high sensitive troponin, patient does complain of headache with history of pseudotumor cerebri saying that she has blurred vision and headache gets worse on stooping. Patient refusing spinal tap.. Will start on Diamox advised to follow-up with neurologist. Patient workup for coronary disease negative with heart score of 1 normal troponin normal cardiogram Lab Data MDM Lab Attestation statement: I reviewed the patient's lab results. 07/17/22 22:03 07/17/22 22:03 Labs: Lab Results 07/17/22 07/17/22 07/17/22 Range/Units 22:03 22:03 22:03 WBC 9.9 (4.8-10.8) X10*3/uL RBC 3.93 L (4.20-5.50) X10*6/uL Hgb 12.4 (12.0-16.0) g/dl Hct 37.2 (37.0-47.0) % MCV 94.7 (80.0-98.0) fL MCH 31.6 (27.0-33.0) pg MCHC 33.3 (31.0-35.0) g/dl RDW 12.7 (11.0-16.0) % Plt Count 240 D (160-400) X10*3/uL MPV 8.8 L (9.4-12.3) fL Immature Gran % (Auto) 0.3 (0.0-0.4) % Neut % (Auto) 68.8 (45-73) % Lymph % (Auto) 22.0 (20-40) % Fallon % (Auto) 7.6 (2-11) % Eos % (Auto) 0.8 (0-4) % Baso % (Auto) 0.5 (0-2) % Lymph # (Auto) 2.2 (1.2-4.9) X10*3/uL Fallon # (Auto) 0.8 (0.1-1.2) X10*3/uL Eos # (Auto) 0.1 (0.0-0.4) X10*3/uL Baso # (Auto) 0.1 (0.0-0.2) X10*3/uL Abs Immat Gran (auto) 0.03 (0.00-0.03) X10*3/uL Absolute Neuts (auto) 6.8 (2.0-8.3) x10*3/uL Absolute Nucleated RBC 0.000 (0.0-0.012) X10*3/uL Nucleated RBC % (auto) 0.0 (0.0-0.2) /100WBC Sodium 145 (135-145) mmol/L Potassium 3.6 (3.3-5.1) mmol/L Chloride 112 H (96-108) mmol/L Carbon Dioxide 27 (22-29) mmol/L Anion Gap 10 L (12-20) BUN 16 (9-16) mg/dL Creatinine 0.67 (0.5-1.4) mg/dL Estim Creat Clear Calc 109.2 Estimated GFR > 60 Random Glucose 81 (60-115) mg/dL Calcium 8.8 (8.4-10.2) mg/dL Total Bilirubin 0.3 (0.0-1.0) mg/dL Direct Bilirubin 0.1 (0.0-0.5) mg/dL AST 18 (5-31) U/L ALT 14 (0-31) U/L Alkaline Phosphatase 73 (39-117) U/L Troponin I High Sens < 2.7 (<3.5-17.0) ng/L Total Protein 6.1 L (6.5-8.0) g/dL Albumin 3.9 (3.5-5.0) g/dL Lipase 64 (8-78) U/L Independent Interpretation I performed an independent interpretation of an: EKG Interpretation: Normal sinus rhythm heart rate 80 beats per minute normal interval normal axis no acute ST wave changes no acute ischemia Scores Heart Score History: -0- slightly suspicious ECG: -0- normal Age: -0- < or = 45 Risk factory: -1- 1 or 2 risk factors Troponin: -0- < or = normal limit Score: 1 Risk: 1.7% Discharge Plan Discharge Clinical Impression: Chest pain, Pseudotumor cerebri Patient Disposition: Home, Self-Care Instructions: Chest Pain (ED), Idiopathic Intracranial Hypertension (ED) Additional Instructions: Take medication as prescribed for headache See neurologist for further management and follow-up Fioricet for headaches and body pain Prescriptions: New qbnyohdowp-jumahvfzzhsst-yxil [Fioricet] 50-300-40 mg capsule 1 cap PO Q6H PRN (Reason: headache) Qty: 20 0RF acetazolamide 250 mg tablet 250 mg PO BID Qty: 60 0RF No Action topiramate 100 mg tablet 1 tab PO BID hydroxyzine HCl 25 mg tablet 25 mg PO QID PRN (Reason: itching) Qty: 14 0RF sumatriptan succinate [Imitrex] 100 mg tablet 100 mg PO Q2-4H PRN (Reason: Headache) Rx Instructions: do not exceed 2 doses per 24 hrs methocarbamol 750 mg tablet 750 mg PO QID clonidine HCl 0.1 mg tablet 0.1 mg PO BEDTIME propranolol 20 mg tablet 20 mg PO DAILY fluticasone propionate 50 mcg/actuation spray,suspension 1 spray intranasal DAILY dicyclomine 20 mg tablet 20 mg PO TID Qty: 90 2RF ondansetron 4 mg tablet,disintegrating 4 mg PO Q8H PRN (Reason: nausea and vomiting) Qty: 30 2RF pantoprazole 40 mg tablet,delayed release (DR/EC) 40 mg PO DAILY Qty: 90 2RF Rx Instructions: take one tablet half an hour before breakfast Referrals: Bhanu Lo MD [Physician] - 1 week Interventions: ED Discharge Assessment Last Done: 07/18/22 00:18 Discharge Date/Time: 07/18/22 00:19
[2022-07-17 22:11] VITALS: BP 132/66; PULSE 85; RESP 12; TEMP 36.7; O2SAT 96
[2022-07-17 22:11] LABS: MANUAL DIFF FLAG NO
[2022-07-17 22:12] LABS: Basophils Absolute Auto 0.1 X10*3/uL (0.0-0.2); Basophils Percent Auto 0.5 % (0-2); Eosinophils Absolute Auto 0.1 X10*3/uL (0.0-0.4); Eosinophils Percent Auto 0.8 % (0-4); Hematocrit 37.2 % (37.0-47.0); Hemoglobin 12.4 g/dl (12.0-16.0); Imm Gran Abs Auto 0.03 X10*3/uL (0.00-0.03); Imm Gran Pct Auto 0.3 % (0.0-0.4); Lymphocytes Absolute Auto 2.2 X10*3/uL (1.2-4.9); Mean Corpuscular HGB Conc 33.3 g/dl (31.0-35.0); Mean Corpuscular Hemoglobin 31.6 pg (27.0-33.0); Mean Corpuscular Volume 94.7 fL (80.0-98.0); Mean Platelet Volume 8.8 fL (9.4-12.3); Monocytes Absolute Auto 0.8 X10*3/uL (0.1-1.2); Monocytes Percent Auto 7.6 % (2-11); Neutrophils Absolute Auto 6.8 x10*3/uL (2.0-8.3); Neutrophils Percent Auto 68.8 % (45-73); Platelet Count 240 X10*3/uL (160-400); Red Blood Count 3.93 X10*6/uL (4.20-5.50); Red Cell Distribution Width 12.7 % (11.0-16.0); White Blood Count 9.9 X10*3/uL (4.8-10.8)
[2022-07-17 22:52] LABS: Alanine Aminotransferase 14 U/L (0-31); Albumin Level 3.9 g/dL (3.5-5.0); Alkaline Phosphatase 73 U/L (39-117); Anion Gap 10 (12-20); Aspartate Amino Transferase 18 U/L (5-31); Bilirubin Direct 0.1 mg/dL (0.0-0.5); Bilirubin Total 0.3 mg/dL (0.0-1.0); Blood Urea Nitrogen 16 mg/dL (9-16); Calcium 8.8 mg/dL (8.4-10.2); Carbon Dioxide 27 mmol/L (22-29); Chloride 112 mmol/L (96-108); Creatinine Clr Calc Pharmacy 109.2; Estimated Glomerular Filt Rate > 60; Glucose Random 81 mg/dL (60-115); Lipase 64 U/L (8-78); Potassium 3.6 mmol/L (3.3-5.1); Sodium 145 mmol/L (135-145); Total Protein 6.1 g/dL (6.5-8.0)
[2022-07-17 23:02] LABS: Troponin-I High Sensitivity < 2.7 ng/L (<3.5-17.0)
[2022-07-17 23:56] VITALS: BP 103/65; PULSE 80; RESP 16; TEMP 36.5; O2SAT 98
[2022-07-17] MEDS: Ketorolac Tromethamine 30 MG/ML VIAL IVPUSH (23:57)
[2022-07-18] MEDS: hydroCHLOROthiazide 25 MG TABLET PO (00:09)
== END 2022-07-18 00:19 | disposition home or self-care (01) ==
PROVIDERS: Emergency Provider Internal Medicine
DX: R07.89 Other chest pain (principal); G93.2 Benign intracranial hypertension; Z79.899 Other long term (current) drug therapy
CPT/HCPCS: 36415; 71045; 80048; 80076; 83690; 84484; 85025; 93005; 96374; 99284; 99285; J1885

== ENCOUNTER 2022-09-09 04:56 | Emergency (ER) | payer MEDICAID, SELFPAY ==
[2022-09-09 04:59] VITALS: BP 133/82; PULSE 86; RESP 16; TEMP 36.1; O2SAT 98; BMI 24.2
--- NOTE | 2022-09-09 07:09 | ED_ITS ---
HPI - Eye Problem General Chief complaint: Eye Problems Stated complaint: eye infection Time Seen by Provider: 09/09/22 07:08 Source: patient Mode of arrival: ambulatory Limitations: no limitations History of Present Illness HPI Narrative: Apparent patient put mascara on the face and went to sleep woke up in the mo rning with pain in the left eye with increased photosensitivity and watery discharge. No fever no joint pain no urinary symptoms no history of glaucoma Related Data Home Medications Medication Instructions Recorded Confirmed clonidine HCl 0.1 mg tablet 0.1 mg PO BEDTIME 01/21/20 03/20/22 methocarbamol 750 mg tablet 750 mg PO QID 01/21/20 03/20/22 sumatriptan succinate 100 mg 100 mg PO Q2-4H PRN Headache 01/21/20 03/20/22 tablet (Imitrex) propranolol 20 mg tablet 20 mg PO DAILY 01/03/21 03/20/22 fluticasone propionate 50 1 spray intranasal DAILY 03/22/21 03/20/22 mcg/actuation nasal spray,suspension topiramate 100 mg tablet 1 tab PO BID 03/20/22 03/20/22 Previous Rx's Medication Instructions Recorded hydroxyzine HCl 25 mg tablet 25 mg PO QID PRN itching #14 tabs 07/01/22 dicyclomine 20 mg tablet 20 mg PO TID #90 tabs 07/10/22 ondansetron 4 mg disintegrating 4 mg PO Q8H PRN nausea and 07/10/22 tablet vomiting #30 tabs pantoprazole 40 mg tablet,delayed 40 mg PO DAILY #90 tabs 07/10/22 release acetazolamide 250 mg tablet 250 mg PO BID #60 tabs 07/17/22 laupoglpvu-mbdsfkxbukdsy-yhymvaxs 1 cap PO Q6H PRN headache #20 caps 07/17/22 50 mg-300 mg-40 mg capsule (Fioricet) ketotifen fumarate 0.025 % (0.035 1 drp ophthalmic-Left BID #5 mL 09/09/22 %) eye drops (Alaway) tobramycin 0.3 % eye drops 2 drp ophthalmic-Left Q4H #5 mL 09/09/22 Allergies Allergy/AdvReac Type Severity Reaction Status Date / Time promethazine [From PHENERGAN] Allergy Intermediate PSYCHOSIS Verified 07/10/22 14:51 NSAIDS (Non-Steroidal Allergy Unknown Gastrointestinal Verified 07/10/22 14:51 Anti-Inflamma Upset [NSAIDS (NON-STEROIDAL ANTI-INFLAMMA] oxycodone [From PERCOCET] Allergy Unknown headache Verified 07/10/22 14:51 metoclopramide [From Reglan] AdvReac Intermediate PSYCHOSIS Verified 07/10/22 14:51 medical tape- tegaderm Allergy Intermediate Rash Uncoded 07/10/22 14:51 dermabond Allergy Blister Uncoded 07/10/22 14:51 Review of Systems Review of Systems: Yes all other systems are reviewed and are negative Eyes: Eyes: Reports photophobia PMFSH Past Medical History Medical History Anxiety Arthritis Bursitis Chronic back pain Chronic pain syndrome Constipation Degenerative disc disease Depression Diarrhea Disc degeneration, lumbar Diverticular disease Dysphagia Elevated lipase Endometriosis Fatty liver GERD (gastroesophageal reflux disease) Hiatal hernia High cholesterol History of Crabtree's palsy HTN (hypertension) Hypocalcemia Hypomagnesemia Hypoproteinemia IBS (irritable bowel syndrome) Increased body mass index (BMI) Insomnia Intestinal malabsorption following gastrectomy Malabsorption due to intolerance, not elsewhere classified Migraines Motion sickness Nausea Obesity (BMI 30-39.9) Odynophagia Palpitations Panniculitis PONV (postoperative nausea and vomiting) Pseudotumor cerebri PTSD (post-traumatic stress disorder) Sciatica of left side Scoliosis Sleep apnea Splenic infarction 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 Mother Heart disease Type 2 diabetes mellitus History of smoking Alcoholism COPD (chronic obstructive pulmonary disease) Hyperlipidemia Sister No problems noted. Sister No problems noted. Brother Arthritis Brother Arthritis Son Obesity Autism spectrum disorder Son Fibromyalgia Mood disorder Social History Social History Household Members: Children Housing: Apartment Are you a primary ambulatory care to a significant other at home: Yes (SON 17,AUTISTIC) Do you presently have visiting nurse or other home services: No Alcohol intake: never Patient Tobacco Use Status: Former Tobacco user Tobacco use type: Cigarette Second Hand Smoke Exposure: No Advance Directives: No Advance Directives Information Provided: No service: No Current occupational status: unemployed Physical Exam Vital Signs: Vital Signs: Last Vital Signs Temp 97 F 09/09/22 04:59 Pulse 86 09/09/22 04:59 Resp 16 09/09/22 04:59 BP 133/82 09/09/22 04:59 Pulse Ox 98 09/09/22 04:59 O2 Del Method Room Air 09/09/22 04:59 BMI result Body Mass Index 24.2 Eyes: Other: Visual Sheridan: normal visual sheridan by confrontation Alignment and Position: alignment normal Periorbital: periorbital findings normal Eyelids: Yes eyelids normal Conjunctivae: conjunctival abnormal (Injected) left Sclerae: sclerae normal Corneas: corneas abnormal (Coronal abrasion) on the left and fluorescein used Pupils: Equal, round and reactive pupils present and Pupil accommodation reflex normal EOM: EOMs intact bilaterally Direct Ophthalmoscopy: normal light reflex, anterior chamber normal, photophobia and other (I0P 23 both eyes) Neuro: Cranial nerves: Yes Equal, round and reactive pupils present Medications Administered Discontinued Medications Generic Name Dose Route Start Last Admin Trade Name Miki PRN Reason Stop Dose Admin Fluorescein Sodium 1 strip 09/09/22 07:25 09/09/22 07:35 Fluorescein Sodium Strip EYE-LEFT 09/09/22 07:26 1 strip ONCE ONE Administration Tetracaine HCl 3 drop 09/09/22 07:46 09/09/22 07:51 Tetracaine Hcl/Pf 0.5% Oph [place] 4 Ml Drops EYE-LEFT 09/09/22 07:47 3 drop ONCE ONE Administration Tobramycin Sulfate 2 drop 09/09/22 07:22 09/09/22 07:35 Tobramycin Sulfate 0.3% [place] Op 5 Ml Btl EYE-LEFT 09/09/22 07:23 2 drop ONCE ONE Administration Medical Decision Making Medical Decision Making [facility] Narrative: Patient's coronal abrasion Discharge Plan Discharge Clinical Impression: Corneal abrasion Patient Disposition: Home, Self-Care Instructions: Corneal Abrasion (ED) Additional Instructions: Use eye drops as prescribed till better Care as advised Follow with PCP if not better Prescriptions: New tobramycin 0.3 % drops 2 drp ophthalmic-Left Q4H Qty: 5 0RF ketotifen fumarate [Alaway] 0.025 % (0.035 %) drops 1 drp ophthalmic-Left BID Qty: 5 0RF Rx Instructions: administer at least 8 hours apart No Action topiramate 100 mg tablet 1 tab PO BID yehkjmsthg-qjigwdfqhvchb-rdit [Fioricet] 50-300-40 mg capsule 1 cap PO Q6H PRN (Reason: headache) Qty: 20 0RF acetazolamide 250 mg tablet 250 mg PO BID Qty: 60 0RF hydroxyzine HCl 25 mg tablet 25 mg PO QID PRN (Reason: itching) Qty: 14 0RF sumatriptan succinate [Imitrex] 100 mg tablet 100 mg PO Q2-4H PRN (Reason: Headache) Rx Instructions: do not exceed 2 doses per 24 hrs methocarbamol 750 mg tablet 750 mg PO QID clonidine HCl 0.1 mg tablet 0.1 mg PO BEDTIME propranolol 20 mg tablet 20 mg PO DAILY fluticasone propionate 50 mcg/actuation spray,suspension 1 spray intranasal DAILY dicyclomine 20 mg tablet 20 mg PO TID Qty: 90 2RF ondansetron 4 mg tablet,disintegrating 4 mg PO Q8H PRN (Reason: nausea and vomiting) Qty: 30 2RF pantoprazole 40 mg tablet,delayed release (DR/EC) 40 mg PO DAILY Qty: 90 2RF Rx Instructions: take one tablet half an hour before breakfast Interventions: ED Discharge Assessment Last Done: 09/09/22 07:53 Discharge Date/Time: 09/09/22 07:53
[2022-09-09] MEDS: Tobramycin Sulfate 0.3% Sol Op 5 ML BTL 2 DROP EYE-LEFT (07:35)
[2022-09-09] MEDS: Fluorescein Sodium STRIP 1 STRIP EYE-LEFT (07:35)
[2022-09-09] MEDS: Tetracaine HCl/PF 0.5% Oph Sol 4 ML DROPS 3 DROP EYE-LEFT (07:51)
== END 2022-09-09 07:53 | disposition home or self-care (01) ==
PROVIDERS: Emergency Provider Internal Medicine; PCP Internal Medicine Geriatric Medicine
DX: S05.02XA Injury of conjunctiva and corneal abrasion without foreign body, left eye, initial encounter (principal); X58.XXXA Exposure to other specified factors, initial encounter; Y93.9 Activity, unspecified; Y92.9 Unspecified place or not applicable; Y99.9 Unspecified external cause status; Z79.899 Other long term (current) drug therapy; Z87.891 Personal history of nicotine dependence
CPT/HCPCS: 99282; 99283

== ENCOUNTER 2022-09-09 11:38 | Emergency (ER) | payer MEDICAID, SELFPAY ==
[2022-09-09 11:43] VITALS: BP 140/80; PULSE 76; O2SAT 98
[2022-09-09 11:46] VITALS: BP 159/71; PULSE 67; RESP 19; TEMP 36.1; O2SAT 98; BMI 24.2
--- NOTE | 2022-09-09 11:47 | ED.ABDPAIN ---
HPI - Abdominal Pain General Chief Complaint: Abdominal Pain Stated Complaint: ABD PAIN,VOMITING,DIARRHEA,SEEN RECENTLY Time Seen by Provider: 09/09/22 11:39 Source: patient Mode of arrival: ambulatory Limitations: no limitations History of Present Illness HPI narrative: Patient was seen and discharge for corneal abrasion comes back nausea and vomiting started just after she left the hospital. Patient does have history of anxiety s/p gastric sleeve surgery had few drinks last night and did clear fluids 5- 6 times in last few hours no significant abdominal pain no diarrhea no fever /chills no urinary complaints Related Data Home Medications Medication Instructions Recorded Confirmed clonidine HCl 0.1 mg tablet 0.1 mg PO BEDTIME 01/21/20 03/20/22 methocarbamol 750 mg tablet 750 mg PO QID 01/21/20 03/20/22 sumatriptan succinate 100 mg 100 mg PO Q2-4H PRN Headache 01/21/20 03/20/22 tablet (Imitrex) propranolol 20 mg tablet 20 mg PO DAILY 01/03/21 03/20/22 fluticasone propionate 50 1 spray intranasal DAILY 03/22/21 03/20/22 mcg/actuation nasal spray,suspension topiramate 100 mg tablet 1 tab PO BID 03/20/22 03/20/22 Previous Rx's Medication Instructions Recorded hydroxyzine HCl 25 mg tablet 25 mg PO QID PRN itching #14 tabs 07/01/22 dicyclomine 20 mg tablet 20 mg PO TID #90 tabs 07/10/22 ondansetron 4 mg disintegrating 4 mg PO Q8H PRN nausea and 07/10/22 tablet vomiting #30 tabs pantoprazole 40 mg tablet,delayed 40 mg PO DAILY #90 tabs 07/10/22 release acetazolamide 250 mg tablet 250 mg PO BID #60 tabs 07/17/22 [id number]-zqxklrcjoeubi-itxzttqp 1 cap PO Q6H PRN headache #20 caps 07/17/22 50 mg-300 mg-40 mg capsule (Fioricet) dicyclomine 20 mg tablet 20 mg PO QID PRN abdominal pain 09/09/22 #15 tabs ketotifen fumarate 0.025 % (0.035 1 drp ophthalmic-Left BID #5 mL 09/09/22 %) eye drops (Alaway) ondansetron 4 mg disintegrating 4 mg PO Q6-8H PRN nausea and 09/09/22 tablet vomiting #7 tabs tobramycin 0.3 % eye drops 2 drp ophthalmic-Left Q4H #5 mL 09/09/22 Allergies Allergy/AdvReac Type Severity Reaction Status Date / Time promethazine [From PHENERGAN] Allergy Intermediate PSYCHOSIS Verified 07/10/22 14:51 NSAIDS (Non-Steroidal Allergy Unknown Gastrointestinal Verified 07/10/22 14:51 Anti-Inflamma Upset [NSAIDS (NON-STEROIDAL ANTI-INFLAMMA] oxycodone [From PERCOCET] Allergy Unknown headache Verified 07/10/22 14:51 metoclopramide [From Reglan] AdvReac Intermediate PSYCHOSIS Verified 07/10/22 14:51 medical tape- tegaderm Allergy Intermediate Rash Uncoded 07/10/22 14:51 dermabond Allergy Blister Uncoded 07/10/22 14:51 Review of Systems Review of Systems Yes all other systems are reviewed and are negative PMFSH Past Medical History Medical History Anxiety Arthritis Bursitis Chronic back pain Chronic pain syndrome Constipation Degenerative disc disease Depression Diarrhea Disc degeneration, lumbar Diverticular disease Dysphagia Elevated lipase Endometriosis Fatty liver GERD (gastroesophageal reflux disease) Hiatal hernia High cholesterol History of Crabtree's palsy HTN (hypertension) Hypocalcemia Hypomagnesemia Hypoproteinemia IBS (irritable bowel syndrome) Increased body mass index (BMI) Insomnia Intestinal malabsorption following gastrectomy Malabsorption due to intolerance, not elsewhere classified Migraines Motion sickness Nausea Obesity (BMI 30-39.9) Odynophagia Palpitations Panniculitis PONV (postoperative nausea and vomiting) Pseudotumor cerebri PTSD (post-traumatic stress disorder) Sciatica of left side Scoliosis Sleep apnea Splenic infarction 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 Mother Heart disease Type 2 diabetes mellitus History of smoking Alcoholism COPD (chronic obstructive pulmonary disease) Hyperlipidemia Sister No problems noted. Sister No problems noted. Brother Arthritis Brother Arthritis Son Obesity Autism spectrum disorder Son Fibromyalgia Mood disorder Social History Social History Household Members: Children Housing: Apartment Are you a primary pharmacy customer care specialist to a significant other at home: Yes (SON 17,AUTISTIC) Do you presently have visiting nurse or other home services: No Alcohol intake: never Patient Tobacco Use Status: Former Tobacco user Tobacco use type: Cigarette Second Hand Smoke Exposure: No Advance Directives: No Advance Directives Information Provided: No service: No Current occupational status: unemployed Physical Exam ED Vital Signs: Vital Signs - 24 hr 09/09/22 11:46 09/09/22 12:38 09/09/22 15:37 Temperature 97 F 98.6 F Pulse Rate 67 59 67 Respiratory Rate 19 16 16 Blood Pressure 159/71 H 134/71 139/66 Pulse Oximetry 98 100 98 Oxygen Delivery Method Room Air Room Air Room Air BMI result Body Mass Index 24.2 Appearance: Alert. Oriented X3. Anxious ENT: Pharynx normal. Oral Mucosa moist Neck: Normal inspection. Neck supple. CVS: Normal heart rate and rhythm. Pulses normal. Respiratory: No respiratory distress. Equal air entry bilateral, Abdomen: Soft mild epigastric tenderness r. Bowel sounds are present, no mass palpable, no CVA tenderness Neuro: Oriented X 3. Medical Decision Making Medical Decision Making [facility] Narrative: Patient with acute gastroenteritis responded to IV fluids Zofran and Bentyl discharged patient home Lab Data [facility] Lab Attestation statement: I reviewed the patient's lab results. 09/09/22 11:57 09/09/22 11:57 Labs: Lab Results 09/09/22 09/09/22 Range/Units 11:57 11:57 WBC 14.5 H (4.8-10.8) X10*3/uL RBC 4.45 (4.20-5.50) X10*6/uL Hgb 13.7 (12.0-16.0) g/dl Hct 40.7 (37.0-47.0) % MCV 91.5 (80.0-98.0) fL MCH 30.8 (27.0-33.0) pg MCHC 33.7 (31.0-35.0) g/dl RDW 12.6 (11.0-16.0) % Plt Count 346 D (160-400) X10*3/uL MPV 8.3 L (9.4-12.3) fL Immature Gran % (Auto) 0.3 (0.0-0.4) % Neut % (Auto) 79.9 H (45-73) % Lymph % (Auto) 13.9 L (20-40) % Todd % (Auto) 5.4 (2-11) % Eos % (Auto) 0.0 (0-4) % Baso % (Auto) 0.5 (0-2) % Lymph # (Auto) 2.0 (1.2-4.9) X10*3/uL Todd # (Auto) 0.8 (0.1-1.2) X10*3/uL Eos # (Auto) 0.0 (0.0-0.4) X10*3/uL Baso # (Auto) 0.1 (0.0-0.2) X10*3/uL Abs Immat Gran (auto) 0.05 H (0.00-0.03) X10*3/uL Absolute Neuts (auto) 11.6 H (2.0-8.3) x10*3/uL Absolute Nucleated RBC 0.000 (0.0-0.012) X10*3/uL Nucleated RBC % (auto) 0.0 (0.0-0.2) /100WBC Sodium 147 H (135-145) mmol/L Potassium 3.6 (3.3-5.1) mmol/L Chloride 106 (96-108) mmol/L Carbon Dioxide 26 (22-29) mmol/L Anion Gap 19 (12-20) BUN 14 (9-16) mg/dL Creatinine 0.72 (0.5-1.4) mg/dL Estim Creat Clear Calc 93.3 Estimated GFR > 60 Random Glucose 172 H (60-115) mg/dL Calcium 9.9 D (8.4-10.2) mg/dL Total Bilirubin 0.8 (0.0-1.0) mg/dL AST 19 (5-31) U/L ALT 16 (0-31) U/L Alkaline Phosphatase 82 (39-117) U/L Total Protein 7.4 (6.5-8.0) g/dL Albumin 4.6 (3.5-5.0) g/dL Lipase 38 (8-78) U/L Medications Administered Generic Name Dose Route Start Last Admin Trade Name Freq PRN Reason Stop Dose Admin Sodium Chloride 1,000 mls @ 999 mls/hr 09/09/22 15:25 09/09/22 15:29 Ns IV 09/09/22 16:25 999 mls/hr .Q1H1M ONE Administration Discontinued Medications Generic Name Dose Route Start Last Admin Trade Name Freq PRN Reason Stop Dose Admin Dicyclomine HCl 20 mg 09/09/22 15:10 09/09/22 15:23 Dicyclomine Hcl 10 Mg Capsule PO 09/09/22 15:11 20 mg ONCE ONE Administration Famotidine 20 mg 09/09/22 14:18 09/09/22 14:38 Famotidine/Pf 20 Mg/2 Ml Vial IVPUSH 09/09/22 14:19 20 mg ONCE ONE Administration Sodium Chloride 1,000 mls @ 999 mls/hr 09/09/22 14:18 09/09/22 16:07 Ns IV 09/09/22 15:18 Infused .Q1H1M ONE Infusion Lorazepam 1 mg 09/09/22 11:50 09/09/22 12:02 Lorazepam 2 Mg/Ml Vial IVPUSH 09/09/22 11:51 1 mg ONCE ONE Administration Ondansetron HCl 4 mg 09/09/22 14:18 09/09/22 14:38 Ondansetron Hcl 4 Mg/2 Ml Vial IVPUSH 09/09/22 14:19 4 mg ONCE ONE Administration Prochlorperazine Edisylate 10 mg 09/09/22 11:50 09/09/22 12:02 Prochlorperazine Edisylate 10 Mg/2 Ml Vial IVPUSH 09/09/22 11:51 10 mg ONCE ONE Administration Discharge Plan Discharge Clinical Impression: Gastroenteritis Patient Disposition: Home, Self-Care Instructions: Gastroenteritis (ED) Additional Instructions: Drink plenty of fluids Medicine for nausea and abdominal cramps as prescribed Follow with PCP if not better Prescriptions: New dicyclomine 20 mg tablet 20 mg PO QID PRN (Reason: abdominal pain) Qty: 15 0RF ondansetron 4 mg tablet,disintegrating 4 mg PO Q6-8H PRN (Reason: nausea and vomiting) Qty: 7 0RF No Action topiramate 100 mg tablet 1 tab PO BID fmtqlwnjee-ihzspfomuqoeh-[id number] [Fioricet] 50-300-40 mg capsule 1 cap PO Q6H PRN (Reason: headache) Qty: 20 0RF acetazolamide 250 mg tablet 250 mg PO BID Qty: 60 0RF tobramycin 0.3 % drops 2 drp ophthalmic-Left Q4H Qty: 5 0RF ketotifen fumarate [Alaway] 0.025 % (0.035 %) drops 1 drp ophthalmic-Left BID Qty: 5 0RF Rx Instructions: administer at least 8 hours apart hydroxyzine HCl 25 mg tablet 25 mg PO QID PRN (Reason: itching) Qty: 14 0RF sumatriptan succinate [Imitrex] 100 mg tablet 100 mg PO Q2-4H PRN (Reason: Headache) Rx Instructions: do not exceed 2 doses per 24 hrs methocarbamol 750 mg tablet 750 mg PO QID clonidine HCl 0.1 mg tablet 0.1 mg PO BEDTIME propranolol 20 mg tablet 20 mg PO DAILY fluticasone propionate 50 mcg/actuation spray,suspension 1 spray intranasal DAILY dicyclomine 20 mg tablet 20 mg PO TID Qty: 90 2RF ondansetron 4 mg tablet,disintegrating 4 mg PO Q8H PRN (Reason: nausea and vomiting) Qty: 30 2RF pantoprazole 40 mg tablet,delayed release (DR/EC) 40 mg PO DAILY Qty: 90 2RF Rx Instructions: take one tablet half an hour before breakfast
[2022-09-09] MEDS: LORazepam 2 MG/ML VIAL 1 MG IVPUSH (12:02)
[2022-09-09] MEDS: Prochlorperazine Edisylate 10 MG/2 ML VIAL IVPUSH (12:02)
[2022-09-09 12:03] LABS: Basophils Absolute Auto 0.1 X10*3/uL (0.0-0.2); Basophils Percent Auto 0.5 % (0-2); Hematocrit 40.7 % (37.0-47.0); Hemoglobin 13.7 g/dl (12.0-16.0); Imm Gran Abs Auto 0.05 X10*3/uL (0.00-0.03); Imm Gran Pct Auto 0.3 % (0.0-0.4); Lymphocytes Percent Auto 13.9 % (20-40); MANUAL DIFF FLAG NO; Mean Corpuscular HGB Conc 33.7 g/dl (31.0-35.0); Mean Corpuscular Hemoglobin 30.8 pg (27.0-33.0); Mean Corpuscular Volume 91.5 fL (80.0-98.0); Mean Platelet Volume 8.3 fL (9.4-12.3); Monocytes Absolute Auto 0.8 X10*3/uL (0.1-1.2); Monocytes Percent Auto 5.4 % (2-11); Neutrophils Absolute Auto 11.6 x10*3/uL (2.0-8.3); Neutrophils Percent Auto 79.9 % (45-73); Platelet Count 346 X10*3/uL (160-400); Red Blood Count 4.45 X10*6/uL (4.20-5.50); Red Cell Distribution Width 12.6 % (11.0-16.0); White Blood Count 14.5 X10*3/uL (4.8-10.8)
[2022-09-09 12:23] LABS: Alanine Aminotransferase 16 U/L (0-31); Albumin Level 4.6 g/dL (3.5-5.0); Alkaline Phosphatase 82 U/L (39-117); Aspartate Amino Transferase 19 U/L (5-31); Bilirubin Total 0.8 mg/dL (0.0-1.0); Blood Urea Nitrogen 14 mg/dL (9-16); Calcium 9.9 mg/dL (8.4-10.2); Creatinine Clr Calc Pharmacy 93.3; Estimated Glomerular Filt Rate > 60; Glucose Random 172 mg/dL (60-115); Lipase 38 U/L (8-78); Total Protein 7.4 g/dL (6.5-8.0)
[2022-09-09 12:30] LABS: Anion Gap 19 (12-20); Carbon Dioxide 26 mmol/L (22-29); Chloride 106 mmol/L (96-108); Potassium 3.6 mmol/L (3.3-5.1); Sodium 147 mmol/L (135-145)
[2022-09-09 12:38] VITALS: BP 134/71; PULSE 59; RESP 16; O2SAT 100
--- NOTE | 2022-09-09 12:38 | PC.NURSE ---
Pt feeling sl better s/p environmental remediation consultant. No active vomiting at this time. Fluids continue to infuse. Additional warm blanket given
[2022-09-09] MEDS: 0.9 % Sodium Chloride 1,000 ML 999 ML IV ×2 (14:37→15:29)
[2022-09-09] MEDS: Famotidine/PF 20 MG/2 ML VIAL IVPUSH (14:38)
[2022-09-09] MEDS: ondansetron HCL 4 MG/2 ML VIAL IVPUSH (14:38)
[2022-09-09] MEDS: Dicyclomine HCl 10 MG CAPSULE 20 MG PO (15:23)
[2022-09-09 15:37] VITALS: BP 139/66; PULSE 67; RESP 16; TEMP 37; O2SAT 98
== END 2022-09-09 17:05 | disposition home or self-care (01) ==
PROVIDERS: Emergency Provider Internal Medicine; PCP Internal Medicine Geriatric Medicine
DX: K52.9 Noninfective gastroenteritis and colitis, unspecified (principal); Z79.899 Other long term (current) drug therapy
CPT/HCPCS: 36415; 80053; 83690; 85025; 96361; 96374; 96375; 99284; J2060; J2405

== ENCOUNTER 2023-06-12 12:01 | Outpatient (REF) | payer MEDICAID, SELFPAY ==
--- NOTE | ~2023-06-12 | XR_ITS ---
EXAMINATION: XR HIP, RIGHT CLINICAL INFORMATION: Pain in right hip COMPARISON: Bilateral hips and pelvis 11/09/2019 TECHNIQUE: Two views of the right hip. FINDINGS: No fracture. Alignment is anatomic. Hip joint space is maintained. Small subchondral cysts are seen in the acetabulum, unchanged. Soft tissues are unremarkable. The sacroiliac joints appear symphysis are within normal limits. XR/XR hip RT min 2V IMPRESSION: No significant interval change. The joint space of both hips is well maintained.
== END 2023-06-12 12:02 | disposition home or self-care (01) ==
LOC: HO.HOSX 12:01
PROVIDERS: Visit Provider Orthopaedic Surgery
DX: M25.551 Pain in right hip (principal)
CPT/HCPCS: 73502; 99202

== ENCOUNTER 2023-06-12 14:04 | Outpatient (AMB) | payer MEDICAID, SELFPAY ==
[2023-06-12 14:19] VITALS: BMI 24.2
--- NOTE | 2023-06-12 14:19 | A.OFFVIS_ITS ---
Intake Vital Signs 06/12/23 14:19 Height 5 ft 6 in Weight 150 lb BMI 24.2 Intake Visit Reasons: [facility]-Chronic right hip pain Intake Note: Irena is a 43 year old female who presents as a new patient with Right hip pain that radiates to the thigh. Patient reports her pain has been going on for about 4 years and is a 7 on the 1-10 pain scale. She states she has had injections the haven't really helped. She states she is unsure of injury and is using heat, tylenol, and icy hot rubs with minamal relief. She states that both hips bother her but the Right side is worse. Most of the pain is along the anterior aspect of her groin and thigh. The patient states that she has difficulty walking at times because of the severity of her pain. The patient's injections have been given at [facility] pain management. She has also tried acupuncture. 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 Allergies promethazine [From PHENERGAN] Allergy (Intermediate, Verified 06/12/23 14:27) PSYCHOSIS NSAIDS (Non-Steroidal Anti-Inflamma [NSAIDS (NON-STEROIDAL ANTI-INFLAMMA] Allergy (Unknown, Verified 06/12/23 14:27) Gastrointestinal Upset oxycodone [From PERCOCET] Allergy (Unknown, Verified 06/12/23 14:27) headache metoclopramide [From Reglan] Adverse Reaction (Intermediate, Verified 06/12/23 14:27) PSYCHOSIS medical tape- tegaderm Allergy (Intermediate, Uncoded 07/10/22 14:51) Rash dermabond Allergy (Uncoded 07/10/22 14:51) Blister Medication List - Last Reconciled 06/13/[address] MD acetaminophen 650 mg PO Q6H PRN acetazolamide 250 mg PO BID acetazolamide mg PO BID baclofen 10 mg PO TID fwzjdeawkj-wsvvqwhaslvdh-szlo 50-300-40 mg (Fioricet) 1 cap PO Q6H PRN dicyclomine 20 mg PO QID PRN dicyclomine 20 mg PO TID estradiol 1 patch topical 2XW hydroxyzine HCl 25 mg PO QID PRN ondansetron 4 mg PO Q8H PRN pantoprazole 40 mg PO DAILY propranolol 20 mg PO DAILY sumatriptan succinate (Imitrex) 100 mg PO Q2-4H PRN tobramycin 0.3% 2 drps ophthalmic-Left Q4H topiramate 1 tab PO BID tramadol 50 mg PO TID PRN PFSH Medical History Disc degeneration, lumbar Spondylosis of cervical spine Spondylosis of lumbar spine Chronic pain syndrome Panniculitis Intestinal malabsorption following gastrectomy Hypocalcemia Hypoproteinemia Hypomagnesemia Diarrhea Odynophagia Elevated lipase Nausea Splenic infarction Constipation Dysphagia Malabsorption due to intolerance, not elsewhere classified Obesity (BMI 30-39.9) Hiatal hernia Increased body mass index (BMI) PONV (postoperative nausea and vomiting) Migraines Sleep apnea History of Crabtree's palsy Motion sickness Vertigo HTN (hypertension) TMJ (temporomandibular joint disorder) PTSD (post-traumatic stress disorder) Insomnia Fatty liver High cholesterol Degenerative disc disease Sciatica of left side Bursitis Arthritis Diverticular disease Scoliosis Pseudotumor cerebri GERD (gastroesophageal reflux disease) Endometriosis Chronic back pain Palpitations Anxiety Depression IBS (irritable bowel syndrome) Surgical History Hx of colonoscopy History of esophagogastroduodenoscopy (EGD) History of repair of hiatal hernia History of sleeve gastrectomy History of tonsillectomy and adenoidectomy Hx of oophorectomy History of myringotomy History of laparoscopic cholecystectomy H/O unilateral oophorectomy S/P MALIKA (total abdominal hysterectomy) History of laparoscopy History of tubal ligation History of tonsillectomy Family History Father No problems noted. Mother Heart disease Type 2 diabetes mellitus History of smoking Alcoholism COPD (chronic obstructive pulmonary disease) Hyperlipidemia Sister No problems noted. Sister No problems noted. 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 Extrem Other: Bilateral lower extremity examination shows good capillary refill, no skin lesions noted, normal sensation light touch Right hip examination shows decreased range of motion when compared to her left hip, mild tenderness over her bursa, pain with range of motion, increased pain with forward flexion and internal rotation Results Reviewed Results Reviewed: X-rays of the patient's right hip show mild joint space narrowing, no acute bony abnormalities Assessment & Plan Assessment & Plan (1) Right hip pain: Code(s): M25.551 - Pain in right hip Plan Ms. Wolf presents with right hip pain possibly due to avascular necrosis of her femoral head. Thus, I will send the patient for an MRI of her right hip for further evaluation. I will see her back once the MRI is completed to discuss the findings and treatment options. Feel free to call me at any time should questions regarding her orthopedic management arise. I spent 22 minutes in reviewing the patient's records and imaging studies, seeing the patient and documenting in the medical record. Orders: Orders XR hip RT min 2V 06/12/23 M25.551 - Pain in right hip MR hip RT wo con 06/12/23 M25.551 - Pain in right hip Coding Level of Care Code New Pt Level 2 (86595) Diagnoses Right hip pain M25.551
== END 2023-06-12 15:07 | disposition home or self-care (01) ==
PROVIDERS: PCP Internal Medicine Geriatric Medicine; Referring Provider Internal Medicine Geriatric Medicine; Visit Provider Orthopaedic Surgery
DX: M25.551 Pain in right hip (principal)
CPT/HCPCS: 99202; 99203

== ENCOUNTER 2023-08-12 15:44 | Outpatient (REF) | payer MEDICAID, SELFPAY ==
--- NOTE | ~2023-08-12 | MR_ITS ---
EXAMINATION: MR HIP WITHOUT CONTRAST, RIGHT CLINICAL INFORMATION: Hip pain. COMPARISON: X-ray 06/12/2023. TECHNIQUE: MRI of the right hip was obtained using routine sequences on a high-field strength magnet. FINDINGS: BONE/JOINTS: Small subchondral cyst in the acetabulum. Hip joint spaces relatively maintained. No evidence of acute fracture, avascular necrosis or stress reaction. No aggressive marrow-replacing lesion. The visualized inferior aspect of the right SI joint is within normal limits. LABRUM: Shallow, smooth linear fluid signal along the undersurface of the posterosuperior labrum, likely indicating a normal variant sublabral sulcus. Less likely this could indicate a nondisplaced undersurface labral tear, however, normal variant sublabral sulci are often seen in this region. MUSCLES/TENDONS: Mild distal gluteus minimus tendinosis/partial tearing. Mild tendinosis/deep surface tear of the anterior fibers of the gluteus medius. There is edema/fluid in the subjacent soft tissues, reactive to this process versus component of small bursitis. The remainder of the tendons are intact. No muscle tear is seen. JOINT FLUID/BURSA: No significant hip joint effusion. No significant iliopsoas bursitis. INTRAPELVIS STRUCTURES: Subcentimeter right groin lymph node. No acute finding seen in the visualized pelvis. On the coronal T1 sequence of the pelvis, there is normal left hip alignment. SI joints and symphysis pubis are intact. MR/MR hip RT wo con IMPRESSION: 1. Mild right hip arthritis. No evidence of acute fracture, avascular necrosis or stress reaction. 2. Shallow, smooth linear fluid signal along the undersurface of the posterosuperior labrum, likely indicating a normal variant sublabral sulcus. Less likely this could indicate a nondisplaced undersurface labral tear, however, normal variant sublabral sulci are often seen in this region. 3. Mild distal gluteus minimus tendinosis/partial tearing. Mild gluteus medius tendinosis/deep surface partial tear. 4. Small bursitis or reactive edema/fluid adjacent to the greater trochanter.
== END 2023-08-12 15:45 | disposition home or self-care (01) ==
LOC: HO.MRI 15:44
PROVIDERS: PCP Internal Medicine Geriatric Medicine; Visit Provider Orthopaedic Surgery
DX: M25.551 Pain in right hip (principal)
CPT/HCPCS: 73721

== ENCOUNTER 2023-08-19 13:13 | Outpatient (AMB) | payer MEDICAID, SELFPAY ==
--- NOTE | 2023-08-19 13:14 | MHC.OFFVIS ---
Vital Signs 08/19/23 13:15 Height 5 ft 6 in Weight 150 lb BMI 24.2 Intake Visit Reasons: OV- Right hip MRI review Intake Note: Irena is a 43 year old female who presents with complaints of progressively worsening pain in her low back, right hip and right thigh. The patient was evaluated in our pain management clinic on 05/10/2021. Prior to that time she had been getting epidural injections for ?chronic pain syndrome? at [facility] pain management. The patient states that she 1st injured her back approximately 20 years ago. She states that she knows that she has ?disc problems, stenosis and sciatica?. The patient does not wish to get a repeat MRI of her lumbar spine because she does not want to have low back surgery. Allergies promethazine [From PHENERGAN] Allergy (Intermediate, Verified 08/19/23 13:24) PSYCHOSIS NSAIDS (Non-Steroidal Anti-Inflamma [NSAIDS (NON-STEROIDAL ANTI-INFLAMMA] Allergy (Unknown, Verified 08/19/23 13:24) Gastrointestinal Upset oxycodone [From PERCOCET] Allergy (Unknown, Verified 08/19/23 13:24) headache metoclopramide [From Reglan] Adverse Reaction (Intermediate, Verified 08/19/23 13:24) PSYCHOSIS medical tape- tegaderm Allergy (Intermediate, Uncoded 08/19/23 13:24) Rash dermabond Allergy (Uncoded 08/19/23 13:24) Blister [facility] Medical History (Reviewed 08/19/23 @ 13:26 by Tiki Romero [facility]) Disc degeneration, lumbar Spondylosis of cervical spine Spondylosis of lumbar spine Chronic pain syndrome Panniculitis Intestinal malabsorption following gastrectomy Hypocalcemia Hypoproteinemia Hypomagnesemia Diarrhea Odynophagia Elevated lipase Nausea Splenic infarction Constipation Dysphagia Malabsorption due to intolerance, not elsewhere classified Obesity (BMI 30-39.9) Hiatal hernia Increased body mass index (BMI) PONV (postoperative nausea and vomiting) Migraines Sleep apnea History of Crabtree's palsy Motion sickness Vertigo HTN (hypertension) TMJ (temporomandibular joint disorder) PTSD (post-traumatic stress disorder) Insomnia Fatty liver High cholesterol Degenerative disc disease Sciatica of left side Bursitis Arthritis Diverticular disease Scoliosis Pseudotumor cerebri GERD (gastroesophageal reflux disease) Endometriosis Chronic back pain Palpitations Anxiety Depression IBS (irritable bowel syndrome) Surgical History Hx of colonoscopy History of esophagogastroduodenoscopy (EGD) History of repair of hiatal hernia History of sleeve gastrectomy History of tonsillectomy and adenoidectomy Hx of oophorectomy History of myringotomy History of laparoscopic cholecystectomy H/O unilateral oophorectomy S/P MALIKA (total abdominal hysterectomy) History of laparoscopy History of tubal ligation History of tonsillectomy Family History Father No problems noted. Mother Heart disease Type 2 diabetes mellitus History of smoking Alcoholism COPD (chronic obstructive pulmonary disease) Hyperlipidemia Sister No problems noted. Sister No problems noted. Brother Arthritis Brother Arthritis Son Obesity Autism spectrum disorder Son Fibromyalgia Mood disorder Social History Household Members: Children Housing: Apartment Are you a primary reservoir caretaker to a significant other at home: Yes (SON 17,AUTISTIC) Do you presently have visiting nurse or other home services: No Alcohol intake: never Comment: resting in bed with eyes closed Patient Tobacco Use Status: Former Tobacco user Tobacco use type: Cigarette Second Hand Smoke Exposure: No service: No Current occupational status: unemployed 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, 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 Physical Exam Vital Signs: BMI result Body Mass Index 24.2 Const Other: Well-nourished well-developed very friendly female awake alert and oriented x3 in no acute distress Extrem Other: Right hip examination shows slightly decreased range of motion when compared to her left hip, mild pain with range of motion, positive straight leg raise test on the right at 70 degrees Results Reviewed Results Reviewed: MRI of the patient's right hip shows mild arthritis as well as a possible nondisplaced labral tear Assessment & Plan Assessment & Plan (1) Right hip pain: Code(s): M25.551 - Pain in right hip Category: Medical Plan Ms. Wolf presents with low back pain and right leg pain of unclear etiology. Based on her right hip MRI findings of only mild arthritis and a possible small, nondisplaced labral tear I do feel that her severe symptoms may be coming from lumbar spine pathology. She does have a 20 year history of low back problems. I did recommend that the patient get a repeat MRI of her lumbar spine. She states that it has been several years since she has gotten an MRI. The patient does not wish to have a lumbar spine MRI performed at this time. The patient feels that her symptoms are most likely coming from her hip pathology. Per her request, I did give her contact information to reach Dr. Vinicius Simmons in [place] to get his opinion regarding the possibility of right hip arthroscopic surgery. The patient will follow up with me on an as-needed basis. Feel free to call me at any time should questions regarding her orthopedic management arise. I spent 21 minutes in reviewing the patient's records and imaging studies, seeing the patient and documenting in the medical record. Coding Level of Care Code Est Pt Level 3 (76561) Diagnoses Right hip pain M25.551
[2023-08-19 13:15] VITALS: BMI 24.2
== END 2023-08-19 13:54 | disposition home or self-care (01) ==
PROVIDERS: PCP Internal Medicine Geriatric Medicine; Referring Provider Internal Medicine Geriatric Medicine; Visit Provider Orthopaedic Surgery
DX: M25.551 Pain in right hip (principal)
CPT/HCPCS: 99213

== ENCOUNTER → 2023-08-19 13:13 | Outpatient (BNVA) | payer MEDICAID, SELFPAY | PROVIDERS: PCP Internal Medicine Geriatric Medicine; Visit Provider Orthopaedic Surgery | DX: M25.551 Pain in right hip (principal) | CPT/HCPCS: 99212 ==

== ENCOUNTER 2023-10-05 13:06 | Emergency (ER) | payer MEDICAID, SELFPAY ==
--- NOTE | 2023-10-05 13:47 | ED.ABDPAIN ---
HPI - Abdominal Pain General Chief Complaint: Abdominal Pain Stated Complaint: Abd pain Related Data Home Medications ?Medication ?Instructions ?Recorded ?Confirmed sumatriptan succinate 100 mg 100 mg PO Q2-4H PRN Headache 01/21/20 06/13/23 tablet (Imitrex) propranolol 20 mg tablet 20 mg PO DAILY 01/03/21 06/13/23 topiramate 100 mg tablet 1 tab PO BID 03/20/22 06/13/23 acetaminophen 325 mg tablet 650 mg PO Q6H PRN 06/12/23 06/13/23 acetazolamide 125 mg tablet mg PO BID 06/12/23 06/13/23 baclofen 10 mg tablet 10 mg PO TID 06/12/23 06/13/23 estradiol 0.025 mg/24 hr 1 patch topical 2XW 06/12/23 06/13/23 semiweekly transdermal patch tramadol 50 mg tablet 50 mg PO TID PRN 06/12/23 06/13/23 Previous Rx's ?Medication ?Instructions ?Recorded hydroxyzine HCl 25 mg tablet 25 mg PO QID PRN itching #14 tabs 07/01/22 dicyclomine 20 mg tablet 20 mg PO TID #90 tabs 07/10/22 pantoprazole 40 mg tablet,delayed 40 mg PO DAILY #90 tabs 07/10/22 release acetazolamide 250 mg tablet 250 mg PO BID #60 tabs 07/17/22 pbyumlbmpo-dttgqoacbaxxo-fqaioxpi 1 cap PO Q6H PRN headache #20 caps 07/17/22 50 mg-300 mg-40 mg capsule (Fioricet) dicyclomine 20 mg tablet 20 mg PO QID PRN abdominal pain 09/09/22 #15 tabs tobramycin 0.3 % eye drops 2 drp ophthalmic-Left Q4H #5 mL 09/09/22 ondansetron 4 mg disintegrating 4 mg PO Q8H PRN for 06/28/23 tablet nausea/vomiting 30 days #30 tabs Allergies Allergy/AdvReac Type Severity Reaction Status Date / Time promethazine [From PHENERGAN] Allergy Intermediate PSYCHOSIS Verified 10/05/23 13:48 NSAIDS (Non-Steroidal Allergy Unknown Gastrointestinal Verified 10/05/23 13:48 Anti-Inflamma Upset [NSAIDS (NON-STEROIDAL ANTI-INFLAMMA] oxycodone [From PERCOCET] Allergy Unknown headache Verified 10/05/23 13:48 metoclopramide [From Reglan] AdvReac Intermediate PSYCHOSIS Verified 10/05/23 13:48 medical tape- tegaderm Allergy Intermediate Rash Uncoded 08/19/23 13:24 dermabond Allergy Blister Uncoded 08/19/23 13:24 [facility] Past Medical History Medical History Disc degeneration, lumbar Spondylosis of cervical spine Spondylosis of lumbar spine Chronic pain syndrome Panniculitis Intestinal malabsorption following gastrectomy Hypocalcemia Hypoproteinemia Hypomagnesemia Diarrhea Odynophagia Elevated lipase Nausea Splenic infarction Constipation Dysphagia Malabsorption due to intolerance, not elsewhere classified Obesity (BMI 30-39.9) Hiatal hernia Increased body mass index (BMI) PONV (postoperative nausea and vomiting) Migraines Sleep apnea History of Crabtree's palsy Motion sickness Vertigo HTN (hypertension) TMJ (temporomandibular joint disorder) PTSD (post-traumatic stress disorder) Insomnia Fatty liver High cholesterol Degenerative disc disease Sciatica of left side Bursitis Arthritis Diverticular disease Scoliosis Pseudotumor cerebri GERD (gastroesophageal reflux disease) Endometriosis Chronic back pain Palpitations Anxiety Depression IBS (irritable bowel syndrome) Surgical History Hx of colonoscopy History of esophagogastroduodenoscopy (EGD) History of repair of hiatal hernia History of sleeve gastrectomy History of tonsillectomy and adenoidectomy Hx of oophorectomy History of myringotomy History of laparoscopic cholecystectomy H/O unilateral oophorectomy S/P MALIKA (total abdominal hysterectomy) History of laparoscopy History of tubal ligation History of tonsillectomy Family History Family History Father No problems noted. Mother Heart disease Type 2 diabetes mellitus History of smoking Alcoholism COPD (chronic obstructive pulmonary disease) Hyperlipidemia Sister No problems noted. Sister No problems noted. Brother Arthritis Brother Arthritis Son Obesity Autism spectrum disorder Son Fibromyalgia Mood disorder Social History Social History Household Members: Children Housing: Apartment Are you a primary acute care nursing assistant to a significant other at home: Yes (SON 17,AUTISTIC) Do you presently have visiting nurse or other home services: No Alcohol intake: never Comment: resting in bed with eyes closed Patient Tobacco Use Status: Former Tobacco user Tobacco use type: Cigarette Smoked in Last 30 Days: Yes Second Hand Smoke Exposure: No Use of substances other than those prescribed or required for medical reasons: Yes Substance Use Type: Marijuana Substance Use Frequency: Daily Advance Directives: No Advance Directives Information Provided: Yes Do you have a plan to hurt others: No Plan Patient : No service: No Current occupational status: unemployed 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, 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 Physical Exam ED Vital Signs: BMI result Body Mass Index 26.9 Course Course Course Narrative: This is a Rapid Medical Examination (RME) performed by Renita West PA-C in triage. Full HPI, ROS, assessment and treatment plan per primary provider in the Main ED. 43 yo female with hx of HTN, HDL, PTSD, pseudotumor cerebri here for eval of nausea and periumbilcal abdominal pain occurring 5-10 minutes after eating, worsening today. reports assoc shakes and feeling clammy, overall unwell . abd soft, nd/nt. no rebound or guarding. Plan: viral serology, labs, ua Reevaluation(s) Reevaluation #1: Patient left the ED without completing treatment. Medical Decision Making Lab Data 10/05/23 14:25 10/05/23 14:25 Labs: Lab Results 10/05/23 10/05/23 Range/Units 14:25 15:27 WBC 10.0 (4.8-10.8) X10*3/uL RBC 4.52 (4.20-5.50) X10*6/uL Hgb 14.4 (12.0-16.0) g/dl Hct 42.7 (37.0-47.0) % MCV 94.5 (80.0-98.0) fL MCH 31.9 (27.0-33.0) pg MCHC 33.7 (31.0-35.0) g/dl RDW 13.6 (11.0-16.0) % Plt Count 264 (160-400) X10*3/uL MPV 8.5 L (9.4-12.3) fL Immature Gran % (Auto) 0.7 H (0.0-0.4) % Neut % (Auto) 66.3 (45-73) % Lymph % (Auto) 24.1 (20-40) % [place] % (Auto) 8.2 (2-11) % Eos % (Auto) 0.3 (0-4) % Baso % (Auto) 0.4 (0-2) % Lymph # (Auto) 2.4 (1.2-4.9) X10*3/uL [place] # (Auto) 0.8 (0.1-1.2) X10*3/uL Eos # (Auto) 0.0 (0.0-0.4) X10*3/uL Baso # (Auto) 0.0 (0.0-0.2) X10*3/uL Abs Immat Gran (auto) 0.07 H (0.00-0.03) X10*3/uL Absolute Neuts (auto) 6.6 (2.0-8.3) x10*3/uL Absolute Nucleated RBC 0.000 (0.0-0.012) X10*3/uL Nucleated RBC % (auto) 0.0 (0.0-0.2) /100WBC Sodium 141 (135-145) mmol/L Potassium 3.9 (3.3-5.1) mmol/L Chloride 106 (96-108) mmol/L Carbon Dioxide 27 (22-29) mmol/L Anion Gap 12 (12-20) BUN 16 (9-16) mg/dL Creatinine 0.75 (0.5-1.4) mg/dL Estim Creat Clear Calc 98.3 Estimated GFR > 60 Random Glucose 97 (60-115) mg/dL Calcium 9.3 D (8.4-10.2) mg/dL Magnesium 2.0 (1.6-2.6) mg/dL Total Bilirubin 0.6 (0.0-1.0) mg/dL AST 20 (5-31) U/L ALT 19 (0-31) U/L Alkaline Phosphatase 88 (39-117) U/L Total Protein 7.1 (6.5-8.0) g/dL Albumin 4.4 (3.5-5.0) g/dL Lipase 38 (8-78) U/L Urine Color Yellow Urine Appearance Clear Urine pH 5.5 (5.0-9.0) Ur Specific [place] >= 1.030 H (1.005-1.025) Urine Protein Negative (Neg-Trace) mg/dL Urine Glucose (UA) Negative (Negative) mg/dL Urine Ketones Trace (Negative) mg/dL Urine Blood Negative (Negative) Urine Nitrite Negative (Negative) Ur Leukocyte Esterase Negative (Negative) Urine Test NEGATIVE (NEGATIVE) Influenza Type A (PCR) NEGATIVE (Negative) Influenza Type B (PCR) NEGATIVE (Negative) RSV RNA Qual (PCR) NEGATIVE (Negative) SARS-CoV-2 RNA (RT-PCR) NEGATIVE (Negative) Discharge Plan Discharge Clinical Impression: Abdominal pain Patient Disposition: Left W/O Completing Treatment Prescriptions: No Action ondansetron 4 mg tablet,disintegrating 4 mg PO Q8H PRN (Reason: for nausea/vomiting) 30 Days Qty: 30 0RF topiramate 100 mg tablet 1 tab PO BID nukuvtqecs-vfhnypclznmgo-sowd [Fioricet] 50-300-40 mg capsule 1 cap PO Q6H PRN (Reason: headache) Qty: 20 0RF acetazolamide 250 mg tablet 250 mg PO BID Qty: 60 0RF tobramycin 0.3 % drops 2 drp ophthalmic-Left Q4H Qty: 5 0RF dicyclomine 20 mg tablet 20 mg PO QID PRN (Reason: abdominal pain) Qty: 15 0RF hydroxyzine HCl 25 mg tablet 25 mg PO QID PRN (Reason: itching) Qty: 14 0RF sumatriptan succinate [Imitrex] 100 mg tablet 100 mg PO Q2-4H PRN (Reason: Headache) Rx Instructions: do not exceed 2 doses per 24 hrs propranolol 20 mg tablet 20 mg PO DAILY dicyclomine 20 mg tablet 20 mg PO TID Qty: 90 2RF pantoprazole 40 mg tablet,delayed release (DR/EC) 40 mg PO DAILY Qty: 90 2RF Rx Instructions: take one tablet half an hour before breakfast baclofen 10 mg tablet 10 mg PO TID acetazolamide 125 mg tablet PO BID estradiol 0.025 mg/24 hr patch semiweekly 1 patch topical 2XW acetaminophen 325 mg tablet 650 mg PO Q6H PRN tramadol 50 mg tablet 50 mg PO TID PRN Discharge Date/Time: 10/05/23 15:53
[2023-10-05 13:48] VITALS: BP 152/79; PULSE 69; RESP 16; TEMP 36.2; O2SAT 96; BMI 26.9
[2023-10-05 14:30] LABS: MANUAL DIFF FLAG NO
--- NOTE | 2023-10-05 14:32 | PC.NURSE ---
patient arrives ambulatory with steady gait through external triage, patient states this week she has had similar episodes of nausea and diarrhea after eating a meal, however today it has happened 3 times and she states she is still nauseous at this time. corey states she has a hx of gallbladder removal in 2014 and has not had any complications since then. patient states the abdominal pain and nausea came on immediately after she ate and was followed by diarrhea, last BM was shortly prior to arrival to ED. patient states she is not in pain currently but she is nauseous and requesting something for her nausea, has not had any episodes of vomiting. patient states she smokes marijuana every day in place of her anxiety medications and they have good effect for her, denies any episodes of vomiting when she stops. PIV placed and blood work drawn and sent at this time
[2023-10-05 14:33] LABS: Basophils Percent Auto 0.4 % (0-2); Eosinophils Percent Auto 0.3 % (0-4); Hematocrit 42.7 % (37.0-47.0); Hemoglobin 14.4 g/dl (12.0-16.0); Imm Gran Abs Auto 0.07 X10*3/uL (0.00-0.03); Imm Gran Pct Auto 0.7 % (0.0-0.4); Lymphocytes Absolute Auto 2.4 X10*3/uL (1.2-4.9); Lymphocytes Percent Auto 24.1 % (20-40); Mean Corpuscular HGB Conc 33.7 g/dl (31.0-35.0); Mean Corpuscular Hemoglobin 31.9 pg (27.0-33.0); Mean Corpuscular Volume 94.5 fL (80.0-98.0); Mean Platelet Volume 8.5 fL (9.4-12.3); Monocytes Absolute Auto 0.8 X10*3/uL (0.1-1.2); Monocytes Percent Auto 8.2 % (2-11); Neutrophils Absolute Auto 6.6 x10*3/uL (2.0-8.3); Neutrophils Percent Auto 66.3 % (45-73); Platelet Count 264 X10*3/uL (160-400); Red Blood Count 4.52 X10*6/uL (4.20-5.50); Red Cell Distribution Width 13.6 % (11.0-16.0)
--- NOTE | 2023-10-05 14:55 | PC.NURSE ---
patient provided with cup and educated on need for urine sample at this time
[2023-10-05 14:56] LABS: Alanine Aminotransferase 19 U/L (0-31); Albumin Level 4.4 g/dL (3.5-5.0); Alkaline Phosphatase 88 U/L (39-117); Anion Gap 12 (12-20); Aspartate Amino Transferase 20 U/L (5-31); Bilirubin Total 0.6 mg/dL (0.0-1.0); Blood Urea Nitrogen 16 mg/dL (9-16); Calcium 9.3 mg/dL (8.4-10.2); Carbon Dioxide 27 mmol/L (22-29); Chloride 106 mmol/L (96-108); Creatinine Clr Calc Pharmacy 98.3; Estimated Glomerular Filt Rate > 60; Glucose Random 97 mg/dL (60-115); Lipase 38 U/L (8-78); Potassium 3.9 mmol/L (3.3-5.1); Sodium 141 mmol/L (135-145); Total Protein 7.1 g/dL (6.5-8.0)
[2023-10-05 15:11] LABS: Influenza A PCR NEGATIVE (Negative); Influenza B PCR NEGATIVE (Negative); Resp Syncy Virus RNA Qual PCR NEGATIVE (Negative); SARS COV2 PCR INHOUSE NEGATIVE (Negative)
--- NOTE | 2023-10-05 15:20 | PC.NURSE ---
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 educated patient to try to stay if she can until we get some results, patient agreeable at this time
[2023-10-05 15:36] LABS: Appearance Urine Clear; Color Urine Yellow; Glucose Urine UA Negative (Negative); Leukocyte Esterase Urine Negative (Negative); Nitrite Urine Negative (Negative); PH 5.5 (5.0-9.0); Specific Gravity - Urine >= 1.030 (1.005-1.025); Urine Blood Negative (Negative); Urine Ketones Trace mg/dL (Negative); Urine Protein Negative (Neg-Trace)
[2023-10-05 15:43] LABS: UPreg QC Valid YES; Urine Pregnancy NEGATIVE (NEGATIVE)
--- NOTE | 2023-10-05 15:53 | PC.NURSE ---
patient stating to this RN that she can no longer wait to be seen, is requesting to leave without treatment. MD made aware. PIV removed, patient ambulatory with steady gait out of department
== END 2023-10-05 15:53 | disposition left against medical advice (07) ==
PROVIDERS: Physician Assistant Medical; Emergency Provider Emergency Medicine; PCP Internal Medicine Geriatric Medicine
DX: R11.0 Nausea (principal); R10.33 Periumbilical pain; I10 Essential (primary) hypertension; E78.5 Hyperlipidemia, unspecified; Z03.818 Encounter for observation for suspected exposure to other biological agents ruled out
CPT/HCPCS: 0241U; 80053; 81003; 81025; 83690; 83735; 85025; 99281; 99284

== ENCOUNTER 2024-01-24 13:00 | Outpatient (AMB) | payer MEDICAID, SELFPAY ==
--- NOTE | 2024-01-24 13:03 | MHC.OFFVIS ---
Vital Signs 01/24/24 13:06 Height 5 ft 6 in Weight 163 lb 2.273 oz BMI 26.3 Blood Pressure Location Lt brachial Position Sitting Intake Visit Reasons: PT REQ APPT Intake Note: Irena presents in the office as a follow up appt requested from the patient. CC: She states that she has been waiting to be seen for a while. Mom was diagnosed with colon cancer. She states that she has been having nausea and vomiting with severe stomach pains. 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: No Allergies promethazine [From PHENERGAN] Allergy (Intermediate, Verified 01/24/24 13:06) PSYCHOSIS NSAIDS (Non-Steroidal Anti-Inflamma [NSAIDS (NON-STEROIDAL ANTI-INFLAMMA] Allergy (Unknown, Verified 01/24/24 13:06) Gastrointestinal Upset oxycodone [From PERCOCET] Allergy (Unknown, Verified 01/24/24 13:06) headache metoclopramide [From Reglan] Adverse Reaction (Intermediate, Verified 01/24/24 13:06) PSYCHOSIS medical tape- tegaderm Allergy (Intermediate, Uncoded 01/24/24 13:06) Rash dermabond Allergy (Uncoded 01/24/24 13:06) Blister HPI HPI PT REQ APPT: Details: LAST VISIT: IBS (irritable bowel syndrome) IBS with occasional loose stools. Patient otherwise states that she moves her bowels completely. Patient can continue using dicyclomine for cramping and to help with diarrhea. However patient was encouraged to stop taking it or call the office if she will be constipated. Low FODMAP diet discussed with patient. Diarrhea Occasional diarrhea most likely related to malabsorption due to patient's bariatric surgery. Patient was encouraged to eat small amounts and more often. Encouraged her to also to avoid dietary triggers. Continue to use dicyclomine as it seems to be working. Patient was also encouraged to drink plenty fluids Epigastric pain Occasional epigastric discomfort. History of bariatric sleeve. Patient was encouraged to eat small meals. Upper endoscopy showed esophagitis and gastritis. Will start patient on pantoprazole. Patient will take half an hour before breakfast. Discussed with patient the importance of avoiding dietary triggers and late night snacking. Staying upright for minimum 3 hours after meals discussed with patient. Nausea Patient reports occasional nausea without vomiting. Script for Zofran given to patient. I will see patient in 6 months, sooner on as needed basis. Patient is agreeable to this plan and verbalizes understanding of instructions. She was given the opportunity to ask questions and all questions answered. ? Thank you for allowing me to participate in her care Plan Medications New pantoprazole take one tablet half an hour before breakfast 40 mg PO DAILY 90 tabs 2RF K21.9 - Gastro-esophageal reflux disease without esophagitis Refilled dicyclomine 20 mg PO TID 90 tabs 2RF K58.9 - Irritable bowel syndrome without diarrhea ondansetron 4 mg PO Q8H PRN 30 tabs 2RF nausea and vomiting R11.0 - Nausea TODAY'S VISIT Patient is here today for follow-up. Patient has missed couple appointments as she was taking care of her mom who was diagnosed with colorectal cancer. Patient's mom had to be brought for treatments and radiation therapy. Patient reports that she has been dealing with epigastric pain, reflux and nausea. Nausea is worse in the morning when she wakes up. Patient feels like pantoprazole might not be helpful anymore. Patient states that she has been doing well with her food. Eating only small amounts, history of bariatric surgery in the past and patient is trying to follow the diet as much as she can. Patient reports occasional dyspepsia without dysphagia or odynophagia. Reports postprandial loose stools. Denies melena, hematochezia, unintentional weight loss or ribbon like stools. Patient was supposed to go for colonoscopy last year, however patient missed her appointment now that her mother was diagnosed with CRC patient would like to go through with colonoscopy. [facility] Medical History Disc degeneration, lumbar Spondylosis of cervical spine Spondylosis of lumbar spine Chronic pain syndrome Panniculitis Intestinal malabsorption following gastrectomy Hypocalcemia Hypoproteinemia Hypomagnesemia Diarrhea Odynophagia Elevated lipase Nausea Splenic infarction Constipation Dysphagia Malabsorption due to intolerance, not elsewhere classified Obesity (BMI 30-39.9) Hiatal hernia Increased body mass index (BMI) PONV (postoperative nausea and vomiting) Migraines Sleep apnea History of Crabtree's palsy Motion sickness Vertigo HTN (hypertension) TMJ (temporomandibular joint disorder) PTSD (post-traumatic stress disorder) Insomnia Fatty liver High cholesterol Degenerative disc disease Sciatica of left side Bursitis Arthritis Diverticular disease Scoliosis Pseudotumor cerebri GERD (gastroesophageal reflux disease) Endometriosis Chronic back pain Palpitations Anxiety Depression IBS (irritable bowel syndrome) Surgical History Hx of colonoscopy History of esophagogastroduodenoscopy (EGD) History of repair of hiatal hernia History of sleeve gastrectomy History of tonsillectomy and adenoidectomy Hx of oophorectomy History of myringotomy History of laparoscopic cholecystectomy H/O unilateral oophorectomy S/P MALIKA (total abdominal hysterectomy) History of laparoscopy History of tubal ligation History of tonsillectomy Family History (Updated 01/24/24 @ 13:09 by PARTHA Arcos) Father No problems noted. Mother Heart disease Type 2 diabetes mellitus History of smoking Alcoholism COPD (chronic obstructive pulmonary disease) Hyperlipidemia Colon cancer Sister No problems noted. Sister No problems noted. Brother Arthritis Brother Arthritis Son Obesity Autism spectrum disorder Son Fibromyalgia Mood disorder Social History Household Members: Children Housing: Apartment Are you a primary intensive care anaesthetist to a significant other at home: Yes (SON 17,AUTISTIC) Do you presently have visiting nurse or other home services: No Alcohol intake: never Comment: resting in bed with eyes closed Patient Tobacco Use Status: Former Tobacco user Tobacco use type: Cigarette Second Hand Smoke Exposure: No Substance Use Type: Marijuana service: No Current occupational status: unemployed 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, 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 Review of Systems Const Denies weight gain and Denies weight loss ENT Reports no additional complaints, Denies dysphagia and Denies odynophagia Card Reports no additional complaints Resp Reports no additional complaints GI Denies abdominal pain, Denies belching, Denies melena, Denies bloating, Denies change in bowel habits, Denies constipation, Denies dysphagia, Denies excessive flatus, Reports dyspepsia, Reports heartburn, Denies diarrhea, Denies loose stools, Reports nausea, Denies odynophagia and Denies vomiting Reports no additional complaints Musc Reports no additional complaints Neuro Reports no additional complaints Psych Reports no additional complaints Endo Reports no additional complaints Physical Exam Vital Signs: BMI result Body Mass Index 26.3 Const General: healthy appearing, no acute distress and well developed Nutritional Appearance: well nourished Orientation/consciousness: patient oriented x3 Resp Effort & Inspection: normal respiratory effort, able to speak in complete sentences, no tracheal deviation and symmetric chest movement Auscultation: clear to auscultation bilaterally Cardio Rate: regular rate GI Inspection: Yes normal to inspection and No distended Palpation (GI): Soft to palpation, not firm, nontender and No hepatosplenomegaly present Auscultation: normal bowel sounds General: Yes no CVA tenderness Back/Spine/Pelvis Back: no CVA tenderness Skin General skin exam: elasticity normal, turgor normal and dry skin Neuro General: patient oriented x3 Psych Appearance: grossly normal Mental Status: mental status grossly normal Assessment & Plan Assessment & Plan (1) IBS (irritable bowel syndrome): Code(s): K58.9 - Irritable bowel syndrome, unspecified Category: Medical Qualifiers: Irritable bowel syndrome type: with both diarrhea and constipation Qualified Code(s): K58.2 - Mixed irritable bowel syndrome (2) Diarrhea: Code(s): R19.7 - Diarrhea, unspecified Qualifiers: Diarrhea type: functional diarrhea Qualified Code(s): K59.1 - Functional diarrhea (3) Epigastric pain: Code(s): R10.13 - Epigastric pain (4) Nausea: Code(s): R11.0 - Nausea (5) GERD (gastroesophageal reflux disease): Code(s): K21.9 - Gastro-esophageal reflux disease without esophagitis Qualifiers: Esophagitis presence: esophagitis presence not specified Qualified Code(s): K21.9 - Gastro-esophageal reflux disease without esophagitis Plan Patient continues to have occasional postprandial loose stools depending on what she eats. Patient tries to be careful. Tries not to eat out. Continues to have nausea and epigastric discomfort worse in the morning. Will change her PPI to Nexium daily and will add famotidine at bedtime. Patient will be sent for upper endoscopy and colonoscopy in the near future. Message sent to surgical schedulers to schedule that. Patient will return in April to discuss prep and to re-evaluate. Patient will call our office if she will continue to have symptoms or develop any other GI concerning symptoms. Patient is agreeable to plan of care and verbalizes understanding of instructions. She was given the opportunity to ask questions and all questions answered. Thank you for allowing me to participate in her care Medications: New famotidine (Pepcid) 20 mg PO BEDTIME 30 tabs 3RF K21.9 - Gastro-esophageal reflux disease without esophagitis esomeprazole magnesium (Nexium) 40 mg PO DAILY 30 caps 5RF K21.9 - Gastro-esophageal reflux disease without esophagitis Refilled dicyclomine 20 mg PO QID PRN 60 tabs 0RF abdominal pain ondansetron 4 mg PO Q8H 30 days PRN 30 tabs 0RF for nausea/vomiting R11.0 - Nausea Discontinued hydroxyzine HCl Discontinued Reason: Patient Completed Course 25 mg PO QID PRN 14 tabs 0RF itching acetazolamide Discontinued Reason: Patient no longer taking 250 mg PO BID 60 tabs 0RF pantoprazole take one tablet half an hour before breakfast Discontinued Reason: Doctor's Order 40 mg PO DAILY 90 tabs 2RF K21.9 - Gastro-esophageal reflux disease without esophagitis Coding Level of Care Code Est Pt Level 4 (94811) Diagnoses Irritable bowel syndrome with both constipation and diarrhea K58.2 Irritable bowel syndrome type: with both diarrhea and constipation Functional diarrhea K59.1 Diarrhea type: functional diarrhea Epigastric pain R10.13 Nausea R11.0 Gastroesophageal reflux disease, unspecified whether esophagitis present K21.9 Esophagitis presence: esophagitis presence not specified Time Spent (min) 40 Comment 25 minutes spent with patient and additional 15 minutes spent reviewing her records
[2024-01-24 13:06] VITALS: BMI 26.3
== END 2024-01-24 13:41 | disposition home or self-care (01) ==
PROVIDERS: PCP Internal Medicine Geriatric Medicine; Visit Provider Nurse Practitioner Family
DX: K58.2 Mixed irritable bowel syndrome (principal); K59.1 Functional diarrhea; R10.13 Epigastric pain; R11.0 Nausea; K21.9 Gastro-esophageal reflux disease without esophagitis
CPT/HCPCS: 99214

== ENCOUNTER → 2024-01-24 13:00 | Outpatient (BNVA) | payer MEDICAID, SELFPAY | PROVIDERS: PCP Internal Medicine Geriatric Medicine; Visit Provider Nurse Practitioner Family | DX: K58.2 Mixed irritable bowel syndrome (principal); K59.1 Functional diarrhea; K21.9 Gastro-esophageal reflux disease without esophagitis; R10.13 Epigastric pain; R11.0 Nausea; Z80.0 Family history of malignant neoplasm of digestive organs | CPT/HCPCS: 99212 ==

== ENCOUNTER 2024-04-29 10:37 | Day surgery (SDC) | payer MEDICAID, SELFPAY ==
--- NOTE | 2024-04-28 09:52 | P.CONAN_ITS ---
Documented by User: Sarah Bland NP 04/28/24 09:55 HPI - Anesthesia Eval Consult details Narrative: 44yo F for Upper Endoscopy and Colonoscopy PMF Active Problems Active Problems: All Active Problems Right hip pain (Acute) COVID-19 virus infection (Acute) Disc degeneration, lumbar (Acute) Spondylosis of cervical spine (Acute) Spondylosis of lumbar spine (Acute) Chronic pain syndrome (Acute) Panniculitis (Acute) History of sleeve gastrectomy (Acute) Preoperative examination (Acute) Shortness of breath (Acute) BMI 36.0-36.9,adult (Acute) History of sleeve gastrectomy (Acute) Body mass index (BMI) of 34.0 to 34.9 in adult (Acute) Splenic infarct (Acute) Abdominal pain (Acute) Body mass index (BMI) of 31.0 to 31.9 in adult (Acute) BMI 29.0-29.9,adult (Acute) Overweight (Acute) BMI 27.0-27.9,adult (Acute) IBS (irritable bowel syndrome) (Acute) Intestinal malabsorption following gastrectomy (Acute) Malabsorption due to intolerance, not elsewhere classified (Acute) Obesity (BMI 30-39.9) (Acute) Increased body mass index (BMI) (Acute) Past Medical History Medical History Disc degeneration, lumbar Spondylosis of cervical spine Spondylosis of lumbar spine Chronic pain syndrome Panniculitis Intestinal malabsorption following gastrectomy Hypocalcemia Hypoproteinemia Hypomagnesemia Diarrhea Odynophagia Elevated lipase Nausea Splenic infarction Constipation Dysphagia Malabsorption due to intolerance, not elsewhere classified Obesity (BMI 30-39.9) Hiatal hernia Increased body mass index (BMI) PONV (postoperative nausea and vomiting) Migraines Sleep apnea History of Crabtree's palsy Motion sickness Vertigo HTN (hypertension) TMJ (temporomandibular joint disorder) PTSD (post-traumatic stress disorder) Insomnia Fatty liver High cholesterol Degenerative disc disease Sciatica of left side Bursitis Arthritis Diverticular disease Scoliosis Pseudotumor cerebri GERD (gastroesophageal reflux disease) Endometriosis Chronic back pain Palpitations Anxiety Depression IBS (irritable bowel syndrome) Family History Family History Father No problems noted. Mother Heart disease Type 2 diabetes mellitus History of smoking Alcoholism COPD (chronic obstructive pulmonary disease) Hyperlipidemia Colon cancer Sister No problems noted. Sister No problems noted. Brother Arthritis Brother Arthritis Son Obesity Autism spectrum disorder Son Fibromyalgia Mood disorder Family history of problems with anesthesia: No Surgical History Surgical History Hx of colonoscopy History of esophagogastroduodenoscopy (EGD) History of repair of hiatal hernia History of sleeve gastrectomy History of tonsillectomy and adenoidectomy Hx of oophorectomy History of myringotomy History of laparoscopic cholecystectomy H/O unilateral oophorectomy S/P MALIKA (total abdominal hysterectomy) History of laparoscopy History of tubal ligation History of tonsillectomy History of Problems with Anesthesia: Yes Social History Social History Household Members: Children Housing: Apartment Are you a primary healthcare science specialist to a significant other at home: No Do you presently have visiting nurse or other home services: No Alcohol intake: never Comment: resting in bed with eyes closed Patient Tobacco Use Status: Current someday Tobacco user Tobacco use type: Cigarette Cigarettes Per Day: 3 Second Hand Smoke Exposure: No Use of substances other than those prescribed or required for medical reasons: Yes Substance Use Type: Marijuana Substance Use Frequency: Daily Have you been hit, kicked, punched, or otherwise hurt by someone within the past year? If so, by whom?: No Are you DNR?: No Advance Directives: No Advance Directives Information Provided: Yes Advance Directives on File: No Recently lost weight without trying: No Nutrition Risks: No Nutritional Risk Patient : No (tubal ligation, hysterectomy) service: No Current occupational status: unemployed 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, 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 Meds Allergies Allergy/AdvReac Type Severity Reaction Status Date / Time promethazine [From PHENERGAN] Allergy Intermediate PSYCHOSIS Verified 01/24/24 13:06 NSAIDS (Non-Steroidal Allergy Unknown Gastrointestinal Verified 01/24/24 13:06 Anti-Inflamma Upset [NSAIDS (NON-STEROIDAL ANTI-INFLAMMA] oxycodone [From PERCOCET] Allergy Unknown headache Verified 01/24/24 13:06 metoclopramide [From Reglan] AdvReac Intermediate PSYCHOSIS Verified 01/24/24 13:06 medical tape- tegaderm Allergy Intermediate Rash Uncoded 01/24/24 13:06 dermabond Allergy Blister Uncoded 01/24/24 13:06 Home Medications ?Medication ?Instructions ?Recorded ?Confirmed ?Last Taken ?Type sumatriptan succinate 100 mg 100 mg PO Q2-4H PRN Headache 01/21/20 06/13/23 Unknown History tablet (Imitrex) acetaminophen 325 mg tablet 650 mg PO Q6H PRN 06/12/23 06/13/23 Unknown History acetazolamide 125 mg tablet mg PO BID 06/12/23 06/13/23 Unknown History baclofen 10 mg tablet 10 mg PO TID 06/12/23 06/13/23 Unknown History estradiol 0.025 mg/24 hr 1 patch topical 2XW 06/12/23 06/13/23 Unknown History semiweekly transdermal patch hydrocodone 5 mg-acetaminophen 325 1 tab PO Q6H PRN severe pain 04/29/24 04/29/24 04/29/24 06:45 History mg tablet Assessment and Plan Assessment Anesthesia Assessment: Chart Reviewed Final Anesthetic Review Family History of Problems with Anesthesia: No History of Problems with Anesthesia: Yes Documented by User: Norma Bahena MD 04/29/24 11:48 PMFSH Past Medical History Medical History Disc degeneration, lumbar Spondylosis of cervical spine Spondylosis of lumbar spine Chronic pain syndrome Panniculitis Intestinal malabsorption following gastrectomy Hypocalcemia Hypoproteinemia Hypomagnesemia Diarrhea Odynophagia Elevated lipase Nausea Splenic infarction Constipation Dysphagia Malabsorption due to intolerance, not elsewhere classified Obesity (BMI 30-39.9) Hiatal hernia Increased body mass index (BMI) PONV (postoperative nausea and vomiting) Migraines Sleep apnea History of Crabtree's palsy Motion sickness Vertigo HTN (hypertension) TMJ (temporomandibular joint disorder) PTSD (post-traumatic stress disorder) Insomnia Fatty liver High cholesterol Degenerative disc disease Sciatica of left side Bursitis Arthritis Diverticular disease Scoliosis Pseudotumor cerebri GERD (gastroesophageal reflux disease) Endometriosis Chronic back pain Palpitations Anxiety Depression IBS (irritable bowel syndrome) Family History Family History Father No problems noted. Mother Heart disease Type 2 diabetes mellitus History of smoking Alcoholism COPD (chronic obstructive pulmonary disease) Hyperlipidemia Colon cancer Sister No problems noted. Sister No problems noted. Brother Arthritis Brother Arthritis Son Obesity Autism spectrum disorder Son Fibromyalgia Mood disorder Surgical History Surgical History Hx of colonoscopy History of esophagogastroduodenoscopy (EGD) History of repair of hiatal hernia History of sleeve gastrectomy History of tonsillectomy and adenoidectomy Hx of oophorectomy History of myringotomy History of laparoscopic cholecystectomy H/O unilateral oophorectomy S/P MALIKA (total abdominal hysterectomy) History of laparoscopy History of tubal ligation History of tonsillectomy History of Problems with Anesthesia: No Social History Social History Household Members: Children Housing: Apartment Are you a primary healthcare science specialist to a significant other at home: No Do you presently have visiting nurse or other home services: No Alcohol intake: never Comment: resting in bed with eyes closed Patient Tobacco Use Status: Current someday Tobacco user Tobacco use type: Cigarette Cigarettes Per Day: 3 Second Hand Smoke Exposure: No Use of substances other than those prescribed or required for medical reasons: Yes Substance Use Type: Marijuana Substance Use Frequency: Daily Have you been hit, kicked, punched, or otherwise hurt by someone within the past year? If so, by whom?: No Are you DNR?: No Advance Directives: No Advance Directives Information Provided: Yes Advance Directives on File: No Recently lost weight without trying: No Nutrition Risks: No Nutritional Risk Patient : No (tubal ligation, hysterectomy) service: No Current occupational status: unemployed 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, 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 Meds Allergies Allergy/AdvReac Type Severity Reaction Status Date / Time promethazine [From PHENERGAN] Allergy Intermediate PSYCHOSIS Verified 01/24/24 13:06 NSAIDS (Non-Steroidal Allergy Unknown Gastrointestinal Verified 01/24/24 13:06 Anti-Inflamma Upset [NSAIDS (NON-STEROIDAL ANTI-INFLAMMA] oxycodone [From PERCOCET] Allergy Unknown headache Verified 01/24/24 13:06 metoclopramide [From Reglan] AdvReac Intermediate PSYCHOSIS Verified 01/24/24 13:06 medical tape- tegaderm Allergy Intermediate Rash Uncoded 01/24/24 13:06 dermabond Allergy Blister Uncoded 01/24/24 13:06 Home Medications ?Medication ?Instructions ?Recorded ?Confirmed ?Last Taken ?Type sumatriptan succinate 100 mg 100 mg PO Q2-4H PRN Headache 01/21/20 06/13/23 Unknown History tablet (Imitrex) acetaminophen 325 mg tablet 650 mg PO Q6H PRN 06/12/23 06/13/23 Unknown History acetazolamide 125 mg tablet mg PO BID 06/12/23 06/13/23 Unknown History baclofen 10 mg tablet 10 mg PO TID 06/12/23 06/13/23 Unknown History estradiol 0.025 mg/24 hr 1 patch topical 2XW 06/12/23 06/13/23 Unknown History semiweekly transdermal patch hydrocodone 5 mg-acetaminophen 325 1 tab PO Q6H PRN severe pain 04/29/24 04/29/24 04/29/24 06:45 History mg tablet Exam Airway Mallampati Class: II TM Dist: >3cm Neck ROM: Full Loose/Missing/Broken Teeth: No Heart: RRR Lungs: CTA Assessment and Plan Assessment Anesthesia Assessment: Anesthesia Plan Discussed Final Anesthetic Review History of Problems with Anesthesia: No NPO: Yes ASA Class: II Final Preanesthetic Review: Meds/Allgs Chart Reviewed, Consent Obtained/Reviewed and Anes Risks/Benef Reviewed Patient Risk: Low Procedure Risk: Intermediate Anesthetic Plan Anesthetic Plan: MAC: Disposition: Standard PACU
[2024-04-29 10:57] VITALS: BMI 24.5
[2024-04-29 11:11] VITALS: BP 111/65; PULSE 62; RESP 16; TEMP 36.6; O2SAT 97
--- NOTE | 2024-04-29 11:16 | P.HPSUR_ITS ---
Pre-Procedural Eval Section A - 24 Hr Update-Section A only Date of Service: 04/29/24 Section B - Complete if H&P > 30 days Chief Complaint: diarrhea Relevant Family History (Specify if Yes): No Relevant Social History: Tobacco Use Present Medications: see Short Stay Collaborative assessment Medical History: Significant History (Disc degeneration, lumbar Spondylosis of cervical spine Spondylosis of lumbar spine Chronic pain syndrome Panniculitis Intestinal malabsorption following gastrectomy Hypocalcemia Hypoproteinemia Hypomagnesemia Diarrhea Odynophagia Elevated lipase Nausea Splenic infarction C onstipation Dysphagia Radha) History of Previous Operations: Relevant previous surgery/procedure and date(s) (Hx of colonoscopy History of esophagogastroduodenoscopy (EGD) History of repair of hiatal hernia History of sleeve gastrectomy History of tonsillectomy and adenoidectomy Hx of oophorectomy History of myringotomy History of laparoscopic cholecystectomy H/O unilateral oophorectomy S/P MALIKA (total abdom) Allergies: Allergies Allergy/AdvReac Type Severity Reaction Status Date / Time promethazine [From PHENERGAN] Allergy Intermediate PSYCHOSIS Verified 01/24/24 13:06 NSAIDS (Non-Steroidal Allergy Unknown Gastrointestinal Verified 01/24/24 13:06 Anti-Inflamma Upset [NSAIDS (NON-STEROIDAL ANTI-INFLAMMA] oxycodone [From PERCOCET] Allergy Unknown headache Verified 01/24/24 13:06 metoclopramide [From Reglan] AdvReac Intermediate PSYCHOSIS Verified 01/24/24 13:06 medical tape- tegaderm Allergy Intermediate Rash Uncoded 01/24/24 13:06 dermabond Allergy Blister Uncoded 01/24/24 13:06 Review of Systems Sugical H&P ROS: Negative: Constitution, Cardiovascular, Respiratory, Neurological, Psychiatric, Hem-Onc, Allergic/Immunologic, Gastrointestinal, Genitourinary, Musculoskeletal, Integumentary, Endocrine and Eyes/Ear s/Nose/Throat Exam Surgical H&P Exam: Normal: HEENT, Normal: Heart, Normal: Lungs, Normal: Extremities, Normal: Abdomen, Normal: Skin and Normal: Neurological Plan Diagnosis/Plan: Unchanged I have reviewed the history and physical and performed a pertinent physical examination on my patient. No changes have occurred unless specified. Time Spent With Patient Time: Total time managing care of this patient today ____ minutes.
[2024-04-29] MEDS: Lactated Ringers 1,000 ML 100 ML IVCONT (11:23)
--- NOTE | 2024-04-29 11:58 | P.OPN-COLO_ITS ---
Colonoscopy Operative Note Operative Note Date of Service: 04/29/24 Narrative: Operative Information Procedure Description: EGD, Colonoscopy Indication: abn bowel habit Anesthesia: MAC FLEXIBLE TRANSORAL UPPER GASTROINTESTINAL ENDOSCOPY AND COLONOSCOPY PROCEDURE NOTE UPPER ENDOSCOPY Consent: Indications for the procedure and potential complications of bleeding, perforation, reaction to medications and missed diagnosis were discussed with the patient and informed consent was obtained. Instrument: Olympus GIF H 190 J mid size upper endoscope Monitoring: Vital signs and clinical assessment, continuous EKG monitoring, Pulse oximetry, Carbon Dioxide monitoring and blood pressure monitoring were done throughout the procedure. Procedure: The patient was placed in the left lateral decubitis position and pre-procedure medications were administered and a bite block was placed. The endoscope was inserted into the mouth and advanced under direct vision to the third part of duodenum. A careful inspection was made as the upper endoscope was withdrawn including a retroflexed examination of the proximal stomach; Findings and interventions are described below. Findings: Larynx:normal Esophagus: GE junction at 40 cm, diaphragm hiatus at 40 cm, normal mucosa Stomach: sleeve gastrectomy noted Biopsies were obtained. Grade 2 flap valve on retroflexed examination of the cardia. bile acid refluxate noted with patchy erythema Duodenum: slightly atrophic appearing mucosa, bx taken Intervention: Biopsies as noted above, COLONOSCOPY Instrument: Olympus variable stiffness pediatric scope 190L Colonoscopy Monitoring: Vital signs and clinical assessment, continuous EKG monitoring, Pulse oximetry, Carbon Dioxide monitoring and blood pressure monitoring were done throughout the procedure. Colon withdrawal time was 11 minutes. Procedure: The patient was placed in the left lateral decubitis position and pre-procedure medications were administered. After a digital rectal examination of the ano-rectum, the video colonoscope was inserted into the rectum and advanced through the colon to the cecum/TI. The colonoscope was slowly withdrawn in a retrograde panoramic fashion and the colon mucosa was carefully examined including a retroflexed view of the rectum. Findings and interventions are described below. Procedure Difficulty:moderate Findings: Terminal Ileum-normal, bx taken Random colon bx taken Cecum:normal right sided retroflexion- normal Ascending Colon: few diverticula seen Transverse Colon -normal Descending Colon:normal Sigmoid Colon: mild diverticulosis Rectum: Retroflexion with small internal hemorrhoids, grade I Anorectum - normal Colon preparation: [place] Bowel Preparation Scale Right colon; 1-2 Transverse colon: 2- Left colon; 3 (0 = Unprepared colon segment with mucosa not seen due to solid stool that cannot be cleared. 1 = Portion of mucosa of the colon segment seen, but other areas of the colon segment not well seen due to staining, residual stool and/or opaque liquid. 2 = Minor amount of residual staining, small fragments of stool and/or opaque liquid, but mucosa of colon segment seen well. 3 = Entire mucosa of colon segment seen well with no residual staining, small fragments of stool or opaque liquid) Impression and Post Procedure Diagnosis: Endoscopy Findings: bile acid reflux gastritis possible enteropathy Colonoscopy Findings: diverticulosis internal hemorrhoids Plan: Await Pathology results Repeat Colonoscopy in 5 years due to areas of fair prep right side or earlier if clinically indicated High fiber diet leaflet avoid straining at stool, epsom salts and sitz bath, anusol supps or cream Above findings were reviewed with the patient and relevant handouts were provided if indicated.
[2024-04-29 12:02] VITALS: BP 107/54; PULSE 54; RESP 16; TEMP 36.1; O2SAT 98
[2024-04-29 12:05] VITALS: BP 110/66; PULSE 73; RESP 16; O2SAT 98
[2024-04-29 12:20] VITALS: BP 116/75; PULSE 72; RESP 16; O2SAT 98
== END 2024-04-29 12:52 | disposition home or self-care (01) ==
PROVIDERS: PCP Internal Medicine Geriatric Medicine; Visit Provider Internal Medicine Gastroenterology
PROC: (CPT 45380; principal; 2024-04-29 12:40)
DX: K57.30 Diverticulosis of large intestine without perforation or abscess without bleeding (principal); K64.0 First degree hemorrhoids; Z80.0 Family history of malignant neoplasm of digestive organs; R19.4 Change in bowel habit; K58.9 Irritable bowel syndrome, unspecified; K29.60 Other gastritis without bleeding; K22.2 Esophageal obstruction; K21.9 Gastro-esophageal reflux disease without esophagitis; I10 Essential (primary) hypertension; E78.5 Hyperlipidemia, unspecified; G89.4 Chronic pain syndrome; K76.0 Fatty (change of) liver, not elsewhere classified; F12.90 Cannabis use, unspecified, uncomplicated; G47.33 Obstructive sleep apnea (adult) (pediatric); Z99.89 Dependence on other enabling machines and devices; Z87.891 Personal history of nicotine dependence; Z90.3 Acquired absence of stomach [part of]; Z79.899 Other long term (current) drug therapy
CPT/HCPCS: 45380; 43239; 88305; 88313; 88342; J2250; J2704

== ENCOUNTER → 2024-04-29 10:37 | Outpatient (BNV) | payer MEDICAID, SELFPAY | PROVIDERS: PCP Internal Medicine Geriatric Medicine; Visit Provider Internal Medicine Gastroenterology | DX: R19.4 Change in bowel habit (principal); K57.90 Diverticulosis of intestine, part unspecified, without perforation or abscess without bleeding; K64.0 First degree hemorrhoids; K21.9 Gastro-esophageal reflux disease without esophagitis; K29.70 Gastritis, unspecified, without bleeding; Z90.3 Acquired absence of stomach [part of]; Z98.84 Bariatric surgery status | CPT/HCPCS: 43239; 45380 ==

== ENCOUNTER 2024-05-05 10:11 | Outpatient (AMB) | payer MEDICAID, SELFPAY ==
--- NOTE | 2024-05-05 10:13 | A.OFFVIS_ITS ---
Vital Signs 05/05/24 10:15 Height 5 ft 6 in Weight 156 lb BMI 25.2 BP 116/76 Blood Pressure Location Rt brachial Position Sitting Pulse 72 Pulse Source Pulse Oximeter Pulse Oximetry (%) 99 Oxygen Delivery Method Room Air Intake Visit Reasons: s/p EGD+[place]. Intake Note: ESTABLISHED PATIENT for s/p colo+egd Chief Complaint; Increased frequency N+V, diarrhea, bloating, RLQ pain (generalized abd pain as well). Increased dependency on zofran. Would like to discuss poss. side effects of dicyclomine. Denies any other concerns. Dialysis Equipment Technician Required: No Accompanied by: Self / Same As Patient Allergies adhesive Allergy (Intermediate, Verified 05/05/24 10:14) Rash promethazine [From PHENERGAN] Allergy (Intermediate, Verified 05/05/24 10:14) PSYCHOSIS NSAIDS (Non-Steroidal Anti-Inflamma [NSAIDS (NON-STEROIDAL ANTI-INFLAMMA] Allergy (Unknown, Verified 05/05/24 10:14) Gastrointestinal Upset oxycodone [From PERCOCET] Allergy (Unknown, Verified 05/05/24 10:14) headache metoclopramide [From Reglan] Adverse Reaction (Intermediate, Verified 05/05/24 10:14) PSYCHOSIS medical tape- tegaderm Allergy (Intermediate, Uncoded 05/05/24 10:14) Rash dermabond Allergy (Uncoded 05/05/24 10:14) Blister HPI HPI s/p EGD+P[place].: Details: LAST VISIT: IBS (irritable bowel syndrome) Diarrhea Epigastric pain Nausea GERD (gastroesophageal reflux disease) Plan Patient continues to have occasional postprandial loose stools depending on what she eats. Patient tries to be careful. Tries not to eat out. Continues to have nausea and epigastric discomfort worse in the morning. Will change her PPI to Nexium daily and will add famotidine at bedtime. Patient will be sent for upper endoscopy and colonoscopy in the near future. Message sent to surgical schedulers to schedule that. Patient will return in April to discuss prep and to re-evaluate. Patient will call our office if she will continue to have symptoms or develop any other GI concerning symptoms. Patient is agreeable to plan of care and verbalizes understanding of instructions. She was given the opportunity to ask questions and all questions answered. ? Thank you for allowing me to participate in her care Medications New famotidine (Pepcid) 20 mg PO BEDTIME 30 tabs 3RF K21.9 esomeprazole magnesium (Nexium) 40 mg PO DAILY 30 caps 5RF K21.9 Refilled dicyclomine 20 mg PO QID PRN 60 tabs 0RF abdominal pain ondansetron 4 mg PO Q8H 30 days PRN 30 tabs 0RF for nausea/vomiting R11.0 Discontinued hydroxyzine HCl Discontinued Reason: Patient Completed Course 25 mg PO QID PRN 14 tabs 0RF itching acetazolamide Discontinued Reason: Patient no longer taking 250 mg PO BID 60 tabs 0RF pantoprazole take one tablet half an hour before breakfast Discontinued Reason: Doctor's Order 40 mg PO DAILY 90 tabs 2RF K21.9 UPPER ENDOSCOPY AND COLONOSCOPY Findings: Larynx:normal Esophagus: GE junction at 40 cm, diaphragm hiatus at 40 cm, normal mucosa Stomach: sleeve gastrectomy noted Biopsies were obtained. Grade 2 flap valve on retroflexed examination of the cardia. bile acid refluxate noted with patchy erythema Duodenum: slightly atrophic appearing mucosa, bx taken Intervention: Biopsies as noted above, COLONOSCOPY Instrument: Olympus variable stiffness pediatric scope 190L Colonoscopy Monitoring: Vital signs and clinical assessment, continuous EKG monitoring, Pulse oximetry, Carbon Dioxide monitoring and blood pressure monitoring were done throughout the procedure. Colon withdrawal time was 11 minutes. Procedure: The patient was placed in the left lateral decubitis position and pre-procedure medications were administered. After a digital rectal examination of the ano-rectum, the video colonoscope was inserted into the rectum and advanced through the colon to the cecum/TI. The colonoscope was slowly withdrawn in a retrograde panoramic fashion and the colon mucosa was carefully examined including a retroflexed view of the rectum. Findings and interventions are described below. Procedure Difficulty:moderate Findings: Terminal Ileum-normal, bx taken Random colon bx taken Cecum:normal right sided retroflexion- normal Ascending Colon: few diverticula seen Transverse Colon -normal Descending Colon:normal Sigmoid Colon: mild diverticulosis Rectum: Retroflexion with small internal hemorrhoids, grade I Anorectum - normal Colon preparation: [place] Bowel Preparation Scale Right colon; 1-2 Transverse colon: 2- Left colon; 3 (0 = Unprepared colon segment with mucosa not seen due to solid stool that cannot be cleared. 1 = Portion of mucosa of the colon segment seen, but other areas of the colon segment not well seen due to staining, residual stool and/or opaque liquid. 2 = Minor amount of residual staining, small fragments of stool and/or opaque liquid, but mucosa of colon segment seen well. 3 = Entire mucosa of colon segment seen well with no residual staining, small fragments of stool or opaque liquid) Impression and Post Procedure Diagnosis: Endoscopy Findings: bile acid reflux gastritis possible enteropathy Colonoscopy Findings: diverticulosis internal hemorrhoids Plan: Await Pathology results Repeat Colonoscopy in 5 years due to areas of fair prep right side or earlier if clinically indicated High fiber diet leaflet avoid straining at stool, epsom salts and sitz bath, anusol supps or cream ADDENDUM discussed with pt, can try urosdiol or bile acid binder like welchol --can also offer rigid balloon dilation of the sleeve gastrectomy if sx are persistent, robbie martell await bx PATHOLOGY RESULTS: Addendum #1 Immunostain for H. pylori on B is negative. Additional level with AB/PAS on C is negative for intestinal metaplasia. Controls stain appropriately. Electronically Signed By: Yulia Langford 05/04/24 1142 Diagnosis A. Duodenum, biopsy: Duodenal mucosa with preserved villi and no specific change. B. Stomach, biopsy: Gastric antral and body mucosa with reactive changes and minimal chronic inactive gastritis; negative for intestinal metaplasia and dysplasia. C. Gastroesophageal junction, biopsy: Squamocolumnar mucosa with mild chronic inflammation; no intestinal metaplasia seen on initial levels; negative for dysplasia. D. Esophagus, distal, biopsy: Squamous mucosa with no specific change; no columnar mucosa present. E. Terminal ileum, biopsy: Ileal mucosa with no specific change. F. Colon, random, biopsy: Colonic mucosa with no specific change; no evidence of microscopic colitis. Comment: (B): Immunostain for H. pylori pending; addendum to follow. (C): Additional level with AB/PAS stain pending; addendum to follow TODAY'S VISIT: Patient is here today for follow-up and to discuss upper endoscopy and colonoscopy results. Patient denies any ill effects from the prep, anesthesia or procedure itself. Patient continues to have postprandial nausea and occasional vomiting. Patient reports fullness, however patient is status post gastric bypass. She is taking Zofran for nausea, what she reports to be helpful. Patient reports frequent right lower quadrant pain. Colonoscopy showed no polyps, patient had suboptimal prep with right side of her colon still not emptying. Patient admits to be taking dicyclomine 20 mg and sometimes when her pain is severe she will take 2 capsules. Patient will have frequent postprandial loose stools. Patient denies melena, hematochezia. Denies occasional dyspepsia without dysphagia or odynophagia. Upper endoscopy showed bile acid reflux and mild inactive chronic gastritis. Patient denies having acid reflux, reports epigastric pain postprandially where she has nausea and occasionally she is vomiting. Recommendation for colonoscopy was 5 years due to suboptimal prep. [facility] Medical History (Updated 05/05/24 @ 11:[address] [facility]) Bile acid esophageal reflux Disc degeneration, lumbar Spondylosis of cervical spine Spondylosis of lumbar spine Chronic pain syndrome Panniculitis Intestinal malabsorption following gastrectomy Hypocalcemia Hypoproteinemia Hypomagnesemia Diarrhea Odynophagia Elevated lipase Nausea Splenic infarction Constipation Dysphagia Malabsorption due to intolerance, not elsewhere classified Obesity (BMI 30-39.9) Hiatal hernia Increased body mass index (BMI) PONV (postoperative nausea and vomiting) Migraines Sleep apnea History of Crabtree's palsy Motion sickness Vertigo HTN (hypertension) TMJ (temporomandibular joint disorder) PTSD (post-traumatic stress disorder) Insomnia Fatty liver High cholesterol Degenerative disc disease Sciatica of left side Bursitis Arthritis Diverticular disease Scoliosis Pseudotumor cerebri GERD (gastroesophageal reflux disease) Endometriosis Chronic back pain Palpitations Anxiety Depression IBS (irritable bowel syndrome) Surgical History Hx of colonoscopy History of esophagogastroduodenoscopy (EGD) History of repair of hiatal hernia History of sleeve gastrectomy History of tonsillectomy and adenoidectomy Hx of oophorectomy History of myringotomy History of laparoscopic cholecystectomy H/O unilateral oophorectomy S/P MALIKA (total abdominal hysterectomy) History of laparoscopy History of tubal ligation History of tonsillectomy Family History Father No problems noted. Mother Heart disease Type 2 diabetes mellitus History of smoking Alcoholism COPD (chronic obstructive pulmonary disease) Hyperlipidemia Colon cancer Sister No problems noted. Sister No problems noted. Brother Arthritis Brother Arthritis Son Obesity Autism spectrum disorder Son Fibromyalgia Mood disorder Social History Household Members: Children Housing: Apartment Are you a primary care center manager to a significant other at home: No Do you presently have visiting nurse or other home services: No Alcohol intake: never Comment: resting in bed with eyes closed Patient Tobacco Use Status: Current someday Tobacco user Tobacco use type: Cigarette Cigarettes Per Day: 3 Second Hand Smoke Exposure: No Substance Use Type: Marijuana service: No Current occupational status: unemployed 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, 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 Review of Systems Const Denies weight gain and Denies weight loss ENT Reports no additional complaints, Denies dysphagia and Denies odynophagia Card Reports no additional complaints Resp Reports no additional complaints GI Reports abdominal pain (RLQ), Denies belching, Denies melena, Denies bloating, Denies change in bowel habits, Denies constipation, Denies dysphagia, Denies excessive flatus, Reports dyspepsia, Reports heartburn, Denies diarrhea, Reports loose stools, Reports nausea, Denies odynophagia and Denies vomiting Reports no additional complaints Musc Reports no additional complaints Neuro Reports no additional complaints Psych Reports no additional complaints Endo Reports no additional complaints Physical Exam Vital Signs: Last Vital Signs Pulse 72 05/05/24 10:15 BP 116/76 05/05/24 10:15 Pulse Ox 99 05/05/24 10:15 Oxygen Delivery Method Room Air 05/05/24 10:15 BMI result Body Mass Index 25.2 Const General: healthy appearing, no acute distress and well developed Nutritional Appearance: well nourished Orientation/consciousness: patient oriented x3 Resp Effort & Inspection: normal respiratory effort, able to speak in complete sentences, no tracheal deviation and symmetric chest movement Auscultation: clear to auscultation bilaterally Cardio Rate: regular rate GI Inspection: Yes normal to inspection and No distended Palpation (GI): Soft to palpation, not firm, nontender and No hepatosplenomegaly present Auscultation: normal bowel sounds General: Yes no CVA tenderness Back/Spine/Pelvis Back: no CVA tenderness Skin General skin exam: elasticity normal, turgor normal and dry skin Neuro General: patient oriented x3 Psych Appearance: grossly normal Mental Status: mental status grossly normal Assessment & Plan Assessment & Plan (1) IBS (irritable bowel syndrome): Code(s): K58.9 - Irritable bowel syndrome, unspecified Category: Medical Qualifiers: Irritable bowel syndrome type: with both diarrhea and constipation Qualified Code(s): K58.2 - Mixed irritable bowel syndrome (2) Bile acid esophageal reflux: Code(s): K21.9 - Gastro-esophageal reflux disease without esophagitis Category: Medical (3) Diarrhea: Code(s): R19.7 - Diarrhea, unspecified Qualifiers: Diarrhea type: functional diarrhea Qualified Code(s): K59.1 - Functional diarrhea (4) Epigastric pain: Code(s): R10.13 - Epigastric pain (5) Nausea: Code(s): R11.0 - Nausea (6) GERD (gastroesophageal reflux disease): Code(s): K21.9 - Gastro-esophageal reflux disease without esophagitis Qualifiers: Esophagitis presence: without esophagitis Qualified Code(s): K21.9 - Gastro-esophageal reflux disease without esophagitis Plan Patient will stop taking 20 mg of dicyclomine and will try 10 mg instead as needed. Citrucel every morning and Dulcolax tablets at night time. Increase fiber intake. Will start patient on well call for bile reflux and she can hold off on taking PPI and H2 molly for now. Patient will call us in 2 weeks to report her symptoms. Lab work today, vitamin B12, folate, vitamin-D level as well as thyroid study and liver panel. Continue avoiding dietary triggers, avoid late night snacking. Patient will continue follow the diet that we discussed in the past. Patient does have FODMAP list with food recommended and food to avoid at home. Follow-up in 2 months. Patient is agreeable to current plan of care and verbalizes understanding of instructions. She was given the opportunity to ask questions and all questions answered. Thank you for allowing me to participate in her care Orders: Orders Vitamin B12 and Folate Today R19.7 - Diarrhea, unspecified Liver Panel Today R74.01 - Elevation of levels of liver transaminase levels Vitamin D 25-OH (D2 and D3) Today E55.9 - Vitamin D deficiency, unspecified TSH reflex Free T4 Today K59.00 - Constipation, unspecified Medications: New dicyclomine 10 mg PO BID PRN 90 caps 2RF abdominal discomfort K58.9 - Irritable bowel syndrome, unspecified methylcellulose (laxative) (Citrucel) take it with full glass of water 500 mg PO DAILY 90 tabs 2RF K59.00 - Constipation, unspecified colesevelam (WelChol) 1,250 mg (2 x 625 mg) PO BID 120 tabs 2RF Refilled ondansetron 4 mg PO Q8H 30 days PRN 30 tabs 0RF for nausea/vomiting R11.0 - Nausea Discontinued dicyclomine Discontinued Reason: Doctor's Order 20 mg PO QID PRN 60 tabs 0RF abdominal pain Coding Level of Care Code Est Pt Level 4 (52100) Complex EM visit Add On G2211 Diagnoses Irritable bowel syndrome with both constipation and diarrhea K58.2 Irritable bowel syndrome type: with both diarrhea and constipation Bile acid esophageal reflux K21.9 Functional diarrhea K59.1 Diarrhea type: functional diarrhea Epigastric pain R10.13 Nausea R11.0 Gastroesophageal reflux disease without esophagitis K21.9 Esophagitis presence: without esophagitis Time Spent (min) 35 Comment 20 minutes spent with patient and additional 15 minutes spent reviewing her records
[2024-05-05 10:15] VITALS: BP 116/76; PULSE 72; O2SAT 99; BMI 25.2
--- OUTSIDE RECORDS SUMMARY | 2024-05-05 11:01 | XMS_ITS | Encounter Summary ---
Author Organization [employer] Address [address] [facility] [address] [place] [address] Care Team Providers Care Feedmobile Driver Name Role Phone Name, Gabriel ADAME Primary Care Provider [phone] Reason for Visit * Reason Onset Date Comments Medication Question 04/24/2024 Med Refill 04/24/2024 Encounter Details Date Type Department Care Team ([facility] st Contact Info) Description 04/24/2024 Refill [facility] [address] [place], [place] [phone] Name, MD Gabriel [address] [place] [address] Chronic low back pain with sciatica, sciatica laterality unspecified, unspecified back pain laterality Social History Tobacco Use Types Packs/Day Years Used Date Smoking Tobacco: Former Cigarettes Smokeless Tobacco: Never Alcohol Use Standard Drinks/Week Comments Never 0 (1 standard drink = 0.6 oz pur e alcohol) Depression Answer Date Recorded Patient Health Questionnaire-9 Score 11 07/29/2023 Patient Health Questionnaire-9 Score 11 07/29/2023 Last PHQ-9: Questionnaire Data Not on file 0 07/29/2023 Housing Stability Answer Date Recorded What is your housing situation today? I have evaristo long 07/29/[address] you li ve. Do you have problems with any of the following? None of the above 07/29/2023 Food Insecurity Answer Date Recorded Within the past 12 months, y ou worried that your food would run out before you got money to buy more: Never True 07/29/2023 Within the past 12 months,th e food you bought just didn't last and you didn't have enough money to get more: Never True Transportation Answer Date Recorded In the past 12 months, has l ack of transportation kept you from medical appts, meetings, work or from getting things needed for daily living? Yes, it has kept me from medical appointments or getting medications. 07/29/2023 Utilities Answer Date Recorded In the past 12 months, has t he electric, gas, oil or water company threatened to shut off services in your home? No 07/29/2023 Depression Answer Date Recorded Patient Health Questionnaire-2 Score 6 07/29/2023 Comments Unknown Sex and Gender Information Value Date Recorded Sex Assigned at Female 02/05/2022 10:17 AM EDT Legal Sex Female 10:17 AM EDT Gender Identity Female 02/05/2022 10:17 AM EDT Sexual Orientation Straight 02/05/2022 10 :17 AM EDT documented as of this encounter Miscellaneous Notes * Telephone Encounter - Marilu Hector RN - 04/24/2024 9:41 AM EST Pt scheduled for chronic pain group 06/02/24 @ 11am. TC to [facility], spoke with Ayala, requested she cancel RX for Vicodin for 04/25/24. * Telephone Encounter - Laura Shaw - 04/24/2024 9:34 AM EST Tc from pt requesting to speak to COMMUNITY RELATIONS REPRESENTATIVE nurse Marilu regarding script HYDROcodone-acetaminophen ([place]) 5-325 MG tablet Contact pt at [phone] documented in this encounter Plan of Treatment Upcoming Encounters Date Type Department Care Team (Late st Contact Info) Description 06/02/2024 9:45 AM EST Office Visit [facility] [address] [place] [address] 06/24/2024 2:45 PM EDT Office Visit [facility] [address] [place] [address] Name, MD Gabriel [address] [place] [phone] documented as of this encounter Visit Diagnoses Diagnosis Chronic low back pain with sciatica, sciatica laterality unspecified, unspecified back pain laterality documented in this encounter Additional Health Concerns Assessment Noted Time PHQ-9 Depression Total Score: 11 024 11:18 AM EDT documented as of this encounter Care Teams Feedmobile Driver Relationship Specialty Start Date End Date Name, MD Gabriel [address] [place] [address] PCP - General Family Medicine 09/18/18 documented as of this encounter
--- OUTSIDE RECORDS SUMMARY | 2024-05-05 11:01 | XMS_ITS | Encounter Summary ---
Author Organization [employer] Address [address] [facility] [address] [place] [address] Care Team Providers Care Helpdesk Specialist Name Role Phone Name, Gabriel ADAME Primary Care Provider [phone] Reason for Visit * Reason Onset Date Comments Med Refill 04/17/2024 Encounter Details Date Type Department Care Team ([facility] st Contact Info) Description 04/17/2024 Telephone [facility] [address] [place], [place] [phone] Name, MD Gabriel [address] [place] [address] Med Refill Social History Tobacco Use Types Packs/Day Years [...] encounter Miscellaneous Notes * Telephone Encounter - Samantha Sanches LPN - 04/17/2024 3:11 PM EST Medication was sent to [facility] #[id number] on 04/16/24. * Telephone Encounter - Britany Ellison - 04/17/2024 3:08 PM EST TC from pt requesting medication refill. Medications needing refill : HYDROcodone-acetaminophen ([place]) 5-325 MG tablet To be sent to: [facility][id number] documented in this encounter Plan of Treatment Upcoming Encounters Date Type Department Care Team (Late st Contact Info) Description 06/02/2024 9:45 AM EST Office Visit [facility] [address] [place] [phone] 06/24/2024 2:45 PM EDT Office Visit [facility] [address] [place] [phone] Name, MD Gabriel [address] [place] [phone] documented as of this encounter Visit Diagnoses Not on filedocumented in this encounter Additional Health Concerns Assessment Noted Time PHQ-9 Depression Total Score: 11 024 11:18 AM EDT documented as of this encounter Care Teams Helpdesk Specialist Relationship Specialty Start Date End Date Name, MD Gabriel [address] [place] [address] PCP - General Family Medicine 09/18/18 documented as of this encounter
--- OUTSIDE RECORDS SUMMARY | 2024-05-05 11:01 | XMS_ITS | Encounter Summary ---
Author Organization [employer] Address [address] [facility] [address] [place] [address] Care Team Providers Care Biometric Screener Name Role Phone Name, Gabriel ADAME Primary Care Provider [phone] Reason for Visit * Reason Onset Date Comments Results 08/15/2023 Encounter Details Date Type Department Care Team ([facility] st Contact Info) Description 08/15/2023 Telephone [facility] [address] [place] [address] Name, MD Gabriel [address] [place], [place] [phone] Results Social History Tobacco Use Types Packs/Day Years [...] encounter Miscellaneous Notes * Telephone Encounter - James Childers RN - 08/16/2023 11:51 AM EDT Return T?C to pt. For below message, pt. States her pain is not going away. Looking for something Strong for pain. Pt. Also looking for MRI result. MRI result is in pt.'s chart. Pt. Also advised to come to walk in [facility] or go to nearest ED if pain is increasing or any new symptoms. Please review and advise. * Telephone Encounter - James Childers RN - 08/16/2023 11:37 AM EDT T/C to pt for further triage and to schedule apt. No answer, Mail box is full not able to LVM. * Telephone Encounter - Bora Chicas - 08/16/2023 11:21 AM EDT Tc from pt stating that she received through My chart today in the morning. Pt states she is in a lot of pain and medication is not working . * Telephone Encounter - James Childers RN - 08/15/2023 2:12 PM EDT T/C to pt. To inform that MRI result is not in system, will contact pt. When it will be available. No answer. Not able to LVM. * Telephone Encounter - Puja Thomason - 08/15/2023 10:39 AM EDT Tc from pt requesting MRI results, states [place] [facility] [place]. Please contact at [phone] documented in this encounter Plan of Treatment Upcoming Encounters Date Type Department Care Team (Late st Contact Info) Description 06/02/2024 9:45 AM EST Office Visit [address] [phone] 06/24/2024 2:45 PM EDT Office Visit [address] [address] Name, MD Gabriel [address] [place] [phone] documented as of this encounter Visit Diagnoses Not on filedocumented in this encounter Additional Health Concerns Assessment Noted Time PHQ-9 Depression Total Score: 11 024 11:18 AM EDT documented as of this encounter Care Teams Biometric Screener Relationship Specialty Start Date End Date Name, MD Gabriel [address] [place] [phone] PCP - General Family Medicine 09/18/18 documented as of this encounter
--- OUTSIDE RECORDS SUMMARY | 2024-05-05 11:01 | XMS_ITS | Encounter Summary ---
Author Organization [employer] Address [address] [facility] 7t [place] [address] Care Team Providers Care Animal Care Specialist Name Role Phone Name, Gabriel ADAME Primary Care Provider [phone] Reason for Visit * Reason Onset Date Comments Appointment Request 04/20/2024 Encounter Details Date Type Department Care Team ([facility] st Contact Info) Description 04/20/2024 Telephone [facility]INE [address] [place], [place] [phone] Name, MD Gabriel [address] [place], [place] [phone] Appointment Request Social History Tobacco Use Types Packs/Day Years [...] encounter Miscellaneous Notes * Telephone Encounter - Laura Shaw - 04/20/2024 10:51 AM EST Tc from pt requesting to r/s PE appointment. Contact pt at [phone] documented in this encounter Plan of Treatment Upcoming Encounters Date Type Department Care Team (Late st Contact Info) Description 06/02/2024 9:45 AM EST Office Visit [facility] [address] [place] [address] 06/24/2024 2:45 PM EDT Office Visit [facility] [address] [place] [address] Name, MD Gabriel [address] [place] [address] documented as of this encounter Visit Diagnoses Not on filedocumented in this encounter Additional Health Concerns Assessment Noted Time PHQ-9 Depression Total Score: 11 024 11:18 AM EDT documented as of this encounter Care Teams Animal Care Specialist Relationship Specialty Start Date End Date Name, MD Gabriel [address] [place] [address] PCP - General Family Medicine 09/18/18 documented as of this encounter
--- OUTSIDE RECORDS SUMMARY | 2024-05-05 11:01 | XMS_ITS | Encounter Summary ---
Author Organization [employer] Address [address] [facility] 7t [place] [address] Care Team Providers Care Informatica Name Role Phone Name, Gabriel ADAME Primary Care Provider [phone] Reason for Visit * Reason Onset Date Comments Med Refill 04/20/2024 Needs to schedule HOSPITAL MANAGER/Chronic Pain group appt Encounter Details Date Type Department Care Team (Late st Contact Info) Description 04/20/2024 Refill [facility] MEDICINE [address], [place] [phone] Name, MD Gabriel [address] [place] [address] Chronic low back pain with sciatica, sciatica [...] Telephone Encounter - Marilu Hector RN - 04/20/2024 11:02 AM EST Pt needs to schedule HOSPITAL MANAGER or chronic pain group appt. TC to patient, no answer. VM not setup, unable to leave message. * Telephone Encounter - Laura Shaw - 04/20/2024 10:52 AM EST TC from pt requesting medication refill. Medications needing refill : HYDROcodone-acetaminophen ([place]) 5-325 MG tablet To be sent to: [id number] - [place] - [address] [facility] documented in this encounter Plan of Treatment Upcoming Encounters Date Type Department Care Team ([facility] st Contact Info) Description 06/02/2024 9:45 AM EST Office Visit [facility] MEDICINE [address] [place] [address] 06/24/2024 2:45 PM EDT Office Visit [facility] MEDICINE [address] [place] [address] Name, MD Gabriel [address] [place] [address] documented as of this encounter Visit Diagnoses Diagnosis Chronic low back pain with sciatica, sciatica laterality unspecified, unspecified back pain laterality documented in this encounter Additional Health Concerns Assessment Noted Time PHQ-9 Depression Total Score: 11 024 11:18 AM EDT documented as of this encounter Care Teams Informatica Relationship Specialty Start Date End Date Name, MD Gabriel [address] [place] [address] PCP - General Family Medicine 09/18/18 documented as of this encounter
--- OUTSIDE RECORDS SUMMARY | 2024-05-05 11:02 | XMS_ITS | Encounter Summary ---
Author Organization [employer] Address [address] [facility] 7t [place] [address] Care Team Providers Care Continuous Yarn Dyeing Machine Operator Name Role Phone Name, Gabriel ADAME Primary Care Provider [phone] Reason for Visit * Reason Comments Med Refill Encounter Details Date Type Department Care Team ([facility] st Contact Info) Description 04/24/2024 Refill [facility] MEDICINE [address] [place], [place] [phone] Name, MD Gabriel [address] [place] [address] IIH (idiopathic intracranial hypertension) Social History Tobacco Use Types Packs/Day Years [...] AM EDT documented as of this encounter Plan of Treatment Upcoming Encounters Date Type Department Care Team (Late st Contact Info) Description 06/02/2024 9:45 AM EST Office Visit [address] [address] 06/24/2024 2:45 PM EDT Office Visit [address] [address] NameGabriel MD [address] [place] [address] documented as of this encounter Visit Diagnoses Diagnosis IIH (idiopathic intracranial hypertension) Benign intracranial hypertension documented in this encounter Additional Health Concerns Assessment Noted Time PHQ-9 Depression Total Score: 11 024 11:18 AM EDT documented as of this encounter Care Teams Continuous Yarn Dyeing Machine Operator Relationship Specialty Start Date End Date NameGabriel MD [address] [place] [address] PCP - General Family Medicine 09/18/18 documented as of this encounter
--- OUTSIDE RECORDS SUMMARY | 2024-05-05 11:02 | XMS_ITS | Encounter Summary ---
Author Organization [employer] Address [address] [facility] 7t [place] [address] Care Team Providers Care Zinc Plate Grainer Name Role Phone Name, Gabriel ADAME Primary Care Provider [phone] Reason for Visit * Reason Onset Date Comments Nurse Triage 04/09/2024 Encounter Details Date Type Department Care Team ([facility] st Contact Info) Description 04/09/2024 Telephone [facility] MEDICINE [address] [place], [place] [phone] Name, MD Gabriel [address] [place], [place] [phone] Nurse Triage Social History Tobacco Use Types Packs/Day Years [...] encounter Miscellaneous Notes * Telephone Encounter - Carol Walton RN - 04/09/2024 11:45 AM EST Per chart review, pt has dx of migraine headache. Rx for Tylenol, ibuprofen, sumatriptan in med hx. Call returned to Irena Wolf to triage below. Reports onset of headache today. Pt having ear congestion on right side. Per pt having bilateral eye and blurry vision. No vomiting, CP or SOB. Mild nausea. 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 Pt used OTC tylenol with mild relief. Pt advised of disposition, agrees to seek either WIC today or ER for severe pain. Reviewed WIC operating hours and that wait times vary. Protocol Used: Headache (Adult) Protocol-Based Disposition: Go to ED/UCC Now (or to Office with PCP Approval) Positive Triage Question: * Loss of vision or double vision (Exception: Same as previously diagnosed migraines.) * All higher-acuity triage questions were negative Care Advice Discussed: * Reassurance and Education - Migraine Headache * Pain Medicine for Migraine * Cold Pack for Headache * Reasons To Call Back - You become worse * Telephone Encounter - Marleny Ortiz - 04/09/2024 11:41 AM EST Symptoms: Headache, Vision Loss or Change Outcome: Schedule an urgent appointment (within 1 hour) or talk to a nurse or provider soon Reason: Getting worse The caller accepted this outcome. Please contact pt documented in this encounter Plan of Treatment Upcoming Encounters Date Type Department Care Team ([facility] st Contact Info) Description 06/02/2024 9:45 AM EST Office Visit [address] [address] 06/24/2024 2:45 PM EDT Office Visit [address] [address] Name, MD Gabriel [address] [place] [address] documented as of this encounter Visit Diagnoses Not on filedocumented in this encounter Additional Health Concerns Assessment Noted Time PHQ-9 Depression Total Score: 11 024 11:18 AM EDT documented as of this encounter Care Teams Zinc Plate Grainer Relationship Specialty Start Date End Date Gabriel Vaughan MD [address] [place] [address] PCP - General Family Medicine 09/18/18 documented as of this encounter
--- OUTSIDE RECORDS SUMMARY | 2024-05-05 11:02 | XMS_ITS | Patient Health Record ---
Author Organization [facility] Address [address] [address] Care Team Providers Care Overhead Cleaner Name Role Phone Vaibhav Page MD, Forrest Unavailable Shanna Hall Unavailable Unavailable Reason For Referral No Information Medications Medication SIG (Take, Route, Frequency, Duration) Notes Start Date End Date Status buspirone 0 Source DrugName : buspirone; Prescribed by : ABY ASHBYG : TK 1 T PO BID FOR 10 DAYS 0 Active phenazopyridine 0 Source DrugName : phenazopyridine; Prescribed by : EVANGELINA LALA : TK 1 T PO TID AFTER MEALS 0 Active Ibuprofen 0 Source DrugName : ibuprofen; Prescribed by : SIG : 0 Active Dilaudid 0 Source DrugName : Dilaudid; Prescribed by : SIG : Take 1 tablet by mouth every four hours as needed 0 Active Questran Light 0 Source DrugName : Questran Light; Prescribed by : SIG : 04/13/2016 0 Active Suprep Bowel Prep Kit 17.5-3.13-1.6 GM/177ML Oral 0 Source DrugName : Suprep Bowel Prep Kit; Prescribed by : SIG : as directed 11/07/2017 0 Active nitrofurantoin monohyd/m-cryst 0 Source DrugName : nitrofurantoin monohyd/m-cryst; Prescribed by : JOEL BROUSSARD : TAKE ONE CAPSULE BY MOUTH EVERY 12 HOURS WITH FOOD UNTIL ALL TAKEN 0 Active Hydrocodone-Acetamino phen 0 Source DrugName : hydrocodone-acetamino phen; Prescribed by : SIG : Take 1 tablet by mouth twice a day as needed 0 Active Augmentin 0 Source DrugName : Augmentin; Prescribed by : SIG : Take tablet by mouth twice a day for 10 days 06/03/2017 0 Active oxycodone 0 Source DrugName : oxycodone; Prescribed by : SIG : 0 Active levoFLOXacin 750 MG Oral 0 Source DrugN chuck : levofloxacin; Prescribed by : SIG : 0 Active cyclobenzaprine 0 Source DrugName : cyclobenzaprine; Prescribed by : ABY MEDEROS : TK 1 T PO BID 0 Active cholecalciferol (vitamin D3) 0 Source DrugName : cholecalciferol (vitamin D3); Prescribed by : SHANNA CALHOUN : TK 1 C PO WEEKLY UTD 0 Active Problems Problem Type SNOMED Code ICD Code Onset Dates Problem Status W/U Status Risk Notes Problem Epigastric pain (84403329) Epigastric pain (R10.13) 2013 Active confirmed PT502-Knzivvsqw c pain Problem Periumbilical pain (915117100) Periumbilical pain (R10.33) 2013 Active confirmed YL006-Lfgyjviqc ical pain Problem Nausea (399742301) Nausea (R11.0) 2013 Active confirmed ZW288-Zfyatp Problem Heartburn (39631291) Heartburn (R12) 2017 Active confirmed DT958-Xfffxjliu Problem Early satiety (531838743) Early satiety (R68.81) 2017 Active confirmed GJ247-Yzray satiety Problem Rectal bleeding (31776252) Rectal bleeding (K62.5) 2013 Active confirmed KU354-Anhdfi bleeding Problem Altered bowel function (81827215) Altered bowel function (R19.4) 2017 Active confirmed PY388-Qiedxzh bowel function Problem Weight decreased (356256692) Weight loss, abnormal (R63.4) 2013 Active confirmed QD486-Apdrlh loss, abnormal Problem Constipation (88143762) Constipation (K59.00) 2017 Active confirmed FI105-Smsbnphkk ion Problem Stomach cramps (14630949) Stomach cramps (R10.9) 2017 Active confirmed AT567-Rgigawc cramps Problem Epigastric pain (61631472) Abdominal Pain Epigastric (R10.13) 2017 Active confirmed PM140-Eamdgfsmt Pain Epigastric Problem Elevated levels of transaminase & lactic acid dehydrogenase (295760264) Elevated LFTs- negative Hepatitis profile except Hep A (R74.0) 2013 Active confirmed MT333-Ihnjfasc LFTs- negative Hepatitis profile except Hep A Problem Dysphagia (09517984) Regurgitates food (R13.10) 2017 Active confirmed BS848-Qkpuovwdk mohinder food Problem Rectal pain (34114509) Rectal Pain/Proctalgia (K62.89) 2013 Active confirmed JF532-Xjovgs Pain/Proctalgia Problem Lower abdominal pain (23108174) Colicky/ Crampy hypogastric burning pain- CT scan of the abdomen and Pelvis was normal in Apr 2017, CT scan of bladder and cystoscopy were normal as per patient- Urology evaluation negative (R10.30) 2017 Active confirmed QH116-Drkkkfn/ Crampy hypogastric burning pain- CT scan of the abdomen and Pelvis was normal in Apr 2017, CT scan of bladder and cystoscopy were normal as per patient- Urology evaluation negative Problem Urinary incontinence (863664141) Urinary incontinence (R32) 2017 Active confirmed HD864-Hfzzapi incontinence Problem Nausea (398693067) Nausea Only- persistent (R11.0) 2013 Active confirmed AX113-Eyfren Only- Persistent Problem Incontinence of feces (00681704) Incontinence of feces (R15.9) 2013 Active confirmed YJ202-Obcgivxvi nce of feces Problem Right upper quadrant pain (480445604) Abdominal Pain RUQ (R10.11) 2013 Active confirmed IB190-Ouhksthww Pain RUQ Problem Periumbilical pain (214626836) Recurrent Suprapubic pain- Symptoms of UTI but urine is normal- ABx helps (R10.33) 2017 Active confirmed UF885-Jqqqjovqt Suprapubic pain- Symptoms of UTI but urine is normal- ABx helps Problem Intentional weight loss (139277147) Intentional weight loss (R63.8) 2017 Active confirmed LQ856-Eyicxojgn al weight loss Problem Displacement of lumbar intervertebral disc without myelopathy (51144415) H/o Prolapsed lumbar intervertebral disc- s/p Injection (M51.26) 2017 Active confirmed SL939-P/o Prolapsed lumbar intervertebral disc- s/p Injection Problem Generalized abdominal pain (192404267) Abdominal pain, generalized- lower (R10.84) 2013 Active confirmed OD412-Qkuogkicx pain, generalized- lower Plan Of Treatment No Information Medical (General) History Surgical History Surgery Date(Month/Year) Tubal Ligation Cholecystectomy August 25, 2013 Gallbladder removed 2014 Twisted Ovaries 12/2015
--- OUTSIDE RECORDS SUMMARY | 2024-05-05 11:02 | XMS_ITS | Encounter Summary ---
Author Organization [employer] Address [address] [facility] 7t [place] [address] Care Team Providers Care Hard Rock Miner Name Role Phone Name, Gabriel ADAME Primary Care Provider [phone] Encounter Details Date Type Department Care Team ([facility] st Contact Info) Description 04/30/2024 Abstract [facility] MEDICINE [address] [place] [address] Name, MD Gabriel [address] [place], [place] [phone] Social History Tobacco Use Types Packs/Day Years [...] Description 06/02/2024 9:45 AM EST Office Visit [address] [address] 06/24/2024 2:45 PM EDT Office Visit [address] [address] Name, MD Gabriel [address] [place] [address] documented as of this encounter Procedures Procedure Name Priority Date/Time Associated Diagnosis Comments COLONOSCOPY Routine 04/29/2024 documented in this encounter Results * (ABNORMAL) Colonoscopy (04/29/2024) Colonoscopy Abnormal( A) Normal Comment:due to areas of fair prep right side or earlier if clinically indicated 04/29/2024 Gabriel Vaughan MD HEALTH MAINTENANCE Final Result documented in this encounter Visit Diagnoses Not on filedocumented in this encounter Additional Health Concerns Assessment Noted Time PHQ-9 Depression Total Score: 11 024 11:18 AM EDT documented as of this encounter Care Teams Hard Rock Miner Relationship Specialty Start Date End Date Gabriel Vaughan MD [address] [place] [address] PCP - General Family Medicine 09/18/18 documented as of this encounter
--- OUTSIDE RECORDS SUMMARY | 2024-05-05 11:02 | XMS_ITS | Encounter Summary ---
Author Organization [employer] Address [address] [place] [address] [facility] [address] Care Team Providers Care Employee Training Specialist Name Role Phone Name, Gabriel ADAME Primary Care Provider [phone] Reason for Visit * Reason Comments Med Refill Encounter Details Date Type Department Care Team (Late st Contact Info) Description 10/28/2022 Refill [facility] MEDICINE [address] [place] [address] [phone] NameGabriel MD [address] [place] [address] [phone] Nonintractable episodic headache, unspecified headache type Social History Tobacco Use Types Packs/Day Years Used Date Smoking Tobacco: Every Day Cigarettes Smokeless Tobacco: Never Alcohol Use Standard Drinks/Week Comments Never 0 (1 standard drink = 0.6 oz pur e alcohol) Depression Answer Date Recorded Patient Health Questionnaire-9 Score 6 07/03/2022 Depression Answer Date Recorded Patient Health Questionnaire-2 Score 2 07/03/2022 Comments Unknown Sex and Gender Information Value [...] Description 06/02/2024 9:45 AM EST Office Visit [facility] MEDICINE [address] [place] [address] [phone] 06/24/2024 2:45 PM EDT Office Visit [facility] MED[facility]INE [address] [place] [address] [phone] Gabriel Vaughan, MD [address] [place] [address] documented as of this encounter Visit Diagnoses Diagnosis Nonintractable episodic headache, unspecified headache type documented in this encounter Additional Health Concerns Assessment Noted Time PHQ-9 Depression Total Score: 6 07/04/19 23 1:10 PM EDT documented as of this encounter Care Teams Employee Training Specialist Relationship Specialty Start Date End Date Name, MD Gabriel [address] [place] [address] PCP - General Family Medicine 09/18/18 documented as of this encounter
--- OUTSIDE RECORDS SUMMARY | 2024-05-05 11:02 | XMS_ITS | Encounter Summary ---
Author Organization [email or web address] Address [address] [facility] 7t [place] [address] Care Team Providers Care Erosion Control Specialist Name Role Phone Name, Gabriel ADAME Primary Care Provider [phone] Reason for Visit * Reason Onset Date Comments Nurse Triage 04/24/2024 Encounter Details Date Type Department Care Team ([facility] st Contact Info) Description 04/24/2024 Telephone [facility] MEDICINE [address] [place], [place] [phone] Name, MD Gabriel [address] [place], [place] [phone] Nurse Triage Social History Tobacco Use Types [...] Telephone Encounter - Laura Shaw - 04/24/2024 1:20 PM EST Symptom: Ear Ringing or Buzzing (No Pain) Outcome: Schedule an appointment to be seen within 3 days Reason: Caller denied all higher acuity questions The caller accepted this outcome. documented in this encounter Plan of Treatment Upcoming Encounters Date Type Department Care Team (Late st Contact Info) Description 06/02/2024 9:45 AM EST Office Visit [address] [address] 06/24/2024 2:45 PM EDT Office Visit [address] [address] Name, MD Gabriel [address] [place] [address] documented as of this encounter Visit Diagnoses Not on filedocumented in this encounter Additional Health Concerns Assessment Noted Time PHQ-9 Depression Total Score: 11 024 11:18 AM EDT documented as of this encounter Care Teams Erosion Control Specialist Relationship Specialty Start Date End Date Gabriel Vaughan MD [address] [place] [address] PCP - General Family Medicine 09/18/18 documented as of this encounter
--- OUTSIDE RECORDS SUMMARY | 2024-05-05 11:02 | XMS_ITS | Encounter Summary ---
Author Organization [employer] Address [address] [facility] 7t [place] [address] Care Team Providers Care Certified Technician Name Role Phone Name, Gabriel ADAME Primary Care Provider [phone] Reason for Visit * Reason Onset Date Comments Nurse Triage 01/09/2023 Encounter Details Date Type Department Care Team ([facility] st Contact Info) Description 01/09/2023 Telephone [facility] MEDICINE [address] [place], [place] [phone] Name, MD Gabriel [address] [place] [address] Nurse Triage Social History Tobacco Use Types [...] Telephone Encounter - Carol Walton RN - 01/09/2023 11:38 AM EDT Call to Irena Wolf ,reports that josue and hip pain are chronic issues. Per pt baclofen was ot helping with pain rlief Irena Wolf states had rx left over from medication HYDROcodone-acetaminophen ([place]) 10-325 MG tablet Q6H PRN prescribed over the summer. Pt currently taking 2-3 tablets per day. Per pt looking to be prescribed this medication again. Pt advised that nothing sooner with PCP than booked appt end of this month. Will send to PCP to review request and team nurse to follow upwith POC. Protocol Used: Hip Pain (Adult) Protocol-Based Disposition: See in Office or Video Visit within 2 Weeks Override (Final) Disposition: Discuss with PCP and Callback by Nurse Today Override Reason: Prescription request Future Appointments Date Time Provider Department Center 01/29/2023 3:15 PM Gabriel Vaughan MD MEDICINE [facility] Video visit offer not recorded Positive Triage Question: * Hip pain is a chronic symptom (recurrent or ongoing AND present > 4 weeks) * All higher-acuity triage questions were negative Care Advice Discussed: * Reassurance and Education - Hip Pain * Pain Medicines * Reasons To Call Back - Signs of infection occur (e.g., spreading redness, warmth, fever) - You become worse * Telephone Encounter - Puja Thomason - 01/09/2023 11:21 AM EDT Symptom: Hip Injury Outcome: Talk to a nurse or provider within 15 minutes Reason: Severe pain now, pt had a fall , back pain. Pt stated they were on HYDROcodone-acetaminophen ([place]) 10-325 MG tablet before and is requesting refills. The caller accepted this outcome Please contact at [phone] documented in this encounter Plan of Treatment Upcoming Encounters Date Type Department Care Team (Late st Contact Info) Description 06/02/2024 9:45 AM EST Office Visit [facility] MEDICINE [address] [place] [address] 06/24/2024 2:45 PM EDT Office Visit [address] [address] Name, MD Gabriel [address] [place] [address] documented as of this encounter Visit Diagnoses Not on filedocumented in this encounter Additional Health Concerns Assessment Noted Time PHQ-9 Depression Total Score: 6 07/04/19 23 1:10 PM EDT documented as of this encounter Care Teams Certified Technician Relationship Specialty Start Date End Date NameGabriel MD [address] [place] [address] PCP - General Family Medicine 09/18/18 documented as of this encounter
--- OUTSIDE RECORDS SUMMARY | 2024-05-05 11:02 | XMS_ITS | Data Portability ---
Author Organization [place] - [place] [employer], [id number] Address [address] [place] [address] Assessment No assessment recorded. Plan of Treatment Reminders Order Date Submit Date Provider Last Modified By Organization Details Last Modified Time Details Appointments None record ed. Lab None record ed. Referral None record ed. Procedures None record ed. Surgeries None record ed. Imaging None record ed. Medication Orders None record ed. Patient TargetsNo targets recorded. Patient Instructions Encounter Date Encounter Id Patient Instructions Last Modified By Organization Details Last Modified Time 03/22/2017 [id number] atrophic vaginitis: care instructions FRANKI Not available 03/24/2017 02:47:28 estradiol .625mg daily mdenardis Not available 03/22/2017 14:37:00 Reason for Referral None Reported. Medical Equipment None Reported. Medications Name Sig Start Date Stop Date Status Note LastModified by Organization Details LastModified Time cyclobenzaprine 10 mg tablet active Not Available Not Available Not Available methocarbamol 500 mg tablet active Not Available Not Availabl e Not Available ibuprofen 800 mg tablet active Not Available Not Available Not Available hydrocodone 5 mg-acetaminophen 325 mg tablet active Not Available Not Availabl e Not Available phenazopyridine 200 mg tablet active Not Available Not Availabl e Not Available sumatriptan 50 mg tablet active Not Available Not Available No t Available ciprofloxacin 500 mg tablet active Not Available Not Availabl e Not Available sulfamethoxazole 800 mg-trimethoprim 160 mg tablet active Not Available Not Availabl e Not Available hydrocodone 10 mg-acetaminophen 325 mg tablet TK 1 T PO Q 6 TO 8 H PRN active Not Available Not Available No t Available hydrocodone 7.5 mg-acetaminophen 325 mg tablet active Not Available Not Availabl e Not Available lisinopril 10 mg tablet active Not Available Not Available Not Available lidocaine 5 % topical patch active Not Available Not Availabl e Not Available hydrochlorothiaz adriano 25 mg tablet active Not Available Not Avail able Not Available ibuprofen 600 mg tablet active Not Available Not Available Not Available ondansetron 4 mg disintegrating tablet active Not Available Not Available Not Available fluticasone propionate 50 mcg/actuation nasal spray,suspension U 2 SPRAYS IEN D active Not Available Not Available No t Available amoxicillin 875 mg-potassium clavulanate 125 mg tablet active Not Available Not Available No t Available Premarin 0.625 mg tablet TK 1 T PO QD active Not Available Not Available No t Available nitrofurantoin monohydrate/macr ocrystals 100 mg capsule active Not Available Not Available Not Available omega-3 acid ethyl esters 1 gram capsule active Not Available Not Available Not Available Vitals Date Recorded Body weight Provider Name an d Address Organization Details Last Updated DateTime 03/22/2017 207695.21 g Amna Nicolas [facility] [employer] [facility] 03/22/2017 14:12:56 Date Recorded Heart rate Provider Name an d Address Organization Details Last Updated DateTime 03/22/2017 100 /min [facility] [place] [employer] [facility] 03/22/2017 14:16:33 Date Recorded Systolic blood pressure Diastolic blood pressure Provider Name and Address Organization Details Last Updated DateTime 03/22/2017 132 mm[Hg] 92 mm[Hg] [facility] [place] [employer] [facility] 03/22/2017 14:16:30 Social History None recorded. Functional Status None recorded. Mental Status None recorded. Family History Nothing Reported. Medical History No medical history recorded. Gynecological HistoryNo gynecological history recorded. Obstetrics History GPAL:G 0 P 0 0 0 0 Past Encounters Encounter ID Performer Location Encounter Start Date Encounter Closed Date Diagnosis/Indication Diagnosis SNOMED-CT Code Diagnosis ICD10 Code Diagnosis Note [id number] Bobby Ortiz, [id number] [facility] [address] [address] 03/22/2017 13:55:56 03/22/2017 15:07:44 Menopausal syndrome 570006113 N95.9 Atrophic vaginitis 32743 000 N95.2 Health Concerns Section Related Observation LastModified by Organization Detai ls LastModified Time None Recorded Concern Status LastModified by Organization Details LastModified Time None Recorded Advance Directives Directive None Recorded Payers Encounter Date Sequence Insurance Name Policy Number Policy Matthew Covered Member ID Matthew Member ID Guarantor Name 03/22/2017 1 [facility] [id number] Irena Wolf [id number] 2 Notes Date Note Type Note Provider Name and Address Organization Details Recorded Time 03/22/2017 text/html hot flashes Bobby Ortiz, DO [address] [facility], [address], [place], [address], [facility], [facility] 03/22/2017 14:37:32 OBGyn Episode No OBEpisode recorded.
--- OUTSIDE RECORDS SUMMARY | 2024-05-05 11:02 | XMS_ITS | Encounter Summary ---
Author Organization [employer] Address [address] [place] [address] Care Team Providers Care Submarine Worker Name Role Phone Name, Gabriel ADAME Primary Care Provider [phone] Reason for Visit * Reason Comments Med Refill Encounter Details Date Type Department Care Team ([facility] st Contact Info) Description 04/16/[address] [facility] MEDICINE [address], [place] [phone] Name, MD Gabriel [address] [place] [address] Nonintractable episodic headache, unspecified headache type Social [...] Description 06/02/2024 9:45 AM EST Office Visit [address] [address] 06/24/2024 2:45 PM EDT Office Visit [address] [address] Name, MD Gabriel [address] [place] [phone] documented as of this encounter Visit Diagnoses Diagnosis Nonintractable episodic headache, unspecified headache type documented in this encounter Additional Health Concerns Assessment Noted Time PHQ-9 Depression Total Score: 11 024 11:18 AM EDT documented as of this encounter Care Teams Submarine Worker Relationship Specialty Start Date End Date NameGabriel MD [address] [place] [phone] PCP - General Family Medicine 09/18/18 documented as of this encounter
--- OUTSIDE RECORDS SUMMARY | 2024-05-05 11:02 | XMS_ITS | Clinical Summary ---
Author Organization [employer] Address [address] [place] [address] [address] [place] [address] Care Team Providers Care Banquet Pilot Name Role Phone Name, Gabriel ADAME Primary Care Provider [phone] Allergies Active Allergy Reactions Criticality Noted Date Comments Metoclopramide Other,Unknown 04/11/2010 psychosis Other reaction(s): Not available Nsaids 08/10/2020 Penicillin V Unknown 04/11/2010 Promethazine 04/11/2022 Other reaction(s): Not available Other Reaction(s): Allergy to NSAIDs ? 20-JAN-2016 23:30:17<$> Wound Dressing Adhesive 08/04/2018 Medications dicyclomine (Bentyl) 20 MG tablet Take 1 tablet by mouth 3 times daily. 03/10/20 22 Active acetaminophen (Tylenol) 325 MG tablet TAKE 2 TABLETS BY MOUTH EVERY 6 HOURS NEEDED 40 tablet 01/05/20 23 Active pantoprazole (Protonix) 40 MG EC tablet Take 1 tablet (40 mg) by mouth before breakfast. Do not crush, chew, or split. 90 tablet 3 06/26/19 24 2024 Active estradiol (Vivelle-DOT) 0.025 MG/24HR Place 1 patch on the skin 2 (two) times a week. 07/29/19 24 2024 Active baclofen (Lioresal) 10 MG tablet Take 1 tablet (10 mg) by mouth 3 times daily. 90 tablet 1 07/29/19 24 Active sertraline (Zoloft) 25 MG tablet Take 1 tablet by mouth Once per day. Active sertraline (Zoloft) 50 MG tablet Active estradiol (Estrace) 0.1 MG/GM vaginal cream 08/06/19 24 Active estradiol (Vivelle-Dot) 0.025 MG/24HR Apply 1 patch topically. 09/15/19 23 Active zolpidem (Ambien) 10 MG tablet Active PARoxetine (Paxil) 20 MG tablet Active levocetirizine (Xyzal) 5 MG tablet Active ibuprofen 800 MG tablet Take 1 tablet by mouth if needed in the morning, at noon, and at bedtime. Active hydrOXYzine HCl (Atarax) 50 MG tablet Active cyclobenzaprine (Flexeril) 10 MG tablet Take 1 tablet twice a day by oral route as needed for 90 days. Active estrogens, conjugated, (Premarin) 0.625 MG tablet prn Acti ve cholecalciferol (Vitamin D-3) 1.25 MG (38563 UT) capsule Active naloxone (Narcan) 4 mg/0.1 mL nasal sprayIndication s:Chronic left-sided low back pain with bilateral sciatica Administer 1 spray (4 mg) into affected nostril(s) if needed for opioid reversal. May repeat every 2-3 minutes if needed, alternating nostrils, until medical assistance becomes available. 2 each 3 10/04/19 24 2024 Active ondansetron (Zofran) 4 MG tablet TAKE 1 TABLET BY MOUTH EVERY 8 HOURS IF NEEDED FOR NAUSEA OR VOMITING 30 tablet 12/11/19 24 Active SUMAtriptan (Imitrex) 100 MG tabletIndicatio ns:Nonintractab le episodic headache, unspecified headache type TAKE 1 TABLET BY MOUTH 1 TIME AT ONSET OF MIGRAINE WITH FLUID. MAY REPEAT AFTER 2 HOURS. IF HEADACHE RETURNS. NOT TO EXCEED 200 MGIN 24 HOURS 10 tablet 04/16/19 25 Active HYDROcodone-anne taminophen (Hazleton) 5-325 MG tabletIndicatio ns:Chronic low back pain with sciatica, sciatica laterality unspecified, unspecified back pain laterality Take 1 tablet by mouth every 6 (six) hours if needed for severe pain for up to 28 days. Do not start before April 25, 2024. 112 tablet 04/25/19 25 2024 Active acetaZOLAMIDE (Diamox) 125 MG tabletIndicatio ns:IIH (idiopathic intracranial hypertension) Take 2 tablets (250 mg) by mouth 2 times daily. 120 tablet 1 04/24/19 25 2024 Active acetaZOLAMIDE (Diamox) 125 MG tabletIndicatio ns:IIH (idiopathic intracranial hypertension) Take 2 tablets (250 mg) by mouth 2 times daily for 14 days. 56 tablet 1 07/29/19 24 2024 Discontinued(R eorder (will not trigger notification to Pharmacy)) SUMAtriptan (Imitrex) 100 MG tabletIndicatio ns:Nonintractab le episodic headache, unspecified headache type TAKE 1 TABLET BY MOUTH 1 TIME AT ONSET OF MIGRAINE WITH FLUID. MAY REPEAT AFTER 2 HOURS. IF HEADACHE RETURNS. NOT TO EXCEED 200 MGIN 24 HOURS 10 tablet 03/11/20 24 2024 Discontinued HYDROcodone-anne taminophen (Hazleton) 5-325 MG tabletIndicatio ns:Chronic low back pain with sciatica, sciatica laterality unspecified, unspecified back pain laterality Take 1 tablet by mouth every 6 (six) hours if needed for severe pain for up to 28 days. 112 tablet 03/17/20 24 2024 Discontinued(R eorder (will not trigger notification to Pharmacy)) HYDROcodone-anne taminophen (Hazleton) 5-325 MG tabletIndicatio ns:Chronic low back pain with sciatica, sciatica laterality unspecified, unspecified back pain laterality Take 1 tablet by mouth every 6 (six) hours if needed for severe pain for up to 7 days. 28 tablet 04/16/19 25 2024 Discontinued(R eorder (will not trigger notification to Pharmacy)) HYDROcodone-anne taminophen (Hazleton) 5-325 MG tabletIndicatio ns:Chronic low back pain with sciatica, sciatica laterality unspecified, unspecified back pain laterality Take 1 tablet by mouth every 6 (six) hours if needed for severe pain for up to 7 days. Do not start before April 25, 2024. 28 tablet 04/25/19 25 2024 Discontinued(R eorder (will not trigger notification to Pharmacy)) Active Problems Problem Noted Date Diagnosed Date Trochanteric bursitis of both hips 03/19/2024 Assessment & Plan (03/19/2024 5:17 PM EST): - Following with [facility] - hx of injections Long-term current use of opiate analgesic 2023 Overview (03/19/2024): Medication: Hazleton 5-325mg Q6H PRN Indication: chronic low back pain, trochanteric bursitis Last [employer] Agreement: 10/03/23 Assessment & Plan (03/19/2024 5:11 PM EST): Timeline: - 03/17/24: [employer] [facility] - WNL History of bariatric surgery 07/29/2023 Family history of rectal cancer 07/29/2023 Overview (07/29/2023): Rectal CA on her mother She has upcoming appt with CARLO and bryn discuss having a screening colonoscopy Migraine headache 04/11/2022 Splenic infarction 03/14/2022 Overview (07/29/2023): Complication after bariatric surgery 2019 Obstructive sleep apnea syndrome 10/20/2019 Benign intracranial hypertension 09/17/2018 Chronic low back pain 08/04/2018 Overview (03/19/2024): She had MRIs of the LS 2016 and 2018 that showed mild DJD Xray Nov 2019: Lumbosacral spine: The vertebral bodies and posterior elements are normal. The disc spaces are preserved and the vertebral alignment is normal. The paraspinal soft tissues are normal. Right hip: Subchondral sclerosis and well-circumscribed sub-5 mm lucencies are noted along the superior and lateral aspect of the acetabulum, likely represent degenerative changes. The bony alignment is intact. The cortices are intact. The joint space is relatively well-maintained. The soft tissues are unremarkable. Left hip: The bony alignment is intact. The cortices are intact. The articular margins, joint space appear unremarkable. The soft tissues are unremarkable. No focal osseous abnormalities. IMPRESSION: 1. Unremarkable radiographic appearance of the lumbosacral spine, and left hip. 2. Subchondral sclerosis and sub-5 mm radiolucencies are noted along the superior and lateral aspect of the acetabulum, likely represent degenerative changes at the right hip. Anxiety 08/04/2018 Adhesion of intestine 08/04/2018 Irritable bowel syndrome 08/04/2018 History of tonsillectomy 08/04/2018 History of cholecystectomy 08/04/2018 History of bilateral oophorectomies 08/04/2018 H/O: hysterectomy 08/04/2018 Fibromyositis 08/31/2011 Depressive disorder 08/31/2011 Resolved Problems Problem Noted Date Diagnosed Date Resolved Date Greater trochanteric bursitis of both hips 07/29/2023 07/29/2023 Chronic right hip pain 05/31/202307/28 Assessment & Plan (06/06/2023 11:42 AM EST): -patient is engaged with pain management at [facility] where she receives injections -per [facility] notes, patient requires sedation for injections which is likely the cause of prolonged periods of injection -given level of discomfort today, patient agrees to a short course of ibuprofen and protonix 40 understanding risk for gastric ulcer. Patient advised to take ibuprofen with food -continue tylenol -provided acupuncture flyer and advised to try a few sessions -will refer to ortho to evaluate if candidate for bursectomy - follow-up with pcp Hypoxia 12/25/2022 07/29/2023 Living in long term 12/25/2022 07/29/2023 Postablative ovarian failure 12/25/2022 07/29/2023 Blurring of visual image 04/11/2022 Headache 03/14/2022 07/29/2023 Palpitations 08/04/2018 07/29/2023 Prediabetes 08/04/2018 07/29/2023 Morbid obesity 08/31/2011 07/29/2023 Dysmenorrhea 08/31/2011 07/29/2023 Encounters Date Type Department Care Team Description 04/30/2024 Abstract [facility] [address] [place] [address] Gabriel Vaughan MD 04/24/2024 Telephone [facility] [address] [place] [address] Gabriel Vaughan MD Nurse Triage 04/24/2024 Telephone [facility] [address] [place] [address] Gabriel Vaughan MD Med Refill 04/24/2024 Refill [facility] [address] [place] [address] Gabriel Vaughan MD IIH (idiopathic intracranial hypertension) 04/24/2024 Refill [facility] [address] [place] [address] Gabriel Vaughan MD Chronic low back pain with sciatica, sciatica laterality unspecified, unspecified back pain laterality 04/20/2024 Refill [facility] [address] [place] [address] Gabriel Vaughan MD Chronic low back pain with sciatica, sciatica laterality unspecified, unspecified back pain laterality 04/20/2024 Telephone [facility] [address] [place] [address] Gabriel Vaughan MD Appointment Request 04/17/2024 Telephone [facility] [address] [place] [address] Gabriel Vaughan MD Med Refill 04/16/2024 Refill [facility] [address] [place] [address] Gabriel Vaughan MD Nonintractable episodic headache, unspecified headache type 04/16/2024 Refill [facility] [address] [facility] [place] [address] Gabriel Vaughan MD Chronic low back pain with sciatica, sciatica laterality unspecified, unspecified back pain laterality 04/09/2024 Telephone [facility] [address] [place] [address] Gabriel Vaughan MD Nurse Triage 03/17/2024 11:00 AM EST Office Visit [facility] [address] [place] [address] Agustina Gonzalez, [employer] Chronic bilateral low back pain with right-sided sciatica (Primary Dx); Long-term current use of opiate analgesic; Trochanteric bursitis of both hips 03/17/2024 Refill [facility] [address] [place], [place] [id number] Rekha Lund RN Chronic low back pain with sciatica, sciatica laterality unspecified, unspecified back pain laterality 03/17/2024 Travel 03/12/2024 Telephone [facility] [address] [place] [address] Gabriel Vaughan MD callback requested 03/11/2024 Refill [facility] [address] [place] [address] Gabriel Vaughan MD Nonintractable episodic headache, unspecified headache type 02/13/2024 Refill [facility] [address] [place] [address] Gabriel Vaughan MD Chronic low back pain with sciatica, sciatica laterality unspecified, unspecified back pain laterality from Last 3 Months Immunizations Name Administration Dates Next Due Hep A, Adult 02/13/2008 Hep B, adult 06/21/2005,01/23/2005,12/22/2004 Influenza injectable quadriv alent preservative free 12/13/2019 Influenza, Split (incl. devan fied surface antigen) 01/01/2012 Tdap 12/29/2021 Social History Tobacco Use Types Packs/Day Years Used Date Smoking Tobacco: Former Cigarettes Smokeless Tobacco: Never Tobacco Cessation:Counseling Given: Not Answered Alcohol Use Standard Drinks/Week Comments Never 0 [...] Orientation Straight 02/05/2022 10 :17 AM EDT Last Filed Vital Signs Vital Sign Reading Time Taken Comments Blood Pressure 118/74 10/03/2023 1:57 PM EDT Pulse 78 10/03/2023 1:57 PM EDT Temperature 36.1 ??C (96.9 ??F) 07/29/2023 11:13 AM E DT Respiratory Rate 16 10/03/2023 1:57 PM EDT Oxygen Saturation 99% 07/29/2023 11:13 AM EDT Inhaled Oxygen Concentration - - Weight 74.4 kg (164 lb) 07/29/2023 11:13 AM EDT Height 167.6 cm (5' 6 ) 07/29/2023 11:13 AM EDT Body Mass Index 26.47 07/29/2023 11:13 AM EDT Plan of Treatment Upcoming Encounters Date Type Department Care Team (Late st Contact Info) Description 06/02/2024 9:45 AM EST Office Visit [facility] [address] [place] [address] 06/24/2024 2:45 PM EDT Office Visit [facility] [address] [facility] [place] [address] Name, MD Gabriel [address] [facility] [address] Health Maintenance Due Date Last Done Comments CT Colonography 1978 FIT DNA/Cologuard 1978 FIT 1978 FOBT 1978 Lipid Panel 1978 Sigmoidoscopy 1978 Alcohol/Substance Use Screening 1990 Family Planning (PISQ) 1993 Pap Smear 1999 Cervical Cancer Screening 01/22/2008 HPV/Cotest 01/22/2008 COVID-19 Vaccine ( - 2023-2 5 season) 2023 Influenza Vaccine (#1) 2023 , 01/01/2012 Depression Monitoring (PHQ-9) 01/28/2024, 07/29/2023 Mammogram 03/14/2024 03/14/2022, 10/18/2020 Depression Screening 07/28/2024 07/29/2023, 07/29/2023 SDOH Screening 07/28/2024 07/29/2023 Tobacco Screening 08/19/2024 08/20/2023 Zoster Vaccines (1 of 2) 01/22/2028 Colonoscopy 04/29/2029 04/29/2024 Colorectal Cancer Screening 04/29/2029 DTaP/Tdap/Td Vaccines (2 - T d or Tdap) 12/30/2031 12/29/2021 RSV Patients and Patients Aged 60 years or older (1 - 1-dose 75+ series) 2053 Hepatitis B Vaccines Completed 06/21/2005, 01/23/2005, 12/22/2004 Hepatitis A Vaccines Aged Out 02/13/2008 No long er eligible based on patient's age to complete this topic HIV Screening Completed 11/06/2019 Hepatitis C Screening Completed 03/13/2022 , 11/06/2019 HIB Vaccines Aged Out No longer eligi ble based on patient's age to complete this topic HPV Vaccines Aged Out No longer eligi ble based on patient's age to complete this topic IPV Vaccines Aged Out No longer eligi ble based on patient's age to complete this topic Meningococcal Vaccine Aged Out No pedro lashanda eligible based on patient's age to complete this topic Pneumococcal Vaccine: Pediatrics (0 to 5 Years) and At-Risk Patients (6 to 64 Years) Aged Out No longer eligible b ased on patient's age to complete this topic RSV under 20 months Aged Out No longe r eligible based on patient's age to complete this topic Rotavirus Vaccines Aged Out No longer eligible based on patient's age to complete this topic Procedures Procedure Name Priority Date/Time Associated Diagnosis Comments HEMATOXYLIN AND EOSIN STAIN Routine 04/29/2024 11:46 AM EST HM COLONOSCOPY Routine 04/29/2024 POCT SHARON-14 URINE DRUG SCREEN Routine 03/17/2024 1:32 PM EST Chronic bilateral low back pain with right-sided sciatica Long-term current use of opiate analgesic Trochanteric bursitis of both hips BI MAMMOGRAM SCREENING TOMOSYNTHESIS BILATERAL Routine 03/14/2022 1:48 PM EST HEPATITIS PANEL, GENERAL Routine 03/13/2022 3:54 PM EST HIV 1/2 ANTIGEN/ANTIBODY, FOURTH GENERATION W/RFL Routine 11/06/2019 11:32 AM EDT from Last 3 Months or Most Recently Relevant to Health Maintenance Results * Hematoxylin and Eosin Stain (04/29/2024 11:46 AM EST) 04/29/2024 11:4 6 AM EST 04/29/2024 1:22 PM EST Narrative [facility] - 05/04/2024 11:42 AM EST ----- ------- Name: LucianoIrena ?Age/Sex: 44/F ? : 1980 Unit#: [id number] ?? Attend Dr: Marielena Doe MD ?Re04/29/24 ?Status: DEP SDC ? Location: HO.SSS ?Disch: ? ----- ------- SPEC : [id number] ?RECD: 04/29/24-1321 ? STATUS: ??SOUT ? REQ NUM: [id number] ? PARVIZ: 04/29/24-1146 ? SUBM DR: Marielena Doe MD ? ENTERED: ??04/29/24-1332 ?SP TYPE: Surgical ? OTHR DR: Gabriel Vaughan MD ? ORDERED: ??HE Stain/15, Gross Micro L4/6, IHC, Special st. 2, H. pylori, AB/PAS ?Addendum Addendum ??1 ?Entered: 05/04/24-114 Immunostain for H. pylori on B is negative. ??Additional level with AB/PAS on C is negative for intestinal metaplasia. ??Controls stain appropriately. Addendum Signed (signature on file) Yulia Langford 05/04/24 114 ? ----- ------- ? Diagnosis ?? A. ??Duodenum, biopsy: ??Duodenal mucosa with preserved villi and no specific change. ? B. ??Stomach, biopsy: ??Gastric antral and body mucosa with reactive changes and minimal ?? chronic inactive gastritis; negative for intestinal metaplasia and dysplasia. ? C. ??Gastroesophageal junction, biopsy: ??Squamocolumnar mucosa with mild chronic ?? inflammation; no intestinal metaplasia seen on initial levels; negative for dysplasia. ? D. ??Esophagus, distal, biopsy: ??Squamous mucosa with no specific change; no columnar ?? mucosa present. ? E. ??Terminal ileum, biopsy: ??Ileal mucosa with no specific change. ? F. ??Colon, random, biopsy: ??Colonic mucosa with no specific change; no evidence of ?? microscopic colitis. ? Comment: ?? (B): ??Immunostain for H. pylori pending; addendum to follow. ?? (C): ??Additional level with AB/PAS stain pending; addendum to follow. ?Clinical History Pre-Op Dx: ??Diarrhea Post-Op Dx: Bile reflux, gastritis, Schatzki's ring, diverticulosis, hemorrhoids ? CONTINUED ON NEXT PAGE ----- ------- Name: Irena Wolf ?Age/Sex: 44/F ? : 1980 Unit#: [id number] ?? Attend Dr: Marielena Doe MD ?Re04/29/24 ?Status: DEP SDC ? Location: HO.SSS ?Disch: ? ----- ------- SPEC : [id number] ?RECD: 04/29/24-1321 ? STATUS: ??SOUT ? REQ NUM: [id number] ? PARVIZ: 04/29/24-1146 ? SUBM DR: Marielena Doe MD ? ENTERED: ??04/29/24-1332 ?SP TYPE: Surgical ? OTHR : Name,Gabriel ADAME ? ORDERED: ??HE Stain/15, Gross Micro L4/6, IHC, Special st. 2, H. pylori, AB/PAS ?Microscopic Description Microscopic sections reviewed. ? Material Received ?? A. Duodenum bx's ?? B. Stomach bx's ?? C. GE junction bx's ?? D. Distal esophagus bx's ?? E. TI bx's ?? F. Random colon bx's ? Gross Description Received in six parts. Part A: ??Received in formalin labeled ?duodenum bx (sic)? are 4 flores- pink irregular tissue fragments ranging from minute to 0.25 cm, submitted in toto in a cassette labeled A. Part B: ??Received in formalin labeled ?stomach bx's? are 2 pale, rubi-white and flores irregular tissue fragments measuring less than 0.1 and 0.1 cm, submitted in toto in a cassette labeled B. Part C: ??Received in formalin labeled ?GE junction bx's? are 3 rubi- white and flores-pink irregular tissue fragments ranging from 0.1-0.3 cm, submitted in toto in a cassette labeled C. Part D: ??Received in formalin labeled ?distal esophagus bx (sic) are 3 rubi-white irregular tissue fragments ranging from 0.25-0.3 cm, submitted in toto in a cassette labeled D. Part E: ??Received in formalin labeled ?TI bx's? are 2 pale rubi-pink irregular tissue fragments each measuring 0.2 cm, submitted in toto in a cassette labeled E. Part F: ??Received in formalin labeled ?random colon bx's? are several minute to 0.3 cm pale, rubi-flores irregular tissue fragments, submitted in toto in a cassette labeled F. CEDS Special studies ordered and performed: Immunostain for H. pylori on B1; AB/PAS stains on C1. ? CONTINUED ON NEXT PAGE ----- ------- Name: Irena Wolf ?Age/Sex: 44/F ? : 1980 Unit#: [id number] ?? Attend Dr: Marielena Doe MD ?Re04/29/24 ?Status: DEP SDC ? Location: HO.SSS ?Disch: ? ----- ------- SPEC : [id number] ?RECD: 04/29/24-2 ? STATUS: ??SOUT ? REQ NUM: [id number] ? PARVIZ: 04/29/24-1146 ? SUBM DR: Marielena Doe MD ? ENTERED: ??04/29/24-3 ?SP TYPE: Surgical ? OTHR DR: Name,Gabriel ADAME ? ORDERED: ??HE Stain/15, Gross Micro L4/6, IHC, Special st. 2, H. pylori, AB/PAS ? Copies To: ?? Marielena Doe MD ?? [facility] ?? [address] ?? [place] [address] ?? [phone] ?? Name,Gabriel ADAME ?? [address] [facility] ?? [place] [address] ?? [phone] ----- ------- Signed (signature on file) Yulia Langford 04/30/241706 ? ----- ------- ? END OF REPORT ? us Generic External Data Provider LAB BLOOD ORDERAB LES Final Result [facility] [address] [place] [address] [phone] * (ABNORMAL) Hm Colonoscopy (04/29/2024) Colonoscopy Abnormal( A) Normal Comment:due to areas of fair prep right side or earlier if clinically indicated 04/29/2024 us Gabriel Vaughan MD HEALTH MAINTENANCE Final Result * POCT SHARON-14 Urine Drug Screen (03/17/2024 1:32 PM EST) THC Positive TCA, Urine Positive Oxycodone Screen, Urine Positive Urine Urine specimen obtained by clean catch procedure / Unknown 03/17/2024 1:32 PM EST us Agustina Gonzalez [employer] POINT OF CARE TEST ENTER/EDIT ORDERABLES Final Result * BI Mammogram Screening Tomosynthesis Bilateral (03/14/2022 1:48 PM EST) Anatomical Region Laterality Modality Breast Bilateral Mammography 03/14/2022 1:48 PM EST Narrative 03/15/2022 11:29 AM EST ? [facility] [place] ? [address] ?[place] [address] ? Mammography Report ? Signed ? Patient: Luciano,Irena ?MR#: [id number] ?? [id number] ? : 1980 ?Acct:[id number] ? Age/Sex: 42 / F ?ADM Date: 12/07/22 ? Loc: HO.MAMMO ? Attending : Gabriel Name MD ? Ordering Physician: Name,Gabriel MD ?Results: 1Negative ? Date of Service: 03/14/22 ?Follow Up: 1 Year From Orig ?? inal Mammogram ? Procedure(s): MM tomosynthesis screening BI ?? Accession Number(s): [id number] ? cc: Name,Gabriel ADAME ? EXAMINATION: ?? MM SCREENING DIGITAL BREAST TOMOSYNTHESIS, BILATERAL ? CLINICAL INFORMATION: ? Screening. Age 42. No prior breast imaging. ? The lifetime risk of breast cancer based on the Tyrer-Cuzick Model is ?? 8%. ? COMPARISON: ?? None (current study represents initial baseline exam). ? TECHNIQUE: ?? Digital breast tomosynthesis is performed in both the craniocaudal and ?? mediolateral oblique views along with computer-aided detection (CAD). ?? Synthesized 2D images are generated from the tomosynthesis. ? FINDINGS: ?? There are scattered areas of fibroglandular density (ACR BI-RADS breast ?? composition Category b). ? Breast tissue composition borders on predominantly fatty. Background ?? stromal markings are normal. No architectural abnormality. There are no ?? significant masses, abnormal calcifications, or other abnormalities. ? The axilla and skin contours are unremarkable. ? MM/MM tomosynthesis screening BI ?? IMPRESSION: ?? No mammographic evidence of malignancy. ? ASSESSMENT: ? BI-RADS 1: Negative ? RECOMMENDATION: ?? Routine annual mammography screening. ? This patient's information was entered into a reminder system with a ?? target due date for their next mammogram. ? Dictated By: ?Chapin Betancourt MD ? Signed By: ?<Electronically signed by Chapin Betancourt MD in OV> ?03/15/22 1126 ? DD/ 1348 ? TD/TT: ? Wash And Greaser: JOSHUA ? Procedure Note Donotuseinterpreter, Image - 03/15/2022 [facility] [address] [place] [address] Mammography Report Signed Patient: Mikayla Wolf#: [id number] : 1980Acct:[id number] Age/Sex: 42 / FADM Date: 03/14/22 Loc: HO.MAMMO Attending Dr: Gabriel Vaughan MD Ordering Physician: Gabriel Vaughan MDResults: 1Negative Date of Service: 03/14/22Follow Up: 1 Year From Orig inal Mammogram Procedure(s): MM tomosynthesis screening BI Accession Number(s): [id number] cc: Gabriel Vaughan MD EXAMINATION: MM SCREENING DIGITAL BREAST TOMOSYNTHESIS, BILATERAL CLINICAL INFORMATION: Screening. Age 42. No prior breast imaging. The lifetime risk of breast cancer based on the Tyrer-Cuzick Model is 8%. COMPARISON: None (current study represents initial baseline exam). TECHNIQUE: Digital breast tomosynthesis is performed in both the craniocaudal and mediolateral oblique views along with computer-aided detection (CAD). Synthesized 2D images are generated from the tomosynthesis. FINDINGS: There are scattered areas of fibroglandular density (ACR BI-RADS breast composition Category b). Breast tissue composition borders on predominantly fatty. Background stromal markings are normal. No architectural abnormality. There are no significant masses, abnormal calcifications, or other abnormalities. The axilla and skin contours are unremarkable. MM/MM tomosynthesis screening BI IMPRESSION: No mammographic evidence of malignancy. ASSESSMENT: BI-RADS 1: Negative RECOMMENDATION: Routine annual mammography screening. This patient's information was entered into a reminder system with a target due date for their next mammogram. Dictated By: Chapin Betancourt MD Signed By: <Electronically signed by Chapin Betancourt MD in OV> 03/15/22 1126 DD/ 1348 TD/TT: [employer]aser: JOSHUA [facility] External Provider IMG BI PROCEDURES Edited Result - Final * Hepatitis Panel, General (03/13/2022 3:54 PM EST) Hepatitis A IgM Nonreactive Nonreactive [facility] Comment:IgM antibodies to SALDAÑA V not detected; does not exclude earlyacute or recovered HAV infection. ~Hepatitis B Surface Antibody NONREACTIVE Nonreactive [facility] Comment:Nonreactive: < 8.00 mIU/mL Hepatitis B Core Antibody Nonreactive Nonreactive [facility] Hepatitis C Antibody Nonreactive Nonreactive [facility] Comment:Antibodies to HCV no t detected; does not exclude early acuteHCV infection. Hepatitis B Surface Antigen Negative Negative [facility] 03/13/2022 3:54 PM EST 03/13/2022 3:54 PM EST [facility] External Provider LAB BLO OD ORDERABLES Final Result [facility] [address] [place] [phone] * HIV 1/2 ANTIGEN/ANTIBODY,FOURTH GENERATION W/RFL (11/06/2019 11:32 AM EDT) HIV-1/2 ANTIGEN AND ANTIBODIES, 4TH GENERATION W/ REFLEX NON-[facility] Comment: HIV-1 antigen and HIV-1/HIV-2 antibodies were not detected. There is no laboratory evidence of HIV infection. ?? PLEASE NOTE: This information has been disclosed to you from records whose confidentiality may be protected by state law. ??If your state requires such protection, then the state law prohibits you from making any further disclosure of the information without the specific written consent of the person to whom it pertains, or as otherwise permitted by law. A general authorization for the release of medical or other information is NOT sufficient for this purpose. ? For additional information please refer to http://education.Neteven/faq/RFO005 (This link is being provided for informational/ educational purposes only.) ? The performance of this assay has not been clinically validated in patients less than 2 years old. ?? HIV-1/2 ANTIGEN AND ANTIBODIES, 4TH GENERATION W/ REFLEX NON-REACT [facility] Comment: HIV-1 antigen and HIV-1/HIV-2 antibodies were not detected. There is no laboratory evidence of HIV infection. ?? PLEASE NOTE: This information has been disclosed to you from records whose confidentiality may be protected by state law. ??If your state requires such protection, then the state law prohibits you from making any further disclosure of the information without the specific written consent of the person to whom it pertains, or as otherwise permitted by law. A general authorization for the release of medical or other information is NOT sufficient for this purpose. ? For additional information please refer to http://Tastemade.Neteven/faq/MGX529 (This link is being provided for informational/ educational purposes only.) ? The performance of this assay has not been clinically validated in patients less than 2 years old. ?? HIV-1/2 ANTIGEN AND ANTIBODIES, 4TH GENERATION W/ REFLEX NON-REACT ANGELA NON-REACT ANG[facility] Comment: HIV-1 antigen and HIV-1/HIV-2 antibodies were not detected. There is no laboratory evidence of HIV infection. ?? PLEASE NOTE: This information has been disclosed to you from records whose confidentiality may be protected by state law. ??If your state requires such protection, then the state law prohibits you from making any further disclosure of the information without the specific written consent of the person to whom it pertains, or as otherwise permitted by law. A general authorization for the release of medical or other information is NOT sufficient for this purpose. ? For additional information please refer to http://Tastemade.Neteven/faq/FUL534 (This link is being provided for informational/ educational purposes only.) ? The performance of this assay has not been clinically validated in patients less than 2 years old. ?? 11/06/2019 11:3 2 AM EDT us Anshu Borjas MD LAB BLOOD ORDERABLES Final Result [facility] [address] from Last 3 Months or Most Recently Relevant to Health Maintenance Insurance [address] [place], [place] [address]OnState C3 Care Teams Banquet Pilot Relationship Specialty Start Date End Date Name, MD Gabriel [address] [place] [address] PCP - General Family Medicine 09/18/18
--- OUTSIDE RECORDS SUMMARY | 2024-05-05 11:02 | XMS_ITS | Encounter Summary ---
Author Organization [employer] Address [address] [facility] 7t [place] [address] Care Team Providers Care Transport Tech Name Role Phone Name, Gabriel ADAME Primary Care Provider [phone] Reason for Visit * Reason Onset Date Comments Med Refill 04/16/2024 Encounter Details Date Type Department Care Team (Late st Contact Info) Description 04/16/2024 Refill [facility] [address] [place], [place] [phone] Name, MD Gabriel [address] [place] [address] Chronic low back pain with sciatica, sciatica [...] encounter Miscellaneous Notes * Telephone Encounter - Josiah Valenzuela - 04/16/2024 9:26 AM EST TC from pt requesting medication refill. Medications needing refill: HYDROcodone-acetaminophen (Christmas) 5-325 MG tablet To be sent to: [facility][id number] - [address] AT [facility] documented in this encounter Plan of Treatment Upcoming Encounters Date Type Department Care Team ([facility] Contact Info) Description 06/02/2024 9:45 AM EST Office Visit [facility] [address] [place] [address] 06/24/2024 2:45 PM EDT Office Visit [facility] [address] [place] [address] Gabriel Vaughan MD [address] [place] [address] documented as of this encounter Visit Diagnoses Diagnosis Chronic low back pain with sciatica, sciatica laterality unspecified, unspecified back pain laterality documented in this encounter Additional Health Concerns Assessment Noted Time PHQ-9 Depression Total Score: 11 024 11:18 AM EDT documented as of this encounter Care Teams Transport Tech Relationship Specialty Start Date End Date Gabriel Vaughan MD [address] [place] [address] PCP - General Family Medicine 09/18/18 documented as of this encounter
--- OUTSIDE RECORDS SUMMARY | 2024-05-05 11:02 | XMS_ITS | Encounter Summary ---
Author Organization [employer] Address [address] [facility] 7t [place] [address] Care Team Providers Care Special Investigator Name Role Phone Name, Gabriel ADAME Primary Care Provider [phone] Reason for Visit * Reason Onset Date Comments Med Refill 04/24/2024 Encounter Details Date Type Department Care Team ([facility] st Contact Info) Description 04/24/2024 Telephone [facility] [address] [place], [place] [phone] Name, MD Gabriel [address] [place], [place] [phone] Med Refill Social History Tobacco Use Types [...] encounter Miscellaneous Notes * Telephone Encounter - Arleen Kaufman LPN - 04/24/2024 1:11 PM EST Pcp off.Please review medication request * Telephone Encounter - Laura Shaw - 04/24/2024 1:09 PM EST TC from pt requesting medication refill. Medications needing refill : acetaZOLAMIDE (Diamox) 125 MG tablet [facility]: [id number] AT [facility] documented in this encounter Plan of Treatment Upcoming Encounters Date Type Department Care Team (Late st Contact Info) Description 06/02/2024 9:45 AM EST Office Visit [facility] [address] [place] [address] 06/24/2024 2:45 PM EDT Office Visit [facility] [address] [place] [address] Name, MD Gabriel [address] [place] [address] documented as of this encounter Visit Diagnoses Diagnosis Benign intracranial hypertension- Primary IIH (idiopathic intracranial hypertension) Benign intracranial hypertension documented in this encounter Additional Health Concerns Assessment Noted Time PHQ-9 Depression Total Score: 11 024 11:18 AM EDT documented as of this encounter Care Teams Special Investigator Relationship Specialty Start Date End Date Name, MD Gabriel [address] [place] [address] PCP - General Family Medicine 09/18/18 documented as of this encounter
--- OUTSIDE RECORDS SUMMARY | 2024-05-05 11:02 | XMS_ITS | Encounter Summary ---
Author Organization [employer] Address [address] [facility] 7t [place] [address] Care Team Providers Care Welding Systems And Equipment Repairer Name Role Phone Name, Gabriel ADAME Primary Care Provider [phone] Reason for Visit * Reason Onset Date Comments Medication Question 06/18/2023 Encounter Details Date Type Department Care Team ([facility] st Contact Info) Description 06/18/2023 Telephone [facility] [address] [place], [place] [phone] Name, MD Gabriel [address] [place], [place] [phone] Medication Question Social History Tobacco Use Types Packs/Day Years [...] Telephone Encounter - James Childers RN - 06/19/2023 11:46 AM EDT T/C to pt. For below message, pt. States she got tramadol medication from [facility] clinic, and as per pt. medication is not working. Also her next apt. For injection is on 08/26. Pt. Still has back and hip pain. Pt. Advised to come to [facility]. Pt. Also advised to go to nearest ED in case of any any new or worsening symptoms. Advised depends upon how many pt. Before her, she will be get apt. Pt. Verbally greed and understood. * Telephone Encounter - Puja Thomason - 06/18/2023 10:35 AM EDT Tc from pt requesting a call back in regards to medication traMADol (Ultram) 50 MG tablet , states feels as if medication is not working. Please contact at [phone] documented in this encounter Plan of Treatment Upcoming Encounters Date Type Department Care Team (Late st Contact Info) Description 06/02/2024 9:45 AM EST Office Visit [facility] [address] [place] [address] 06/24/2024 2:45 PM EDT Office Visit [facility] [address] [place] [address] Name, MD Gabriel [address] [place] [address] documented as of this encounter Visit Diagnoses Not on filedocumented in this encounter Additional Health Concerns Assessment Noted Time PHQ-9 Depression Total Score: 6 07/04/19 23 1:10 PM EDT documented as of this encounter Care Teams Welding Systems And Equipment Repairer Relationship Specialty Start Date End Date Name, [place] [address] PCP - General Family Medicine 09/18/18 documented as of this encounter
== END 2024-05-05 10:50 | disposition home or self-care (01) ==
PROVIDERS: PCP Internal Medicine Geriatric Medicine; Visit Provider Nurse Practitioner Family
DX: K58.2 Mixed irritable bowel syndrome (principal); K21.9 Gastro-esophageal reflux disease without esophagitis; K59.1 Functional diarrhea; R10.13 Epigastric pain; R11.0 Nausea
CPT/HCPCS: 99214

== ENCOUNTER 2024-05-05 10:11 | Outpatient (REF) | payer MEDICAID, SELFPAY ==
--- OUTSIDE RECORDS SUMMARY | 2024-05-05 12:07 | XMS_ITS | Patient Health Record ---
Author Organization [facility] Billing Info Address [address] [place] [address] Care Team Providers Care Child Daycare Worker Name Role Phone Alexis Hall Primary Care Provider EVA Berry Unavailable [phone] Allergies Allergen (clinical drug ingredient) Drug/Non Drug Allergy documented on EMR Reaction Allergy Type Onset Date Status metoclopramide Reglan intolerance Drug Allergy Active NSAIDs GI distress Drug Allergy Activ e Reason For Referral No Information Medications Medication SIG (Take, Route, Frequency, Duration) Notes Start Date End Date Status Hyoscyamine .125 mg Once a day PRN Active Probiotic Active Zofran 4 MG 1 tablet Orally Once a day Active Imitrex 50 MG 1 tablet as needed O rally Once a day PRN Active Multivitamin Drops/Fluoride Active Lovaza 1 GM 2 capsules Orally Tw ice a day Active Flexeril 10 mg 1 Tablet Orally Once a day Active Gabapentin 300 MG 1 capsule Orally Thr ee times a day Active Hydrocodone-Acetaminophen 5-325 MG 1 tablet as needed Orally every 6 hrs Active Social History Tobacco Use: Social History Observation Description Date Details (start date - stop date) Never Smoker NA - NA Tobacco Status: Question Answer Notes Patient is a never smoker Problems Problem Type SNOMED Code ICD Code Onset Dates Problem Status W/U Status Risk Notes Problem 804026086 Fibromyalgia (M79.7) Active confirmed Problem 840857432 Biliary dyskines ia (575.8) Active confirmed Problem 211765569 Status post cholecystectomy (V45.79) Active confirmed Plan Of Treatment Pending Test Test Name Order Date MRI- LUMBAR SPINE W/O CONTRAST (LUM)(ORM C-LUM) 10/27/2015 Insurance Providers Payer Name Payer Address Payer Phone Subscriber Number Group Number Insured Name Patient Relationship to Insured Coverage Start Date Coverage End Date [facility] [employer] [address] [place], [place] [id number] Irena Wolf Self - patient is the insured 3 0 Medical (General) History Medical History History ICD Code Fibromyalgia Hyperlipidemia IBS Migraine headache Diverticulitis trombosispenea acid reflux Surgical History Surgery Date(Month/Year) ENT 1984 laparoscopy 2004 & 2012 BX Nodule 2009 gall bladder surgery 08/25/2013 hysterctomy 02/2015 Hospitalization History Reason Date(Month/Year) Gallbladder 08/06/2013 hysterectomy 02/2015 trombosipenea 01/2015
--- OUTSIDE RECORDS SUMMARY | 2024-05-05 12:07 | XMS_ITS | Encounter Summary ---
Author Organization [employer] Address 75 [facility] 7t [place] [address] Care Team Providers Care Insulation Board Coater Operator Name Role Phone Name, Gabriel ADAME Primary Care Provider [phone] Reason for Visit * Reason Onset Date Comments Med Refill 04/16/2024 Encounter Details Date Type Department Care Team (Late st Contact Info) Description 04/16/2024 Refill [facility] [address] [place], [place] [phone] Name, MD Gabriel [address] [place] [address] Chronic low back pain with sciatica, sciatica [...] requesting medication refill. Medications needing refill: HYDROcodone-acetaminophen ([place]) 5-325 MG tablet To be sent to: [facility][id number] - [address] AT [facility] documented in this encounter Plan of Treatment Upcoming Encounters Date Type Department Care Team ([facility] Contact Info) Description 06/02/2024 9:45 AM EST Office Visit [facility] [address] [place] [address] 06/24/2024 2:45 PM EDT Office Visit [facility] [address] [place] [address] Gabriel Vaughan MD [address] [place] [address] documented as of this encounter Visit Diagnoses Diagnosis Chronic low back pain with sciatica, sciatica laterality unspecified, unspecified back pain laterality documented in this encounter Additional Health Concerns Assessment Noted Time PHQ-9 Depression Total Score: 11 024 11:18 AM EDT documented as of this encounter Care Teams Insulation Board Coater Operator Relationship Specialty Start Date End Date Gabriel Vaughan MD [address] [place] [address] PCP - General Family Medicine 09/18/18 documented as of this encounter
--- OUTSIDE RECORDS SUMMARY | 2024-05-05 12:07 | XMS_ITS | Encounter Summary ---
Author Organization [employer] Address [address] [facility] 7t [place] [address] Care Team Providers Care State Pilot Name Role Phone Name, Gabriel ADAME Primary Care Provider [phone] Reason for Visit * Reason Onset Date Comments Nurse Triage 01/09/2023 Encounter Details Date Type Department Care Team ([facility] st Contact Info) Description 01/09/2023 Telephone [facility] [address] [place], [place] [phone] Name, MD Gabriel [address] [place] [address] Nurse Triage Social History Tobacco Use Types [...] had rx left over from medication HYDROcodone-acetaminophen ([place]) 10-325 MG tablet Q6H PRN prescribed over [...] 01/29/2023 3:15 PM Gabriel Vaughan MD MEDICINE [facility] Video visit offer not recorded Positive Triage [...] pain. Pt stated they were on HYDROcodone-acetaminophen (Wayne) 10-325 MG tablet before and is requesting refills. The caller accepted this outcome Please contact at [phone] documented in this encounter Plan of Treatment Upcoming Encounters Date Type Department Care Team (Late st Contact Info) Description 06/02/2024 9:45 AM EST Office Visit [facility] [address] [place] [address] 06/24/2024 2:45 PM EDT Office Visit [address] [address] Name, MD Gabriel [address] [place] [address] documented as of this encounter Visit Diagnoses Not on filedocumented in this encounter Additional Health Concerns Assessment Noted Time PHQ-9 Depression Total Score: 6 07/04/19 23 1:10 PM EDT documented as of this encounter Care Teams State Pilot Relationship Specialty Start Date End Date NameGabriel MD [address] [place] [address] PCP - General Family Medicine 09/18/18 documented as of this encounter
--- OUTSIDE RECORDS SUMMARY | 2024-05-05 12:07 | XMS_ITS | Encounter Summary ---
Author Organization [employer] Address [address] [place] [address] [address] [place] [address] Care Team Providers Care Successfactors Consultant Name Role Phone Name, Gabriel ADAME Primary Care Provider [phone] Reason for Visit * Reason Comments Med Refill Encounter Details Date Type Department Care Team (Late st Contact Info) Description 10/28/2022 Refill [facility] [address] [place] [address] [phone] NameGabriel MD [address] [place] [address] [phone] Nonintractable episodic headache, unspecified headache type Social [...] Description 06/02/2024 9:45 AM EST Office Visit [facility] [address] [place] [address] [phone] 06/24/2024 2:45 PM EDT Office Visit [facility] [address] [place] [address] [phone] Gabriel Vaughan, MD [address] [place] [address] documented as of this encounter Visit Diagnoses Diagnosis Nonintractable episodic headache, unspecified headache type documented in this encounter Additional Health Concerns Assessment Noted Time PHQ-9 Depression Total Score: 6 07/04/19 23 1:10 PM EDT documented as of this encounter Care Teams Successfactors Consultant Relationship Specialty Start Date End Date Name, MD Gabriel [address] [place] [address] PCP - General Family Medicine 09/18/18 documented as of this encounter
--- OUTSIDE RECORDS SUMMARY | 2024-05-05 12:07 | XMS_ITS | Encounter Summary ---
Author Organization [employer] Address 75 [facility] 7t [place] [address] Care Team Providers Care Dough Braker Name Role Phone Name, Gabriel ADAME Primary Care Provider [phone] Reason for Visit * Reason Onset Date Comments Med Refill 04/24/2024 Encounter Details Date Type Department Care Team ([facility] st Contact Info) Description 04/24/2024 Telephone [facility] [address] [place], [place] [phone] Name, MD Gabriel [address] [place], [place] [phone] Med Refill Social History Tobacco Use Types [...] 125 MG tablet [id number] AT [facility] documented in this encounter Plan of Treatment Upcoming Encounters Date Type Department Care Team (Late st Contact Info) Description 06/02/2024 9:45 AM EST Office Visit [facility] [address] [place] [address] 06/24/2024 2:45 PM EDT Office Visit [facility] [address] [place] [address] Name, MD Gabriel [address] [place] [address] documented as of this encounter Visit Diagnoses Diagnosis Benign intracranial hypertension- Primary IIH (idiopathic intracranial hypertension) Benign intracranial hypertension documented in this encounter Additional Health Concerns Assessment Noted Time PHQ-9 Depression Total Score: 11 024 11:18 AM EDT documented as of this encounter Care Teams Dough Braker Relationship Specialty Start Date End Date Name, MD Gabriel [address] [place] [address] PCP - General Family Medicine 09/18/18 documented as of this encounter
--- OUTSIDE RECORDS SUMMARY | 2024-05-05 12:07 | XMS_ITS | Patient Health Record ---
Author Organization [facility] Address [address] [place] [id number] Care Team Providers Care Corpsman Name Role Phone Isabel, Henrikjermain Primary Care Provider ALLERGIES Allergen (clinical drug ingredient) Drug/Non Drug Allergy documented on EMR Reaction Allergy Type Onset Date Status promethazine Phenergan Psychosis Drug Allergy Acti ve metoclopramide Reglan anaphylaxis Drug Allergy Active REASON FOR REFERRAL No Information MEDICATIONS Medication SIG (Take, Route, Frequency, Duration) Notes Start Date End Date Status Cipro 500 MG 1 tablet Orally every 12 hrs for 10 day(s) 03/03/2018 Active Aimovig 70 mg INJ 70 mg sc montlhy SC Monthly for 30 03/03/2018 Active Diflucan 100 MG 1 tablet Orally Once a day for 10 day(s) 03/03/2018 Active Cholecalciferol 96242 UNIT as directed O rally for 6 Active Ibuprofen 800mg 1 po BID for 7 days Take as needed Active Imitrex 100 MG 1 tablet as needed Orally DAILY for 30 days Active Lovaza 1 GM 1 capsules Orally Twice a day for 90 days 06/04/2014 Active Xyzal 5 MG 1 tablet in the evening Orally Once a day for 90 days 03/03/2018 Active Ondansetron 4 MG as directed Orally every 6 hrs for 10 days 08/18/2014 Active Bentyl 10 MG 1 capsule Orally Four times a day for 30 day(s) 06/06/2018 Active traMADol HCl 50 MG 1 tablet as needed Orally q 6 hrs for 7 days 08/21/2019 Active Imitrex 20 MG/ACT as directed Nasally Twice a day for 10 days 07/15/2018 Active Cymbalta 30 MG 1 capsule Orally Once a day for 30 day(s) 06/06/2018 Active Hyoscyamine Sulfate 0.125 MG 1 tablet before meals as needed Orally PRN for 30 Active Flexeril 10 MG 1 tablet Orally Once a day for 30 day(s) 07/15/2018 Active hydroCHLOROthiazide 12.5 MG 1 tablet Ora lly Once a day for 30 day(s) 07/15/2018 Active Melatonin TR 5-10 MG Orally Active hydrOXYzine HCl 25 MG 1 tablet Orally BID for 20 days 07/15/2018 Active Benadryl 25 MG 1 capsule as needed Orally every 6 hrs Active Zolpidem Tartrate 10 MG 1 tablet at bedtime as needed Orally Once a day for 30 days 07/15/2018 Active HYDROcodone-Acetaminophen 10-325 MG as directed Orally every 6 hrs prn for 14 days 08/21/2019 Active Flexeril 10 MG 1 tablet Orally BID for 25 days 09/07/2015 Active Amrix 15 MG 1 capsule Orally Once a day for 30 day(s) 12/17/2017 Active Cipro 500 mg 1 tablet Orally every 12 hrs for 7 days 12/17/2017 Active Clotrimazole-Betamethasone 1-0.05 % 1 application to affected area Externally Twice a day for 7 days 12/17/2017 Active predniSONE 5 MG 1 tablet with food or milk Orally Once a day for 7 days 12/17/2017 Active IMMUNIZATIONS Vaccine Route Administration Date Status Comme nts Depomedrol Unknown 02/06/2013 Administered Influenza (split) IM Intramuscular 01/13/2014 Administered Influenza (split) IM Intramuscular 01/24/2015 Administered Tetanus IM Intramuscular 07/05/2015 Administered PROBLEMS Problem Type ICD Code Onset Dates Problem Status W/U Status Risk SNOMED Code Notes Problem 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) Active confirmed Anteri or pituitary hyperfunction (46109592) Problem Benign neoplasm of pelvic bones, sacrum, 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 confirmed Benign ne oplasm of pelvic bones, sacrum and coccyx (453140705) Problem Thyrotoxicosis without mention of goiter or other cause, without mention of thyrotoxic crisis or storm (242.90) Active confirmed Thyrotoxicosis (49062577) Problem Unspecified vitamin deficiency (269.2) Active confirmed Vitamin d eficiency (64857813) Problem Pure hypercholesterolemia (272.0) Active confirmed Pure hypercholesterolemia (643357131) Problem Migraine with aura, without mention of intractable migraine without mention of status migrainosus (346.00) Active confirmed Migraine with a ura (disorder) (2527016) Problem Unspecified sinusiti s (chronic) (473.9) Active confirmed Chronic si nusitis (83731709) Problem Unspecified vaginiti s and vulvovaginitis (616.10) Active confirmed Vulvovaginitis (disorder) (47610609) Problem Sciatica (724.3) Active confirmed Sciat ica (37161903) Problem Unspecified backache (724.5) Active confirmed Backache (153410119) Problem Lumbago (724.2) Active confirmed Lumbag o (563087122) Problem Contact dermatitis and other eczema due to detergents (692.0) Active confirmed Contac t dermatitis caused by detergent (93828269) Problem Other psoriasis (696.1) Active confirmed Psoriasis (6002192) Problem Pain in joint, lower leg (719.46) Active confirmed Problem Headache (784.0) Active confirmed Heada samina (13885980) Problem Cough (786.2) Active confirmed Cough (4 8204339) Problem Chest pain, unspecified (786.50) Active confirmed Chest pain (298 [address]7592) Problem Nausea with vomiting (787.01) Active confirmed Nausea and vomi ting (13243546) Problem Diarrhea (787.91) Active confirmed Diar tiffanie (02301083) Problem Abdominal pain, unspecified site (789.00) Active confirmed Abdominal pain (finding) (94273348) Problem Abdominal pain, righ t lower quadrant (789.03) Active confirmed Right lower deja drant pain (080204311) Problem Body Mass Index 33.0-33.9, adult (V85.33) Active confirmed Body mass index 30.00 to 34.99 (572037538776870) Problem Body Mass Index 35.0-35.9, adult (V85.35) Active confirmed Body mass index 35.00 to 39.99 (499791779457374) Problem chronic pain (338.4) Active confirmed C hronic pain (16470013) Problem fibromyalgia (729.1) Active confirmed F ibromyalgia (673244937) Problem Tinea corporis (B35.4) Active confirmed Tinea corporis (23390685) Problem Hyperlipidemia, unspecified (E78.5) Active confirmed Hyperlip idemia (25732541) Problem Chronic pain syndrom e (G89.4) Active confirmed Chronic pain sy ndrome (432526015) Problem Allergic rhinitis, unspecified (J30.9) Active confirmed Allergic rhinitis (72434327) Problem Cutaneous abscess of groin (L02.214) Active confirmed Cellulitis a nd abscess of trunk (839780697) Problem Urticaria, unspecified (L50.9) Active confirmed Urticaria (24834 001) Problem Low back pain (M54.5) Active confirmed Low back pain (043869827) Problem Pain, unspecified (R52) Active confirmed Pain (25344088) Problem Body mass index (BMI ) 39.0-39.9, adult (Z68.39) Active confirmed Body mass index 35.00 to 39.99 (298099049400598) PLAN OF TREATMENT Pending Test Test Name Order Date Ultrasound : Abdomen 06/04/2014 Urinalysis 05/01/2017 TEST AUTHORIZATION 01/24/2015 COMPREHENSIVE METABOLIC PANEL 10/26/2013 URINALYSIS, COMPLETE W/REFLEX TO CULTURE 05/24/2014 RHEUMATOID FACTOR 05/29/2013 HEMOGLOBIN A1c 05/24/2014 URINALYSIS, COMPLETE 05/12/2015 CBC (INCLUDES DIFF/PLT) 05/29/2013 CBC (INCLUDES DIFF/PLT) 05/24/2014 CBC (INCLUDES DIFF/PLT) 10/26/2013 CBC (INCLUDES DIFF/PLT) 10/26/2013 THYROID PANEL 09/28/2014 LIPID PANEL 05/24/2014 SED RATE BY MODIFIED AVIVAREN 05/29/19 14 HCG, TOTAL, QL 09/28/2014 VITAMIN B12 05/29/2013 VITAMIN B12 05/24/2014 TEST IN QUESTION - NO TEST FOR CONTAINER 01/24/2015 ANGIOTENSIN-I CONVERTING ENZ 06/26/2013 ALPHA 1 ANTITRYPSIN 07/28/2013 AMYLASE 07/28/2013 AMYLASE 08/07/2013 AMYLASE 06/04/2013 ANTI-NEUTROPHIL CYTOPLASMIC AB 4 ANTI-NEUTROPHIL CYTOPLASMIC AB 4 BLOOD ALREADY DRAWN - ADD TEST 4 BILIRUBIN DIRECT 08/26/2013 BASIC METABOLIC PANEL 06/26/2013 CBC,PLATELETS 06/28/2013 CBC,PLATELETS 06/28/2013 CBC,PLT,AUTO DIFF 04/17/2015 CLOSTRIDIUM DIFFICILE TOXIN AB 4 CENTROMERE AB 06/26/2013 CHROMATIN AB 06/26/2013 CHROMATIN AB 06/26/2013 CPK-MB PROFILE 04/17/2015 D-DIMER 07/28/2013 D-DIMER 07/28/2013 DNA DOUBLE STRANDED 06/26/2013 DNA DOUBLE STRANDED 06/26/2013 FERRITIN 02/17/2015 FIBRINOGEN 02/17/2015 GLUCOSE BY MONITORING DEVICE 08/25/2013 GLUCOSE BY MONITORING DEVICE 08/25/2013 GLUCOSE BY MONITORING DEVICE 08/25/2013 GLUCOSE BY MONITORING DEVICE 08/26/2013 GLUCOSE BY MONITORING DEVICE 08/26/2013 HCG SERUM QUAL 08/24/2013 HCG SERUM QUAL 06/23/2013 HCG SERUM QUAL 06/23/2013 HCG SERUM QUAL 02/23/2015 UR HCG QUAL POCT 06/23/2013 UR HCG QUAL POCT 07/02/2014 HEPATITIS ACUTE PANEL 02/17/2015 GLYCOHEMOGLOBIN PROFILE 02/17/2015 GLYCOHEMOGLOBIN PROFILE 07/29/2013 GLYCOHEMOGLOBIN PROFILE 07/29/2013 GLYCOHEMOGLOBIN PROFILE 06/24/2013 GLYCOHEMOGLOBIN PROFILE 06/24/2013 GLYCOHEMOGLOBIN PROFILE 04/18/2015 IMMUNOELECTROPHORESIS SERUM 06/27/2013 IMMUNOGLOBULIN A 06/27/2013 IMMUNOGLOBULIN E 07/28/2013 IMMUNOGLOBULIN G 06/27/2013 IMMUNOGLOBULIN M 06/27/2013 SONAL-1 AB 06/26/2013 SONAL-1 AB 06/26/2013 POTASSIUM 08/07/2013 POTASSIUM 04/19/2015 LACTIC DEHYDROGENASE(LDH) 06/27/2013 LDH ISOENZYMES 06/26/2013 LIPASE 06/23/2013 LIPASE 06/04/2013 LIPASE 07/28/2013 LIPASE 07/02/2014 LIPASE 08/07/2013 LIPASE 08/26/2013 LIPID PROFILE (CORONARY RISK) 04/18/2015 MAGNESIUM 04/19/2015 MAGNESIUM 04/17/2015 MAGNESIUM 04/17/2015 MAGNESIUM 08/07/2013 MAGNESIUM 07/29/2013 MAGNESIUM 07/29/2013 MONO SCREEN 07/28/2013 PROCALCITONIN 06/26/2013 PROTHROMBIN TIME 07/28/2013 PROTHROMBIN TIME 07/28/2013 PROTHROMBIN TIME 02/17/2015 THROMBOPLASTIN TIME PARTIAL 02/17/2015 SCLERODERMA AB 06/26/2013 T4 FREE 07/28/2013 TIBC PROFILE 02/17/2015 TROPONIN-I 07/28/2013 TROPONIN-I POCT 04/17/2015 TROPONIN-I POCT 04/18/2015 TROPONIN-I POCT 04/17/2015 TROPONIN-I POCT 04/17/2015 TROPONIN-I POCT 04/17/2015 TSH ULTRA SENSITIVE- 3RD GENER 4 URINALYSIS 07/02/2014 URINALYSIS 06/23/2013 URINALYSIS 02/25/2015 URINALYSIS 02/25/2015 VITAMIN B12 02/17/2015 VITAMIN B12 05/01/2017 XR ABD ACUTE W/CHEST 06/23/2013 XR ABD ACUTE W/CHEST 06/29/2013 XR ABDOMEN AP 1 V 08/07/2013 XR C-SPINE 4 + V 04/17/2015 CT ABDOMEN & PELVIS W/CONTRAST 4 CT ABDOMEN & PELVIS W/CONTRAST 5 CT ABDOMEN & PELVIS W/CONTRAST 5 CT ABDOMEN & PELVIS W/CONTRAST 5 CT ABDOMEN & PELVIS W/CONTRAST 4 CT CHEST W/CONTRAST 06/25/2013 XR CHEST 1 V 07/26/2013 XR CHEST 1 V 04/17/2015 XR CHEST 2 V 07/28/2013 HIDA INCL GB W/PHA 08/07/2013 PULMONARY VENT/PERF IMAGING 04/18/2015 US ABDOMEN LTD 08/07/2013 US RENAL BILATERAL 07/28/2013 EVIN IFA SCREEN W/REFL TO TITER AND PATTE RN, IFA 05/29/2013 SURGICAL PATHOLOGY 08/27/2013 Thyroid Panel 06/04/2014 BLOOD CULTURE 06/25/2013 BLOOD CULTURE 06/25/2013 BLOOD CULTURE 07/28/2013 BLOOD CULTURE 07/28/2013 URINE CULTUREC 07/28/2013 RHEUMATOID FACTOR SCREEN 07/28/2013 HIV1 2 RAPID 02/17/2015 SURGICAL PATHOLOGY 03/02/2015 SURGICAL PATHOLOGY 03/02/2015 CBC 08/08/2017 CBC 01/24/2015 CBC 07/05/2015 CBC 05/01/2017 CBC 10/20/2015 Basic Metabolic Panel 05/01/2017 CMP 10/20/2015 CMP 07/05/2015 CMP 01/24/2015 CMP 08/08/2017 Lipid Panel 01/24/2015 Lipid Panel 07/05/2015 Lipid Panel 10/20/2015 Lipid Panel 05/01/2017 Hemoglobin A1c 10/20/2015 Hemoglobin A1c 07/05/2015 Hemoglobin A1c 01/24/2015 Hemoglobin A1c 08/08/2017 Hemoglobin A1c 01/24/2015 Hemoglobin A1c 12/02/2015 TSH 12/02/2015 TSH 10/20/2015 TSH 01/24/2015 TSH 01/24/2015 TSH 07/05/2015 TSH 10/20/2015 TSH 08/08/2017 TSH 05/01/2017 Vitamin B 07/05/2015 Vitamin B 10/20/2015 Vitamin B 01/24/2015 Vitamin B 08/08/2017 Vitamin B 01/24/2015 Vitamin B 10/20/2015 Vitamin B 12/02/2015 Vitamin D 01/24/2015 Vitamin D 08/08/2017 Vitamin D 01/24/2015 Vitamin D 10/20/2015 Vitamin D 07/05/2015 Vitamin D 05/01/2017 Folate 10/20/2015 Folate 07/05/2015 Folate 08/08/2017 Folate 12/02/2015 Folate 10/20/2015 DRUGSCREEN NO B 08/21/2019 Insurance Providers Payer Name Payer Address Payer Phone Subscriber Number Group Number Insured Name Patient Relationship to Insured Coverage Start Date Coverage End Date R [address] [address] [place], [place] [id number] [phone] [id number] Irena Wolf Self - patient is the insured [facility] [address] [address] [place] [address] [id number] Irena Wolf Self - patient is the insured MEDICAL (GENERAL) HISTORY Medical History History ICD Code irritable bowel syndrome migraine chronic pain hypotension hepatomegaly/spleenomegaly-GI egd/colono scpy 01/19 thyroid colonscopy-08/19 Surgical History Surgery Date(Month/Year) tubal ligation adenoidectomy Biopsy (check lymp node) tonsillectomy exploratory laparoscopy scar tissue colonoscopy 08/13/13 Gallbladder removal 08/2013 Hospitalization History Reason Date(Month/Year) surgery chest pain headache Blood pressure (low) High WBC count, chest pain, UTI July 26 severe mestrual cramps 08/20/14 Bladder pain 04/23/17
--- OUTSIDE RECORDS SUMMARY | 2024-05-05 12:07 | XMS_ITS | Clinical Summary ---
Author Organization [facility] Address [address] [place] [address] [address] [place] [address] Care Team Providers Care Custodian Blood Bank Name Role Phone Name, Gabriel ADAME Primary Care Provider Allergies Active Allergy Reactions Criticality Noted Date [...] Acti ve cholecalciferol (Vitamin D-3) 1.25 MG (14492 UT) capsule Active naloxone (Narcan) 4 mg/0.1 [...] 10 tablet 04/16/19 25 Active HYDROcodone-anne taminophen (Homer) 5-325 MG tabletIndicatio ns:Chronic low back pain [...] tablet 03/11/20 24 2024 Discontinued HYDROcodone-anne taminophen (Homer) 5-325 MG tabletIndicatio ns:Chronic low back pain with sciatica, sciatica laterality unspecified, unspecified back pain laterality Take 1 tablet by mouth every 6 (six) hours if needed for severe pain for up to 28 days. 112 tablet 03/17/20 24 2024 Discontinued(R eorder (will not trigger notification to Pharmacy)) HYDROcodone-anne taminophen (Homer) 5-325 MG tabletIndicatio ns:Chronic low back pain with sciatica, sciatica laterality unspecified, unspecified back pain laterality Take 1 tablet by mouth every 6 (six) hours if needed for severe pain for up to 7 days. 28 tablet 04/16/19 25 2024 Discontinued(R eorder (will not trigger notification to Pharmacy)) HYDROcodone-anne taminophen (Homer) 5-325 MG tabletIndicatio ns:Chronic low back pain [...] (03/19/2024 5:17 PM EST): - Following with [facility] - hx of injections Long-term current use of opiate analgesic 2023 Overview (03/19/2024): Medication: Homer 5-325mg Q6H PRN Indication: chronic low back pain, trochanteric bursitis Last [employer] Agreement: 10/03/23 Assessment & Plan (03/19/2024 5:11 PM EST): Timeline: - 03/17/24: [facility] [facility] - WNL History of bariatric surgery [...] -patient is engaged with pain management at [facility] where she receives injections -per [facility] notes, patient requires sedation for injections which [...] with pcp Hypoxia 12/25/2022 07/29/2023 Living in prison 12/25/2022 07/29/2023 Postablative ovarian failure 12/25/2022 07/29/2023 Blurring of visual image 04/11/2022 Headache 03/14/2022 07/29/2023 Palpitations 08/04/2018 07/29/2023 Prediabetes 08/04/2018 07/29/2023 Morbid obesity 08/31/2011 07/29/2023 Dysmenorrhea 08/31/2011 07/29/2023 Encounters Date Type Department Care Team Description 04/30/2024 Abstract [facility] [address] [place] [address] Gabriel Vaughan MD 04/24/2024 Telephone [facility] [address] [place] [address] Gabriel Vaughan MD Nurse Triage 04/24/2024 Telephone [facility] [address] [place] [address] Gabriel Vaughan MD Med Refill 04/24/2024 Refill [facility] [address] [place] [address] Gabriel Vaughan MD IIH (idiopathic intracranial hypertension) 04/24/2024 Refill [facility] [address] [place] [address] Gabriel Vaughan MD Chronic low back pain with sciatica, sciatica laterality unspecified, unspecified back pain laterality 04/20/2024 Refill [facility] [address] [place] [address] Gabriel Vaughan MD Chronic low back pain with sciatica, sciatica laterality unspecified, unspecified back pain laterality 04/20/2024 Telephone [facility] [address] [place] [address] Gabriel Vaughan MD Appointment Request 04/17/2024 Telephone [facility] [address] [place] [address] Gabriel Vaughan MD Med Refill 04/16/2024 Refill [facility] [address] [place] [address] Gabriel Vaughan MD Nonintractable episodic headache, unspecified headache type 04/16/2024 Refill [facility] [address] [place] [address] Gabriel Vaughan MD Chronic low back pain with sciatica, sciatica laterality unspecified, unspecified back pain laterality 04/09/2024 Telephone [facility] [address] [place] [address] Gabriel Vaughan MD Nurse Triage 03/17/2024 11:00 AM EST Office Visit [facility] [address] [place] [address] Agustina Gonzalez, INDUSTRIAL WELDER Chronic bilateral low back pain with right-sided sciatica (Primary Dx); Long-term current use of opiate analgesic; Trochanteric bursitis of both hips 03/17/2024 Refill [facility] [address] [place], [place] [id number] Rekha Lund RN Chronic low back pain with sciatica, sciatica laterality unspecified, unspecified back pain laterality 03/17/2024 Travel 03/12/2024 Telephone [facility] [address] [place] [address] Gabriel Vaughan MD callback requested 03/11/2024 Refill [facility] [address] [place] [address] Gabriel Vaughan MD Nonintractable episodic headache, unspecified headache type 02/13/2024 Refill [facility] [address] [place] [address] Gabriel Vaughan MD Chronic low back pain [...] Office Visit [facility] [address] [place] [address] 06/24/2024 2:45 PM EDT Office Visit [facility] [address] [place] [address] Name, MD Gabriel [address] [facility] [place] [address] Health Maintenance Due Date Last Done Comments [...] AM EST 04/29/2024 1:22 PM EST Narrative [facility] - 05/04/2024 11:42 AM EST ----- ------- Name: LucianoIrena ?Age/Sex: 44/F ? : 1980 Unit#: [id number] ?? Attend Dr: Marielena Doe MD ?Re04/29/24 ?Status: DEP SDC ? Location: HO.SSS ?Disch: ? ----- ------- SPEC : [id number] ?RECD: 04/29/24-1321 ? STATUS: ??SOUT ? REQ NUM: [id number] ? PARVIZ: 04/29/24-1146 ? SUBM DR: Marielena [...] Wolf ?Age/Sex: 44/F ? : 1980 Unit#: [id number] ?? Attend Dr: Marielena Doe MD ?Re04/29/24 ?Status: DEP SDC ? Location: HO.SSS ?Disch: ? ----- ------- SPEC : [id number] ?RECD: 04/29/24-1321 ? STATUS: ??SOUT ? REQ NUM: [id number] ? PARVIZ: 04/29/24-1146 ? SUBM DR: Marielena [...] Wolf ?Age/Sex: 44/F ? : 1980 Unit#: [id number] ?? Attend Dr: Marielena Doe MD ?Re04/29/24 ?Status: DEP SDC ? Location: HO.SSS ?Disch: ? ----- ------- SPEC : [id number] ?RECD: 04/29/24-2 ? STATUS: ??SOUT ? REQ NUM: [id number] ? PARVIZ: 04/29/24-1146 ? SUBM DR: Marielena Doe MD ? ENTERED: ??04/29/24-3 ?SP TYPE: Surgical ? OTHR DR: Name,Gabriel ADAME ? ORDERED: ??HE Stain/15, Gross Micro L4/6, IHC, Special st. 2, H. pylori, AB/PAS ? Copies To: ?? Marielena Doe MD ?? [facility] ?? [address] ?? [place] [address] ?? [phone] ?? Name,Gabriel ADAME ?? [address] ?? [place] [address] ?? [phone] ----- ------- Signed (signature on file) Yulia Langford 04/30/241706 ? ----- ------- ? END OF REPORT ? us Generic External Data Provider LAB BLOOD ORDERAB LES Final Result [facility] [address] [place] [address] [phone] * (ABNORMAL) Hm Colonoscopy (04/29/2024) Colonoscopy [...] 03/17/2024 1:32 PM EST us Agustina Gonzalez INDUSTRIAL WELDER POINT OF CARE TEST ENTER/EDIT ORDERABLES Final Result * BI Mammogram Screening Tomosynthesis Bilateral (03/14/2022 1:48 PM EST) Anatomical Region Laterality Modality Breast Bilateral Mammography 03/14/2022 1:48 PM EST Narrative 03/15/2022 11:29 AM EST ? [facility] [place] ? [address] ?[place] [address] ? Mammography Report ? Signed ? Patient: Luciano,Irena ?MR#: [id number] ?? [id number] ? : 1980 ?Acct:[id number] ? Age/Sex: 42 / F ?ADM Date: 12/07/22 ? Loc: HO.MAMMO ? Attending : Gabriel Name MD ? Ordering Physician: Name,Gabriel MD ?Results: 1Negative ? Date of Service: 03/14/22 ?Follow Up: 1 Year From Orig ?? inal Mammogram ? Procedure(s): MM tomosynthesis screening BI ?? Accession Number(s): [id number] ? cc: Name,Garbiel ADAME ? EXAMINATION: ?? MM SCREENING DIGITAL [...] 1126 ? DD/ 1348 ? TD/TT: ? Design Painter: JOSHUA ? Procedure Note Donotuseinterpreter, Image - 03/15/2022 [facility] [address] [place] [address] Mammography Report Signed Patient: Mikayla Wolf#: [id number] : 1980Acct:[id number] Age/Sex: 42 / FADM Date: 03/14/22 Loc: HO.MAMMO Attending Dr: Gabriel Vaughan MD Ordering Physician: Gabriel Vaughan MDResults: 1Negative Date of Service: 03/14/22Follow Up: 1 Year From Orig inal Mammogram Procedure(s): MM tomosynthesis screening BI Accession Number(s): [id number] cc: Gabriel Vaughan MD EXAMINATION: MM SCREENING [...] in OV> 03/15/22 1126 DD/ 1348 TD/TT: Design Painter: JOSHUA [facility] External Provider IMG BI PROCEDURES Edited Result - Final * Hepatitis Panel, General (03/13/2022 3:54 PM EST) Hepatitis A IgM Nonreactive Nonreactive [facility] Comment:IgM antibodies to SALDAÑA V not detected; does not exclude earlyacute or recovered HAV infection. ~Hepatitis B Surface Antibody NONREACTIVE Nonreactive [facility] Comment:Nonreactive: < 8.00 mIU/mL Hepatitis B Core Antibody Nonreactive Nonreactive [facility] Hepatitis C Antibody Nonreactive Nonreactive [facility] Comment:Antibodies to HCV no t detected; does not exclude early acuteHCV infection. Hepatitis B Surface Antigen Negative Negative [facility] 03/13/2022 3:54 PM EST 03/13/2022 3:54 PM EST [facility] External Provider LAB BLO OD ORDERABLES Final Result [facility] [address] [place] [phone] * HIV 1/2 ANTIGEN/ANTIBODY,FOURTH GENERATION W/RFL [...] ? For additional information please refer to http://education.Unitask/faq/FDZ822 (This link is being provided for informational/ [...] ? For additional information please refer to http://[employer].Unitask/faq/TED934 (This link is being provided for informational/ educational purposes only.) ? The performance of this assay has not been clinically validated in patients less than 2 years old. ?? HIV-1/2 ANTIGEN AND ANTIBODIES, 4TH GENERATION W/ REFLEX NON-REACT ANGELA NON-REACT ANGELA [facility] Comment: HIV-1 antigen and HIV-1/HIV-2 [...] ? For additional information please refer to http://[employer].Unitask/faq/ZAB205 (This link is being provided for informational/ educational purposes only.) ? The performance of this assay has not been clinically validated in patients less than 2 years old. ?? 11/06/2019 11:3 2 AM EDT us Anshu Borjas MD LAB BLOOD ORDERABLES Final Result [facility] [address] from Last 3 Months or Most Recently Relevant to Health Maintenance Insurance [address] [place], [place] [address] Care Teams Custodian Blood Bank Relationship Specialty Start Date End Date Name, MD Gabriel [address] [place] [address] PCP - General Family Medicine 09/18/18
--- OUTSIDE RECORDS SUMMARY | 2024-05-05 12:07 | XMS_ITS | Encounter Summary ---
Author Organization [employer] Address [address] [facility] 7t [place] [address] Care Team Providers Care Cobbler Apprentice Name Role Phone Name, Gabriel ADAME Primary Care Provider [phone] Reason for Visit * Reason Onset Date Comments Med Refill 04/20/2024 Needs to schedule INSIDE SALES ACCOUNT REPRESENTATIVE/Chronic Pain group appt Encounter Details Date Type Department Care Team (Late st Contact Info) Description 04/20/2024 Refill [facility] [address] [place], [place] [phone] Name, MD Gabriel [address] [place] [address] Chronic low back pain with sciatica, sciatica [...] 11:02 AM EST Pt needs to schedule INSIDE SALES ACCOUNT REPRESENTATIVE or chronic pain group appt. TC to patient, no answer. VM not setup, unable to leave message. * Telephone Encounter - Laura Shaw - 04/20/2024 10:52 AM EST TC from pt requesting medication refill. Medications needing refill : HYDROcodone-acetaminophen ([place]) 5-325 MG tablet To be sent to: [id number] - [place] - [address] [facility] documented in this encounter Plan of Treatment Upcoming Encounters Date Type Department Care Team ([facility] st Contact Info) Description 06/02/2024 9:45 AM EST Office Visit [facility] [address] [place] [address] 06/24/2024 2:45 PM EDT Office Visit [facility] [address] [place] [address] Name, MD Gabriel [address] [place] [address] documented as of this encounter Visit Diagnoses Diagnosis Chronic low back pain with sciatica, sciatica laterality unspecified, unspecified back pain laterality documented in this encounter Additional Health Concerns Assessment Noted Time PHQ-9 Depression Total Score: 11 024 11:18 AM EDT documented as of this encounter Care Teams Cobbler Apprentice Relationship Specialty Start Date End Date Name, MD Gabriel [address] [place] [address] PCP - General Family Medicine 09/18/18 documented as of this encounter
--- OUTSIDE RECORDS SUMMARY | 2024-05-05 12:07 | XMS_ITS | Encounter Summary ---
Author Organization [employer] Address [address] [facility] 7t [place] [address] Care Team Providers Care Estate Planning Counselor Name Role Phone Name, Gabriel ADAME Primary Care Provider [phone] Reason for Visit * Reason Onset Date Comments Nurse Triage 04/24/2024 Encounter Details Date Type Department Care Team ([facility] st Contact Info) Description 04/24/2024 Telephone [facility] [address] [place], [place] [phone] Name, MD Gabriel [address] [place], [place] [phone] Nurse Triage Social History Tobacco Use Types [...] Description 06/02/2024 9:45 AM EST Office Visit [address] [address] 06/24/2024 2:45 PM EDT Office Visit [address] [address] Name, MD Gabriel [address] [place] [address] documented as of this encounter Visit Diagnoses Not on filedocumented in this encounter Additional Health Concerns Assessment Noted Time PHQ-9 Depression Total Score: 11 024 11:18 AM EDT documented as of this encounter Care Teams Estate Planning Counselor Relationship Specialty Start Date End Date Gabriel Vaughan MD [address] [place] [address] PCP - General Family Medicine 09/18/18 documented as of this encounter
--- OUTSIDE RECORDS SUMMARY | 2024-05-05 12:07 | XMS_ITS | Encounter Summary ---
Author Organization [employer] Address [address] [facility] 7t [place] [address] Care Team Providers Care Fighter Pilot Name Role Phone Name, Gabriel ADAME Primary Care Provider [phone] Reason for Visit * Reason Onset Date Comments Nurse Triage 04/09/2024 Encounter Details Date Type Department Care Team ([facility] st Contact Info) Description 04/09/2024 Telephone [facility] [address] [place], [place] [phone] Name, MD Gabriel 230 [place], [place] [phone] Nurse Triage Social History Tobacco Use Types [...] Upcoming Encounters Date Type Department Care Team ([facility] st Contact Info) Description 06/02/2024 9:45 AM EST Office Visit [address] [address] 06/24/2024 2:45 PM EDT Office Visit [address] [address] Name, MD Gabriel [address] [place] [address] documented as of this encounter Visit Diagnoses Not on filedocumented in this encounter Additional Health Concerns Assessment Noted Time PHQ-9 Depression Total Score: 11 024 11:18 AM EDT documented as of this encounter Care Teams Fighter Pilot Relationship Specialty Start Date End Date Gabriel Vaughan MD [address] [place] [address] PCP - General Family Medicine 09/18/18 documented as of this encounter
--- OUTSIDE RECORDS SUMMARY | 2024-05-05 12:07 | XMS_ITS | Encounter Summary ---
Author Organization [employer] Address 75 [facility] 7t [place] [address] Care Team Providers Care Boiler Assistant Operator Name Role Phone Name, Gabriel ADAME Primary Care Provider [phone] Reason for Visit * Reason Comments Med Refill Encounter Details Date Type Department Care Team ([facility] st Contact Info) Description 04/24/2024 Refill [facility] 230 [place], [place] [phone] Name, MD Gabriel 230 [place] [address] IIH (idiopathic intracranial hypertension) Social History Tobacco [...] Description 06/02/2024 9:45 AM EST Office Visit [address] [address] 06/24/2024 2:45 PM EDT Office Visit [address] [address] NameGabriel MD [address] [place] [address] documented as of this encounter Visit Diagnoses Diagnosis IIH (idiopathic intracranial hypertension) Benign intracranial hypertension documented in this encounter Additional Health Concerns Assessment Noted Time PHQ-9 Depression Total Score: 11 024 11:18 AM EDT documented as of this encounter Care Teams Boiler Assistant Operator Relationship Specialty Start Date End Date NameGabriel MD [address] [place] [address] PCP - General Family Medicine 09/18/18 documented as of this encounter
--- OUTSIDE RECORDS SUMMARY | 2024-05-05 12:07 | XMS_ITS | Encounter Summary ---
Author Organization [employer] Address [address] [facility] 7t [place] [address] Care Team Providers Care Climate Change Analyst Name Role Phone Name, Gabriel ADAME Primary Care Provider [phone] Reason for Visit * Reason Onset Date Comments Appointment Request 04/20/2024 Encounter Details Date Type Department Care Team ([facility] st Contact Info) Description 04/20/2024 Telephone [facility] 230 [place], [place] [phone] Name, MD Gabriel [address] [place], [place] [phone] Appointment Request Social History Tobacco Use Types [...] to r/s PE appointment. Contact pt at [phone] documented in this encounter Plan of Treatment Upcoming Encounters Date Type Department Care Team (Late st Contact Info) Description 06/02/2024 9:45 AM EST Office Visit [facility] [address] [place] [address] 06/24/2024 2:45 PM EDT Office Visit [facility] [address] [place] [address] Name, MD Gabriel [address] [place] [address] documented as of this encounter Visit Diagnoses Not on filedocumented in this encounter Additional Health Concerns Assessment Noted Time PHQ-9 Depression Total Score: 11 024 11:18 AM EDT documented as of this encounter Care Teams Climate Change Analyst Relationship Specialty Start Date End Date Name, MD Gabriel [address] [place] [address] PCP - General Family Medicine 09/18/18 documented as of this encounter
--- OUTSIDE RECORDS SUMMARY | 2024-05-05 12:07 | XMS_ITS | Encounter Summary ---
Author Organization [employer] Address 75 [facility] 7t [place] [address] Care Team Providers Care Human Relations Teacher Name Role Phone Name, Gabriel ADAME Primary Care Provider [phone] Reason for Visit * Reason Onset Date Comments Results 08/15/2023 Encounter Details Date Type Department Care Team ([facility] st Contact Info) Description 08/15/2023 Telephone [facility] 230 [place] [address] Name, MD Gabriel 230 [place], [place] [phone] Results Social History Tobacco Use Types Packs/Day [...] Also advised to come to walk in [facility] or go to nearest ED if pain [...] MRI results, states went [place] [facility] [place]t. Please contact at [phone] documented in this encounter Plan of Treatment Upcoming Encounters Date Type Department Care Team (Late st Contact Info) Description 06/02/2024 9:45 AM EST Office Visit [address] [address] 06/24/2024 2:45 PM EDT Office Visit [address] [address] Name, MD Gabriel [address] [place] [address] documented as of this encounter Visit Diagnoses Not on filedocumented in this encounter Additional Health Concerns Assessment Noted Time PHQ-9 Depression Total Score: 11 024 11:18 AM EDT documented as of this encounter Care Teams Human Relations Teacher Relationship Specialty Start Date End Date Name, MD Gabriel [address] [place] [address] PCP - General Family Medicine 09/18/18 documented as of this encounter
--- OUTSIDE RECORDS SUMMARY | 2024-05-05 12:07 | XMS_ITS | Encounter Summary ---
Author Organization [employer] Address [address] [facility] 7t [place] [address] Care Team Providers Care Core Filer Name Role Phone Name, Gabriel ADAME Primary Care Provider Reason for Visit * Reason Onset Date Comments Medication Question 04/24/2024 Med Refill 04/24/2024 Encounter Details Date Type Department Care Team ([facility] st Contact Info) Description 04/24/2024 Refill [facility] 230 [place], [place] [phone] Name, MD Gabriel [address] [place] [address] Chronic low back pain with sciatica, sciatica [...] Tc from pt requesting to speak to SLIDE FASTENERS INSPECTOR nurse Marilu regarding script HYDROcodone-acetaminophen ([place]) 5-325 MG tablet Contact pt at [phone] documented in this encounter Plan of Treatment Upcoming Encounters Date Type Department Care Team (Late st Contact Info) Description 06/02/2024 9:45 AM EST Office Visit [facility] [address] [place] [address] 06/24/2024 2:45 PM EDT Office Visit [facility] [address] [place] [address] Name, MD Gabriel [address] [place] [address] documented as of this encounter Visit Diagnoses Diagnosis Chronic low back pain with sciatica, sciatica laterality unspecified, unspecified back pain laterality documented in this encounter Additional Health Concerns Assessment Noted Time PHQ-9 Depression Total Score: 11 024 11:18 AM EDT documented as of this encounter Care Teams Core Filer Relationship Specialty Start Date End Date Name, MD Gabriel [address] [place] [address] PCP - General Family Medicine 09/18/18 documented as of this encounter
--- OUTSIDE RECORDS SUMMARY | 2024-05-05 12:07 | XMS_ITS | Encounter Summary ---
Author Organization [employer] Address 75 [facility] 7t [place] [address] Care Team Providers Care Scientist Immunology Name Role Phone Name, Gabriel ADAME Primary Care Provider [phone] Reason for Visit * Reason Onset Date Comments Med Refill 04/17/2024 Encounter Details Date Type Department Care Team ([facility] st Contact Info) Description 04/17/2024 Telephone [facility] 230 [place], [place] [phone] Name, MD Gabriel [address] [place] [address] Med Refill Social History Tobacco Use Types [...] 3:11 PM EST Medication was sent to [facility] #[id number] on 04/16/24. * Telephone Encounter - Britany Ellison - 04/17/2024 3:08 PM EST TC from pt requesting medication refill. Medications needing refill : HYDROcodone-acetaminophen ([place]) 5-325 MG tablet To be sent to: [facility] #[id number] documented in this encounter Plan of Treatment Upcoming Encounters Date Type Department Care Team (Late st Contact Info) Description 06/02/2024 9:45 AM EST Office Visit [facility] [address] [place] [address] 06/24/2024 2:45 PM EDT Office Visit [facility] [address] [place] [address] Name, MD Gabriel [address] [place] [address] documented as of this encounter Visit Diagnoses Not on filedocumented in this encounter Additional Health Concerns Assessment Noted Time PHQ-9 Depression Total Score: 11 024 11:18 AM EDT documented as of this encounter Care Teams Scientist Immunology Relationship Specialty Start Date End Date Name, MD Gabriel [address] [place] [address] PCP - General Family Medicine 09/18/18 documented as of this encounter
--- OUTSIDE RECORDS SUMMARY | 2024-05-05 12:07 | XMS_ITS | Encounter Summary ---
Author Organization [employer] Address 75 [facility] 7t [place] [address] Care Team Providers Care Aluminum Boats Assembler Name Role Phone Name, Gabriel ADAME Primary Care Provider [phone] Reason for Visit * Reason Comments Med Refill Encounter Details Date Type Department Care Team ([facility] st Contact Info) Description 04/16/2024 Refill [facility] [address] [place], [place] [phone] Name, MD Gabriel 230 [place] [address] Nonintractable episodic headache, unspecified headache type Social [...] Description 06/02/2024 9:45 AM EST Office Visit [address] [address] 06/24/2024 2:45 PM EDT Office Visit [address] [address] Name, MD Gabriel [address] [place] [address] documented as of this encounter Visit Diagnoses Diagnosis Nonintractable episodic headache, unspecified headache type documented in this encounter Additional Health Concerns Assessment Noted Time PHQ-9 Depression Total Score: 11 024 11:18 AM EDT documented as of this encounter Care Teams Aluminum Boats Assembler Relationship Specialty Start Date End Date NameGabriel MD [address] [place] [address] PCP - General Family Medicine 09/18/18 documented as of this encounter
--- OUTSIDE RECORDS SUMMARY | 2024-05-05 12:07 | XMS_ITS | Encounter Summary ---
Author Organization [employer] Address [address] [facility] 7t [place] [address] Care Team Providers Care Floor Hand Name Role Phone Name, Gabriel ADAME Primary Care Provider [phone] Encounter Details Date Type Department Care Team ([facility] st Contact Info) Description 04/30/2024 Abstract [facility] 230 [place] [address] Name, MD Gabriel [address] [place], [place] [phone] Social History Tobacco Use Types Packs/Day Years [...] Description 06/02/2024 9:45 AM EST Office Visit [address] [address] 06/24/2024 2:45 PM EDT Office Visit [address] [address] Name, MD Gabriel [address] [place] [address] documented as of this encounter Procedures Procedure [...] documented as of this encounter Care Teams Floor Hand Relationship Specialty Start Date End Date Gabriel Vaughan MD [address] [place] [address] PCP - General Family Medicine 09/18/18 documented as of this encounter
--- OUTSIDE RECORDS SUMMARY | 2024-05-05 12:08 | XMS_ITS | Encounter Summary ---
Author Organization [employer] Address [address] [facility] 7t [place] [address] Care Team Providers Care Debug Technician Name Role Phone Name, Gabriel ADAME Primary Care Provider [phone] Reason for Visit * Reason Onset Date Comments Medication Question 06/18/2023 Encounter Details Date Type Department Care Team ([facility] st Contact Info) Description 06/18/2023 Telephone [facility] [address] [place], [place] [phone] Name, MD Gabriel [address] [place], [place] [phone] Medication Question Social History Tobacco Use Types [...] hip pain. Pt. Advised to come to [facility]. Pt. Also advised to go to [...] medication is not working. Please contact at [phone] documented in this encounter Plan of Treatment Upcoming Encounters Date Type Department Care Team (Late st Contact Info) Description 06/02/2024 9:45 AM EST Office Visit [facility] [address] [place] [address] 06/24/2024 2:45 PM EDT Office Visit [facility] [address] [place] [address] Name, MD Gabriel [address] [place] [address] documented as of this encounter Visit Diagnoses Not on filedocumented in this encounter Additional Health Concerns Assessment Noted Time PHQ-9 Depression Total Score: 6 07/04/19 23 1:10 PM EDT documented as of this encounter Care Teams Debug Technician Relationship Specialty Start Date End Date Name, [place] [address] PCP - General Family Medicine 09/18/18 documented as of this encounter
[2024-05-05 12:23] LABS: Alanine Aminotransferase 11 U/L (0-31); Albumin Level 4.2 g/dL (3.5-5.0); Alkaline Phosphatase 76 U/L (39-117); Aspartate Amino Transferase 17 U/L (5-31); Bilirubin Direct 0.2 mg/dL (0.0-0.5); Bilirubin Total 0.4 mg/dL (0.0-1.0); Total Protein 7.1 g/dL (6.5-8.0)
[2024-05-05 12:48] LABS: TSH reflex Free T4 0.83 uIU/mL (0.32-4.0)
[2024-05-05 12:51] LABS: Folate 9.5 ng/mL (> or = 4.0); Vitamin B12 317 pg/mL (200-900)
[2024-05-09 17:43] LABS: Vitamin D 25-OH, D2 <4 ng/mL; Vitamin D 25-OH, D3 33 ng/mL; Vitamin D 25-OH, Total 33 ng/mL (30-100)
== END 2024-05-05 10:12 | disposition home or self-care (01) ==
LOC: HO.LAB 10:11
PROVIDERS: PCP Internal Medicine Geriatric Medicine; Visit Provider Nurse Practitioner Family
DX: R74.01 Elevation of levels of liver transaminase levels (principal); E55.9 Vitamin D deficiency, unspecified; K59.00 Constipation, unspecified; K58.2 Mixed irritable bowel syndrome; K21.9 Gastro-esophageal reflux disease without esophagitis; K59.1 Functional diarrhea; R10.13 Epigastric pain; R11.0 Nausea
CPT/HCPCS: 36415; 80076; 82306; 82607; 82746; 84443; 99212

== ENCOUNTER 2024-11-06 11:34 | Outpatient (AMB) | payer MEDICAID, SELFPAY ==
--- NOTE | 2024-11-06 11:35 | MHC.OFFVIS ---
Vital Signs 11/06/24 11:42 Height 5 ft 6 in Weight 155 lb BMI 25.0 BP 112/62 Blood Pressure Location Rt brachial Position Sitting Pulse 74 Pulse Source Pulse Oximeter Pulse Oximetry (%) 97 Oxygen Delivery Method Room Air Intake Visit Reasons: f/u gerd constipation Intake Note: ESTABLISHED PATIENT for GERD + Constipation mgmt. Labs done. Chief Complaint; C.O. N+V w/ strong intermittent pains, severe diarrhea affecting daily activities. Pt also needs refill of dicyclomine and zofran. Pt has questions about quantity of zofran. Taking 1-2 daily. Signal Operator Technical Required: No Accompanied by: Self / Same As Patient Allergies adhesive Allergy (Intermediate, Verified 11/06/24 11:40) Rash promethazine (From PHENERGAN) Allergy (Intermediate, Verified 11/06/24 11:40) PSYCHOSIS NSAIDS (Non-Steroidal Anti-Inflamma (NSAIDS (NON-STEROIDAL ANTI-INFLAMMA) Allergy (Unknown, Verified 11/06/24 11:40) Gastrointestinal Upset oxycodone (From PERCOCET) Allergy (Unknown, Verified 11/06/24 11:40) headache metoclopramide (From Reglan) Adverse Reaction (Intermediate, Verified 11/06/24 11:40) PSYCHOSIS medical tape- tegaderm Allergy (Intermediate, Uncoded 11/06/24 11:40) Rash dermabond Allergy (Uncoded 11/06/24 11:40) Blister HPI HPI f/u gerd constipation: Details: LAST VISIT: IBS (irritable bowel syndrome) Bile acid esophageal reflux Diarrhea Epigastric pain Nausea GERD (gastroesophageal reflux disease) Plan Patient will stop taking 20 mg of dicyclomine and will try 10 mg instead as needed. Citrucel every morning and Dulcolax tablets at night time. Increase fiber intake. Will start patient on well call for bile reflux and she can hold off on taking PPI and H2 molly for now. Patient will call us in 2 weeks to report her symptoms. Lab work today, vitamin B12, folate, vitamin-D level as well as thyroid study and liver panel. Continue avoiding dietary triggers, avoid late night snacking. Patient will continue follow the diet that we discussed in the past. Patient does have FODMAP list with food recommended and food to avoid at home. Follow-up in 2 months. Patient is agreeable to current plan of care and verbalizes understanding of instructions. She was given the opportunity to ask questions and all questions answered. ? Thank you for allowing me to participate in her care Orders Vitamin B12 and Folate Today R19.7 Liver Panel Today R74.01 Vitamin D 25-OH (D2 and D3) Today E55.9 TSH reflex Free T4 Today K59.00 New dicyclomine 10 mg PO BID PRN 90 caps 2RF abdominal discomfort K58.9 methylcellulose (laxative) (Citrucel) take it with full glass of water 500 mg PO DAILY 90 tabs 2RF K59.00 colesevelam (WelChol) 1,250 mg (2 x 625 mg) PO BID 120 tabs 2RF Refilled ondansetron 4 mg PO Q8H 30 days PRN 30 tabs 0RF for nausea/vomiting R11.0 Discontinued dicyclomine Discontinued Reason: Doctor's Order 20 mg PO QID PRN 60 tabs 0RF abdominal pain TODAY'S VISIT: Patient is here today for follow-up. Patient reports that she continues to have occasional postprandial diarrhea. Patient never picked up fiber at the pharmacy. Sometimes cramping prior to having a bowel movement. Occasional nausea with acid reflux. Occasional vomiting. Patient reports that epigastric pain almost every morning when she wakes up. Patient reports occasional dyspepsia without dysphagia or odynophagia. Patient feels like Nexium and famotidine are not helping her. Patient reports that dicyclomine helps her with abdominal cramping. Patient takes Zofran once or twice a day, not every day though. Patient admits that she is going under a lot of stress right now. Patient denies melena, hematochezia, unintentional weight loss or ribbon like stools. [facility] Medical History Bile acid esophageal reflux Disc degeneration, lumbar Spondylosis of cervical spine Spondylosis of lumbar spine Chronic pain syndrome Panniculitis Intestinal malabsorption following gastrectomy Hypocalcemia Hypoproteinemia Hypomagnesemia Diarrhea Odynophagia Elevated lipase Nausea Splenic infarction Constipation Dysphagia Malabsorption due to intolerance, not elsewhere classified Obesity (BMI 30-39.9) Hiatal hernia Increased body mass index (BMI) PONV (postoperative nausea and vomiting) Migraines Sleep apnea History of Crabtree's palsy Motion sickness Vertigo HTN (hypertension) TMJ (temporomandibular joint disorder) PTSD (post-traumatic stress disorder) Insomnia Fatty liver High cholesterol Degenerative disc disease Sciatica of left side Bursitis Arthritis Diverticular disease Scoliosis Pseudotumor cerebri GERD (gastroesophageal reflux disease) Endometriosis Chronic back pain Palpitations Anxiety Depression IBS (irritable bowel syndrome) Surgical History Hx of colonoscopy History of esophagogastroduodenoscopy (EGD) History of repair of hiatal hernia History of sleeve gastrectomy History of tonsillectomy and adenoidectomy Hx of oophorectomy History of myringotomy History of laparoscopic cholecystectomy H/O unilateral oophorectomy S/P MALIKA (total abdominal hysterectomy) History of laparoscopy History of tubal ligation History of tonsillectomy Family History Father No problems noted. Mother Heart disease Type 2 diabetes mellitus History of smoking Alcoholism COPD (chronic obstructive pulmonary disease) Hyperlipidemia Colon cancer Sister No problems noted. Sister No problems noted. Brother Arthritis Brother Arthritis Son Obesity Autism spectrum disorder Son Fibromyalgia Mood disorder Social History Household Members: Children Housing: Apartment Are you a primary care director rn to a significant other at home: No Do you presently have visiting nurse or other home services: No Alcohol intake: never Comment: resting in bed with eyes closed Patient Tobacco Use Status: Current someday Tobacco user Tobacco use type: Cigarette Cigarettes Per Day: 3 Second Hand Smoke Exposure: No Substance Use Type: Marijuana service: No Current occupational status: unemployed 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, 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 Review of Systems Const Denies weight gain and Denies weight loss ENT Reports no additional complaints, Denies dysphagia and Denies odynophagia Card Reports no additional complaints Resp Reports no additional complaints GI Reports abdominal pain (RLQ), Denies belching, Denies melena, Reports bloating, Denies change in bowel habits, Reports constipation, Denies dysphagia, Denies excessive flatus, Reports dyspepsia, Reports heartburn, Denies diarrhea, Reports loose stools, Reports nausea, Denies odynophagia and Denies vomiting Reports no additional complaints Musc Reports no additional complaints Neuro Reports no additional complaints Psych Reports no additional complaints Endo Reports no additional complaints Physical Exam Vital Signs: BMI result Body Mass Index 25.0 Const General: healthy appearing, no acute distress and well developed Nutritional Appearance: well nourished Orientation/consciousness: patient oriented x3 Resp Effort & Inspection: normal respiratory effort, able to speak in complete sentences, no tracheal deviation and symmetric chest movement Auscultation: clear to auscultation bilaterally Cardio Rate: regular rate GI Inspection: Yes normal to inspection and No distended Palpation (GI): Soft to palpation, not firm, nontender and No hepatosplenomegaly present Auscultation: normal bowel sounds General: Yes no CVA tenderness Back/Spine/Pelvis Back: no CVA tenderness Skin General skin exam: elasticity normal, turgor normal and dry skin Neuro General: patient oriented x3 Psych Appearance: grossly normal Mental Status: mental status grossly normal Assessment & Plan Assessment & Plan (1) Bile acid esophageal reflux: Code(s): K21.9 - Gastro-esophageal reflux disease without esophagitis Category: Medical (2) Intestinal malabsorption following gastrectomy: Code(s): K91.2 - Postsurgical malabsorption, not elsewhere classified; Z90.3 - Acquired absence of stomach [part of] Category: Medical (3) IBS (irritable bowel syndrome): Code(s): K58.9 - Irritable bowel syndrome, unspecified Category: Medical Qualifiers: Irritable bowel syndrome type: with both diarrhea and constipation Qualified Code(s): K58.2 - Mixed irritable bowel syndrome (4) Abdominal pain: Code(s): R10.9 - Unspecified abdominal pain Category: Medical Qualifiers: Abdominal location: generalized Qualified Code(s): R10.84 - Generalized abdominal pain (5) Postprandial abdominal bloating: Code(s): R14.0 - Abdominal distension (gaseous) (6) Postprandial diarrhea: Code(s): K52.9 - Noninfective gastroenteritis and colitis, unspecified Plan Patient will stop taking Nexium and start lansoprazole in the morning. Patient will start taking sucralfate at bedtime. She is a making a in the morning with epigastric pain and burning. Avoid dietary triggers and a LEEP at snacking. Staying upright for minimum 3 hours after meals discussed with patient. Use dicyclomine as needed for pain. Patient will increase fiber intake. Fiber supplement recommended to help her bulk her stool. Increase fluid intake and activity to promote better bowel motility. Follow-up in 2 months, sooner on as needed basis. Patient is agreeable to current plan of care verbalizes understanding of instructions. She was given the opportunity to ask questions and all questions answered. Thank you for allowing me to participate in her care Medications: New dicyclomine 20 mg PO TID 90 tabs 2RF lansoprazole 30 mg PO DAILY 30 caps 3RF K21.9 - Gastro-esophageal reflux disease without esophagitis sucralfate 1 g PO BEDTIME 30 tabs 4RF R19.7 - Diarrhea, unspecified Refilled ondansetron 4 mg PO Q8H PRN 30 tabs 0RF for nausea/vomiting 30 days R11.0 - Nausea Discontinued famotidine (Pepcid) Discontinued Reason: Doctor's Order 20 mg PO BEDTIME 90 days 90 tabs 3RF K21.9 - Gastro-esophageal reflux disease without esophagitis esomeprazole magnesium (Nexium) Discontinued Reason: Doctor's Order 40 mg PO DAILY 30 caps 5RF K21.9 - Gastro-esophageal reflux disease without esophagitis Coding Level of Care Code Est Pt Level 4 (45927) Complex EM visit Add On G2211 Diagnoses Bile acid esophageal reflux K21.9 Intestinal malabsorption following gastrectomy K91.2; Z90.3 Irritable bowel syndrome with both constipation and diarrhea K58.2 Irritable bowel syndrome type: with both diarrhea and constipation Abdominal pain R10.84 Abdominal location: generalized Postprandial abdominal bloating R14.0 Postprandial diarrhea K52.9 Time Spent (min) 35 Comment 25 minutes spent with patient and additional 10 minutes spent reviewing her records
--- OUTSIDE RECORDS SUMMARY | 2024-11-06 11:36 | XMS_ITS | Patient Health Record ---
Author Organization [facility] Billing Info Address [address] [place] [id number] Care Team Providers Care Torpedo Shooter Name Role Phone Alexis Hall Primary Care Provider EVA Berry Unavailable [phone] Allergies Allergen (clinical drug ingredient) Drug/Non Drug [...] Problem Status W/U Status Risk Notes Problem [id number] Fibromyalgia (M79.7) Active confirmed Problem [id number] Biliary dyskines ia (575.8) Active confirmed Problem [id number] Status post cholecystectomy (V45.79) Active confirmed Plan Of Treatment Pending Test Test Name Order Date MRI- LUMBAR SPINE W/O CONTRAST (LUM)(ORM C-LUM) 10/27/2015 Insurance Providers Payer Name Payer Address Payer Phone Subscriber Number Group Number Insured Name Patient Relationship to Insured Coverage Start Date Coverage End Date [facility] [address] [place], [place] [id number] Irena Wolf Self - patient is the insured 3 0 Medical (General) History Medical History History ICD Code Fibromyalgia Hyperlipidemia IBS Migraine headache Diverticulitis trombosispenea acid reflux Surgical History Surgery Date(Month/Year) ENT 1984 laparoscopy 2004 & 2012 BX Nodule 2009 gall bladder surgery 08/25/2013 hysterctomy 02/2015 Hospitalization History Reason Date(Month/Year) Gallbladder 08/06/2013 hysterectomy 02/2015 trombosipenea 01/2015
--- OUTSIDE RECORDS SUMMARY | 2024-11-06 11:36 | XMS_ITS | Clinical Summary ---
Author Organization [facility] Address [address] [place] [address] Phone Care Team Providers Care Retail Seasonal Specialist Name Role Phone Physician, No Pcp Primary Care Provider Unavaila ble Allergies Active Allergy Reactions Criticality Noted Date Comments Adhesive Tape-Silicones 05/18/2024 Nsaids (Non-Steroidal Anti-I nflammatory Drug) 04/13/2024 Promethazine 04/13/2024 Metoclopramide Hcl 04/13/2024 Medications ondansetron ODT (ZOFRAN-ODT) 4 mg disintegrating tablet Dissolve 1 tablet (4 mg total) on top of the tongue every 8 (eight) hours if needed for nausea or vomiting for up to 7 days. 10 tablet 10/24/19 25 Encounters Date Type Department Care Team Description 10/16/2024 8:29 AM EDT - 10/16/2024 2:46 PM EDT Emergency [facility] [address] [place] [address] Nausea and vomiting, unspecified vomiting type (Primary Dx) Discharge Disposition: Home or Self Care from Last 3 Months Medical History Medical History Date Comments Diverticulitis Social History Tobacco Use Types Packs/Day Years Used Date Smoking Tobacco: Never Assessed Comments Unknown Sex and Gender Information Value Date Recorded Sex Assigned at Not on file Legal Sex Female 10:46 PM EST Gender Identity Not on file Sexual Orientation Not on file Obstetrics History Last Filed Vital Signs Vital Sign Reading Time Taken Comments Blood Pressure 129/78 10/16/2024 1:30 PM EDT Pulse 60 10/16/2024 1:30 PM EDT Temperature 36.7 C (98 F) 10/16/2024 8:29 AM EDT Respiratory Rate 20 10/16/2024 1:30 PM EDT Oxygen Saturation 97% 10/16/2024 1:30 PM EDT Inhaled Oxygen Concentration - - Weight 70.8 kg (156 lb) 10/16/2024 8:29 AM EDT Height 167.6 cm (5' 6 ) 10/16/2024 8:29 AM EDT Body Mass Index 25.18 10/16/2024 8:29 AM EDT Plan of Treatment Health Maintenance Due Date Last Done Comments Cervical Cancer Screening: P ap Smear 1999 COVID-19 Vaccine (2023-2 5 season) 2023 Breast Cancer Screening 03/14/2024 03/14/2022 Depression Screening 04/08/2024 Colorectal Cancer Screening: Colonoscopy 04/23/2024 Hepatitis C Screening 04/23/2024 Social Influencers of Health Screening 04/23/2024 Influenza Vaccine (#1) 2024 0, 01/01/2012 DTaP,Tdap,and Td Vaccines (2 - Td or Tdap) 12/30/2031 12/29/2021 Hepatitis B Vaccines Completed 06/21/2005, 01/23/2005, 12/22/2004 Hepatitis A Vaccines Aged Out 02/13/2008 No long er eligible based on patient's age to complete this topic HIV Screening Completed 11/06/2019 HIB Vaccines Aged Out No longer eligi ble based on patient's age to complete this topic HPV Vaccines Aged Out No longer eligi ble based on patient's age to complete this topic IPV Vaccines Aged Out No longer eligi ble based on patient's age to complete this topic MMR Vaccines Aged Out No longer eligi ble based on patient's age to complete this topic Meningococcal ACWY Vaccine Aged Out N o longer eligible based on patient's age to complete this topic Meningococcal B Vaccine Aged Out No l onger eligible based on patient's age to complete this topic Pneumococcal Vaccine: Pediatrics (0 to 5 Years) and At-Risk Patients (6 to 49 Years) Aged Out No longer eligible b ased on patient's age to complete this topic RSV Immunization Patients Under 20 months Aged Out No longer eligible b ased on patient's age to complete this topic Varicella Vaccines Aged Out No longer eligible based on patient's age to complete this topic Procedures Procedure Name Priority Date/Time Associated Diagnosis Comments CT ABDOMEN PELVIS W CONTRAST STAT 10/16/2024 11:46 AM EDT TROPONIN I HIGH SENSITIVITY STAT 10/16/2024 10:52 AM EDT YELLOW URINE NO ADDITIVE STAT 10/16/2024 10:48 AM EDT DURHAM URINE CULTURE TUBE STAT 10/16/2024 10:48 AM EDT URINALYSIS WITH REFLEX MICROSCOPIC AND CULTURE STAT 10/16/2024 10:48 AM EDT URINALYSIS WITH REFLEX MICROSCOPIC AND CULTURE STAT 10/16/2024 10:48 AM EDT TROPONIN I HIGH SENSITIVITY STAT 10/16/2024 9:29 AM EDT CBC WITH AUTO DIFFERENTIAL STAT 10/16/2024 9:29 AM EDT CBC AND DIFFERENTIAL STAT 10/16/2024 9:29 AM EDT HCG, SERUM, QUALITATIVE STAT 10/16/2024 9:29 AM EDT COMPREHENSIVE METABOLIC PANEL STAT 10/16/2024 9:29 AM EDT XR CHEST 2 VIEWS STAT 10/16/2024 9:21 AM EDT ECG 12-LEAD STAT 10/16/2024 9:09 AM EDT from Last 3 Months Results * CT Abdomen Pelvis w Contrast (10/16/2024 11:46 AM EDT) Anatomical Region Laterality Modality Body Computed Tomogra phy 10/16/2024 11:5 0 AM EDT Impressions 10/16/2024 11:[address] evidence of acute intra-abdominal pathology -------- FINAL REPORT -------- Dictated By: Antwan iVncent Dictated Date: 10/16/2024 11:50 Assigned Physician: Antwan Vincent Reviewed and Electronically Signed By: Antwan Vincent Signed Date: 10/16/2024 11:58 Workstation ID: [id number] Transcribed By: Self Edit Transcribed Date: 10/16/2024 11:50 Narrative 10/16/2024 11:58 AM EDT COMPARISON: None TECHNIQUE: A CONTRAST: 100 mL IOPAMIDOL 300 MG IODINE/ML (61 %) INTRAVENOUS SOLUTION Route: intravenous One or more of the following CT dose reduction techniques were used: - Automated exposure control - Adjustment of the mA and/or kV according to patient size - Use of iterative reconstruction technique OBSERVATIONS: LIMITED LOWER CHEST: Normal. LIVER: Normal. BILIARY TREE: Normal. GALLBLADDER: Absent. PANCREAS: Normal. SPLEEN: Normal. ADRENAL GLANDS: Normal. KIDNEYS/URETERS/BLADDER: Normal. PELVIC ORGANS: Post hysterectomy. BOWEL: Postoperative changes of gastric sleeve. No evidence of bowel obstruction. Normal appendix LYMPH NODES: Normal. PERITONEUM/MESENTERY: Normal. RETROPERITONEUM: Normal. VESSELS: Mild atherosclerosis. ABDOMINAL WALL: Normal. BONES: Normal. Procedure Note Antwan Vincent MD - 10/16/2024 COMPARISON: None TECHNIQUE: A CONTRAST: 100 mL IOPAMIDOL 300 MG IODINE/ML (61 %) INTRAVENOUS SOLUTIONRoute: intravenous One or more of the following CT dose reduction techniques were used: - Automated exposure control - Adjustment of the mA and/or kV according to patient size - Use of iterative reconstruction technique OBSERVATIONS: LIMITED LOWER CHEST: Normal. LIVER: Normal. BILIARY TREE: Normal. GALLBLADDER: Absent. PANCREAS: Normal. SPLEEN: Normal. ADRENAL GLANDS: Normal. KIDNEYS/URETERS/BLADDER: Normal. PELVIC ORGANS: Post hysterectomy. BOWEL: Postoperative changes of gastric sleeve. No evidence of bowelobstruction. Normal appendix LYMPH NODES: Normal. PERITONEUM/MESENTERY: Normal. RETROPERITONEUM: Normal. VESSELS: Mild atherosclerosis. ABDOMINAL WALL: Normal. BONES: Normal. IMPRESSION: No CT evidence of acute intra-abdominal pathology -------- FINAL REPORT -------- Dictated By: Antwan Vincent Dictated Date: 10/16/2024 11:50 Assigned Physician: Antwan Vincent Reviewed and Electronically Signed By: Antwan Vincent Signed Date: 10/16/2024 11:58 Workstation ID: [id number] Transcribed By: Self Edit Transcribed Date: 10/16/2024 11:[address] PROCEDURES Final Result * Troponin I high sensitivity (10/16/2024 10:52 AM EDT) Only the most recent of2 resultswithin the time period is included. [facility] [address] High Sensitivity Troponin I 4 0 - 51 ng/L LAB CHEMISTRY METHOD 10/16/2024 11:[address] [facility] Blood Venous blood specimen / Unknown Venipuncture / Unknown 10/16/2024 10:52 AM EDT 10/16/2024 10:[address] [facility] - 10/16/2024 11:22 AM EDT Falsely decreased High Sensitivity Troponin I results may occur on samples from patients taking Biotin. Asia MENON LAB BLOOD ORDERABLES Final Resul t [facility] [address] [place] [address] * Urinalysis with reflex microscopic and culture (10/16/2024 10:48 AM EDT) Color, Urine Yellow Colorless, Yellow LAB URINALYSIS - AUTOMATED METHOD 10/16/2024 11:[address] [facility] Clarity, Urine Clear Clear 10/16/2024 11:[address] [facility] Specific [place] Urine 1.020 1.005 - 1.030 LAB URINALYSIS - AUTOMATED METHOD 10/16/2024 11:[address] [facility] pH, Urine 7.5 5.0 - 7.0 pH LAB URINALYSIS - AUTOMATED METHOD 10/16/2024 11:03 AM [facility] Leukocytes, Urine Negative Negative WBCs/mcL LAB URINALYSIS - AUTOMATED METHOD 10/16/2024 11:03 AM [facility] Nitrite, Urine Negative Negative LAB URINALYSIS - AUTOMATED METHOD 10/16/2024 11:03 AM [facility] Protein, Urine Negative Negative, 10 mg/dL LAB URINALYSIS - AUTOMATED METHOD 10/16/2024 11:03 AM [facility] Glucose, Urine Negative Negative mg/dL LAB URINALYSIS - AUTOMATED METHOD 10/16/2024 11:03 AM [facility] Ketones, Urine Negative Negative mg/dL LAB URINALYSIS - AUTOMATED METHOD 10/16/2024 11:03 AM [facility] Urobilinogen, Urine Negative Negative mg/dL LAB URINALYSIS - AUTOMATED METHOD 10/16/2024 11:03 AM [facility] Bilirubin, Urine Negative Negative, 0.5 mg/dL LAB URINALYSIS - AUTOMATED METHOD 10/16/2024 11:03 AM [facility] Blood, Urine Negative Negative mg/dL LAB URINALYSIS - AUTOMATED METHOD 10/16/2024 11:03 AM [facility] Urine Urine specimen obtained by clean catch procedure / Unknown Non-blood Collection / Unknown 10/16/2024 10:48 AM EDT 10/16/2024 10:52 AM EDT us Asia MENON LAB URINE ORDERABLES Final Resul t [facility] [address] [place] [address] * [place] urine culture tube (10/16/2024 10:48 AM EDT) Extra Tube Hold for add-ons. 10/16/2024 12:[address] [facility] Comment:Auto resulted. Urine Urine specimen obtained by clean catch procedure / Unknown Non-blood Collection / Unknown 10/16/2024 10:48 AM EDT 10/16/2024 10:52 AM EDT Asia MENON LAB URINE ORDERABLES Final Resul t Performing Organization Address City/[facility]/ZIP Co de Phone Number [facility] [address] [place] [address] * Yellow urine no additive (10/16/2024 10:48 AM EDT) Extra Tube Hold for add-ons. 10/16/2024 12:[address] [facility] Comment:Auto resulted. Urine Urine specimen obtained by clean catch procedure / Unknown Non-blood Collection / Unknown 10/16/2024 10:48 AM EDT 10/16/2024 10:52 AM EDT Asia MENON LAB URINE ORDERABLES Final Resul t Performing Organization Address City/[facility]/ZIP Co de Phone Number [facility] [address] [place] [address] * (ABNORMAL) CBC auto differential (10/16/2024 9:29 AM EDT) WBC 10.9(H) 4.0 - 10.2 K/[facility] LAB HEMETOLOGY METHOD 10/16/2024 10:[address] [facility] RBC 4.07 3.80 - 5.00 M/mcL LAB HEMETOLOGY METHOD 10/16/2024 10:[address] [facility] Hemoglobin 12.8 11.3 - 15.3 g/dL LAB HEMETOLOGY METHOD 10/16/2024 10:02 AM [facility] Hematocrit 38.5 34.0 - 45.0 % LAB HEMETOLOGY METHOD 10/16/2024 10:[facility] MCV 94.6 81.0 - 97.0 FL LAB HEMETOLOGY METHOD 10/16/2024 10:02 [facility] MCH 31.4(L) 32.6 - 36.6 pcg LAB HEMETOLOGY METHOD 10/16/2024 10:02 AM [facility] MCHC 33.2 29.2 - 35.3 g/dL LAB HEMETOLOGY METHOD 10/16/2024 10:02 AM [facility] RDW 13.4 11.0 - 14.5 % LAB HEMETOLOGY METHOD 10/16/2024 10:02 AM [facility] RDW-SD 46.2 36.8 - 48.3 FL LAB HEMETOLOGY METHOD 10/16/2024 10:02 AM [facility] Platelets 265 150 - 400 K/mcL LAB HEMETOLOGY METHOD 10/16/2024 10:02 AM [facility] MPV 9.4 8.9 - 13.3 FL LAB HEMETOLOGY METHOD 10/16/2024 10:02 AM [facility] Neutrophils Relative 80.9(H) 32.0 - 71.0 % LAB HEMETOLOGY METHOD 10/16/2024 10:02 AM [facility] Immature Granulocytes Relative 0.4 0.0 - 1.0 % LAB HEMETOLOGY METHOD 10/16/2024 10:02 AM [facility] Lymphocytes Relative 13.1(L) 19.5 - 54.0 % LAB HEMETOLOGY METHOD 10/16/2024 10:02 AM [facility] Monocytes Relative 5.1 4.0 - 14.0 % LAB HEMETOLOGY METHOD 10/16/2024 10:02 AM [facility] Eosinophils Relative 0.1 0.0 - 7.0 % LAB HEMETOLOGY METHOD 10/16/2024 10:02 AM [facility] Basophils Relative 0.4 0.0 - 2.0 % LAB HEMETOLOGY METHOD 10/16/2024 10:02 AM [facility] Preliminary Neutrophils Abs Automated Count 8.82(H) 1.50 - 6.00 K/mcL LAB HEMETOLOGY METHOD 10/16/2024 10:02 AM [facility] Neutrophils Absolute 8.82(H) 1.50 - 6.00 K/mcL LAB HEMETOLOGY METHOD 10/16/2024 10:02 AM [facility] Immature Granulocytes Absolute 0.04 0.00 - 0.10 K/mcL LAB HEMETOLOGY METHOD 10/16/2024 10:02 AM [facility] Lymphocytes Absolute 1.43 1.10 - 4.00 K/mcL LAB HEMETOLOGY METHOD 10/16/2024 10:02 AM [facility] Monocytes Absolute 0.55 0.20 - 1.00 K/mcL LAB HEMETOLOGY METHOD 10/16/2024 10:02 AM [facility] Eosinophils Absolute 0.01 0.00 - 0.70 K/mcL LAB HEMETOLOGY METHOD 10/16/2024 10:02 AM [facility] Basophils Absolute 0.04 0.00 - 0.20 K/mcL LAB HEMETOLOGY METHOD 10/16/2024 10:02 AM [facility] NRBC 0.0 0.0 - 0.0 % LAB HEMETOLOGY METHOD 10/16/2024 10:[address] [facility] NRBC Absolute 0.00 0.00 - 0.00 K/mcL LAB HEMETOLOGY METHOD 10/16/2024 10:[address] [facility] Blood Venous blood specimen / Unknown Venipuncture / Unknown 10/16/2024 9:29 AM EDT 10/16/2024 9:48 AM EDT us Asia MENON LAB BLOOD ORDERABLES Final Resul t [facility] [address] [place] [address] * hCG Qualitative (10/16/2024 9:29 AM EDT) hCG Qual Negative Negative 10/16/2024 11:[address] [facility] Blood Venous blood specimen / Unknown Venipuncture / Unknown 10/16/2024 9:29 AM EDT 10/16/2024 9:48 AM EDT us Asia MENON LAB BLOOD ORDERABLES Final Resul t Performing Organization Address City/[facility]/ZIP Co de Phone Number [facility] [address] [place] [address] * (ABNORMAL) Comprehensive Metabolic Panel (CMP) (10/16/2024 9:29 AM EDT) Sodium 143 136 - 145 mmol/L LAB CHEMISTRY METHOD 10/16/2024 10:[address] [facility] Potassium 4.2 3.5 - 5.1 mmol/L LAB CHEMISTRY METHOD 10/16/2024 10:[address] [facility] Chloride 108(H) 98 - 107 mmol/L LAB CHEMISTRY METHOD 10/16/2024 10:19 AM [facility] CO2 31 21 - 32 mmol/L LAB CHEMISTRY METHOD 10/16/2024 10:19 AM [facility] Anion Gap 4 3 - 11 LAB CHEMISTRY METHOD 10/16/2024 10:19 AM [facility] Glucose 86 70 - 99 mg/dL LAB CHEMISTRY METHOD 10/16/2024 10:19 AM [facility] BUN 9 7 - 18 mg/dL LAB CHEMISTRY METHOD 10/16/2024 10:19 AM [facility] Creatinine 0.63 0.55 - 1.02 mg/dL LAB CHEMISTRY METHOD 10/16/2024 10:19 AM [facility] eGFR 111 >=60 mL/min/1. 73m2 LAB CHEMISTRY METHOD 10/16/2024 10:19 AM [facility] Comment: Please note that this estimated GFR value is not recommended for use in individuals under the age of 18, individuals with unstable creatinine concentrations (including and acute renal failure), or individuals with extremes of body mass or diet (including amputees, paraplegics and obese individuals). Calculation based on the Chronic Kidney Disease Epidemiology Collaboration (CKD- EPI) equation refit without adjustment for race. BUN/Creatinine Ratio 14.3 12.0 - 20.0 LAB CHEMISTRY METHOD 10/16/2024 10:19 AM [facility] Calcium 8.8 8.5 - 10.1 mg/dL LAB CHEMISTRY METHOD 10/16/2024 10:19 AM [facility] AST (SGOT) 15 15 - 37 unit/L LAB CHEMISTRY METHOD 10/16/2024 10:19 AM [facility] ALT (SGPT) 15 13 - 56 unit/L LAB CHEMISTRY METHOD 10/16/2024 10:19 AM [facility] Alkaline Phosphatase 81 42 - 98 unit/L LAB CHEMISTRY METHOD 10/16/2024 10:[address] [facility] Total Protein 6.4 6.4 - 8.2 g/dL LAB CHEMISTRY METHOD 10/16/2024 10:[address] [facility] Albumin 3.7 3.4 - 5.0 g/dL LAB CHEMISTRY METHOD 10/16/2024 10:[address] [facility] Total Bilirubin 0.3 0.2 - 1.2 mg/dL LAB CHEMISTRY METHOD 10/16/2024 10:[address] [facility] Blood Venous blood specimen / Unknown Venipuncture / Unknown 10/16/2024 9:29 AM EDT 10/16/2024 9:48 AM EDT us Asia MENON LAB BLOOD ORDERABLES Final Resul t [facility] [address] [place] [address] * XR Chest 2 Views (10/16/2024 9:21 AM EDT) Anatomical Region Laterality Modality Body Radiographic Mary Carmen ging 10/16/2024 9:22 AM EDT Impressions 10/16/2024 9:22 AM EDT No acute cardiopulmonary abnormality. -------- FINAL REPORT -------- Dictated By: George Dang Dictated Date: 10/16/2024 09:22 Assigned Physician: George Dang Reviewed and Electronically Signed By: George Dang Signed Date: 10/16/2024 09:22 Workstation ID: [id number] Transcribed By: Self Edit Transcribed Date: 10/16/2024 09:22 Narrative 10/16/2024 9:22 AM EDT Comparison: None. Findings: Lines and support devices: None. Heart and mediastinum: The cardiomediastinal silhouette is normal. Lungs: The lungs are clear. No edema or focal consolidation. Pleura: No effusion or pneumothorax. Bones: No acute osseous abnormality. Procedure Note George Dang MD - 10/16/2024 Comparison: None. Findings: Lines and support devices: None. Heart and mediastinum: The cardiomediastinal silhouette is normal. Lungs: The lungs are clear. No edema or focal consolidation. Pleura: No effusion or pneumothorax. Bones: No acute osseous abnormality. IMPRESSION: No acute cardiopulmonary abnormality. -------- FINAL REPORT -------- Dictated By: George Dang Dictated Date: 10/16/2024 09:22 Assigned Physician: George Dang Reviewed and Electronically Signed By: George Dang Signed Date: 10/16/2024 09:22 Workstation ID: [id number] Transcribed By: Self Edit Transcribed Date: 10/16/2024 09:22 Asia MENON IMG XR PROCEDURES Final Result * 12-Lead ECG (10/16/2024 9:09 AM EDT) Ventricular Rate ECG 58 BPM GEMUSE Atrial Rate 58 BPM GEMUSE P-R Interval 156 ms GEMUSE QRS Duration 88 ms GEMUSE Q-T Interval 426 ms GEMUSE QTc 418 ms GEMUSE P Wave Cleves 44 degrees GEMUSE R Cleves 50 degrees GEMUSE T Cleves 50 degrees GEMUSE ECG Interpretation SINUS BRADYCARDIA OTHERWISE NORMAL ECG NO PREVIOUS ECGS AVAILABLE Confirmed by Mague Garcia ([id number]) on 10/16/2024 5:50:27 PM GEMUSE 10/16/2024 9:09 AM EDT 10/16/2024 5:50 PM EDT us Asia MENON ECG ORDERABLES Final Result GEMUSE from Last 3 Months Insurance MEDICA[place] - [place] Care Teams Retail Seasonal Specialist Relationship Specialty Start Date End Date Physician, No Pcp PCP - General 05/18/24
--- OUTSIDE RECORDS SUMMARY | 2024-11-06 11:36 | XMS_ITS | Encounter Summary ---
Author Organization [employer] Address [address] [place] [address] Care Team Providers Care Director Home Name Role Phone Name, Gabriel ADAME Primary Care Provider [phone] Reason for Visit * Reason Onset Date Comments Med Refill 04/17/2024 Encounter Details Date Type Department Care Team ([facility] st Contact Info) Description 04/17/2024 Telephone [facility] [address], [place] [id number] Name, MD Gabriel [address] [place] [address] Med Refill Social History Tobacco Use Types [...] 3:11 PM EST Medication was sent to [facility] #[id number] on 04/16/24. * Telephone Encounter - Britany Ellison - 04/17/2024 3:08 PM EST TC from pt requesting medication refill. Medications needing refill : HYDROcodone-acetaminophen ([place]) 5-325 MG tablet To be sent to: [facility][id number] documented in this encounter Plan of Treatment Upcoming Encounters Date Type Department Care Team (Late st Contact Info) Description 11/10/2024 10:00 AM EDT Clinical Support [facility] [address] [place] [address] Marilu Hector, ROMINA documented as of this encounter Visit Diagnoses Not on filedocumented in this encounter Additional Health Concerns Assessment Noted Time PHQ-9 Depression Total Score: 11 024 11:18 AM EDT documented as of this encounter Care Teams Director Home Relationship Specialty Start Date End Date Name, MD Gabriel [address] [place] [address] PCP - General Family Medicine 09/18/18 documented as of this encounter
--- OUTSIDE RECORDS SUMMARY | 2024-11-06 11:36 | XMS_ITS | Patient Health Record ---
Author Organization [facility] [facility] Address [address] [place] [id number] Care Team Providers Care Parts Processor Name Role Phone Julian Argueta Mariama [phone] Reason For Referral No Information Plan Of Treatment No Information
--- OUTSIDE RECORDS SUMMARY | 2024-11-06 11:37 | XMS_ITS | Patient Health Record ---
Author Organization [facility] Address [address] [address] Care Team Providers Care Independent Video Producer Name Role Phone Vaibhav Page MD, Forrest [...] W/U Status Risk Notes Problem Epigastric pain (40649449) Epigastric pain (R10.13) 2013 Active confirmed EO465-Lhgxwbmuv c pain Problem Periumbilical pain (427458710) Periumbilical pain (R10.33) 2013 Active confirmed DL665-Mwqarmuxr ical pain Problem Nausea (597113125) Nausea (R11.0) 2013 Active confirmed EY335-Ugrsbi Problem Heartburn (37237640) Heartburn (R12) 2017 Active confirmed AM171-Uagfhjzre Problem Early satiety (922860146) Early satiety (R68.81) 2017 Active confirmed BC642-Jiwpi satiety Problem Rectal bleeding (68542155) Rectal bleeding (K62.5) 2013 Active confirmed ZU438-Ggafiq bleeding Problem Altered bowel function (20109970) Altered bowel function (R19.4) 2017 Active confirmed EI939-Gdusxfc bowel function Problem Weight decreased (155517708) Weight loss, abnormal (R63.4) 2013 Active confirmed KO593-Nkxlkf loss, abnormal Problem Constipation (85095362) Constipation (K59.00) 2017 Active confirmed TG884-Mqwqhrqfq ion Problem Stomach cramps (94694145) Stomach cramps (R10.9) 2017 Active confirmed GB219-Dlvwuaw cramps Problem Epigastric pain (61852590) Abdominal Pain Epigastric (R10.13) 2017 Active confirmed IK447-Xcnecawbd Pain Epigastric Problem Elevated levels of transaminase & lactic acid dehydrogenase (838981932) Elevated LFTs- negative Hepatitis profile except Hep A (R74.0) 2013 Active confirmed FD047-Lvqcuhof LFTs- negative Hepatitis profile except Hep A Problem Dysphagia (49744867) Regurgitates food (R13.10) 2017 Active confirmed XO222-Ontoziyze mohinder food Problem Rectal pain (39358854) Rectal Pain/Proctalgia (K62.89) 2013 Active confirmed RA317-Chawuj Pain/Proctalgia Problem Lower abdominal pain (88460071) Colicky/ Crampy hypogastric burning pain- CT scan of the abdomen and Pelvis was normal in Apr 2017, CT scan of bladder and cystoscopy were normal as per patient- Urology evaluation negative (R10.30) 2017 Active confirmed EA611-Yrxxfju/ Crampy hypogastric burning pain- CT scan of the abdomen and Pelvis was normal in Apr 2017, CT scan of bladder and cystoscopy were normal as per patient- Urology evaluation negative Problem Urinary incontinence (954175574) Urinary incontinence (R32) 2017 Active confirmed WQ617-Tfawuhv incontinence Problem Nausea (762533237) Nausea Only- persistent (R11.0) 2013 Active confirmed BW854-Soqpcc Only- Persistent Problem Incontinence of feces (32898430) Incontinence of feces (R15.9) 2013 Active confirmed FK079-Sekmvvbym nce of feces Problem Right upper quadrant pain (832639926) Abdominal Pain RUQ (R10.11) 2013 Active confirmed KX556-Numgixlra Pain RUQ Problem Periumbilical pain (933942903) Recurrent Suprapubic pain- Symptoms of UTI but urine is normal- ABx helps (R10.33) 2017 Active confirmed AU065-Shrnzidcn Suprapubic pain- Symptoms of UTI but urine is normal- ABx helps Problem Intentional weight loss (574116085) Intentional weight loss (R63.8) 2017 Active confirmed BY450-Kuaommdpn al weight loss Problem Displacement of lumbar intervertebral disc without myelopathy (51726018) H/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
--- OUTSIDE RECORDS SUMMARY | 2024-11-06 11:37 | XMS_ITS | Patient Health Record ---
Author Organization [facility] Address [address] [place] [id number] Care Team Providers Care Lead Injection Mold Technician Name Role Phone Isabel, Henrikjermain Primary Care Provider [phone] Allergies Allergen (clinical drug ingredient) Drug/Non Drug Allergy documented on EMR Reaction Allergy Type Onset Date Status promethazine Phenergan Psychosis Drug Allergy Acti ve metoclopramide Reglan anaphylaxis Drug Allergy Active Reason For Referral No Information Medications Medication SIG (Take, Route, Frequency, Duration) Notes Start Date End Date Status Cipro 500 MG 1 tablet Orally every 12 hrs; Duration: 10 day(s) 03/03/2018 Active Aimovig 70 mg INJ 70 mg sc montlhy SC Monthly; Duration: 30 03/03/2018 Active Diflucan 100 MG 1 tablet Orally Once a day; Duration: 10 day(s) 03/03/2018 Active Cholecalciferol 23703 UNIT as directed Orally; Duration: 6 Active Ibuprofen 800mg 1 po BID; Duration: 7 days Take as needed Active Imitrex 100 MG 1 tablet as needed Orally DAILY; Duration: 30 days Active Lovaza 1 GM 1 capsules Orally Twice a day; Duration: 90 days 06/04/2014 Active Xyzal 5 MG 1 tablet in the evening Orally Once a day; Duration: 90 days 03/03/2018 Active Ondansetron 4 MG as directed Orally every 6 hrs; Duration: 10 days 08/18/2014 Active Bentyl 10 MG 1 capsule Orally Four times a day; Duration: 30 day(s) 06/06/2018 Active traMADol HCl 50 MG 1 tablet as needed Orally q 6 hrs; Duration: 7 days 08/21/2019 Active Imitrex 20 MG/ACT as directed Nasally Twice a day; Duration: 10 days 07/15/2018 Active Cymbalta 30 MG 1 capsule Orally Once a day; Duration: 30 day(s) 06/06/2018 Active Hyoscyamine Sulfate 0.125 MG 1 tablet before meals as needed Orally PRN; Duration: 30 Active Flexeril 10 MG 1 tablet Orally Once a day; Duration: 30 day(s) 07/15/2018 Active hydroCHLOROthiazide 12.5 MG 1 tablet Ora lly Once a day; Duration: 30 day(s) 07/15/2018 Active Melatonin TR 5-10 MG Orally Active hydrOXYzine HCl 25 MG 1 tablet Orally BID; Duration: 20 days 07/15/2018 Active Benadryl 25 MG 1 capsule as needed Orally every 6 hrs Active Zolpidem Tartrate 10 MG 1 tablet at bedtime as needed Orally Once a day; Duration: 30 days 07/15/2018 Active HYDROcodone-Acetaminophen 10-325 MG as directed Orally every 6 hrs prn; Duration: 14 days 08/21/2019 Active Flexeril 10 MG 1 tablet Orally BID; Duration: 25 days 09/07/2015 Active Amrix 15 MG 1 capsule Orally Once a day; Duration: 30 day(s) 12/17/2017 Active Cipro 500 mg 1 tablet Orally every 12 hrs; Duration: 7 days 12/17/2017 Active Clotrimazole-Betamethasone 1-0.05 % 1 application to affected area Externally Twice a day; Duration: 7 days 12/17/2017 Active predniSONE 5 MG 1 tablet with food or milk Orally Once a day; Duration: 7 days 12/17/2017 Active Immunizations Vaccine Route Administration Date Status Comme nts Depomedrol Unknown 02/06/2013 Administered Influenza (split) IM Intramuscular 01/13/2014 Administered Influenza (split) IM Intramuscular 01/24/2015 Administered Tetanus IM Intramuscular 07/05/2015 Administered Problems Problem Type SNOMED Code ICD Code Onset Dates Problem Status W/U Status Risk Notes Problem 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) Other and unspecified anterior pituitary hyperfunction (253.1) Active confirmed Problem Benign neoplasm of pelvic bones, 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 neoplasm of pelvic bones, sacrum, 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 confirmed Problem Thyrotoxicosis (83791087) Thyrotoxicosis without mention of goiter or other cause, without mention of thyrotoxic crisis or storm (242.90) Active confirmed Problem Vitamin deficiency (25156850) Unspecified vitamin deficiency (269.2) Active confirmed Problem Pure hypercholesterolemia (456531889) Pure hypercholesterolemia (272.0) Active confirmed Problem Migraine with aura (disorder) (0087713) Migraine with aura, without mention of intractable migraine without mention of status migrainosus (346.00) Active confirmed Problem Chronic sinusitis (06743238) Unspecified sinusitis (chronic) (473.9) Active confirmed Problem Vulvovaginitis (disorder) (26096672) Unspecified vaginitis and vulvovaginitis (616.10) Active confirmed Problem Sciatica (26166195) Sciatica (724.3) Active con firmed Problem Backache (351761913) Unspecified backache (724.5) Active confirmed Problem Lumbago (792178499) Lumbago (724.2) Active conf irmed Problem Contact dermatitis caused by detergent (18158933) Contact dermatitis and other eczema due to detergents (692.0) Active confirmed Problem Psoriasis (0553096) Other psoria sis (696.1) Active confirmed Problem Pain in joint, l ower leg (719.46) Active confirmed Problem Headache (38083777) Headache (784.0) Active con firmed Problem Cough (03331010) Cough (786.2) Active confirmed Problem Chest pain (61851860) Chest pain , unspecified (786.50) Active confirmed Problem Nausea and vomiting (01318784) Nausea with vomiting (787.01) Active confirmed Problem Diarrhea (87179025) Diarrhea (787.91) Active co nfirmed Problem Abdominal pain (finding) (20707184) Abdominal pain, unspecified site (789.00) Active confirmed Problem Right lower quadrant pain (782596511) Abdominal pain, right lower quadrant (789.03) Active confirmed Problem Body mass index 30.0 0 to 34.99 (358205621996289) Body Mass Index 33.0-33.9, adult (V85.33) Active confirmed Problem Body mass index 35.0 0 to 39.99 (196844994645432) Body Mass Index 35.0-35.9, adult (V85.35) Active confirmed Problem Chronic pain (39783717) chronic pain (338.4) Active confirmed Problem Fibromyalgia (065941290) fibromyalgia (729.1) Active confirmed Problem Tinea corporis (48714580) Tinea corporis (B35.4) Active confirmed Problem Hyperlipidemia (98237579) Hyperlipidemia, unspecified (E78.5) Active confirmed Problem Chronic pain syndrom e (198567512) Chronic pain syndrome (G89.4) Active confirmed Problem Allergic rhinitis (64797735) Allergic rhinitis, unspecified (J30.9) Active confirmed Problem Cellulitis and abscess of trunk (967206523) Cutaneous abscess of groin (L02.214) Active confirmed Problem Urticaria (24008727) Urticaria, unspecified (L50.9) Active confirmed Problem Low back pain (119615975) Low back pain (M54.5) Active confirmed Problem Pain (60435993) Pain, unspecifie d (R52) Active confirmed Problem Body mass index 35.0 0 to 39.99 (039029928545425) Body mass index (BMI) 39.0-39.9, adult (Z68.39) Active confirmed Plan Of Treatment Pending Test Test Name Order Date Ultrasound : Abdomen 06/04/2014 Urinalysis 05/01/2017 TEST AUTHORIZATION 01/24/2015 COMPREHENSIVE METABOLIC PANEL 10/26/2013 URINALYSIS, COMPLETE W/REFLEX TO CULTURE 05/24/2014 RHEUMATOID FACTOR 05/29/2013 HEMOGLOBIN A1c 05/24/2014 URINALYSIS, COMPLETE 05/12/2015 CBC (INCLUDES DIFF/PLT) 05/29/2013 CBC (INCLUDES DIFF/PLT) 05/24/2014 CBC (INCLUDES DIFF/PLT) 10/26/2013 CBC (INCLUDES DIFF/PLT) 10/26/2013 THYROID PANEL 09/28/2014 LIPID PANEL 05/24/2014 SED RATE BY MODIFIED WESTERGREN 05/29/19 14 HCG, TOTAL, QL 09/28/2014 VITAMIN [...] Insured Coverage Start Date Coverage End Date UMR [address] [address] [place], [place] [id number] Irena Wolf Self - patient is the insured [employer] [address] [address] [place] [id number] [phone] [id number] Irena Wolf Self - patient is the insured Medical (General) History Medical History History ICD Code irritable bowel [...]
[2024-11-06 11:42] VITALS: BP 112/62; PULSE 74; O2SAT 97; BMI 25.0
== END 2024-11-06 12:00 | disposition home or self-care (01) ==
LOC: HO.HGI 11:34
PROVIDERS: PCP Internal Medicine Geriatric Medicine; Visit Provider Nurse Practitioner Family
DX: K21.9 Gastro-esophageal reflux disease without esophagitis (principal); K91.2 Postsurgical malabsorption, not elsewhere classified; Z90.3 Acquired absence of stomach [part of]; K58.2 Mixed irritable bowel syndrome; R10.84 Generalized abdominal pain; R14.0 Abdominal distension (gaseous); K52.9 Noninfective gastroenteritis and colitis, unspecified
CPT/HCPCS: 99214

== ENCOUNTER → 2024-11-06 11:34 | Outpatient (BNVA) | payer MEDICAID, SELFPAY | PROVIDERS: PCP Internal Medicine Geriatric Medicine; Visit Provider Nurse Practitioner Family | DX: K21.9 Gastro-esophageal reflux disease without esophagitis (principal); K91.2 Postsurgical malabsorption, not elsewhere classified; K58.2 Mixed irritable bowel syndrome; R10.84 Generalized abdominal pain; R14.0 Abdominal distension (gaseous) | CPT/HCPCS: 99212 ==

== ENCOUNTER 2024-11-10 16:12 | Outpatient (REF) | payer MEDICAID, SELFPAY ==
[2024-11-13 08:48] LABS: Codeine, Ur NEGATIVE; Hydrocodone, Ur NEGATIVE; Oxycodone, Ur NEGATIVE
[2024-11-13 08:49] LABS: Hydromorphone, Ur NEGATIVE; Morphine, Ur NEGATIVE; Oxymorphone, Ur NEGATIVE
[2024-11-13 08:50] LABS: Norhydrocodone, Ur NEGATIVE; Noroxycodone, Ur NEGATIVE
== END 2024-11-10 16:13 | disposition home or self-care (01) ==
LOC: HO.LNP 16:12
PROVIDERS: Visit Provider Internal Medicine Geriatric Medicine
DX: Z79.891 Long term (current) use of opiate analgesic (principal)
CPT/HCPCS: 80307; 80365; G0480

== ENCOUNTER 2024-11-17 11:00 | Outpatient (REF) | payer MEDICAID, SELFPAY ==
--- OUTSIDE RECORDS SUMMARY | 2024-11-17 14:00 | XMS_ITS | Clinical Summary ---
Author Organization [facility] Address [address] [place] [address] Phone Care Team Providers Care Licensed Sales Assistant Name Role Phone Physician, No Pcp Primary [...] EDT - 10/16/2024 2:46 PM EDT Emergency [facility] Emergency [address] [place] [address] Nausea and vomiting, unspecified vomiting [...] Vincent Signed Date: 10/16/2024 11:58 Workstation ID: [id number] Transcribed By: Self Edit Transcribed Date: 10/16/2024 [...] Vincent Signed Date: 10/16/2024 11:58 Workstation ID: [id number] Transcribed By: Self Edit Transcribed Date: 10/16/2024 11:[address] PROCEDURES Final Result * Troponin I high sensitivity (10/16/2024 10:52 AM EDT) Only the most recent of2 resultswithin the time period is included. [facility] High Sensitivity Troponin I 4 0 - 51 ng/L LAB CHEMISTRY METHOD 10/16/2024 11:22 AM EDT [facility] Blood Venous blood specimen / Unknown Venipuncture / Unknown 10/16/2024 10:52 AM EDT 10/16/2024 10:54 AM EDT Narrative [facility] - 10/16/2024 11:22 AM EDT Falsely decreased High Sensitivity Troponin I results may occur on samples from patients taking Biotin. Asia MENON LAB BLOOD ORDERABLES Final Resul t [facility] [address] [place] [address] * Urinalysis with reflex microscopic and culture (10/16/2024 10:48 AM EDT) Color, Urine Yellow Colorless, Yellow LAB URINALYSIS - AUTOMATED METHOD 10/16/2024 11:03 AM EDT [facility] Clarity, Urine Clear Clear 10/16/2024 11:03 AM EDT [facility] Specific [place] Urine 1.020 1.005 - 1.030 LAB URINALYSIS - AUTOMATED METHOD 10/16/2024 11:03 AM EDT [facility] pH, Urine 7.5 5.0 - 7.0 pH LAB URINALYSIS - AUTOMATED METHOD 10/16/2024 11:03 AM [facility] Leukocytes, Urine Negative Negative WBCs/mcL LAB URINALYSIS - AUTOMATED METHOD 10/16/2024 11:03 AM [facility] Nitrite, Urine Negative Negative LAB URINALYSIS - AUTOMATED METHOD 10/16/2024 11:03 AM [facility] Protein, Urine Negative Negative, 10 mg/dL LAB URINALYSIS - AUTOMATED METHOD 10/16/2024 11:03 AM [facility] Glucose, Urine Negative Negative mg/dL LAB URINALYSIS - AUTOMATED METHOD 10/16/2024 11:03 AM [facility] Ketones, Urine Negative Negative mg/dL LAB URINALYSIS - AUTOMATED METHOD 10/16/2024 11:03 AM [facility] Urobilinogen, Urine Negative Negative mg/dL LAB URINALYSIS - AUTOMATED METHOD 10/16/2024 11:03 AM [facility] Bilirubin, Urine Negative Negative, 0.5 mg/dL LAB URINALYSIS - AUTOMATED METHOD 10/16/2024 11:03 AM [facility] Blood, Urine Negative Negative mg/dL LAB URINALYSIS - AUTOMATED METHOD 10/16/2024 11:03 AM [facility] Urine Urine specimen obtained by clean catch procedure / Unknown Non-blood Collection / Unknown 10/16/2024 10:48 AM EDT 10/16/2024 10:52 AM EDT us Asia MENON LAB URINE ORDERABLES Final Resul t [facility] [address] [place] [address] * [place] urine culture tube (10/16/2024 10:48 AM EDT) Extra Tube Hold for add-ons. 10/16/2024 12:01 PM EDT [facility] Comment:Auto resulted. Urine Urine specimen obtained by clean catch procedure / Unknown Non-blood Collection / Unknown 10/16/2024 10:48 AM EDT 10/16/2024 10:52 AM EDT Asia MENON LAB URINE ORDERABLES Final Resul t Performing Organization Address City/[facility]/ZIP Co de Phone Number [facility] [address] [place] [address] * Yellow urine no additive (10/16/2024 10:48 AM EDT) Extra Tube Hold for add-ons. 10/16/2024 12:01 PM EDT [facility] Comment:Auto resulted. Urine Urine specimen obtained by clean catch procedure / Unknown Non-blood Collection / Unknown 10/16/2024 10:48 AM EDT 10/16/2024 10:52 AM EDT Asia MENON LAB URINE ORDERABLES Final Resul t Performing Organization Address City/[facility]/ZIP Co de Phone Number [facility] [address] [place] [address] * (ABNORMAL) CBC auto differential (10/16/2024 9:29 AM EDT) WBC 10.9(H) 4.0 - 10.2 K/[facility] LAB HEMETOLOGY METHOD 10/16/2024 10:02 AM EDT [facility] RBC 4.07 3.80 - 5.00 M/mcL LAB HEMETOLOGY METHOD 10/16/2024 10:02 AM EDT [facility] Hemoglobin 12.8 11.3 - 15.3 g/dL LAB HEMETOLOGY METHOD 10/16/2024 10:02 AM [facility] Hematocrit 38.5 34.0 - 45.0 % LAB HEMETOLOGY METHOD 10/16[facility]2024 [facility] MCV 94.6 81.0 - 97.0 FL LAB HEMETOLOGY METHOD 10/16/2024 10:[facility] MCH 31.4(L) 32.6 - 36.6 pcg LAB HEMETOLOGY METHOD 10/16/2024 10:02 AM [facility] MCHC 33.2 29.2 - 35.3 g/dL LAB HEMETOLOGY METHOD 10/16/2024 10:02 AM [facility] RDW 13.4 11.0 - 14.5 % LAB HEMETOLOGY METHOD 10/16/2024 10:02 AM [facility] RDW-SD 46.2 36.8 - 48.3 FL LAB HEMETOLOGY METHOD 10/16/2024 10:02 AM [facility] Platelets 265 150 - 400 K/mcL LAB HEMETOLOGY METHOD 10/16/2024 10:02 AM [facility] MPV 9.4 8.9 - 13.3 FL LAB HEMETOLOGY METHOD 10/16/2024 10:02 AM [facility] Neutrophils Relative 80.9(H) 32.0 - 71.0 % LAB HEMETOLOGY METHOD 10/16/2024 10:02 AM [facility] Immature Granulocytes Relative 0.4 0.0 - 1.0 % LAB HEMETOLOGY METHOD 10/16/2024 10:02 AM [facility] Lymphocytes Relative 13.1(L) 19.5 - 54.0 % LAB HEMETOLOGY METHOD 10/16/2024 10:02 AM [facility] Monocytes Relative 5.1 4.0 - 14.0 % LAB HEMETOLOGY METHOD 10/16/2024 10:02 AM [facility] Eosinophils Relative 0.1 0.0 - 7.0 % LAB HEMETOLOGY METHOD 10/16/2024 10:02 AM [facility] Basophils Relative 0.4 0.0 - 2.0 % LAB HEMETOLOGY METHOD 10/16/2024 10:[facility] Preliminary Neutrophils Abs Automated Count 8.82(H) 1.50 - 6.00 K/mcL LAB HEMETOLOGY METHOD 10/16/2024 10:02 AM [facility] Neutrophils Absolute 8.82(H) 1.50 - 6.00 K/mcL LAB HEMETOLOGY METHOD 10/16/2024 10:02 AM [facility] Immature Granulocytes Absolute 0.04 0.00 - 0.10 K/mcL LAB HEMETOLOGY METHOD 10/16/2024 10:02 AM [facility] Lymphocytes Absolute 1.43 1.10 - 4.00 K/mcL LAB HEMETOLOGY METHOD 10/16/2024 10:02 AM [facility] Monocytes Absolute 0.55 0.20 - 1.00 K/mcL LAB HEMETOLOGY METHOD 10/16/2024 10:02 AM [facility] Eosinophils Absolute 0.01 0.00 - 0.70 K/mcL LAB HEMETOLOGY METHOD 10/16/2024 10:02 AM [facility] Basophils Absolute 0.04 0.00 - 0.20 K/mcL LAB HEMETOLOGY METHOD 10/16/2024 10:02 AM [facility] NRBC 0.0 0.0 - 0.0 % LAB HEMETOLOGY METHOD 10/16/2024 10:02 AM EDT [facility] NRBC Absolute 0.00 0.00 - 0.00 K/mcL LAB HEMETOLOGY METHOD 10/16/2024 10:02 AM EDT [facility] Blood Venous blood specimen / Unknown Venipuncture / Unknown 10/16/2024 9:29 AM EDT 10/16/2024 9:48 AM EDT us Asia MENON LAB BLOOD ORDERABLES Final Resul t [facility] [address] [place] [address] * hCG Qualitative (10/16/2024 9:29 AM EDT) hCG Qual Negative Negative 10/16/2024 11:08 AM EDT [facility] Blood Venous blood specimen / Unknown Venipuncture / Unknown 10/16/2024 9:29 AM EDT 10/16/2024 9:48 AM EDT us Asia MENON LAB BLOOD ORDERABLES Final Resul t Performing Organization Address City/[facility]/ZIP Co de Phone Number [facility] [address] [place] [address] * (ABNORMAL) Comprehensive Metabolic Panel (CMP) (10/16/2024 9:29 AM EDT) Sodium 143 136 - 145 mmol/L LAB CHEMISTRY METHOD 10/16/2024 10:19 AM EDT [facility] Potassium 4.2 3.5 - 5.1 mmol/L LAB CHEMISTRY METHOD 10/16/2024 10:19 AM EDT [facility] Chloride 108(H) 98 - 107 mmol/L LAB CHEMISTRY METHOD 10/16/2024 10:19 AM [facility] CO2 31 21 - 32 mmol/L LAB CHEMISTRY METHOD 10/16/2024 10:19 AM [facility] Anion Gap 4 3 - 11 LAB CHEMISTRY METHOD 10/16/2024 10:19 AM [facility] Glucose 86 70 - 99 mg/dL LAB CHEMISTRY METHOD 10/16/2024 10:19 AM [facility] BUN 9 7 - 18 mg/dL LAB CHEMISTRY METHOD 10/16/2024 10:19 AM [facility] Creatinine 0.63 0.55 - 1.02 mg/dL LAB CHEMISTRY METHOD 10/16/2024 10:19 AM [facility] eGFR 111 >=60 mL/min/1. 73m2 LAB CHEMISTRY METHOD 10/16/2024 10:19 AM [facility] Comment: Please note that this [...] LAB CHEMISTRY METHOD 10/16/2024 10:19 AM [facility] Calcium 8.8 8.5 - 10.1 mg/dL LAB CHEMISTRY METHOD 10/16/2024 10:19 AM [facility] AST (SGOT) 15 15 - 37 unit/L LAB CHEMISTRY METHOD 10/16/2024 10:19 AM [facility] ALT (SGPT) 15 13 - 56 unit/L LAB CHEMISTRY METHOD 10/16/2024 10:19 AM [facility] Alkaline Phosphatase 81 42 - 98 unit/L LAB CHEMISTRY METHOD 10/16/2024 10:19 AM EDT [facility] Total Protein 6.4 6.4 - 8.2 g/dL LAB CHEMISTRY METHOD 10/16/2024 10:19 AM EDT [facility] Albumin 3.7 3.4 - 5.0 g/dL LAB CHEMISTRY METHOD 10/16/2024 10:19 AM EDT [facility] Total Bilirubin 0.3 0.2 - 1.2 mg/dL LAB CHEMISTRY METHOD 10/16/2024 10:19 AM EDT [facility] Blood Venous blood specimen / Unknown Venipuncture / Unknown 10/16/2024 9:29 AM EDT 10/16/2024 9:48 AM EDT us Asia MENON LAB BLOOD ORDERABLES Final Resul t [facility] [address] [place] [address] * XR Chest 2 Views (10/16/2024 9:21 AM EDT) Anatomical Region Laterality Modality Body Radiographic Mary Carmen ging 10/16/2024 9:22 AM EDT Impressions 10/16/2024 9:22 AM EDT No acute cardiopulmonary abnormality. -------- FINAL REPORT -------- Dictated By: George Dang Dictated Date: 10/16/2024 09:22 Assigned Physician: George Dang Reviewed and Electronically Signed By: George Dang Signed Date: 10/16/2024 09:22 Workstation ID: [id number] Transcribed By: Self Edit Transcribed Date: 10/16/2024 [...] Dang Signed Date: 10/16/2024 09:22 Workstation ID: [id number] Transcribed By: Self Edit Transcribed Date: 10/16/2024 09:22 Aisa MENON IMG XR PROCEDURES Final Result * 12-Lead ECG (10/16/2024 9:09 AM EDT) Ventricular Rate ECG 58 BPM GEMUSE Atrial Rate 58 BPM GEMUSE P-R Interval 156 ms GEMUSE QRS Duration 88 ms GEMUSE Q-T Interval 426 ms GEMUSE QTc 418 ms GEMUSE P Wave [place] 44 degrees GEMUSE R [place] 50 degrees GEMUSE T [place] 50 degrees GEMUSE ECG Interpretation SINUS BRADYCARDIA OTHERWISE NORMAL ECG NO PREVIOUS ECGS AVAILABLE Confirmed by Mague Garcia ([id number]) on 10/16/2024 5:50:27 PM GEMUSE 10/16/2024 9:09 AM EDT 10/16/2024 5:50 PM EDT us Asia MENON ECG ORDERABLES Final Result GEMUSE from Last 3 Months Insurance MEDICA[place] - [place] Care Teams Licensed Sales Assistant Relationship Specialty Start Date End Date Physician, No Pcp PCP - General 05/18/24
--- OUTSIDE RECORDS SUMMARY | 2024-11-17 14:00 | XMS_ITS | Encounter Summary ---
Author Organization [employer] Address [address] [place] [address] Care Team Providers Care Core Sticker Name Role Phone Name, Gabriel ADAME Primary Care Provider [phone] Reason for Visit * Reason Onset Date Comments Med Refill 04/17/2024 Encounter Details Date Type Department Care Team ([facility] st Contact Info) Description 04/17/2024 Telephone [facility] [address], [place] [phone] Name, MD [address] [place] [address] Med Refill Social History Tobacco Use Types [...] Miscellaneous Notes * Telephone Encounter - Samantha Sacnhes LPN - 04/17/2024 3:11 PM EST Medication was sent to [facility] #[id number] on 04/16/24. * Telephone Encounter - Britany Ellison - 04/17/2024 3:08 PM EST TC from pt requesting medication refill. Medications needing refill : HYDROcodone-acetaminophen ([place]) 5-325 MG tablet To be sent to: [facility] #[id number] documented in this encounter Plan of Treatment Upcoming Encounters Date Type Department Care Team (Late st Contact Info) Description 02/16/2025 11:00 AM EST Office Visit [facility] [address] [place] [address] documented as of this encounter Visit Diagnoses Not on filedocumented in this encounter Additional Health Concerns Assessment Noted Time PHQ-9 Depression Total Score: 11 024 11:18 AM EDT documented as of this encounter Care Teams Core Sticker Relationship Specialty Start Date End Date Name, MD Gabriel [address] [place] [address] PCP - General Family Medicine 09/18/18 documented as of this encounter
--- OUTSIDE RECORDS SUMMARY | 2024-11-17 14:00 | XMS_ITS | Patient Health Record ---
Author Organization [facility] Address [address] [place] [address] Care Team Providers Care Glass Ribbon Machine Operator Name Role Phone Julian Argueta Mariama [phone] Reason For Referral No Information Plan Of Treatment No Information
--- OUTSIDE RECORDS SUMMARY | 2024-11-17 14:00 | XMS_ITS | Patient Health Record ---
Author Organization [facility] Billing Info Address [address] [place] [address] Care Team Providers Care Scout Leaser Name Role Phone Alexis Hall Primary Care Provider EVA Berry Unavailable [phone] Allergies Allergen (clinical drug ingredient) Drug/Non Drug [...] Problem Status W/U Status Risk Notes Problem 584391572 Fibromyalgia (M79.7) Active confirmed Problem 300383614 Biliary dyskines ia (575.8) Active confirmed Problem 170142189 Status post cholecystectomy (V45.79) Active confirmed Plan Of Treatment Pending Test Test Name Order Date MRI- LUMBAR SPINE W/O CONTRAST (LUM)(ORM C-LUM) 10/27/2015 Insurance Providers Payer Name Payer Address Payer Phone Subscriber Number Group Number Insured Name Patient Relationship to Insured Coverage Start Date Coverage End Date [facility] [address] [place], [place] [id number] Irena Wolf Self - patient is the insured 3 0 Medical (General) History Medical History History ICD Code Fibromyalgia Hyperlipidemia IBS Migraine headache Diverticulitis trombosispenea acid reflux Surgical History Surgery Date(Month/Year) ENT 1984 laparoscopy 2004 & 2012 BX Nodule 2009 gall bladder surgery 08/25/2013 hysterctomy 02/2015 Hospitalization History Reason Date(Month/Year) Gallbladder 08/06/2013 hysterectomy 02/2015 trombosipenea 01/2015
--- OUTSIDE RECORDS SUMMARY | 2024-11-17 14:01 | XMS_ITS | Patient Health Record ---
Author Organization [facility] Address [address] [address] Care Team Providers Care Plumber'S Helper Name Role Phone Vaibhav Page MD, Forrest [...] W/U Status Risk Notes Problem Epigastric pain (35309907) Epigastric pain (R10.13) 2013 Active confirmed JO407-Ipvdfprrz c pain Problem Periumbilical pain (725240277) Periumbilical pain (R10.33) 2013 Active confirmed ZR673-Ljymnivrq ical pain Problem Nausea (289089082) Nausea (R11.0) 2013 Active confirmed KB183-Caogyp Problem Heartburn (51138121) Heartburn (R12) 2017 Active confirmed YM356-Wbkqktjij Problem Early satiety (988433596) Early satiety (R68.81) 2017 Active confirmed YF200-Uxysb satiety Problem Rectal bleeding (04948237) Rectal bleeding (K62.5) 2013 Active confirmed QQ302-Lkrgul bleeding Problem Altered bowel function (35981675) Altered bowel function (R19.4) 2017 Active confirmed YV268-Ggzbjqx bowel function Problem Weight decreased (387295432) Weight loss, abnormal (R63.4) 2013 Active confirmed VN074-Woqyww loss, abnormal Problem Constipation (18544744) Constipation (K59.00) 2017 Active confirmed LD717-Tpemblpjp ion Problem Stomach cramps (53178670) Stomach cramps (R10.9) 2017 Active confirmed OD473-Bytatzy cramps Problem Epigastric pain (82652744) Abdominal Pain Epigastric (R10.13) 2017 Active confirmed FA361-Atixjljqv Pain Epigastric Problem Elevated levels of transaminase & lactic acid dehydrogenase (962706339) Elevated LFTs- negative Hepatitis profile except Hep A (R74.0) 2013 Active confirmed WB509-Ywdjmkbh LFTs- negative Hepatitis profile except Hep A Problem Dysphagia (88368369) Regurgitates food (R13.10) 2017 Active confirmed RA069-Nrlgywxiv mohinder food Problem Rectal pain (39593318) Rectal Pain/Proctalgia (K62.89) 2013 Active confirmed PR932-Xdtswg Pain/Proctalgia Problem Lower abdominal pain (68860443) Colicky/ Crampy hypogastric burning pain- CT scan of the abdomen and Pelvis was normal in Apr 2017, CT scan of bladder and cystoscopy were normal as per patient- Urology evaluation negative (R10.30) 2017 Active confirmed GF927-Zwbmved/ Crampy hypogastric burning pain- CT scan of the abdomen and Pelvis was normal in Apr 2017, CT scan of bladder and cystoscopy were normal as per patient- Urology evaluation negative Problem Urinary incontinence (663889240) Urinary incontinence (R32) 2017 Active confirmed KS005-Rmuneun incontinence Problem Nausea (100124325) Nausea Only- persistent (R11.0) 2013 Active confirmed BX186-Vntbxt Only- Persistent Problem Incontinence of feces (14388208) Incontinence of feces (R15.9) 2013 Active confirmed DR282-Cmrtibpyj nce of feces Problem Right upper quadrant pain (577751530) Abdominal Pain RUQ (R10.11) 2013 Active confirmed HJ778-Uhbchuezv Pain RUQ Problem Periumbilical pain (722704067) Recurrent Suprapubic pain- Symptoms of UTI but urine is normal- ABx helps (R10.33) 2017 Active confirmed AX385-Nepyavxjo Suprapubic pain- Symptoms of UTI but urine is normal- ABx helps Problem Intentional weight loss (376785205) Intentional weight loss (R63.8) 2017 Active confirmed KI183-Odutaujlq al weight loss Problem Displacement of lumbar intervertebral disc without myelopathy (28150796) 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
--- OUTSIDE RECORDS SUMMARY | 2024-11-17 14:01 | XMS_ITS | Patient Health Record ---
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 of pelvic bones, sacrum, 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 confirmed Problem Thyrotoxicosis (28160833) Thyrotoxicosis without mention of goiter or other cause, without mention of thyrotoxic crisis or storm (242.90) Active confirmed Problem Vitamin deficiency (16309915) Unspecified vitamin deficiency (269.2) Active confirmed Problem Pure hypercholesterolemia (529573943) Pure hypercholesterolemia (272.0) Active confirmed Problem Migraine with aura (disorder) (9302160) Migraine with aura, without mention of intractable migraine without mention of status migrainosus (346.00) Active confirmed Problem Chronic sinusitis (41557638) Unspecified sinusitis (chronic) (473.9) Active confirmed Problem Vulvovaginitis (disorder) (96525348) Unspecified vaginitis and vulvovaginitis (616.10) Active confirmed Problem Sciatica (39343144) Sciatica (724.3) Active con firmed Problem Backache (733979830) Unspecified backache (724.5) Active confirmed Problem Lumbago (371308624) Lumbago (724.2) Active conf irmed Problem Contact dermatitis caused by detergent (63456253) Contact dermatitis and other eczema due to detergents (692.0) Active confirmed Problem Psoriasis (4186925) Other psoria sis (696.1) Active confirmed Problem Pain in joint, l ower leg (719.46) Active confirmed Problem Headache (25682124) Headache (784.0) Active con firmed Problem Cough (49579822) Cough (786.2) Active confirmed Problem Chest pain (97678986) Chest pain , unspecified (786.50) Active confirmed Problem Nausea and vomiting (66345932) Nausea with vomiting (787.01) Active confirmed Problem Diarrhea (82135808) Diarrhea (787.91) Active co nfirmed Problem Abdominal pain (finding) (30300663) Abdominal pain, unspecified site (789.00) Active confirmed Problem Right lower quadrant pain (562635996) Abdominal pain, right lower quadrant (789.03) Active confirmed Problem Body mass index 30.0 0 to 34.99 (605473809994190) Body Mass Index 33.0-33.9, adult (V85.33) Active confirmed Problem Body mass index 35.0 0 to 39.99 (909931072022889) Body Mass Index 35.0-35.9, adult (V85.35) Active confirmed Problem Chronic pain (60436798) chronic pain (338.4) Active confirmed Problem Fibromyalgia (987268628) fibromyalgia (729.1) Active confirmed Problem Tinea corporis (79801099) Tinea corporis (B35.4) Active confirmed Problem Hyperlipidemia (19624432) Hyperlipidemia, unspecified (E78.5) Active confirmed Problem Chronic pain syndrom e (419355712) Chronic pain syndrome (G89.4) Active confirmed Problem Allergic rhinitis (87333321) Allergic rhinitis, unspecified (J30.9) Active confirmed Problem Cellulitis and abscess of trunk (489398382) Cutaneous abscess of groin (L02.214) Active confirmed Problem Urticaria (98710217) Urticaria, unspecified (L50.9) Active confirmed Problem Low back pain (233597033) Low back pain (M54.5) Active confirmed Problem Pain (29947191) Pain, unspecifie d (R52) Active confirmed Problem Body mass index 35.0 0 to 39.99 (645711156476403) Body mass index (BMI) 39.0-39.9, adult (Z68.39) Active confirmed Plan Of Treatment Pending Test Test Name Order Date Ultrasound : Abdomen 06/04/2014 Urinalysis 05/01/2017 TEST AUTHORIZATION 01/24/2015 COMPREHENSIVE METABOLIC PANEL 10/26/2013 URINALYSIS, COMPLETE W/REFLEX TO CULTURE 05/24/2014 RHEUMATOID FACTOR 05/29/2013 HEMOGLOBIN A1c 05/24/2014 URINALYSIS, COMPLETE 05/12/2015 CBC (INCLUDES DIFF/PLT) 05/24/2014 CBC (INCLUDES DIFF/PLT) 10/26/2013 CBC (INCLUDES DIFF/PLT) 10/26/2013 CBC (INCLUDES DIFF/PLT) 05/29/2013 THYROID PANEL 09/28/2014 LIPID PANEL 05/24/2014 SED RATE BY MODIFIED WESTERGREN 05/29/19 14 HCG, TOTAL, QL 09/28/2014 VITAMIN B12 05/29/2013 VITAMIN B12 05/24/2014 TEST IN QUESTION - NO TEST FOR CONTAINER 01/24/2015 ANGIOTENSIN-I CONVERTING ENZ 06/26/2013 ALPHA 1 ANTITRYPSIN 07/28/2013 AMYLASE 08/07/2013 AMYLASE 07/28/2013 AMYLASE 06/04/2013 ANTI-NEUTROPHIL CYTOPLASMIC AB 4 ANTI-NEUTROPHIL [...] ISOENZYMES 06/26/2013 LIPASE 06/23/2013 LIPASE 06/04/2013 LIPASE 08/07/2013 LIPASE 07/28/2013 LIPASE 07/02/2014 LIPASE 08/26/2013 LIPID PROFILE (CORONARY RISK) 04/18/2015 [...] PATHOLOGY 08/27/2013 Thyroid Panel 06/04/2014 BLOOD CULTURE 07/28/2013 BLOOD CULTURE 07/28/2013 BLOOD CULTURE 06/25/2013 BLOOD CULTURE 06/25/2013 URINE CULTUREC 07/28/2013 RHEUMATOID FACTOR SCREEN 07/28/2013 HIV1 2 RAPID 02/17/2015 SURGICAL PATHOLOGY 03/02/2015 SURGICAL PATHOLOGY 03/02/2015 CBC 05/01/2017 CBC 08/08/2017 CBC 10/20/2015 CBC 01/24/2015 CBC 07/05/2015 Basic Metabolic Panel 05/01/2017 CMP 10/20/2015 CMP 07/05/2015 CMP 01/24/2015 CMP 08/08/2017 Lipid Panel 01/24/2015 Lipid Panel 07/05/2015 Lipid Panel 10/20/2015 Lipid Panel 05/01/2017 Hemoglobin A1c 10/20/2015 Hemoglobin A1c 07/05/2015 Hemoglobin A1c 01/24/2015 Hemoglobin A1c 08/08/2017 Hemoglobin A1c 01/24/2015 Hemoglobin A1c 12/02/2015 TSH 12/02/2015 TSH 10/20/2015 TSH 01/24/2015 TSH 01/24/2015 TSH 07/05/2015 TSH 05/01/2017 TSH 10/20/2015 TSH 08/08/2017 Vitamin B 07/05/2015 Vitamin B 10/20/2015 Vitamin B 01/24/2015 Vitamin B 08/08/2017 Vitamin B 01/24/2015 Vitamin B 10/20/2015 Vitamin B 12/02/2015 Vitamin D 01/24/2015 Vitamin D 07/05/2015 Vitamin D 01/24/2015 Vitamin D 10/20/2015 Vitamin D 08/08/2017 Vitamin D 05/01/2017 Folate 08/08/2017 Folate 10/20/2015 Folate 07/05/2015 Folate 12/02/2015 Folate 10/20/2015 DRUGSCREEN NO B 08/21/2019 Insurance Providers Payer Name Payer Address Payer Phone Subscriber Number Group Number Insured Name Patient Relationship to Insured Coverage Start Date Coverage End Date [employer] [address] [address] [place], [place] [id number] [phone] [id number] Irena Wolf Self - patient is the insured [employer] [address] [address] [place] [id number] Irena Wolf Self - patient is the [...]
[2024-11-23 09:08] LABS: Alphahydroxytriazolam, GCMS Ur NEGATIVE; Alprazolam, GCMS Urine NEGATIVE; Lorazepam GCMS Urine 310; Nordiazepam, GCMS Urine NEGATIVE; Oxazepam, GCMS Urine NEGATIVE
[2024-11-23 09:09] LABS: Alphahydroxymidazolam,GCMS Ur NEGATIVE; Aminoclonazepam, GCMS Urine NEGATIVE; Flurazepam Metabolite,GCMS Ur NEGATIVE; Temazepam, GCMS Urine NEGATIVE
== END 2024-11-17 11:01 | disposition home or self-care (01) ==
LOC: HO.HHCLNP 11:00
PROVIDERS: Visit Provider Internal Medicine Geriatric Medicine
DX: Z79.891 Long term (current) use of opiate analgesic (principal)
CPT/HCPCS: 80346

== ENCOUNTER 2024-12-25 08:30 | Emergency (ER) | payer MEDICAID, SELFPAY ==
--- OUTSIDE RECORDS SUMMARY | 2024-12-24 13:45 | XMS_ITS | Encounter Summary ---
Author Organization [employer] Address [address] [facility] [address] [place] [address] Care Team Providers Care Civil Lawyer Name Role Phone Name, Gabriel ADAME Primary Care Provider [phone] Reason for Visit * Reason Comments Cough Headache Nasal Congestion Encounter Details Date Type Department Care Team ([facility] Contact Info) Description 12/24/2024 1:45 PM EDT Telemedicine [facility] [address] [place] [address] Ralph Louis MD [address] [place] [address] Viral upper respiratory tract infection (Primary Dx) Social History Tobacco Use Types Packs/Day Years Used Date Smoking Tobacco: Former Cigarettes Smokeless Tobacco: Never Alcohol Use Standard Drinks/Week Comments Never 0 (1 standard drink = 0.6 oz pur e alcohol) Depression Answer Date Recorded Patient Health Questionnaire-9 Score 14 11/18/2024 Patient Health Questionnaire-9 Score 14 11/18/2024 Last PHQ-9: Questionnaire Data Not on file 0 11/18/2024 Housing Stability Answer Date Recorded What is [...] from getting things needed for daily living? No 06/16/2024 Utilities Answer Date Recorded In the past 12 months, has t he electric, gas, oil or water company threatened to shut off services in your home? No 07/29/2023 Depression Answer Date Recorded Patient Health Questionnaire-2 Score 4 11/18/2024 Internet Access Answer Date Recorded Internet Access Q1 Yes 06/16/2024 Internet Access Q2 Not on file 06/16/2024 Comments Unknown Sex and Gender Information Value Date Recorded Sex Assigned at Female 02/05/2022 10:17 AM EDT Legal Sex Female 10:17 AM EDT Gender Identity Female 02/05/2022 10:17 AM EDT Sexual Orientation Straight 02/05/2022 10 :17 AM EDT documented as of this encounter Progress Notes * Ralph Hickey MD - 12/24/2024 1:45 PM EDT Subjective Patient ID: Irena Wolf is a 44 y.o. female who presents for Cough, Headache, and Nasal Congestion. Cough This is a new problem. The current episode started in the past 7 days. The cough is Non-productive.Associated symptoms include chills and headaches. Pertinent negatives include no shortness of breath or wheezing. Headache Associated symptoms include coughing. Review of Systems Constitutional: Positive for chills. Respiratory: Positive for cough. Negative for shortness of breath and wheezing. Neurological: Positive for headaches. Objective Physical Exam Neurological: General: No focal deficit present. Mental Status: She is oriented to person, place, and time. Psychiatric: Mood and Affect: Mood normal. Behavior: Behavior normal. Assessment/Plan Problem List Items Addressed This Visit None Visit Diagnoses Viral upper respiratory tract infection - Primary Exposed to covid, she has remained negative, no shortness of breath reported, will provide sudafed for congestion and benzonatate for cough, call back if worsening Relevant Medications pseudoephedrine (Sudafed) 30 MG tablet documented in this encounter Plan of Treatment Upcoming Encounters Date Type Department Care Team ([facility] st Contact Info) Description 02/16/2025 11:00 AM EST Office Visit [facility] [address] [place] [address] 03/08/2025 10:15 AM EST Office Visit [facility] [place] [address] Name, MD [facility] [place] [address] documented as of this encounter Visit Diagnoses Diagnosis Viral upper respiratory tract infection- Primary Acute upper respiratory infections of unspecified site documented in this encounter Additional Health Concerns Assessment Noted Time PHQ-9 Depression Total Score: 14 025 3:37 PM EDT documented as of this encounter Care Teams Civil Lawyer Relationship Specialty Start Date End Date Name, MD Gabriel [facility] [place] [address] PCP - General Family Medicine 09/18/18 documented as of this encounter
[2024-12-25 08:36] VITALS: BP 120/65; PULSE 79; RESP 16; TEMP 36.7; O2SAT 97; BMI 26.5
--- NOTE | 2024-12-25 08:38 | ED.GENADULT ---
HPI - General Adult General Chief complaint: Upper Respiratory Symptoms Stated complaint: ? COVID Time Seen by Provider: 12/25/24 08:37 Source: patient, RN notes reviewed and old records reviewed Mode of arrival: ambulatory Limitations: no limitations History of Present Illness ED Provider: Lake HPI narrative: 44 year old female with history of IBS, chronic pain syndrome, gastric sleeve presenting for evaluation of a head cold. She complains of headache, congestion, cough for the last 4 days. She is living with her mother who has similar symptoms and tested positive for COVID-19 on Saturday. No chest pain or shortness of breath No other complaints or concerns at this time Related Data Home Medications ?Medication ?Instructions ?Recorded ?Confirmed sumatriptan succinate 100 mg 100 mg PO Q2-4H PRN Headache 01/21/20 06/13/23 tablet (Imitrex) acetaminophen 325 mg tablet 650 mg PO Q6H PRN 06/12/23 06/13/23 acetazolamide 125 mg tablet mg PO BID 06/12/23 06/13/23 baclofen 10 mg tablet 10 mg PO TID 06/12/23 06/13/23 hydrocodone 5 mg-acetaminophen 325 1 tab PO Q6H PRN severe pain 04/29/24 04/29/24 mg tablet estradiol 0.025 mg/24 hr 1 patch topical 2XW 11/06/24 semiweekly transdermal patch (Minivelle) naloxone 4 mg/actuation nasal spray intranasal 11/06/24 topiramate 25 mg tablet mg PO 11/06/24 Previous Rx's ?Medication ?Instructions ?Recorded jqdnjiyklr-gybmgaywximou-juenitit 1 cap PO Q6H PRN headache #20 caps 07/17/22 50 mg-300 mg-40 mg capsule (Fioricet) colesevelam 625 mg tablet (WelChol) 1,250 mg (2 x 625 mg) PO BID #120 05/05/24 tabs methylcellulose (laxative) 500 mg 500 mg PO DAILY #90 tabs 05/05/24 tablet (Citrucel) colestipol 1 gram tablet 1 g PO BID 90 days #180 tabs 06/19/24 dicyclomine 20 mg tablet 20 mg PO TID #90 tabs 11/06/24 lansoprazole 30 mg capsule,delayed 30 mg PO DAILY #30 caps 11/06/24 release ondansetron 4 mg disintegrating 4 mg PO Q8H PRN for 11/06/24 tablet nausea/vomiting 30 days #30 tabs sucralfate 1 gram tablet 1 g PO BEDTIME #30 tabs 11/06/24 Allergies Allergy/AdvReac Type Severity Reaction Status Date / Time adhesive Allergy Intermediate Rash Verified 12/25/24 08:42 promethazine (From PHENERGAN) Allergy Intermediate PSYCHOSIS Verified 12/25/24 08:42 NSAIDS (Non-Steroidal Allergy Unknown Gastrointestinal Verified 12/25/24 08:42 Anti-Inflamma (NSAIDS Upset (NON-STEROIDAL ANTI-INFLAMMA) oxycodone (From PERCOCET) Allergy Unknown headache Verified 12/25/24 08:42 metoclopramide (From Reglan) AdvReac Intermediate PSYCHOSIS Verified 12/25/24 08:42 medical tape- tegaderm Allergy Intermediate Rash Uncoded 11/06/24 11:40 dermabond Allergy Blister Uncoded 11/06/24 11:40 Review of Systems Constitutional: Constitutional: Reports body ache(s), Reports chills, Denies fever(s), Reports headache(s) and Reports malaise ENT: Reports headache(s) and Denies sore throat Cardiovascular: Cardiovascular: Denies chest pain, Denies dyspnea and Denies dyspnea on exertion Respiratory: Respiratory: Denies cough, Denies dyspnea and Denies dyspnea on exertion Gastrointestinal: Gastrointestinal: Denies abdominal pain, Denies nausea and Denies vomiting Musculoskeletal: Musculoskeletal: Denies back pain Integumentary/Breasts: Skin/Breast: Denies rash Neurologic: Reports headache(s) Psychiatric: Psychiatric: Denies anxiety [facility] Past Medical History Medical History Bile acid esophageal reflux Disc degeneration, lumbar Spondylosis of cervical spine Spondylosis of lumbar spine Chronic pain syndrome Panniculitis Intestinal malabsorption following gastrectomy Hypocalcemia Hypoproteinemia Hypomagnesemia Diarrhea Odynophagia Elevated lipase Nausea Splenic infarction Constipation Dysphagia Malabsorption due to intolerance, not elsewhere classified Obesity (BMI 30-39.9) Hiatal hernia Increased body mass index (BMI) PONV (postoperative nausea and vomiting) Migraines Sleep apnea History of Crabtree's palsy Motion sickness Vertigo HTN (hypertension) TMJ (temporomandibular joint disorder) PTSD (post-traumatic stress disorder) Insomnia Fatty liver High cholesterol Degenerative disc disease Sciatica of left side Bursitis Arthritis Diverticular disease Scoliosis Pseudotumor cerebri GERD (gastroesophageal reflux disease) Endometriosis Chronic back pain Palpitations Anxiety Depression IBS (irritable bowel syndrome) Surgical History Hx of colonoscopy History of esophagogastroduodenoscopy (EGD) History of repair of hiatal hernia History of sleeve gastrectomy History of tonsillectomy and adenoidectomy Hx of oophorectomy History of myringotomy History of laparoscopic cholecystectomy H/O unilateral oophorectomy S/P MALIKA (total abdominal hysterectomy) History of laparoscopy History of tubal ligation History of tonsillectomy Family History Family History Father No problems noted. Mother Heart disease Type 2 diabetes mellitus History of smoking Alcoholism COPD (chronic obstructive pulmonary disease) Hyperlipidemia Colon cancer Sister No problems noted. Sister No problems noted. 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 other at home: No Do you presently have visiting nurse or other home services: No Alcohol intake: never Comment: resting in bed with eyes closed Patient Tobacco Use Status: Current someday Tobacco user Tobacco use type: Cigarette Cigarettes Per Day: 3 Second Hand Smoke Exposure: No Substance Use Type: Marijuana Advance Directives: Yes Advance Directives Information Provided: No Advance Directives on File: No service: No Current occupational status: unemployed 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, 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 Physical Exam ED Vital Signs: Vital Signs - 24 hr 12/25/24 08:36 Temperature 98.1 F Pulse Rate 79 Respiratory Rate 16 Blood Pressure 120/65 Pulse Oximetry 97 Oxygen Delivery Method Room Air BMI result Body Mass Index 26.5 Const General: healthy appearing, comfortable, no acute distress, alert and awake Nutritional Appearance: well nourished Orientation/consciousness: patient oriented x3 HENMT Head: Yes normocephalic and Yes atraumatic Throat: Yes posterior oropharynx normal Eyes Eyelids: Yes eyelids normal Conjunctivae: conjunctivae normal Sclerae: sclerae normal Corneas: corneas normal Pupils: Equal, round and reactive pupils present EOM: EOMs intact bilaterally Neck Neck: Yes full ROM Resp Effort & Inspection: normal respiratory effort, able to speak in complete sentences, no audible wheezes and not labored Auscultation: clear to auscultation bilaterally Cardio Rate: regular rate Rhythm: regular rhythm Skin General skin exam: elasticity normal Neuro General: patient oriented x3 Cranial nerves: Yes Equal, round and reactive pupils present and Yes Bilaterally intact EOM present Cognition (Neuro): normal cognition Extrem Other: Moving all extremities well without any obvious deformities Medical Decision Making Medical Decision Making MDM Narrative: 44-year-old female presents for evaluation cough, congestion. She has a recent COVID exposure, vital signs are stable and she is well-appearing. Plan for viral swabs. Lungs are clear to auscultation. Differential Diagnosis Differential Diagnoses: The differential diagnosis associated with the presentation includes COVID-19 Influenza Respiratory infection Viral syndrome Bronchitis Sinusitis Lab Data Labs: Lab Results 12/25/24 Range/Units 09:06 COVID-19 (KENDRICK) Negative (Negative) COVID-19 Clin Com See Note Influenza Type A (NANCY) Negative (Negative) Influenza Type B (NANCY) Negative (Negative) Influenza A & B Note See Note Discharge Plan Discharge Clinical Impression: Upper respiratory infection Patient Disposition: Home, Self-Care Instructions: Upper Respiratory Infection (ED) Additional Instructions: Your COVID and flu tests were negative. You should continue to quarantine from your mother if she has COVID. You may use an wjrs-sfa-rrghdxm decongestant or cough medicine. Drink lots of fluids. Follow up with your primary doctor, return for new or worsening symptoms Prescriptions: No Action colestipol 1 gram tablet 1 g PO BID 90 Days Qty: 180 1RF dknihhkgpt-qmuwenzeqdogg-wset [Fioricet] 50-300-40 mg capsule 1 cap PO Q6H PRN (Reason: headache) Qty: 20 0RF hydrocodone-acetaminophen 5-325 mg tablet 1 tab PO Q6H PRN (Reason: severe pain) sumatriptan succinate [Imitrex] 100 mg tablet 100 mg PO Q2-4H PRN (Reason: Headache) Rx Instructions: do not exceed 2 doses per 24 hrs baclofen 10 mg tablet 10 mg PO TID acetazolamide 125 mg tablet PO BID acetaminophen 325 mg tablet 650 mg PO Q6H PRN topiramate 25 mg tablet PO naloxone 4 mg/actuation spray,non-aerosol intranasal estradiol [Minivelle] 0.025 mg/24 hr patch semiweekly 1 patch topical 2XW dicyclomine 20 mg tablet 20 mg PO TID Qty: 90 2RF sucralfate 1 gram tablet 1 g PO BEDTIME Qty: 30 4RF lansoprazole 30 mg capsule,delayed release(DR/EC) 30 mg PO DAILY Qty: 30 3RF ondansetron 4 mg tablet,disintegrating 4 mg PO Q8H PRN (Reason: for nausea/vomiting) 30 Days Qty: 30 0RF Citrucel 500 mg tablet 500 mg PO DAILY Qty: 90 2RF Rx Instructions: take it with full glass of water colesevelam [WelChol] 625 mg tablet 1,250 mg PO BID Qty: 120 2RF Print Language: Yoruba
--- NOTE | 2024-12-25 09:18 | PC.NURSE ---
Pt states URI symptoms since Saturday with ear pain and SALDAÑA- Denies fever- states loss of appetite.NAD VSS
[2024-12-25 09:28] LABS: COVID-19 Test Negative (Negative); IDNOW Serial# 55D5AD1C; IDNOW Serial# 6674DD1D; Influenza B2 Negative (Negative)
--- NOTE | 2024-12-25 09:32 | PC.NURSE ---
Pt roomed, VSS NAD, states RI SX started Saturday- awaiting Covid/flu results.
--- OUTSIDE RECORDS SUMMARY | 2024-12-25 09:44 | XMS_ITS | Encounter Summary ---
Author Organization [employer] Address [address] [place] [address] Care Team Providers Care Online Trader Name Role Phone Name, Gabriel ADAME Primary Care Provider Reason for Visit * Reason Onset Date Comments Nurse Triage 04/24/2024 Encounter Details Date Type Department Care Team ([facility] st Contact Info) Description 04/24/2024 Telephone [facility] MEDICINE [address] [place], [place] [phone] Name, MD Gabriel [address] [place] [address] Nurse Triage Social History Tobacco Use Types [...] Description 02/16/2025 11:00 AM EST Office Visit [facility] MEDICINE [address] [place] [phone] 03/08/2025 10:15 AM EST Office Visit [facility] MEDICINE [address] [place] [phone] Name, MD Gabriel [address] [place] [address] documented as of this encounter Visit Diagnoses Not on filedocumented in this encounter Additional Health Concerns Assessment Noted Time PHQ-9 Depression Total Score: 11 024 11:18 AM EDT documented as of this encounter Care Teams Online Trader Relationship Specialty Start Date End Date Name, MD Gabriel [address] [place] [phone] PCP - General Family Medicine 09/18/18 documented as of this encounter
--- OUTSIDE RECORDS SUMMARY | 2024-12-25 09:44 | XMS_ITS | Encounter Summary ---
Author Organization [employer] Address [address] [place] [address] Care Team Providers Care Web Software Engineer Name Role Phone Name, Gabriel ADAME Primary Care Provider [phone] Reason for Visit * Reason Onset Date Comments Appointment Request 12/14/2024 Encounter Details Date Type Department Care Team ([facility] st Contact Info) Description 12/14/2024 Telephone [facility] MEDICINE [address] [place], [place] [phone] Name, MD Gabriel [address] [place] [address] Appointment Request Social History Tobacco Use Types [...] encounter Miscellaneous Notes * Telephone Encounter - Katerine Bocanegra - 12/14/2024 1:25 PM EDT Tc from pt requesting a PE apt . Contact pt at [phone] documented in this encounter Plan of Treatment Upcoming Encounters Date Type Department Care Team (Late st Contact Info) Description 02/16/2025 11:00 AM EST Office Visit [facility] MEDICINE [address] [place] [address] 03/08/2025 10:15 AM EST Office Visit [facility] MEDICINE [address] [place] [address] Name, MD Gabriel [address] [place] [address] documented as of this encounter Visit Diagnoses Not on filedocumented in this encounter Additional Health Concerns Assessment Noted Time PHQ-9 Depression Total Score: 14 025 3:37 PM EDT documented as of this encounter Care Teams Web Software Engineer Relationship Specialty Start Date End Date NameGabriel MD [address] [place] [phone] PCP - General Family Medicine 09/18/18 documented as of this encounter
--- OUTSIDE RECORDS SUMMARY | 2024-12-25 09:44 | XMS_ITS | Encounter Summary ---
Author Organization [employer] Address [address] [place] [address] Care Team Providers Care Digital Media Manager Name Role Phone Name, Gabriel ADAME Primary Care Provider [phone] Reason for Visit * Reason Onset Date Comments Appointment Request 08/13/2024 Encounter Details Date Type Department Care Team ([facility] st Contact Info) Description 08/13/2024 Telephone [facility] MEDICINE [address] [place], [place] [phone] Name, MD Gabriel [address] [place] [address] Appointment Request Social History Tobacco Use Types [...] Date Recorded Patient Health Questionnaire-2 Score 4 06/03/2024 Internet Access Answer Date Recorded Internet Access [...] encounter Miscellaneous Notes * Telephone Encounter - Gaby Mckoy RN - 08/14/2024 10:33 AM EDT TC placed to pt regarding request for LUMBER CHECKER visit to be scheduled. Pt looking to be scheduled for pain group and/or appointment with [facility]. [facility] does not have access to pain group schedule. Writeradvised pt they would consult with LUMBER CHECKER nurse and [facility] would return call to schedule. Pt verbalized understanding. TC placed to [facility] Rekha for assistance. No answer. Message forwarded to Rekha for assistance. * Telephone Encounter - Tc Tran - 08/13/2024 12:00 PM EDT TC from pt requesting LUMBER CHECKER visit to be scheduled documented in this encounter Plan of Treatment Upcoming Encounters Date Type Department Care Team (Late st Contact Info) Description 02/16/2025 11:00 AM EST Office Visit [facility] MEDICINE [address] [place] [address] 03/08/2025 10:15 AM EST Office Visit [facility] MEDICINE [address] [place] [phone] Name, MD Gabriel [address] [place] [place] [address] documented as of this encounter Visit Diagnoses Not on filedocumented in this encounter Additional Health Concerns Assessment Noted Time PHQ-9 Depression Total Score: 11 024 11:18 AM EDT documented as of this encounter Care Teams Digital Media Manager Relationship Specialty Start Date End Date Name, MD Gabriel [address] [place] [address] PCP - General Family Medicine 09/18/18 documented as of this encounter
--- OUTSIDE RECORDS SUMMARY | 2024-12-25 09:44 | XMS_ITS | Clinical Summary ---
Author Organization [facility] Address [address] [place] [address] Care Team Providers Care Pet Ambassador Name Role Phone Unavailable Primary Care Provider Unavailabl e Source Comments PLEASE NOTE, if this patient is a minor, it may be UNLAWFUL to discuss sensitive information that is contained in these records (such as FAMILY PLANNING, MENTAL HEALTH or SUBSTANCE ABUSE) with the minor patient's parent or other person without the patient's specific authorization.[facility] Social History Tobacco Use Types Packs/Day Years Used Date Smoking Tobacco: Never Assessed Comments Unknown Sex and Gender Information Value Date Recorded Sex Assigned at Female 11/27/2024 6:50 AM PDT Legal Sex Female 6:50 AM PDT Gender Identity Female 11/27/2024 6:50 AM PDT Sexual Orientation Not on file Plan of Treatment Upcoming Encounters Date Type Department Care Team ([facility] Contact Info) Description 01/12/2025 11:00 AM EDT Behavioral Health Visit [facility] [address] [phone] Linda Pena APRN [address] [place] [address] Health Maintenance Due Date Last Done Comments Anxiety Screening 1978 Diabetes Screening 1978 HPV Screening 1978 Hepatitis C Screening 1978 Lipid Screening 1978 Pap + HPV 1978 Tobacco Screening 1978 Relationship Safety Screening/Counseling 1993 Hypertension Screening (#1) 01/22/1996 Cervical Cancer Screening [address] Colonography 2023 Colonoscopy 2023 Colorectal Cancer Screening 2023 FIT/gFOBT 2023 Fecal DNA 2023 Flexible Sigmoidoscopy 2023 Breast Cancer Screening (Mammogram) 03/14/202403/14 Alcohol and Drug Screen 04/08/2024 Depression Annual Screen 04/08/2024 [id number] ( season) 2024 Imm-Influenza (#1) 2024 12/13/2019, 01/01/2012 Imm-DTaP/Tdap/Td (2 - Td or Tdap) 12/30/2031 022 Imm-Hepatitis B Completed 06/21/2005, 01/06, 12/22/2004 HIV Screening Completed 11/06/2019, 11/06/2019 Cervical Ablation/Cold-Knife Conization Discontinued Cervical Cryotherapy Discontinued Colposcopy Discontinued Endometrial Biopsy Discontinued Excision/Leep Discontinued HPV Genotyping Discontinued Vaginal Pap Discontinued Vulvoscopy Discontinued Insurance [facility] [place]
--- OUTSIDE RECORDS SUMMARY | 2024-12-25 09:44 | XMS_ITS | Encounter Summary ---
Author Organization [employer] Address [address] [place] [address] Care Team Providers Care Animal Care Taker Name Role Phone Name, Gabriel ADAME Primary Care Provider [phone] Reason for Visit * Reason Onset Date Comments Nurse Triage 05/07/2024 Encounter Details Date Type Department Care Team ([facility] st Contact Info) Description 05/07/2024 Telephone [facility] MEDICINE [address] [place], [place] [phone] Name, MD Gabriel [address] [place] [address] Nurse Triage Social History Tobacco Use Types [...] encounter Miscellaneous Notes * Telephone Encounter - Britany Ellison - 05/07/2024 11:36 AM EST Symptom: Foot or Ankle Pain - Not From Injury Outcome: Schedule an urgent appointment (within 1 hour) or talk to a nurse or provider soon Reason: Trouble walking The caller accepted this outcome. documented in this encounter Plan of Treatment Upcoming Encounters Date Type Department Care Team (Late st Contact Info) Description 02/16/2025 11:00 AM EST Office Visit [facility] MEDICINE [address] [place] [address] 03/08/2025 10:15 AM EST Office Visit [facility] MEDICINE [address] [place] [address] Name, MD Gabriel [address] [place] [address] documented as of this encounter Visit Diagnoses Not on filedocumented in this encounter Additional Health Concerns Assessment Noted Time PHQ-9 Depression Total Score: 11 024 11:18 AM EDT documented as of this encounter Care Teams Animal Care Taker Relationship Specialty Start Date End Date Name, MD Gabriel [address] [place] [address] PCP - General Family Medicine 09/18/18 documented as of this encounter
--- OUTSIDE RECORDS SUMMARY | 2024-12-25 09:44 | XMS_ITS | Encounter Summary ---
Author Organization [employer] Address [address] [place] [address] Care Team Providers Care Manager Student Services Name Role Phone Name, Gabriel ADAME Primary Care Provider [phone] Reason for Visit * Reason Comments Med Refill Encounter Details Date Type Department Care Team ([facility] st Contact Info) Description 04/24/2024 Refill [facility] MEDICINE [address] [place], [place] [phone] Name, MD Gabriel [address] [place], [place] [phone] IIH (idiopathic intracranial hypertension) Social History Tobacco [...] Description 02/16/2025 11:00 AM EST Office Visit [address] [address] 03/08/2025 10:15 AM EST Office Visit [address] [address] Name, MD Gabriel [address] [place] [address] documented as of this encounter Visit Diagnoses Diagnosis IIH (idiopathic intracranial hypertension) Benign intracranial hypertension documented in this encounter Additional Health Concerns Assessment Noted Time PHQ-9 Depression Total Score: 11 024 11:18 AM EDT documented as of this encounter Care Teams Manager Student Services Relationship Specialty Start Date End Date NameGabriel MD [address] [place] [phone] PCP - General Family Medicine 09/18/18 documented as of this encounter
--- OUTSIDE RECORDS SUMMARY | 2024-12-25 09:44 | XMS_ITS | Encounter Summary ---
Author Organization [employer] Address [address] [place] [address] Care Team Providers Care Certified Welder Name Role Phone Name, Gabriel ADAME Primary Care Provider [phone] Encounter Details Date Type Department Care Team (Late Contact Info) Description 12/25/2024 Orders Only GENERIC EXTERNAL DATA DEPARTMENT Provider, Generic External Data Social History Tobacco Use Types Packs/Day Years [...] Description 02/16/2025 11:00 AM EST Office Visit [facility] [address] [place] [phone] 03/08/2025 10:15 AM EST Office Visit [facility] [address] [place] [phone] Name, MD Gabriel [address] [place] [phone] documented as of this encounter Procedures Procedure Name Priority Date/Time Associated Diagnosis Comments INFLUENZA A B2 ID NOW (ROCA) Routine 12/25/2024 9:06 AM EDT COVID-19 ID NOW (ROCA) Routine 12/25/2024 9:06 AM EDT documented in this encounter Results * Influenza A B2 ID NOW (Roca) (12/25/2024 9:06 AM EDT) IDNOW SERIAL# [id number] [facility] Influenza A Negative Negative [facility] Influenza B2 Negative Negative [facility] Influenza A B2 Note See Note [facility] Comment:The Roca ID NOW In fluenza A B2 test is used for thequalitative detection of influenza A and B from patientswith signs and symptoms of respiratory infection.Negative results do not preclude influenza virus infectionand should not be used as the sole basis for diagnosis,treatment or other patient management decisions.There is a risk of false negative results due to thepresence of variants in the viral targets of the assay, lowlevels of virus in the specimen and co- infection withRespiratory Syncytial Virus. 12/25/2024 9:06 AM EDT 12/25/2024 9:08 AM EDT us Generic External Data Provider LAB MICROBIOLOGY - GENERAL ORDERABLES Final Result Performing Organization Address City/[facility]/ZIP Co de Phone Number [facility] [address] [place] [address] [phone] * COVID-19 ID NOW (ROCA) (12/25/2024 9:06 AM EDT) IDNOW SERIAL# [id number] [facility] COVID-19 TEST Negative Negative [facility] COVID-19 NOTE See Note [facility] Comment: Results are for the identification of SARS-CoV2 RNA. TheSARS-CoV2 RNA is generally detectable in respiratory samplesduring the acute phase of infection. Positive results areindicative of the presence of SARS-CoV-2 RNA; clinicalcorrelation with patient history and other diagnosticinformation is necessary to determine patient infectionstatus. Positive results do not rule out bacterial infectionor co- infection with other viruses.Testing facilities within the [facility] are required to report all positive results tothe appropriate public health authorities.Negative results should be treated as presumptive and, ifinconsistent with clinical signs and symptoms or necessaryfor patient management, should be tested with differentauthorized or cleared molecular tests. Negative results donot preclude SARS-CoV2 RNA infection and should not be usedas the sole basis for patient management decisions. Negativeresults should be considered in the context of a patient'srecent exposures, history and the presence of clinical signsand symptoms consistent with COVID-19.This test has been authorized by the FDA under an EmergencyUse Authorization (EUA) for use by authorized laboratories.Testing performed on the Roca ID NOW utilizing NAAT. 12/25/2024 9:06 AM EDT 12/25/2024 9:08 AM EDT us Generic External Data Provider LAB MOLECULAR TREVON GNOSTICS ORDERABLES Final Result [facility] [address] [place] [address] [phone] documented in this encounter Visit Diagnoses Not on filedocumented in this encounter Additional Health Concerns Assessment Noted Time PHQ-9 Depression Total Score: 14 025 3:37 PM EDT documented as of this encounter Care Teams Certified Welder Relationship Specialty Start Date End Date Name, MD Gabriel [address] [place] [address] PCP - General Family Medicine 09/18/18 documented as of this encounter
--- OUTSIDE RECORDS SUMMARY | 2024-12-25 09:44 | XMS_ITS | Clinical Summary ---
Author Organization [facility] Address [address] [place] [address] Phone Care Team Providers Care Director Print Name Role Phone Physician, No Pcp Primary Care Provider Unavaila ble Allergies Active Allergy Reactions Criticality Noted Date Comments Adhesive Tape-Silicones 05/18/2024 Nsaids (Non-Steroidal Anti-I nflammatory Drug) 04/13/2024 Promethazine 04/13/2024 Metoclopramide Hcl 04/13/2024 Medications No known medications Encounters Date Type Department Care Team Description 10/16/2024 8:29 AM EDT - 10/16/2024 2:46 PM EDT Emergency [facility] [address] [place] [address] Nausea and vomiting, unspecified vomiting [...] Cervical Cancer Screening: P ap Smear 1999 Breast Cancer Screening 03/14/2024 03/14/2022 Depression Screening 04/08/2024 Colorectal Cancer Screening: Colonoscopy 04/23/2024 Hepatitis C Screening 04/23/2024 Social Influencers of Health Screening 04/23/2024 COVID-19 Vaccine (1 - 2023-2 5 season) 2024 Influenza Vaccine (#1) 2024 , 01/01/2012 DTaP,Tdap,and Td Vaccines (2 - Td or Tdap) 12/30/2031 12/29/2021 RSV Immunization Adult Patients (1 - 1-dose 75+ series) 2053 Hepatitis [...] Vincent Signed Date: 10/16/2024 11:58 Workstation ID: [id number] Transcribed By: Self Edit Transcribed Date: 10/16/2024 [...] Vincent Signed Date: 10/16/2024 11:58 Workstation ID: [id number] Transcribed By: Self Edit Transcribed Date: 10/16/2024 11:[address] PROCEDURES Final Result * Troponin I high sensitivity (10/16/2024 10:52 AM EDT) Only the most recent of2 resultswithin the time period is included. Pathologist [facility] High Sensitivity Troponin I 4 0 - 51 ng/L LAB CHEMISTRY METHOD 10/16/2024 11:22 AM EDT [facility] Blood Venous blood specimen / Unknown Venipuncture / Unknown 10/16/2024 10:52 AM EDT 10/16/2024 10:54 AM EDT Narrative [facility] - 10/16/2024 11:22 AM EDT Falsely decreased High Sensitivity Troponin I results may occur on samples from patients taking Biotin. Asia MENON LAB BLOOD ORDERABLES Final Resul t [facility] [address] [place], [place] [id number] * Urinalysis with reflex microscopic and culture (10/16/2024 10:48 AM EDT) Pathologist [facility] Color, Urine Yellow Colorless, Yellow LAB URINALYSIS - AUTOMATED METHOD 10/16/2024 11:03 AM EDT [facility] Clarity, Urine Clear Clear 10/16/2024 11:03 AM EDT [facility] Specific [place] Urine 1.020 1.005 - 1.030 LAB URINALYSIS - AUTOMATED METHOD 10/16/2024 11:03 AM EDT [facility] pH, Urine 7.5 5.0 - 7.0 pH LAB URINALYSIS - AUTOMATED METHOD 10/16/2024 11:03 AM EDT [facility] Leukocytes, Urine Negative Negative WBCs/mcL LAB URINALYSIS - AUTOMATED METHOD 10/16/2024 11:03 AM EDT [facility] Nitrite, Urine Negative Negative LAB URINALYSIS - AUTOMATED METHOD 10/16/2024 11:[facility] Protein, Urine Negative Negative, 10 mg/dL LAB URINALYSIS - AUTOMATED METHOD 10/16/2024 11:03 [facility] Glucose, Urine Negative Negative mg/dL LAB URINALYSIS - AUTOMATED METHOD 10/16/2024 11:03 [facility] Ketones, Urine Negative Negative mg/dL LAB URINALYSIS - AUTOMATED METHOD 10/16/2024 11:03 AM [facility] Urobilinogen, Urine Negative Negative mg/dL LAB URINALYSIS - AUTOMATED METHOD 10/16/2024 11:03 AM [facility] Bilirubin, Urine Negative Negative, 0.5 mg/dL LAB URINALYSIS - AUTOMATED METHOD 10/16/2024 11:03 AM [facility] Blood, Urine Negative Negative mg/dL LAB URINALYSIS - AUTOMATED METHOD 10/16/2024 11:03 AM [facility] Urine Urine specimen obtained by clean catch procedure / Unknown Non-blood Collection / Unknown 10/16/2024 10:48 AM EDT 10/16/2024 10:52 AM EDT us Asia MENON LAB URINE ORDERABLES Final Resul t [facility] [address] [place] [address] * [place] urine culture tube (10/16/2024 10:48 AM EDT) Extra Tube Hold for add-ons. 10/16/2024 12:01 PM EDT [facility] Comment:Auto resulted. Urine Urine specimen obtained by clean catch procedure / Unknown Non-blood Collection / Unknown 10/16/2024 10:48 AM EDT 10/16/2024 10:52 AM EDT Asia MENON LAB URINE ORDERABLES Final Resul t Performing Organization Address City/[facility]/ZIP Co de Phone Number [facility] [address] [place] [address] * Yellow urine no additive (10/16/2024 10:48 AM EDT) Extra Tube Hold for add-ons. 10/16/2024 12:01 PM EDT [facility] Comment:Auto resulted. Urine Urine specimen obtained by clean catch procedure / Unknown Non-blood Collection / Unknown 10/16/2024 10:48 AM EDT 10/16/2024 10:52 AM EDT Asia MENON LAB URINE ORDERABLES Final Resul t Performing Organization Address [facility]/ZIP Co de Phone Number [facility] [address] [place] [address] * (ABNORMAL) CBC auto differential (10/16/2024 9:29 AM EDT) WBC 10.9(H) 4.0 - 10.2 K/mcL LAB HEMETOLOGY METHOD 10/16/2024 10:02 AM EDT [facility] RBC 4.07 3.80 - 5.00 M/mcL LAB HEMETOLOGY METHOD 10/16/2024 10:02 AM EDT [facility] Hemoglobin 12.8 11.3 - 15.3 g/dL LAB HEMETOLOGY METHOD 10/16/2024 10:02 AM EDT [facility] Hematocrit 38.5 34.0 - 45.0 % LAB HEMETOLOGY METHOD 10/16/2024 10:02 AM [facility] MCV 94.6 81.0 - 97.0 FL LAB HEMETOLOGY METHOD 10/16/2024 10:02 AM [facility] MCH 31.4(L) 32.6 - 36.6 pcg LAB HEMETOLOGY METHOD 10/16/2024 10:02 AM [facility] MCHC 33.2 29.2 - 35.3 g/dL LAB HEMETOLOGY METHOD 10/16/2024 10:02 AM [facility] RDW 13.4 11.0 - 14.5 % LAB HEMETOLOGY METHOD 10/16/2024 10:02 AM [facility] RDW-SD 46.2 36.8 - 48.3 FL LAB HEMETOLOGY METHOD 10/16/2024 10:02 AM [facility] Platelets 265 150 - 400 K/mcL LAB HEMETOLOGY METHOD 10/16/2024 10:02 AM [facility] MPV 9.4 8.9 - 13.3 FL LAB HEMETOLOGY METHOD 10/16/2024 10:02 AM [facility] Neutrophils Relative 80.9(H) 32.0 - 71.0 % LAB HEMETOLOGY METHOD 10/16/2024 10:02 AM [facility] Immature Granulocytes Relative 0.4 0.0 - 1.0 % LAB HEMETOLOGY METHOD 10/16/2024 10:02 AM [facility] Lymphocytes Relative 13.1(L) 19.5 - 54.0 % LAB HEMETOLOGY METHOD 10/16/2024 10:02 AM [facility] Monocytes Relative 5.1 4.0 - 14.0 % LAB HEMETOLOGY METHOD 10/16/2024 10:02 AM [facility] Eosinophils Relative 0.1 0.0 - 7.0 % LAB HEMETOLOGY METHOD 10/16/2024 10:02 AM [facility] Basophils Relative 0.4 0.0 - 2.0 % LAB HEMETOLOGY METHOD 10/16/2024 10:02 AM [facility] Preliminary Neutrophils Abs Automated Count 8.82(H) 1.50 - 6.00 K/mcL LAB HEMETOLOGY METHOD 10/16/2024 10:02 AM [facility] Neutrophils Absolute 8.82(H) 1.50 - 6.00 K/mcL LAB HEMETOLOGY METHOD 10/16/2024 10:02 AM [facility] Immature Granulocytes Absolute 0.04 0.00 - 0.10 K/mcL LAB HEMETOLOGY METHOD 10/16/2024 10:02 AM [facility] Lymphocytes Absolute 1.43 1.10 - 4.00 K/mcL LAB HEMETOLOGY METHOD 10/16/2024 10:02 AM [facility] Monocytes Absolute 0.55 0.20 - 1.00 K/mcL LAB HEMETOLOGY METHOD 10/16/2024 10:02 AM [facility] Eosinophils Absolute 0.01 0.00 - 0.70 K/mcL LAB HEMETOLOGY METHOD 10/16/2024 10:02 AM [facility] Basophils Absolute 0.04 0.00 - 0.20 K/mcL LAB HEMETOLOGY METHOD 10/16/2024 10:02 AM [facility] NRBC 0.0 0.0 - 0.0 % LAB HEMETOLOGY METHOD 10/16/2024 10:02 AM [facility] NRBC Absolute 0.00 0.00 - 0.00 K/mcL LAB HEMETOLOGY METHOD 10/16/2024 10:02 AM EDT [facility] Blood Venous blood specimen / Unknown Venipuncture / Unknown 10/16/2024 9:29 AM EDT 10/16/2024 9:48 AM EDT us Asia MENON LAB BLOOD ORDERABLES Final Resul t [facility] [address] [place] [address] * hCG Qualitative (10/16/2024 9:29 AM EDT) Pathologist [facility] hCG Qual Negative Negative 10/16/2024 11:08 AM EDT [facility] Blood Venous blood specimen / Unknown Venipuncture / Unknown 10/16/2024 9:29 AM EDT 10/16/2024 9:48 AM EDT Asia MENON LAB BLOOD ORDERABLES Final Resul t Performing Organization Address City/[facility]/ZIP Co de Phone Number [facility] [address] [place] [address] * (ABNORMAL) Comprehensive Metabolic Panel (CMP) (10/16/2024 9:29 AM EDT) Pathologist [facility] Sodium 143 136 - 145 mmol/L LAB CHEMISTRY METHOD 10/16/2024 10:19 AM EDT [facility] Potassium 4.2 3.5 - 5.1 mmol/L LAB CHEMISTRY METHOD 10/16/2024 10:19 AM EDT [facility] Chloride 108(H) 98 - 107 mmol/L LAB CHEMISTRY METHOD 10/16/2024 10:19 AM EDT [facility] CO2 31 21 - 32 mmol/L LAB CHEMISTRY METHOD 10/16/2024 10:19 AM EDT [facility] Anion Gap 4 3 - 11 LAB CHEMISTRY METHOD 10/16/2024 10:19 AM [facility] Glucose 86 70 - 99 mg/dL LAB CHEMISTRY METHOD 10/16/2024 10:19 AM [facility] BUN 9 7 - 18 mg/dL LAB CHEMISTRY METHOD 10/16/2024 10:19 AM [facility] Creatinine 0.63 0.55 - 1.02 mg/dL LAB CHEMISTRY METHOD 10/16/2024 10:19 AM [facility] eGFR 111 >=60 mL/min/1. 73m2 LAB CHEMISTRY METHOD 10/16/2024 10:19 AM [facility] Comment: Please note that this estimated [...] 20.0 LAB CHEMISTRY METHOD 10/16/2024 10:19 AM [facility] Calcium 8.8 8.5 - 10.1 mg/dL LAB CHEMISTRY METHOD 10/16/2024 10:19 AM [facility] AST (SGOT) 15 15 - 37 unit/L LAB CHEMISTRY METHOD 10/16/2024 10:19 AM [facility] ALT (SGPT) 15 13 - 56 unit/L LAB CHEMISTRY METHOD 10/16/2024 10:19 AM [facility] Alkaline Phosphatase 81 42 - 98 unit/L LAB CHEMISTRY METHOD 10/16/2024 10:19 AM [facility] Total Protein 6.4 6.4 - 8.2 g/dL LAB CHEMISTRY METHOD 10/16/2024 10:19 AM EDT [facility] Albumin 3.7 3.4 - 5.0 g/dL LAB CHEMISTRY METHOD 10/16/2024 10:19 AM EDT [facility] Total Bilirubin 0.3 0.2 - 1.2 mg/dL LAB CHEMISTRY METHOD 10/16/2024 10:19 AM EDT [facility] Blood Venous blood specimen / Unknown Venipuncture / Unknown 10/16/2024 9:29 AM EDT 10/16/2024 9:48 AM EDT us Asia MENON LAB BLOOD ORDERABLES Final Resul t [facility] [address] [place] [address] * XR Chest 2 Views (10/16/2024 9:21 AM EDT) Anatomical Region Laterality Modality Body Radiographic Mary Carmen ging 10/16/2024 9:22 AM EDT Impressions 10/16/2024 9:22 AM EDT No acute cardiopulmonary abnormality. -------- FINAL REPORT -------- Dictated By: George Dang Dictated Date: 10/16/2024 09:22 Assigned Physician: George Dang Reviewed and Electronically Signed By: George Dang Signed Date: 10/16/2024 09:22 Workstation ID: [id number] Transcribed By: Self Edit Transcribed Date: 10/16/2024 [...] Dang Signed Date: 10/16/2024 09:22 Workstation ID: [id number] Transcribed By: Self Edit Transcribed Date: 10/16/2024 09:22 Asia MENON IMG XR PROCEDURES Final Result * 12-Lead ECG (10/16/2024 9:09 AM EDT) Ventricular Rate ECG 58 BPM GEMUSE Atrial Rate 58 BPM GEMUSE P-R Interval 156 ms GEMUSE QRS Duration 88 ms GEMUSE Q-T Interval 426 ms GEMUSE QTc 418 ms GEMUSE P Wave [place] 44 degrees GEMUSE R [place] 50 degrees GEMUSE T [place] 50 degrees GEMUSE ECG Interpretation SINUS BRADYCARDIA OTHERWISE NORMAL ECG NO PREVIOUS ECGS AVAILABLE Confirmed by Mague Garcia ([id number]) on 10/16/2024 5:50:27 PM GEMUSE 10/16/2024 9:09 AM EDT 10/16/2024 5:50 PM EDT Asia MENON ECG ORDERABLES Final Result GEMUSE from Last 3 Months Insurance MEDICAID - [place] Care Teams Director Print Relationship Specialty Start Date End Date Physician, No Pcp PCP - General 05/18/24
--- OUTSIDE RECORDS SUMMARY | 2024-12-25 09:44 | XMS_ITS | Encounter Summary ---
Author Organization [employer] Address [address] [place] [address] Care Team Providers Care Network/Telecom Engineer Name Role Phone Name, Gabriel ADAME Primary Care Provider [phone] Reason for Visit * Reason Onset Date Comments Med Refill 12/15/2024 Encounter Details Date Type Department Care Team ([facility] st Contact Info) Description 12/15/2024 Telephone [facility] [address] [place], [place] [phone] Name, MD Gabriel [address] [place] [address] Med Refill Social History Tobacco Use Types [...] Telephone Encounter - Samantha Sanches LPN - 12/15/2024 12:24 PM EDT Medication not prescribed by PCP. * Telephone Encounter - Priyanka Nova - 12/15/2024 12:16 PM EDT TC from pt requesting medication refill. Medications needing refill : - hydrOXYzine HCl (Atarax) 50 MG tablet To be sent to: - [id number] AT [facility] documented in this encounter Plan of Treatment Upcoming Encounters Date Type Department Care Team ([facility] st Contact Info) Description 02/16/2025 11:00 AM EST Office Visit [facility] [address] [place] [phone] 03/08/2025 10:15 AM EST Office Visit [facility] [address] [place] [phone] Name, MD Gabriel [address] [place] [phone] documented as of this encounter Visit Diagnoses Not on filedocumented in this encounter Additional Health Concerns Assessment Noted Time PHQ-9 Depression Total Score: 14 025 3:37 PM EDT documented as of this encounter Care Teams Network/Telecom Engineer Relationship Specialty Start Date End Date Name, MD Gabriel [address] [place] [address] PCP - General Family Medicine 09/18/18 documented as of this encounter
--- OUTSIDE RECORDS SUMMARY | 2024-12-25 09:44 | XMS_ITS | Encounter Summary ---
Author Organization [employer] Address [address] [facility] [address] [place] [address] Care Team Providers Care Finish Opener Name Role Phone Name, Gabriel ADAME Primary Care Provider [phone] Reason for Visit * Reason Onset Date Comments Results 11/17/2024 Encounter Details Date Type Department Care Team ([facility] st Contact Info) Description 11/17/2024 Telephone [facility] [address] [place], [place] [id number] Name, MD Gabriel [address] [place] [address] Results Social History Tobacco Use Types Packs/Day [...] AM EDT documented as of this encounter Functional Status * Over the past 2 weeks, how often have you been bothered by any of the following problems? Question Answer Date of Assessment Author Patient Health Questionnaire -2 Score 4 11/18/2024 3:37 PM EDT Darlene Hwang ctoria * Little interest or pleasure in doing things Answer Date of Assessment Author More than half the days 11/18/2024 3:37 PM EDT Damari Santillan * Feeling down, depressed, or hopeless Answer Date of Assessment Author More than half the days 11/18/2024 3:37 PM EDT Damari Santillan * Trouble falling or staying asleep, or sleeping too much Answer Date of Assessment Author Nearly every day 11/18/2024 3:37 PM EDT Damari Walter Ba * Feeling tired or having little energy Answer Date of Assessment Author Nearly every day 11/18/2024 3:37 PM EDT Damari Walter Ba * Poor appetite or overeating Answer Date of Assessment Author Not at all 11/18/2024 3:37 PM EDT Damari Dick * Feeling bad about yourself - or that you are a failure or have let yourself or your family down Answer Date of Assessment Author Several days 11/18/2024 3:37 PM EDT Damari Dick * Trouble concentrating on things, such as reading the newspaper or watching television Answer Date of Assessment Author More than half the days 11/18/2024 3:37 PM EDT Damari Santillan * Moving or speaking so slowly that other people could have noticed? Or the opposite - being so fidgety or restless that you have been moving around a lot more than usual. Answer Date of Assessment Author Several days 11/18/2024 3:37 PM EDT Damari Dick * Thoughts that you would be better off or hurting yourself in some way Answer Date of Assessment Author Not at all 11/18/2024 3:37 PM EDT Damari Dick * Patient Health Questionnaire-9 Score Answer Date of Assessment Author 14 11/18/2024 3:37 PM EDT Damari Dick * How difficult have these problems made it for you to do your work, take care of things at home, or get along with other people? Answer Date of Assessment Author Very difficult 11/18/2024 3:37 PM EDT Damari Dick * Over the last 2 weeks, how often have you been bothered by any of the following problems? Question Answer Date of Assessment Author Feeling nervous, anxious, or on edge 2 11/18/2024 3:38 PM EDT Darlene Hwang ctbaldev Not being able to stop or control worrying 2 11/18/2024 3:38 PM EDT Darlene Hwang ctbaldev Worrying too much about different things 2 11/18/2024 3:38 PM EDT Darlene Hwang ctbaldev Trouble relaxing 2 11/18/2024 3:38 PM EDT Damari Santillan Being so restless that it is hard to sit still 2 11/18/2024 3:38 PM EDT Darlene Hwang ctoria Becoming easily annoyed or irritable 2 11/18/2024 3:38 PM EDT Darlene Hwang ctoria Feeling afraid as if somethi ng awful might happen 3 11/18/2024 3:38 PM EDT Darlene Hwang ctoria IRVING-7 Total Score 15 11/18/2024 3:38 PM KASHT Damari Hwang documented as of this encounter Miscellaneous Notes * Telephone Encounter - Marilu Hector RN - 11/17/2024 2:09 PM EDT Return TC to patient, pt stated she took a anxiety medication 2 days ago and said she last had thisprescribed to her over [address] Huffman from [facility]. She does not have the bottle, but believes its Clonazepam. Pts UTOX was Pos BZO today, sent out for confirmation. Will message PCP * Telephone Encounter - Josiah Valenzuela - 11/17/2024 12:44 PM EDT Tc from pt calling in regards today's pain management appt stating results came out positive for benzol in which she wants to clarify she did take her anxiety medication. If any questions please contact pt at [phone]. documented in this encounter Plan of Treatment Upcoming Encounters Date Type Department Care Team (Late st Contact Info) Description 02/16/2025 11:00 AM EST Office Visit [facility] [address] [place] [phone] 03/08/2025 10:15 AM EST Office Visit [facility] [address] [place] [phone] Name, MD Gabriel [address] [place] [id number] documented as of this encounter Visit Diagnoses Not on filedocumented in this encounter Additional Health Concerns Assessment Noted Time PHQ-9 Depression Total Score: 11 024 11:18 AM EDT documented as of this encounter Care Teams Finish Opener Relationship Specialty Start Date End Date Name, MD Gabriel [address] [place] [phone] PCP - General Family Medicine 09/18/18 documented as of this encounter
--- OUTSIDE RECORDS SUMMARY | 2024-12-25 09:44 | XMS_ITS | Encounter Summary ---
Author Organization [employer] Address [address] [facility] [address] [place] [address] Care Team Providers Care Customer Acquisition Manager Name Role Phone Name, Gabriel ADAME Primary Care Provider [phone] Reason for Visit * Reason Onset Date Comments Nurse Triage 12/24/2024 Encounter Details Date Type Department Care Team ([facility] st Contact Info) Description 12/24/2024 Telephone [facility] [address] [place], [place] [phone] Name, MD Gabriel [address] [place] [address] Nurse Triage Social History Tobacco Use Types [...] encounter Miscellaneous Notes * Telephone Encounter - Pascale Nevarez RN - 12/24/2024 12:04 PM EDT called pt to triage, spoke to pt. pt states exposed to covid when she was visiting her mom, and nowhaving symptoms. pt states congestion, cough, sore throat, tactile fever, fatigue, headache and chills. pt denies known actual fevers, rash, severe or sustained sob, vomiting, or other associated symptoms. pt tested twice and both were negative. advised home care: rest, fluids, monitor temperature,OTC as needed, and call back as needed. given TC appt today with [facility] provider at 1:45 for any further recommendations or guidance. pt understands and agrees with plan. insurance verified. Protocol Used: COVID-19 - Diagnosed or Suspected (Adult) Protocol-Based Disposition: Discuss with PCP and Callback by Nurse Today Positive Triage Question: * COVID-19 infection suspected and mild symptoms (cough, fever, or others) with negative COVID-19 rapid test * All higher-acuity triage questions were negative Care Advice Discussed: * General Care Advice for COVID-19 Symptoms * Cough Medicines * Humidifier * Coughing Spells * Pain and Fever Medicines * Mild Stomach and Intestinal Symptoms During COVID-19 Illness * Reasons To Call Back - Fever over 103 F (39.4 C) - Fever lasts over 3 days - Fever returns after being gone for 24 hours - Chest pain or difficulty breathing occurs - Cough or other symptoms last more than 3 weeks - You become worse * Telephone Encounter - Priyanka Scot Nova - 12/24/2024 11:08 AM EDT Symptom: COVID-19 Suspected Outcome: Schedule a same-day appointment or talk to a nurse or provider today Reason: Caller denied all higher acuity questions The caller accepted this outcome. Contact contact pt at [phone] documented in this encounter Plan of Treatment Upcoming Encounters Date Type Department Care Team (Late st Contact Info) Description 02/16/2025 11:00 AM EST Office Visit [address] [address] 03/08/2025 10:15 AM EST Office Visit [address] [address] Name, MD Gabriel [address] [place] [phone] documented as of this encounter Visit Diagnoses Not on filedocumented in this encounter Additional Health Concerns Assessment Noted Time PHQ-9 Depression Total Score: 14 025 3:37 PM EDT documented as of this encounter Care Teams Customer Acquisition Manager Relationship Specialty Start Date End Date NameGabriel MD [address] [place] [phone] PCP - General Family Medicine 09/18/18 documented as of this encounter
--- OUTSIDE RECORDS SUMMARY | 2024-12-25 09:44 | XMS_ITS | Clinical Summary ---
Author Organization [employer] Address [address] [place] [address] Care Team Providers Care Roller Maker Name Role Phone Name, Gabriel ADAME Primary Care Provider [phone] Allergies Active Allergy Reactions Criticality Noted Date Comments Metoclopramide Other,Unknown 04/11/2010 psychosis Other reaction(s): Not available Nsaids 08/10/2020 Penicillin V Unknown 04/11/2010 Promethazine 04/11/2022 Other reaction(s): Not available Other Reaction(s): Allergy to NSAIDs 20-JAN-2016 23:30:17<$> Wound Dressing Adhesive 08/04/2018 Medications * This document contains information received from the source organization and may not represent a complete record from that organization. acetaminophen (Tylenol) 325 MG tablet TAKE 2 TABLETS BY MOUTH EVERY 6 HOURS NEEDED 40 tablet 01/05/20 23 Active estradiol (Vivelle-DOT) 0.025 MG/24HR Place 1 patch on the skin 2 (two) times a week. 07/29/19 24 Active hydrOXYzine HCl (Atarax) 50 MG tablet Active cyclobenzaprin e (Flexeril) 10 MG tablet Take 1 tablet twice a day by oral route as needed for 90 days. Active dicyclomine (Bentyl) 20 MG tablet Take 1 tablet (20 mg) by mouth 3 times daily. 90 tablet 06/03/19 25 Active topiramate (Topamax) 25 MG tabletIndicati ons:Pseudotumo r cerebri syndrome TAKE 1 TABLET(25 MG) BY MOUTH DAILY FOR 7 DAYS THEN TAKE 1 TABLET(25 MG) BY MOUTH TWICE DAILY FOR 21 DAYS 49 tablet 07/15/19 25 Active ondansetron (Zofran) 4 MG tablet TAKE 1 TABLET BY MOUTH EVERY 8 HOURS NEEDED FOR NAUSEA OR VOMITING 30 tablet 05/08/20 25 Active baclofen (Lioresal) 10 MG tablet TAKE 1 TABLET(10 MG) BY MOUTH THREE TIMES DAILY 90 tablet 1 08/14/19 25 Active SUMAtriptan (Imitrex) 100 MG tabletIndicati ons:Nonintract able episodic headache, unspecified headache type TAKE 1 TABLET BY MOUTH 1 TIME AT ONSET OF MIGRAINE WITH FLUID. MAY REPEAT AFTER 2 HOURS. IF HEADACHE RETURNS. NOT TO EXCEED 200 MGIN 24 HOURS 10 tablet 11/19/19 25 Active HYDROcodone-ac etaminophen (Many Farms) 5-325 MG tabletIndicati ons:Chronic low back pain with sciatica, sciatica laterality unspecified, unspecified back pain laterality Take 1 tablet by mouth every 6 (six) hours if needed for severe pain for up to 28 days. 112 tablet 12/17/19 25 025 Active pseudoephedrin e (Sudafed) 30 MG tablet Take 1 tablet (30 mg) by mouth every 6 (six) hours if needed for congestion for up to 10 days. 30 tablet 12/25/19 25 025 Active benzonatate (Tessalon Perles) 100 MG capsule Take 1 capsule (100 mg) by mouth if needed in the morning, at noon, and at bedtime for cough for up to 7 days. Do not crush or chew. 20 capsule 12/25/19 25 025 Active HYDROcodone-ac etaminophen (Many Farms) 5-325 MG tabletIndicati ons:Chronic low back pain with sciatica, sciatica laterality unspecified, unspecified back pain laterality Take 1 tablet by mouth every 6 (six) hours if needed for severe pain for up to 28 days. 112 tablet 11/18/19 25 025 Discontinued(Re order (will not trigger notification to Pharmacy)) Active Problems Problem Noted Date Diagnosed Date Moderate episode of recurrent major depressive d isorder 11/18/2024 IRVING (generalized anxiety disorder) 11/18/2024 Trochanteric bursitis of both hips 03/19/2024 Assessment & Plan (09/17/2024 2:31 PM EDT): - Following with [facility] - hx of injections Assessment & Plan (03/19/2024 5:17 PM EST): - Following with [facility] - hx of injections Long-term current use of opiate analgesic 2023 Overview (09/17/2024): Medication: Many Farms 5-325mg Q6H PRN Indication: chronic low back pain, trochanteric bursitis 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 MEDICAL BILLER CODER Agreement: 09/15/24 Assessment & Plan (11/19/2024 9:26 AM EDT): Timeline: - 03/17/24: Group - utox/pill count as expected - 09/15/24: Group - utox as expected, pill count 3 less than expected - 11/19/24: Group - pill count as expected, utox pos BZO --> confirmatory sent to lab Assessment & Plan (09/17/2024 2:36 PM EDT): Timeline: - 03/17/24: Group - utox/pill count as expected - 09/15/24: Group - utox as expected, pill count 3 less than expected Assessment & Plan (03/19/2024 5:11 PM EST): Timeline: - 03/17/24: MEDICAL BILLER CODER Group - WNL History of bariatric surgery [...] represent degenerative changes at the right hip. Assessment & Plan (11/19/2024 9:24 AM EDT): -Good engagement and participation with Group Medical Visit model -Encouraged multifactorial approach to pain control including pharm and non- pharm modalities -See gang head saw operator for utox/pill count Assessment & Plan (09/17/2024 2:34 PM EDT): -Good engagement and participation with Group Medical Visit model -Encouraged multifactorial approach to pain control including pharm and non- pharm modalities -See gang head saw operator for utox/pill count Anxiety 08/04/2018 Adhesion of intestine 08/04/2018 Irritable [...] -patient is engaged with pain management at [facility] where she receives injections -per [facility] notes, patient requires sedation for injections which [...] with pcp Hypoxia 12/25/2022 07/29/2023 Living in [facility] 12/25/2022 07/29/2023 Postablative ovarian failure 12/25/2022 07/29/2023 Blurring of visual image 04/11/2022 Headache 03/14/2022 07/29/2023 Palpitations 08/04/2018 07/29/2023 Prediabetes 08/04/2018 07/29/2023 Morbid obesity 08/31/2011 07/29/2023 Dysmenorrhea 08/31/2011 07/29/2023 Encounters * This document contains information received from the source organization and may not represent a complete record from that organization. Date Type Department Care Team Description 12/25/2024 Orders Only GENERIC EXTERNAL DATA DEPARTMENT Provider, Generic External Data 12/24/2024 1:45 PM EDT Telemedicine [facility] [address] [place] [address] Ralph Louis MD Viral upper respiratory tract infection (Primary Dx) 12/24/2024 Travel 12/24/[address] [address] Gabriel Vaughan MD Nurse Triage 12/16/[address] [address] Gabriel Vaughan MD Chronic low back pain with sciatica, sciatica laterality unspecified, unspecified back pain laterality 12/15/[address] [address] Gabriel Vaughan MD Appointment Request 12/15/[address] [address] Gabirel Vaughan MD Med Refill 12/14/[address] [address] Gabriel Vaughan MD Nurse Triage 12/14/[address] [address] Gabriel Vaughan MD Appointment Request 11/17/2024 11:00 AM EDT Office Visit [facility] [place] [address] Agustina Gonzalez, MUSIC LIBRARY ASSISTANT Chronic bilateral low back pain with right-sided sciatica (Primary Dx); Long-term current use of opiate analgesic 11/17/2024 Telephone [facility] [place] [address] Gabriel Vaughan MD Results 11/17/[address] [address] Flory Bautista, CHIEF LIBRARIAN EXTENSION DEPARTMENT Nonintractable episodic headache, unspecified headache type 11/17/[address] [address] Marilu Hector RN Chronic low back pain with sciatica, sciatica laterality unspecified, unspecified back pain laterality 11/17/2024 Travel 11/16/2024 Travel 11/16/[address] [address] Marilu Hector RN UTOX conf. Neg OXY 11/11/[address] [address] Marilu Hector, ROMINA Error (VOID this visit) 11/10/2024 10:00 AM EDT Clinical Support [address] [address] Marilu Hector, ROMINA Long-term current use of opiate analgesic (Primary Dx) 11/10/[address] [address] Marilu Hector RN Abnormal UTOX; Forgot Hydrocodone 11/10/2024 Travel 11/02/[address] [address] Marilu Hector, ROMINA Error (VOID this visit) 11/02/[address] [address] Marilu Hector RN NCNS MEDICAL BILLER CODER RV today 10/19/[address] [address] Name, MD Gabriel Appointment Request 10/19/2024 Refill [facility] [address] [place] [address] Name, MD Gabriel Chronic low back pain with sciatica, sciatica laterality unspecified, unspecified back pain laterality from Last 3 Months Immunizations Immunization Administration Dates Next Due Hep A, Adult [...] your housing situation today? I have evaristo ethan 07/29/[address] you li [...] Sign Reading Time Taken Comments Blood Pressure 119/72 06/03/2024 3:36 PM EST Pulse 76 06/03/2024 3:36 PM EST Temperature 36.7 C (98.1 F) 06/03/2024 3:36 PM EST Respiratory Rate 21 06/03/2024 3:36 PM EST Oxygen Saturation 98% 06/03/2024 3:36 PM EST Inhaled Oxygen Concentration - - Weight 73.5 kg (162 lb) 06/03/2024 3:36 PM EST Height 167.6 cm (5' 6 ) 07/29/2023 11:13 AM EDT Body Mass Index 26.15 07/29/2023 11:13 AM EDT Plan of Treatment Upcoming Encounters Date Type Department Care Team (Late st Contact Info) Description 02/16/2025 11:00 AM EST Office Visit [facility] [address] [place] [phone] 03/08/2025 10:15 AM EST Office Visit [facility] [address] [place] [phone] Name, MD Gabriel [address] [place] [address] Health Maintenance Due Date Last Done Comments CT Colonography 1978 FIT DNA/Cologuard 1978 FIT 1978 FOBT 1978 Lipid Panel 1978 Sigmoidoscopy 1978 Alcohol/Substance Use Screening 1990 Family Planning (PISQ) 1993 Pap Smear 1999 Cervical Cancer Screening 01/22/2008 HPV/Cotest 01/22/2008 Mammogram 03/14/2024 03/14/2022, 10/18/2020 COVID-19 Vaccine ( - 2023-2 5 season) 2024 Influenza Vaccine (#1) 2024 0, 01/01/2012 Depression Monitoring 05/21/2025 11/18/2024 , 11/18/2024 Disability Screening 06/03/2025 06/03/2024 Tobacco Screening 06/03/2025 06/03/2024 SDOH Screening 06/16/2025 06/16/2024 Zoster Vaccines (1 of 2) 01/22/2028 Colonoscopy [...] 5 Years) and At-Risk Patients (6 to 49) Years Aged Out No longer eligible b ased on patient's age to complete this topic RSV under 20 months Aged Out No longe r eligible based on patient's age to complete this topic Rotavirus Vaccines Aged Out No longer eligible based on patient's age to complete this topic Procedures Procedure Name Priority Date/Time Associated Diagnosis Comments COVID-19 ID NOW (ROCA) Routine 12/25/2024 9:06 AM EDT INFLUENZA A B2 ID NOW (ROCA) Routine 12/25/2024 9:06 AM EDT POCT SHARON-14 URINE DRUG SCREEN Routine 11/17/2024 11:37 AM EDT Long-term current use of opiate analgesic DRUG MONITORING, BENZODIAZEPINES, QUANTITATIVE, URINE Routine 11/17/2024 11:00 AM EDT Long-term current use of opiate analgesic POCT SHARON-14 URINE DRUG SCREEN Routine 11/10/2024 10:27 AM EDT Long-term current use of opiate analgesic OXYCODONE SCREEN, URINE Routine 11/10/2024 10:15 AM EDT Long-term current use of opiate analgesic DRUG MONITOR, OPIATES EXPANDED, QN, URINE Routine 11/10/2024 10:15 AM EDT Chronic bilateral low back pain with right-sided sciatica HM COLONOSCOPY Routine 04/29/2024 BI MAMMOGRAM SCREENING TOMOSYNTHESIS BILATERAL Routine 03/14/2022 1:48 PM EST HEPATITIS PANEL, GENERAL Routine 03/13/2022 3:54 PM EST HIV 1/2 ANTIGEN/ANTIBODY, FOURTH GENERATION W/RFL Routine 11/06/2019 11:32 AM EDT from Last 3 Months or Most Recently Relevant to Health Maintenance Results * Influenza A B2 ID NOW ([employer]) (12/25/2024 9:06 AM EDT) IDNOW SERIAL# [id number] [facility] Influenza A Negative Negative [facility] Influenza B2 Negative Negative [facility] Influenza A B2 Note See Note [facility] Comment:The Roca ID NOW In [...] LAB MICROBIOLOGY - GENERAL ORDERABLES Final Result [facility] [address] [place] [phone] * COVID-19 ID NOW (ROCA) (12/25/2024 9:06 AM EDT) IDNOW SERIAL# [id number] [facility] COVID-19 TEST Negative Negative [facility] COVID-19 NOTE See Note [facility] Comment: Results are for the identification of SARS-CoV2 RNA. TheSARS-CoV2 RNA is generally detectable in respiratory samplesduring the acute phase of infection. Positive results areindicative of the presence of SARS-CoV-2 RNA; clinicalcorrelation with patient history and other diagnosticinformation is necessary to determine patient infectionstatus. Positive results do not rule out bacterial infectionor co- infection with other viruses.Testing facilities within the [facility] and [facility] are required to report all positive [...] LAB MOLECULAR TREVON GNOSTICS ORDERABLES Final Result [facility] [address] [place] [phone] * (ABNORMAL) POCT SHARON-14 Urine Drug Screen (11/17/2024 11:37 AM EDT) Only the most recent of2 resultswithin the time period is included. THC Positive Negative Cocaine Screen, Urine Negative Negative Opiate Screen, Urine Positive Negative Methamphetamine Screen Urine Negative Negative Amphetamine Screen, Urine Negative Negative Benzodiazepines Screen, Urine Positive(A) Negative Barbiturate Screen, Urine Negative Negative Methadone Screen, Urine Negative Negative Buprenophine Screen, Urine Negative Negative TCA, Urine Positive Negative MDMA Urine Negative Negative ng/mL Oxycodone Screen, Urine Negative Negative Phencyclidine (PCP), Urine Negative Negative Propoxyphene, Urine Negative Negative Fentanyl, Urine Negative Negative Urine Urine specimen obtained by clean catch procedure / Unknown 11/17/2024 11:37 AM EDT Marilu Rubi RN - 11/17/2024 11:37 AM EDT UTOX cup Lot#[id number] Exp. 01/12/26 Internal Pass Control Gabriel Name POINT OF CARE TEST ENTER/EDIT OR DERABLES Final Result * Drug Monitoring, Benzodiazepines, Quantitative, Urine (11/17/2024 11:00 AM EDT) Nordiazepam, GCMS Urine NEGATIVE [facility] Comment:CUTOFF: 50 ng/mL Oxazepam, GCMS Urine NEGATIVE [facility] Comment:CUTOFF: 50 ng/mL Lorazepam GCMS Urine 310 [facility] Comment:CUTOFF: 50 ng/mL Alprazolam, GCMS Urine NEGATIVE [facility] Comment:CUTOFF: 25 ng/mL Alphahydroxytriazolam, GCMS Ur NEGATIVE [facility] Comment:CUTOFF: 50 ng/mL Temazepam, GCMS Urine NEGATIVE [facility] Comment:CUTOFF: 50 ng/mL Alphahydroxymidazolam,GC MS Ur NEGATIVE [facility] Comment:CUTOFF: 50 ng/mL Aminoclonazepam, GCMS Urine NEGATIVE [facility] Comment:CUTOFF: 25 ng/mL Flurazepam Metabolite,GCMS Ur NEGATIVE [facility] Comment:CUTOFF: 50 ng/mL Benzodiazepines Comments SEE NOTE [facility] Comment:This drug testing is for medical treatment only. Analysiswas performed as non-forensic testing and these resultsshould be used only by healthcare providers to renderdiagnosis or treatment, or to monitor progress of medicalconditions.Benzodiazepines Notes:Lorazepam detected is consistent with the use of the drugLorazepam.LDT Notes:Confirmation tests were developed and their analyticalperformance characteristics have been determined by [employer]. It has not been cleared or approved by the FDA.This assay has been validated pursuant to the CLIAregulations and is used for clinical purposes.Healthcare Providers needing Interpretation assistance,please contact us at [phone] ( ) M-F,8am to 10pm ESTPERFORMING SITE:[facility], [address] [place] [phone] [employer] Lifeguard Specialist: DARRELL BRICEÑO MD, CLIA:[id number] Urine (Urine, Random) 11/17/2024 11:00 AM EDT 11/17/2024 1:12 PM EDT us Gabriel Name LAB URINE ORDERABLES Final Resul t [facility] [address] [place] [phone] * Oxycodone Screen, Urine (11/10/2024 10:15 AM EDT) Oxycodone Urine Screen Not Detected Not Detect ng/mL [facility] Comment:Oxycodone cut-off is 100 ng/mL.Positive results are unconfirmed and should not be used fornon-medical purposes. Urine 11/10/2024 10:1 5 AM EDT 11/10/2024 4:13 PM EDT us Gabriel Name LAB URINE ORDERABLES Final Resul t [facility] [address] [place] [phone] * Drug Monitoring, Opiates Expanded, Quantitative, Urine (11/10/2024 10:15 AM EDT) Codeine, Urine NEGATIVE [facility] Comment:[id number] ng/mL Hydrocodone, Ur NEGATIVE [facility] Comment:Slvtwa86 ng/mL Oxycodone, Urine NEGATIVE [facility] Comment:Qxfnke76 ng/mL Oxycodone GC/MS Note SEE NOTE [facility] Comment:NOTES AND COMMENTSTh is drug testing is for medical treatment only. Analysiswas performed as non-forensic testing and these resultsshould be used only by healthcare providers torender diagnosis or treatment, or to monitor progress ofmedical conditions.LDT Notes:Confirmation tests were developed and their analyticalperformance characteristics have been determined by [employer]. It has not been cleared orapproved by the FDA. This assay has been validated pursuantto the CLIA regulations and is used for clinical purposes.Healthcare Providers needing Interpretation assistance,please contact us at [phone] ( ) M-F,8am to 10pm EST Morphine, Urine NEGATIVE [facility] Comment:Mgbqwg25 ng/mL Hydromorphone, Urine NEGATIVE [facility] Comment:Nqsfbz23 ng/mL Oxymorphone, Urine NEGATIVE [facility] Comment:Wzscsy98 ng/mL Opiates GC/MS Note SEE NOTE [facility] Comment:NOTES AND COMMENTSTh is drug testing is for medical treatment only. Analysiswas performed as non-forensic testing and these resultsshould be used only by healthcare providers torender diagnosis or treatment, or to monitor progress ofmedical conditions.LDT Notes:Confirmation tests were developed and their analyticalperformance characteristics have been determined by [employer]. It has not been cleared orapproved by the FDA. This assay has been validated pursuantto the CLIA regulations and is used for clinical purposes.Healthcare Providers needing Interpretation assistance,please contact us at [phone] ( ) M-F,8am to 10pm ESTPERFORMING SITE:[facility], [address] [place] [phone] [employer]eg[employer]ard Specialist: DARRELL BRICEÑO MD, CLIA:[id number] Norhydrocodone, Urine NEGATIVE [facility] Comment:Wrhavx17 ng/mL Noroxycodone, Urine NEGATIVE [facility] Comment:Gztbvh01 ng/mL Urine 11/10/2024 10:1 5 AM EDT 11/10/2024 4:13 PM EDT us Gabriel Vaughan MD LAB URINE ORDERABLES Final Resul t [facility] [address] [place] [phone] * (ABNORMAL) Colonoscopy (04/29/2024) Colonoscopy Abnormal( A) Normal Comment:due to areas of fair prep right side or earlier if clinically indicated 04/29/2024 Gabriel Vaughan MD [facility] Final Result * BI Mammogram Screening Tomosynthesis Bilateral (03/14/2022 1:48 PM EST) Anatomical Region Laterality Modality Breast Bilateral Mammography 03/14/2022 1:48 PM EST Narrative 03/15/2022 11:29 AM EST [facility] [address] [place] [address] Mammography Report Signed Patient: Irena Wolf MR#: [id number] : 1980 Acct:[id number] Age/Sex: 42 / F ADM Date: 03/14/22 Loc: HO.MAMMO Attending Dr: Gabriel Vaughan MD Ordering Physician: Gabriel Vaughan MD Results: 1Negative Date of Service: 03/14/22 Follow Up: 1 Year From Orig inal Mammogram Procedure(s): MM tomosynthesis screening BI Accession Number(s): [id number] cc: Gabriel Vaughan MD EXAMINATION: MM SCREENING [...] in OV> 03/15/22 1126 DD/ 1348 TD/TT: Weighter: JOSHUA Procedure Note Donotuseinterpreter, Image - 03/15/2022 [facility] [address] [place] [address] Mammography Report Signed Patient: Mikayla Wolf#: [id number] : 1980Acct:[id number] Age/Sex: 42 / FADM Date: 03/14/22 Loc: MAVERICKO Attending Dr: Gabriel Vaughan MD Ordering Physician: Gabriel Vaughan MDResults: 1Negative Date of Service: 03/14/22Follow Up: 1 Year From Orig inal Mammogram Procedure(s): MM tomosynthesis screening BI Accession Number(s): [id number] cc: Gabriel Vaughan MD EXAMINATION: MM SCREENING [...] in OV> 03/15/22 1126 DD/ 1348 TD/TT: Weighter: JOSHUA [facility] External Provider IMG BI PROCEDURES Edited Result - Final * Hepatitis Panel, General (03/13/2022 3:54 PM EST) Hepatitis A IgM Nonreactive Nonreactive [facility] Comment:IgM antibodies to SALDAÑA V not detected; does not exclude earlyacute or recovered HAV infection. ~Hepatitis B Surface Antibody NONREACTIVE Nonreactive [facility] Comment:Nonreactive: < 8.00 mIU/mL Hepatitis B Core Antibody Nonreactive Nonreactive [facility] Hepatitis C Antibody Nonreactive Nonreactive [facility] Comment:Antibodies to HCV no t detected; does not exclude early acuteHCV infection. Hepatitis B Surface Antigen Negative Negative [facility] 03/13/2022 3:54 PM EST 03/13/2022 3:54 PM EST us [facility] External Provider LAB BLO OD ORDERABLES Final Result [facility] [address], [place] [phone] * HIV 1/2 ANTIGEN/ANTIBODY,FOURTH GENERATION W/RFL (11/06/2019 11:32 AM EDT) HIV-1/2 ANTIGEN AND ANTIBODIES, 4TH GENERATION W/ REFLEX NON-REACT [facility] NON-REACT [facility] Comment: HIV-1 antigen and HIV-1/HIV-2 antibodies were not detected. There is no laboratory evidence of HIV infection. PLEASE NOTE: This information has been disclosed to you from records whose confidentiality may be protected by state law. If your state requires such protection, then the state law prohibits you from making any further disclosure of the information without the specific written consent of the person to whom it pertains, or as otherwise permitted by law. A general authorization for the release of medical or other information is NOT sufficient for this purpose. For additional information please refer to http://[employer]gor[employer]/faq/FVV819 (This link is being provided for informational/ educational purposes only.) The performance of this assay has not been clinically validated in patients less than 2 years old. HIV-1/2 ANTIGEN AND ANTIBODIES, 4TH GENERATION W/ REFLEX NON-REACT [facility] NON-REACT [facility] Comment: HIV-1 antigen and HIV-1/HIV-2 antibodies were not detected. There is no laboratory evidence of HIV infection. PLEASE NOTE: This information has been disclosed to you from records whose confidentiality may be protected by state law. If your state requires such protection, then the state law prohibits you from making any further disclosure of the information without the specific written consent of the person to whom it pertains, or as otherwise permitted by law. A general authorization for the release of medical or other information is NOT sufficient for this purpose. For additional information please refer to http://Agor[employer]y.[employer]/faq/FKI692 (This link is being provided for informational/ educational purposes only.) The performance of this assay has not been clinically validated in patients less than 2 years old. HIV-1/2 ANTIGEN AND ANTIBODIES, 4TH GENERATION W/ REFLEX NON-REACT ANGELA NON-REACT ANGEL[facility] Comment: HIV-1 antigen and HIV-1/HIV-2 antibodies were not detected. There is no laboratory evidence of HIV infection. PLEASE NOTE: This information has been disclosed to you from records whose confidentiality may be protected by state law. If your state requires such protection, then the state law prohibits you from making any further disclosure of the information without the specific written consent of the person to whom it pertains, or as otherwise permitted by law. A general authorization for the release of medical or other information is NOT sufficient for this purpose. For additional information please refer to http://education.[employer]/faq/PSE632 (This link is being provided for informational/ educational purposes only.) The performance of this assay has not been clinically validated in patients less than 2 years old. 11/06/2019 11:3 2 AM EDT Anshu Borjas MD LAB BLOOD ORDERABLES Final Result Performing Organization Address City/State/[facility] Co de Phone Number [facility] [address] from Last 3 Months or Most Recently Relevant to Health Maintenance Insurance Care Teams Roller Maker Relationship Specialty Start Date End Date Name, MD Gabriel [address] [place] [address] PCP - General Family Medicine 09/18/18
--- OUTSIDE RECORDS SUMMARY | 2024-12-25 09:44 | XMS_ITS | Encounter Summary ---
Author Organization [employer] Address [address] [address] [address] [place] [address] Care Team Providers Care Can Feeder Name Role Phone Name, Gabriel ADAME Primary Care Provider [phone] Reason for Visit * Reason Onset Date Comments Appointment Request 10/19/2024 Encounter Details Date Type Department Care Team ([facility] Contact Info) Description 10/19/2024 Telephone [facility] [address] [place], [place] [phone] Name, MD Gabriel [address] [place] [address] Appointment Request Social History Tobacco Use Types [...] Telephone Encounter - Marilu Hector RN - 10/19/2024 10:29 AM EDT Return TC to patient, [employer] appt scheduled for 11/02/24 @ 2pm. Pt c/o increased pain, difficulty going up stairs or walking long distance. She's requesting appt with PCP to discuss pain issues. * Telephone Encounter - Josiah Valenzuela - 10/19/2024 9:42 AM EDT Tc from pt requesting to schedule appt with pain management. documented in this encounter Plan of Treatment Upcoming Encounters Date Type Department Care Team (Late st Contact Info) Description 02/16/2025 11:00 AM EST Office Visit [facility] [address] [place] [phone] 03/08/2025 10:15 AM EST Office Visit [facility] [address] [place] [phone] Name, MD Gabriel [address] [place] [phone] documented as of this encounter Visit Diagnoses Not on filedocumented in this encounter Additional Health Concerns Assessment Noted Time PHQ-9 Depression Total Score: 11 024 11:18 AM EDT documented as of this encounter Care Teams Can Feeder Relationship Specialty Start Date End Date Name, MD Gabriel [address] [place] [address] PCP - General Family Medicine 09/18/18 documented as of this encounter
--- OUTSIDE RECORDS SUMMARY | 2024-12-25 09:44 | XMS_ITS | Encounter Summary ---
Author Organization [employer] Address [address] [facility] [facility] [address] [place] [address] Care Team Providers Care Gear Machinist Name Role Phone Name, Gabriel ADAME Primary Care Provider [phone] Reason for Visit * Reason Onset Date Comments Med Refill 04/17/2024 Encounter Details Date Type Department Care Team ([facility] st Contact Info) Description 04/17/2024 Telephone [facility] [address] [place], [place] [phone] Name, MD Gabriel [address] [place] [address] Med Refill Social History Tobacco Use Types [...] 3:11 PM EST Medication was sent to [facility] #[id number] on 04/16/24. * Telephone Encounter - Britany Ellison - 04/17/2024 3:08 PM EST TC from pt requesting medication refill. Medications needing refill : HYDROcodone-acetaminophen ([place]) 5-325 MG tablet To be sent to: [facility] #[id number] documented in this encounter Plan of Treatment Upcoming Encounters Date Type Department Care Team (Late st Contact Info) Description 02/16/2025 11:00 AM EST Office Visit [facility] [address] [place] [phone] 03/08/2025 10:15 AM EST Office Visit [facility] [address] [place] [phone] Name, MD Gabriel [address] [place] [phone] documented as of this encounter Visit Diagnoses Not on filedocumented in this encounter Additional Health Concerns Assessment Noted Time PHQ-9 Depression Total Score: 11 024 11:18 AM EDT documented as of this encounter Care Teams Gear Machinist Relationship Specialty Start Date End Date Name, MD Gabriel [address] [place] [address] PCP - General Family Medicine 09/18/18 documented as of this encounter
--- OUTSIDE RECORDS SUMMARY | 2024-12-25 09:44 | XMS_ITS | Encounter Summary ---
Author Organization [employer] Address [address] [facility] [address] [place] [address] Care Team Providers Care Insurance Licensing Supervisor Name Role Phone Name, Gabriel ADAME Primary Care Provider [phone] Encounter Details Date Type Department Care Team (Latest Contact Info) Description 12/24/2024 Travel Social History Tobacco Use Types Packs/Day Years [...] Description 02/16/2025 11:[address] EST [address] [facility] [address] [place] [phone] 03/08/2025 10:15 AM EST Office Visit [address] [address] Name, MD Gabriel [address] [place] [phone] documented as of this encounter Visit Diagnoses Not on filedocumented in this encounter Additional Health Concerns Assessment Noted Time PHQ-9 Depression Total Score: 14 025 3:37 PM EDT documented as of this encounter Care Teams Insurance Licensing Supervisor Relationship Specialty Start Date End Date Name, MD Gabriel [address] [place] [phone] PCP - General Family Medicine 09/18/18 documented as of this encounter
--- OUTSIDE RECORDS SUMMARY | 2024-12-25 09:44 | XMS_ITS | Encounter Summary ---
Author Organization [employer] Address [address] [place] [address] [address] [place] [address] Care Team Providers Care Route Manager Name Role Phone Name, Gabriel ADAME Primary Care Provider [phone] Reason for Visit * Reason Comments Med Refill Encounter Details Date Type Department Care Team (Late Contact Info) Description 10/28/2022 Refill [facility] [address] [place] [address] [phone] Gabriel Vaughan MD [address] [place] [address] [phone] Nonintractable episodic headache, unspecified headache type Social [...] Encounters Date Type Department Care Team (Late Contact Info) Description 02/16/2025 11:00 AM EST Office Visit [facility] [address] [place] [address] [phone] 03/08/2025 10:15 AM EST Office Visit [address] [phone] NameGabriel MD [address] [place] [phone] documented as of this encounter Visit Diagnoses Diagnosis Nonintractable episodic headache, unspecified headache type documented in this encounter Additional Health Concerns Assessment Noted Time PHQ-9 Depression Total Score: 6 07/04/19 23 1:10 PM EDT documented as of this encounter Care Teams Route Manager Relationship Specialty Start Date End Date Name, MD Gabriel [address] [place] [address] PCP - General Family Medicine 09/18/18 documented as of this encounter
[2024-12-25 09:45] VITALS: BP 120/65; PULSE 79; RESP 16; TEMP 36.7; O2SAT 97
== END 2024-12-25 09:46 | disposition home or self-care (01) ==
PROVIDERS: Physician Assistant; Emergency Provider Emergency Medicine; PCP Internal Medicine Geriatric Medicine
DX: J06.9 Acute upper respiratory infection, unspecified (principal); R51.9 Headache, unspecified; R05.9 Cough, unspecified; Z79.899 Other long term (current) drug therapy; Z11.52 Encounter for screening for COVID-19; Z98.84 Bariatric surgery status
CPT/HCPCS: 87502; 87635; 99283; 99284